=== PATIENT | male | born 1950 | race Caucasian/White ===

== ENCOUNTER → 2016-10-13 | Outpatient (CLI) | payer BC ==
[~2016-10-13] MED LIST: ACET500T57 PO; ATOR-24 PO; CEPH500C PO; CHOL2000 PO; CMD10 PO; CYAN500T PO; MAGN250T9 PO; PEDI1CHW82 PO; SERT-234 PO; SIMV40TA2 PO; WARF1TAB PO; WARF1TAB6 PO; WARF5TAB90 PO
[2016-10-13 12:18] LABS: BASO % 0.2 %; BASO ABS # 0.01 K/uL (0-0.2); COMPLETE YES; EOS % 3.8 %; HEMATOCRIT 42.9 % (42-52); IG% 0.2 %; LYMPH % 24.5 %; LYMPH ABS # 1.34 K/uL (1.2-3.4); MEAN CELL VOLUME 89.2 fL (80-100); MEAN CORPUSCULAR HEMOGLOBIN 28.9 pg (25-34); MEAN CORPUSCULAR HGB CONC 32.4 g/dl (32-36); MEAN PLATELET VOLUME 10.2 fL (7.4-10.4); MONO % 11.5 %; NEUT % 59.8 %; PLATELET COUNT 246 K/uL (130-400); RED BLOOD COUNT 4.81 M/uL (4.7-6.1); WHITE BLOOD COUNT 5.47 K/uL (4.8-10.8)
[2016-10-13 12:32] LABS: ALT/SGPT 22 U/L (12-78); AST/SGOT 16 U/L (15-37); BLOOD UREA NITROGEN 25 mg/dl (7-18); BUN/CREATININE RATIO 16.4 (10-20); CARBON DIOXIDE 26 mmol/L (21-32); CHLORIDE 113 mmol/L (98-107); GLUCOSE 65 mg/dl (70-99); POTASSIUM 4.1 mmol/L (3.5-5.1); SODIUM 146 mmol/L (136-145)
[2016-10-13 12:42] LABS: ALB/GLOB RATIO 0.9 (0.9-2); ALKALINE PHOSPHATASE 92 U/L (45-117)
[2016-10-13 12:51] LABS: ESTIMATED AVERAGE GLUCOSE 111 mg/dl; HA1C FLAG Normal (Normal)
--- NOTE | 2016-10-17 06:11 | CODING QUERY NO DIAGNOSIS ---
TREATMENT RENDERED WITHOUT A DIAGNOSIS Dr. Turpin, To promote full compliance with coding requirements relating to patient care, physician participation is requested in all cases of cloud infrastructure architect uncertainty. Please assist us with providing a diagnosis/symptom for the test(s) below: A diagnosis/symptom was not documented on your Order. A valid diagnosis/symptom is required to bill all insurances. Please remember that we are unable to code a diagnosis of rule out, probable, possible, questionable, or suspected. Tests that require a diagnosis: * CBC W/AUTO DIFF DIAGNOSIS: * CMP DIAGNOSIS: * GLYCOHEMOGLOBIN A1C DIAGNOSIS: * HA1C RESULT <7.0% DIAGNOSIS: * TSH DIAGNOSIS: * B12 VITAMIN LEVEL DIAGNOSIS: * VITAMIN D 25 HYRDROXY DIAGNOSIS: DATE OF SERVICE: 10/13/16 Provider Signature: Date: Thank you [facility] Information Management Once completed, please kindly fax back to [phone] For questions please call [phone]
--- NOTE | 2016-12-02 12:09 | CODING QUERY MEDICAL NECESSITY ---
CQSUPPORTING DIAGNOSIS NEEDED A supporting diagnosis is required for the test/procedure performed on this patient in order for us to be reimbursed by the patient's insurance. Please provide a supporting diagnosis for the following test/procedure listed below next to the test name along with your signature. *If there is no additional diagnosis for this patient that would support the following test/procedure please document that below next to the test/procedure. Test(s)/Procedure(s) that require a supporting diagnosis: DOS 10/13/16 VITAMIN D VITAMIN B12 Provider Signature: Date: Thank you [facility] Information Management Once completed, please kindly fax back to [phone] For questions please call [phone]
== END | disposition home or self-care (01) ==
LOC: C.LABBFT 09:04
PROVIDERS: ATTEND Internal Medicine Geriatric Medicine
DX: M19.90 Unspecified osteoarthritis, unspecified site (principal); F32.9 Major depressive disorder, single episode, unspecified; E78.5 Hyperlipidemia, unspecified; M10.9 Gout, unspecified; R73.9 Hyperglycemia, unspecified; I10 Essential (primary) hypertension; R91.8 Other nonspecific abnormal finding of lung field; G47.33 Obstructive sleep apnea (adult) (pediatric)

== ENCOUNTER → 2016-10-18 | Outpatient (CLI) | payer BC ==
[~2016-10-18] MED LIST changes: -ACET500T57 PO; -WARF5TAB90 PO
[2016-10-18 12:58] LABS: BLOOD UREA NITROGEN 26 mg/dl (7-18); BUN/CREATININE RATIO 19.9 (10-20); CALCIUM 9.2 mg/dl (8.5-10.1); CARBON DIOXIDE 28 mmol/L (21-32); CHLORIDE 111 mmol/L (98-107); GLUCOSE 85 mg/dl (70-99); POTASSIUM 4.4 mmol/L (3.5-5.1); SODIUM 145 mmol/L (136-145)
== END | disposition home or self-care (01) ==
LOC: C.LABBFT 09:39
PROVIDERS: ATTEND Internal Medicine Geriatric Medicine
DX: N20.0 Calculus of kidney (principal)

== ENCOUNTER → 2016-10-28 | Outpatient (CLI) | payer BC ==
[~2016-10-28] MED LIST changes: +ACET500T57 PO; +WARF5TAB90 PO
== END | disposition home or self-care (01) ==
LOC: C.LABBFT 07:58
PROVIDERS: ATTEND Urology
DX: N20.0 Calculus of kidney (principal); R91.8 Other nonspecific abnormal finding of lung field

== ENCOUNTER 2017-02-25 19:05 | Emergency (ER) | payer BC ==
[~2017-02-25] VITALS: Ht 182.9 cm; Wt 99.3 kg
[~2017-02-25 19:05] MED LIST changes: -ACET500T57 PO; -ATOR-24 PO; -CEPH500C PO; -CMD10 PO; -MAGN250T9 PO; -SERT-234 PO; -WARF1TAB6 PO; -WARF5TAB90 PO
[2017-02-25 19:10] VITALS: TEMP 36.4; Ht 182.9 cm; Wt 99.3 kg
[2017-02-25] MEDS ORDERED: WARF1TAB6 PO (19:34)
[2017-02-25] MEDS ORDERED: ATOR-24 PO (19:34)
[2017-02-25] MEDS ORDERED: MAGN250T9 PO (19:34)
[2017-02-25] MEDS ORDERED: SERT-234 PO (19:34)
[2017-02-25] MEDS ORDERED: CMD10 PO (19:34)
[2017-02-25] MEDS ORDERED: DIPHTHERIA/TETANUS/PERTUSSIS 0.5 ML SYR/VIAL IM. ONE (20:00)
--- NOTE | 2017-02-25 20:07 | DIAGNOSTIC IMAGING REPORT ---
RIGHT TIBIA/FIBULA 2 VIEWS ROUTINE CLINICAL HISTORY: Right puncture wound, right correa pain. COMPARISON: None FINDINGS: No acute fracture of the right tibia or fibula is identified. No radiopaque foreign bodies are identified. IMPRESSION: No acute fracture or radiopaque foreign body identified within the right lower leg. Electronically signed by: Ward Preston M.D. 02/25/2017 8:06 PM Dictated Date/Time: 02/25/2017 8:05 PM
[2017-02-25] MEDS ORDERED: CEPHALEXIN 500MG HOME PACK 1 EA BTL PO ONE (20:30)
--- NOTE | 2017-02-25 20:52 | DIAGNOSTIC IMAGING REPORT ---
CT OF THE HEAD WITHOUT CONTRAST CLINICAL HISTORY: Head injury, on coumadin COMPARISON STUDY: No previous studies for comparison. CT DOSE: 537.48 mGy.cm TECHNIQUE: Helical axial images of the head were obtained without IV contrast. Automated exposure control was utilized for the study. A dose lowering technique was utilized adhering to the principles of ALARA. FINDINGS: No acute intracranial hemorrhage, midline shift or mass effect is present. The ventricular system is normal. The basilar cisterns are patent. There are no extra-axial collections. Clancy-white differentiation is maintained. There is no calvarial fracture. There is mild mucosal thickening of the ethmoid sinuses. IMPRESSION: 1. No acute intracranial findings. 2. No calvarial fracture. Electronically signed by: Ward Preston M.D. 02/25/2017 8:51 PM Dictated Date/Time: 02/25/2017 8:49 PM
[2017-02-25] MEDS ORDERED: CEPH500C PO (20:55)
--- NOTE | 2017-02-25 20:57 | EMERGENCY ROOM VISIT NOTE ---
ED Visit Note First contact with patient: 19:13 CHIEF COMPLAINT: Head injury, puncture wound of right correa HISTORY OF PRESENT ILLNESS: This 66-year-old male patient presented to the emergency department 1 day after receiving a head injury and right correa puncture wound when he ran into a steel hitch. The patient states yesterday morning, he was pushing a steel cart, when the cart tipped. The patient states he ran into it with his head and his right correa. The patient states there has been a significant amount of bleeding over the past 24-36 hours. He has been using antibiotic ointment and gauze, however the bleeding and oozing continues. The patient is on Coumadin. The patient is complaining of soreness surrounding the lesion on his right correa. He denies redness or warmth, however does state the pain seems like it is worsening. Reports a heaviness in his right correa. There was no brief loss of consciousness. There has been no vomiting. The patient complains of primarily correa pain, and states this headache has been feeling fine since yesterday. The patient denies confusion, blurry vision, neck pain, altered mental status, and other associated head injury symptoms. The headache was present yesterday only. The patient complains of no neck pain. The patient has taken nothing for the pain. The patient rates the pain as 2/10 and throbbing. The patient denies bowel or bladder dysfunction. The patient denies any other injuries. REVIEW OF SYSTEMS: A 10-system review of systems was performed with positives and pertinent negatives listed in the history of present illness. All other systems were reviewed and are negative. ALLERGIES: Iodine MEDICATIONS: Warfarin, atorvastatin, sertraline, vitamin B12, multivitamin, vitamin D, magnesium supplement PMH: Hyperlipidemia, anxiety/depression, SOCIAL HISTORY: Lives locally with his family. He denies drug, alcohol, tobacco use. PHYSICAL EXAM: Vital Signs: Reviewed Nurse's notes, vital signs stable. GENERAL : 66-year-old male, in no acute distress, well-developed, well-nourished. NEURO : The patient is alert, oriented to person place and time, and coherent. Normal mini mental status exam. Negative Romberg and pronator drift. Cerebellar function intact. HEAD: Normocephalic, Atraumatic. EYES: Pupils are equal round and reactive to light and accommodation. EOMs are full and optic discs and fundi are normal. There is no swelling or discoloration of the tissue surrounding the eyes. EARS: External auditory canals clear without blood. NOSE: Patent without tenderness. No septal hematoma. FACE: No facial bone tenderness. NECK: Supple. There is no cervical spine tenderness. The patient does not have tenderness with movement of the neck. SKIN: Small puncture wound on the anterior aspect of the right correa. There is slight erythema surrounding the puncture wound. No obvious pus or active draining at this time. There is moderate tenderness on palpation of the wound and surrounding skin. MUSCULOSKELETAL: The patient does have full range of motion of the bilateral lower extremities. No decreased in strength. Distal pulses 2+ . RADIOLOGY: X-Ray Right lower leg: FINDINGS: No acute fracture of the right tibia or fibula is identified. No radiopaque foreign bodies are identified. IMPRESSION: No acute fracture or radiopaque foreign body identified within the right lower leg. CT Head without contrast: FINDINGS: No acute intracranial hemorrhage, midline shift or mass effect is present. The ventricular system is normal. The basilar cisterns are patent. There are no extra-axial collections. Clancy-white differentiation is maintained. There is no calvarial fracture. There is mild mucosal thickening of the ethmoid sinuses. IMPRESSION: 1. No acute intracranial findings. 2. No calvarial fracture. ED COURSE: I examined the patient. X-Ray of the right lower leg and CT scan of the head were ordered with results as previously noted. The patient's wound was cleaned with sterile saline and gauze. A bacitracin dressing was applied. The patient was given a Tdap immunization. I discussed all findings with the patient and his at bedside. Discussion with the patient and his regarding possible infection risk. The patient was discharged home in good condition ambulatory with a home pack for Keflex. DIFFERENTIAL DIAGNOSIS: Closed head injury or concussion, intracranial hemorrhage, right tibial fracture, cellulitis of the right leg, puncture wound, and others DIAGNOSIS: Head injury DISCHARGE INSTRUCTIONS: You have been treated in the Emergency Department for a Closed Head Injury. CT Scan of your head/brain demonstrated no acute bleeding or other abnormalities. This does not completely rule out the risk for future damage to the brain. You were prescribed Keflex to be taken 4x daily. This is an antibiotic. All antibiotics have the potential to cause diarrhea. Stop this medication and contact a medical provider if you were to develop any significant adverse side effects including: wheezing, shortness of breath, passing out, vomiting, or a diffuse rash. Always take antibiotics as directed and COMPLETE the ENTIRE course regardless of the improvement of your symptoms. For pain control, you can use the following mthb-iuz-elissag medicines (if >12 yo): - Regular strength (325mg/tab) Tylenol (acetaminophen) 2 tabs every 4-6 hours as needed. Do not exceed 9 tablets in a 24 hour period. Avoid taking more than 3 grams (3000 mg) of Tylenol per day. This includes any other sources of acetaminophen you may take on a regular basis. - Regular strength (200 mg/tab) Advil (ibuprofen) 1-2 tabs every 4-6 hours as needed. Do not exceed a dose of 3200 mg per day. You should relax in a quiet, dark place for the rest of the day. Avoid any possible triggers including: cigarette smoke, caffeine, nicotine, chocolate, wine, beer, loud noises or music, or bright lights. You should schedule a follow-up appointment in 2-3 days with your Primary Care Provider or established Neurologist for further evaluation and treatment of your Headache. Return to the Emergency Department if your current symptoms worsen despite treatment course outlined above, or if you develop any of the following symptoms : intractable pain despite aforementioned treatment course, visual disturbances , loss of vision, unilateral weakness or facial drooping, slurring of speech, loss of coordination, or loss of consciousness. Or if you experience fever, chills, nausea, vomiting, increased redness, pain, or drainage from the leg wound. Problem List Medical Problems: (1) GERD (gastroesophageal reflux disease) Status: Chronic (2) HTN (hypertension) Status: Chronic (3) Hyperlipidemia Status: Chronic (4) Kidney stone Status: Chronic (5) PE (pulmonary embolism) Status: Resolved Current/Historical Medications Scheduled Atorvastatin (Lipitor), 40 MG PO QAM Cephalexin Monohydrate (Keflex), 500 MG PO QID Cholecalciferol (Vitamin D3), 2,000 UNIT PO DAILY Cyanocobalamin (Vitamin B-12), 500 MCG PO DAILY Magnesium (Magnesium), 250 MG PO QPM Pediatric Multiple Vitamin W/ (Flintstones Gummies Compl), 1 TAB PO BID Sertraline (Zoloft), 100 MG PO QAM Warfarin Sod (Coumadin), 10 MG PO Q2D Warfarin Sod (Jantoven), 11 MG PO Q2D Allergies Coded Allergies: Shellfish (Unverified Allergy, Intermediate, ., 02/25/17) Iodine (Verified Allergy, Unknown, 10/06/15) Vital Signs Date Time Temp Pulse Resp B/P (MAP) Pulse Ox O2 Delivery O2 Flow Rate FiO2 02/25/17 19:10 36.4 65 18 156/71 96 Room Air Medications Administered Medications (Trade) Dose Ordered Sig/Ulises Route Start Time Stop Time Status Last Admin Dose Admin Diphtheria/ Pertussis/Tetanus Vacc (Adacel Inj) 0.5 ml ONCE ONCE IM. 02/25/17 20:00 02/25/17 20:01 DC 02/25/17 20:00 0.5 ML Cephalexin Monohydrate (Keflex 500MG Home Pack) 1 homepack NOW ONCE PO 02/25/17 20:30 02/25/17 20:31 DC 02/25/17 20:47 1 HOMEPACK Departure Information Impression Primary Impression: Puncture wound of right leg excluding thigh Additional Impression: Head injury Dispostion Home / Self-Care Condition GOOD Prescriptions Cephalexin Monohydrate (Keflex) 500 Mg Cap 500 MG PO QID for 10 Days, #40 CAP Prov: Sharon Dean PA-C 02/25/17 Referrals Anthony Turpin M.D. (PCP) Patient Instructions ED Head Injury Closed, ED Infec Skin Cellulitis, [facility] Additional Instructions You have been treated in the Emergency Department for a Closed Head Injury. CT Scan of your head/brain demonstrated no acute bleeding or other abnormalities. This does not completely rule out the risk for future damage to the brain. You were prescribed Keflex to be taken 4x daily. This is an antibiotic. All antibiotics have the potential to cause diarrhea. Stop this medication and contact a medical provider if you were to develop any significant adverse side effects including: wheezing, shortness of breath, passing out, vomiting, or a diffuse rash. Always take antibiotics as directed and COMPLETE the ENTIRE course regardless of the improvement of your symptoms. For pain control, you can use the following cbyz-vzr-jrtmcpj medicines (if >12 yo): - Regular strength (325mg/tab) Tylenol (acetaminophen) 2 tabs every 4-6 hours as needed. Do not exceed 9 tablets in a 24 hour period. Avoid taking more than 3 grams (3000 mg) of Tylenol per day. This includes any other sources of acetaminophen you may take on a regular basis. - Regular strength (200 mg/tab) Advil (ibuprofen) 1-2 tabs every 4-6 hours as needed. Do not exceed a dose of 3200 mg per day. You should relax in a quiet, dark place for the rest of the day. Avoid any possible triggers including: cigarette smoke, caffeine, nicotine, chocolate, wine, beer, loud noises or music, or bright lights. You should schedule a follow-up appointment in 2-3 days with your Primary Care Provider or established Neurologist for further evaluation and treatment of your Headache. Return to the Emergency Department if your current symptoms worsen despite treatment course outlined above, or if you develop any of the following symptoms : intractable pain despite aforementioned treatment course, visual disturbances , loss of vision, unilateral weakness or facial drooping, slurring of speech, loss of coordination, or loss of consciousness. Or if you experience fever, chills, nausea, vomiting, increased redness, pain, or drainage from the leg wound. Problem Qualifiers Primary Impression: Puncture wound of right leg excluding thigh Encounter type: initial encounter Qualified Codes: S81.831A - Puncture wound without foreign body, right lower leg, initial encounter Additional Impression: Head injury Encounter type: initial encounter Qualified Codes: S09.90XA - Unspecified injury of head, initial encounter
--- NOTE | 2017-02-25 21:02 | EMERGENCY ROOM VISIT NOTE ---
ED Visit Note First contact with patient: 21:01 This Patient was discussed with the physician pastry assistant, Sharon Dean PA-C. The pertinent historical and physical exam findings were confirmed. I agree with the studies ordered and with the interpretations of these studies. I agree with the disposition and care plan.
[2017-02-25 21:16] VITALS: BP 150/62; PULSE 60; O2SAT 98
== END 2017-02-25 21:17 | disposition home or self-care (01) ==
LOC: C.EDB 19:07 → C.EDD 21:17
DX: S81.831A Puncture wound without foreign body, right lower leg, initial encounter (principal); S09.90XA Unspecified injury of head, initial encounter; Z79.01 Long term (current) use of anticoagulants; W22.8XXA Striking against or struck by other objects, initial encounter; I10 Essential (primary) hypertension; E78.5 Hyperlipidemia, unspecified; Z86.711 Personal history of pulmonary embolism; Z79.899 Other long term (current) drug therapy

== ENCOUNTER → 2017-03-14 | Outpatient (CLI) | payer BC ==
[~2017-03-14] MED LIST changes: +ATOR-24 PO; +CMD10 PO; +MAGN250T9 PO; +SERT-234 PO; -SIMV40TA2 PO; -WARF1TAB PO; +WARF1TAB6 PO
--- NOTE | 2017-03-14 16:57 | DIAGNOSTIC IMAGING REPORT ---
PELVIS 1 OR 2 VIEW ROUTINE CLINICAL HISTORY: Pelvis and left hip pain status post trauma COMPARISON STUDY: No previous studies for comparison. FINDINGS: No fractures are visualized. The joint space of each hip appears well-preserved for age. There is no nodes of SI joint diastases. There is no evidence of symphysis diastases. IMPRESSION: No fractures identified. Electronically signed by: Dallas Nolasco M.D. 03/14/2017 4:56 PM Dictated Date/Time: 03/14/2017 4:55 PM
--- NOTE | 2017-03-14 16:59 | DIAGNOSTIC IMAGING REPORT ---
LUMBAR SPINE 2 OR 3 VIEWS CLINICAL HISTORY: Low back pain and hip pain. COMPARISON STUDY: 02/25/2015 FINDINGS: There is no pathologic bowel dilatation. There are superior endplate deformities at the L1 and L2 level. These are felt to be old. There are no subluxations. There is bilateral nephrolithiasis. IMPRESSION: 1. Superior endplate L1 and L2 vertebral body deformities, which are likely old. 2. Bilateral nephrolithiasis Electronically signed by: Dallas Nolasco M.D. 03/14/2017 4:58 PM Dictated Date/Time: 03/14/2017 4:56 PM
== END | disposition home or self-care (01) ==
LOC: C.RAD 16:25
PROVIDERS: ATTEND Chiropractor
DX: M54.16 Radiculopathy, lumbar region (principal); N20.0 Calculus of kidney

== ENCOUNTER → 2017-03-20 | Outpatient (CLI) | payer BC ==
[2017-03-20 17:36] LABS: BLOOD UREA NITROGEN 30 mg/dl (7-18); BUN/CREATININE RATIO 24.8 (10-20); CALCIUM 8.6 mg/dl (8.5-10.1); CARBON DIOXIDE 30 mmol/L (21-32); CHLORIDE 111 mmol/L (98-107); GLUCOSE 75 mg/dl (70-99); SODIUM 147 mmol/L (136-145)
== END | disposition home or self-care (01) ==
LOC: C.LABBFT 14:25
PROVIDERS: ATTEND Internal Medicine Geriatric Medicine
DX: Z00.00 Encounter for general adult medical examination without abnormal findings (principal)

== ENCOUNTER → 2017-03-27 | Outpatient (CLI) | payer BC ==
[~2017-03-27] MED LIST changes: +GADAVIST IV PRN
--- NOTE | 2017-03-27 08:20 | DIAGNOSTIC IMAGING REPORT ---
MRI LUMBAR SPINE COMBINATION CLINICAL HISTORY: M54.17,R29.898 LEFT LEG WEAKNESS. LEFT HIP PAIN. LEFT-SIDED RADICULOPATHY. TECHNIQUE: Sagittal and axial T1, T2 and STIR images were obtained. Imaging was performed before and after the administration of 10 cc of intravenous Gadavist. COMPARISON STUDY: Conventional radiographic study dated 03/14/2017, MRI the lumbar spine dated 04/21/2008 OBSERVATIONS: The vertebral bodies and posterior elements appear intact. There is no abnormal bony signal present to suggest a marrow replacement process. There is an old superior endplate L1 compression deformity. There is scattered focal fatty rests/hemangiomas. L1-2: No disc protrusions or extrusions. No evidence of spinal canal or neural foraminal compromise. L2-3: No disc protrusions or extrusions. No evidence of spinal canal or neural foraminal compromise. L3-4: There is a mild circumferential disc bulge. There is no significant spinal or foraminal stenosis L4-5: There is a mild circumferential disc bulge. There is no significant spinal or foraminal stenosis L5-S1: No disc protrusions or extrusions. No evidence of spinal canal or neural foraminal compromise. The conus medullaris and cauda equina appear normal. There are no pathologically enhancing lesions. There are bilateral renal cysts. IMPRESSION: 1. Old superior endplate L1 compression deformity 2. Minor degenerative changes with minor disc bulges at the L3-4, and L4-5 levels. Electronically signed by: Dallas Nolasco M.D. 03/27/2017 8:19 AM Dictated Date/Time: 03/27/2017 8:14 AM
== END | disposition home or self-care (01) ==
LOC: C.MRI 07:16
PROVIDERS: ATTEND Internal Medicine Geriatric Medicine
DX: M54.17 Radiculopathy, lumbosacral region (principal); R29.898 Other symptoms and signs involving the musculoskeletal system

== ENCOUNTER → 2017-05-02 | Outpatient (CLI) | payer BC ==
[~2017-05-02] MED LIST changes: -GADAVIST IV PRN
[2017-05-02 12:27] LABS: BASO % 0.2 %; BASO ABS # 0.01 K/uL (0-0.2); COMPLETE YES; EOS % 2.3 %; HEMATOCRIT 45.3 % (42-52); LYMPH % 37.2 %; LYMPH ABS # 1.62 K/uL (1.2-3.4); MEAN CELL VOLUME 90.8 fL (80-100); MEAN CORPUSCULAR HEMOGLOBIN 28.9 pg (25-34); MEAN CORPUSCULAR HGB CONC 31.8 g/dl (32-36); MEAN PLATELET VOLUME 10.8 fL (7.4-10.4); MONO % 12.6 %; NEUT % 47.7 %; PLATELET COUNT 166 K/uL (130-400); RED BLOOD COUNT 4.99 M/uL (4.7-6.1); WHITE BLOOD COUNT 4.35 K/uL (4.8-10.8)
[2017-05-02 12:54] LABS: BLOOD UREA NITROGEN 19 mg/dl (7-18); BUN/CREATININE RATIO 17.5 (10-20); CALCIUM 8.9 mg/dl (8.5-10.1); CARBON DIOXIDE 28 mmol/L (21-32); CHLORIDE 109 mmol/L (98-107); CHOLESTEROL 137 mg/dl (0-200); GLUCOSE 85 mg/dl (70-99); POTASSIUM 4.1 mmol/L (3.5-5.1); SODIUM 143 mmol/L (136-145)
[2017-05-02 13:01] LABS: CHOLESTEROL/HDL RATIO 2.5; HDL CHOLESTEROL 54 mg/dl; LDL CHOLESTEROL CALCULATED 72 mg/dl; TRIGLYCERIDES 53 mg/dl (0-150); VERY LOW DENSITY LIPOPROT CALC 11 mg/dl
== END | disposition home or self-care (01) ==
LOC: C.LABBFT 09:19
PROVIDERS: ATTEND Internal Medicine Geriatric Medicine
DX: F32.9 Major depressive disorder, single episode, unspecified (principal); I10 Essential (primary) hypertension; E78.5 Hyperlipidemia, unspecified; R97.20 Elevated prostate specific antigen [PSA]

== ENCOUNTER → 2017-05-23 | Outpatient (CLI) | payer BC ==
--- NOTE | 2017-05-23 13:13 | DIAGNOSTIC IMAGING REPORT ---
CT SCAN OF THE CHEST WITHOUT IV CONTRAST CLINICAL HISTORY: Multiple pulmonary nodules. COMPARISON STUDY: Chest CT scans dated 05/16/2016, 04/30/2014, and 06/17/2013. TECHNIQUE: CT scan of the thorax was performed from the thoracic inlet to the upper abdomen. Images are reviewed in the axial, sagittal, and coronal planes. IV contrast was not administered for this examination. A dose lowering technique was utilized adhering to the principles of ALARA. CT DOSE: 866.77 mGy.cm FINDINGS: Thyroid: Imaged portions of the thyroid gland are normal in size and attenuation. Thoracic aorta: There is atherosclerotic calcification of the thoracic aorta , which is normal in caliber and demonstrates standard 3-vessel arch anatomy. Heart: The heart is normal in size and without pericardial effusion. The coronary arteries are densely calcified. Lungs and pleural spaces: The trachea and central airways are clear. There is no airspace consolidation or pleural effusion. A fat-containing Bochdalek hernia is seen at the left lung base. There are numerous calcified granulomas identified. There is a 3 mm noncalcified nodule in the left lower lobe seen on image #158. A 3 mm right upper lobe nodule is seen on image #152, and a 4 mm right upper lobe nodule along the right heart border is seen on image #154. These are unchanged from prior studies and of doubtful significance. No new or concerning pulmonary nodule is identified. Mediastinum: There is no mediastinal lymphadenopathy. Karishma: Not well assessed without IV contrast. Axillae: There is no axillary lymphadenopathy. Upper abdomen: The partially visualized kidneys are atrophic. There are numerous small bilateral nonobstructing renal calculi. Cysts are seen within the upper poles of both kidneys. There is a moderate hiatal hernia, and postoperative change is seen in the stomach. Skeletal structures: The skeletal structures are osteopenic. There is a mild compression deformity of L1. A large hemangioma is seen in the body of T12. No lytic or blastic bony lesions are seen. IMPRESSION: 1. There is no airspace consolidation or pleural effusion. 2. There are scattered noncalcified pulmonary nodules measuring up to 4 mm. These are unchanged dating back to 2013 and of doubtful significance. Numerous calcified granulomas are also unchanged. 3. No new or concerning pulmonary lesion is identified. 4. There are numerous small bilateral nonobstructing renal calculi. Electronically signed by: Gabriel Cuba M.D. 05/23/2017 1:12 PM Dictated Date/Time: 05/23/2017 1:04 PM
== END | disposition home or self-care (01) ==
LOC: C.CTS 12:46
PROVIDERS: ATTEND Internal Medicine Geriatric Medicine
DX: R91.8 Other nonspecific abnormal finding of lung field (principal); N20.0 Calculus of kidney

== ENCOUNTER → 2017-11-22 | Outpatient (CLI) | payer BC ==
[~2017-11-22] MED LIST changes: +ACET500T58 PO; -WARF1TAB6 PO; +WARF5TAB90 PO
[2017-11-22 17:11] LABS: BASO % 0.2 %; BASO ABS # 0.01 K/uL (0-0.2); EOS % 1.9 %; EOS ABS # 0.12 K/uL (0-0.5); HEMATOCRIT 42.5 % (42-52); HEMOGLOBIN 14.1 g/dL (14.0-18.0); IG# 0.01 K/uL (0.00-0.02); LYMPH % 25.7 %; LYMPH ABS # 1.65 K/uL (1.2-3.4); MEAN CELL VOLUME 90.4 fL (80-100); MEAN CORPUSCULAR HGB CONC 33.2 g/dl (32-36); MEAN PLATELET VOLUME 10.6 fL (7.4-10.4); MONO % 8.9 %; MONO ABS # 0.57 K/uL (0.11-0.59); NEUT % 63.1 %; NEUT ABS # 4.06 K/uL (1.4-6.5); PLATELET COUNT 164 K/uL (130-400); RED CELL DISTRIBUTION WIDTH SD 49.7 fL (36.4-46.3); WHITE BLOOD COUNT 6.42 K/uL (4.8-10.8)
[2017-11-22 18:52] LABS: BLOOD UREA NITROGEN 28 mg/dl (7-18); CREATININE 1.33 mg/dl (0.60-1.40); GLUCOSE 90 mg/dl (70-99)
[2017-11-22 18:53] LABS: ALBUMIN 3.4 gm/dl (3.4-5.0); CALCIUM 8.6 mg/dl (8.5-10.1); CARBON DIOXIDE 25 mmol/L (21-32); POTASSIUM 3.8 mmol/L (3.5-5.1); SODIUM 145 mmol/L (136-145); URIC ACID 4.9 mg/dl (2.6-7.2)
[2017-11-22 19:01] LABS: ALKALINE PHOSPHATASE 100 U/L (45-117); ALT/SGPT 32 U/L (12-78); AST/SGOT 31 U/L (15-37); TOTAL PROTEIN 6.8 gm/dl (6.4-8.2)
== END | disposition home or self-care (01) ==
LOC: C.LABBFT 14:33
PROVIDERS: ATTEND Internal Medicine Geriatric Medicine
DX: I10 Essential (primary) hypertension (principal); M19.90 Unspecified osteoarthritis, unspecified site; E78.5 Hyperlipidemia, unspecified; R73.9 Hyperglycemia, unspecified; N40.1 Benign prostatic hyperplasia with lower urinary tract symptoms; R97.20 Elevated prostate specific antigen [PSA]; M10.9 Gout, unspecified

== ENCOUNTER 2018-08-12 11:19 | Inpatient (IN) ==
[2018-08-12] MEDS ORDERED: ONDANSETRON INJ 2 MG/ML 2 ML VIAL IV STA (11:30)
[2018-08-12] MEDS ORDERED: ACETAMINOPHEN 1,000 MG/100 ML VIAL IV ONE (11:30)
[2018-08-12] MEDS ORDERED: SODIUM CHLORIDE 0.9% 1000ML 2,000 ML IV SCH (11:30)
[2018-08-12 11:39] LABS: Basophils # (auto) 0.03 K/uL (0-0.2); Basophils % (auto) 0.2 %; Eosinophils # (auto) 3.07 K/uL (0-0.5); Eosinophils % (auto) 22.5 %; Hematocrit (blood only) 51.5 % (42-52); Immature Granulocytes # (auto) 0.06 K/uL (0.00-0.02); Immature Granulocytes % (auto) 0.4 %; Lymphocytes # (auto) 1.91 K/uL (1.2-3.4); Mean Platelet Volume 10.7 fL (7.4-10.4); Monocytes % (auto) 5.9 %; Neutrophils # (auto) 7.75 K/uL (1.4-6.5); Platelet Count 168 K/uL (130-400); RDW Coefficient of Variation 14.9 % (11.5-14.5); RDW Standard Deviation 48.7 fL (36.4-46.3); Red Blood Count 5.72 M/uL (4.7-6.1); White Blood Count 13.62 K/uL (4.8-10.8)
[2018-08-12 11:51] LABS: Prothrombin Time 52.1 Seconds (9.0-12.0)
[2018-08-12 11:55] LABS: Alanine Aminotransferase 22 U/L (12-78); Albumin Level 3.1 gm/dl (3.4-5.0); Aspartate Aminotransferase 17 U/L (15-37); BUN Creatinine Ratio 13.7 (10-20); Bilirubin Direct < 0.1 mg/dl (0-0.2); Blood Urea Nitrogen 21 mg/dl (7-18); Calcium 8.9 mg/dl (8.5-10.1); Carbon Dioxide 21 mmol/L (21-32); Chloride 112 mmol/L (98-107); Creatinine Clr Calc Pharmacy 57.2 ml/min; Est GFR (African American) 54.7; Est GFR (Non-African American) 47.2; Glucose 125 mg/dl (70-99); Magnesium 1.7 mg/dl (1.8-2.4); Potassium 3.1 mmol/L (3.5-5.1); Sodium 145 mmol/L (136-145)
[2018-08-12 11:57] LABS: iSTAT Ionized Calcium 1.17 mmol/l (1.12-1.32)
[2018-08-12 11:59] LABS: Albumin Globulin Ratio 0.9 (0.9-2); Alkaline Phosphatase 126 U/L (45-117); Bilirubin,Total 0.3 mg/dl (0.2-1); Creatine Kinase 90 U/L (39-308); Globulin 3.6 gm/dl (2.5-4.0); INR 5.7 (0.9-1.1); Phosphorus 3.3 mg/dl (2.5-4.9); Total Protein 6.7 gm/dl (6.4-8.2); Troponin I < 0.015 ng/ml (0-0.045)
--- NOTE | 2018-08-12 12:06 | XRay Report ---
XR chest 1V portable CLINICAL HISTORY: Chest pain. COMPARISON STUDY: Chest CT May 23, 2017. FINDINGS: There is no pneumothorax or pleural effusion. Cardiomediastinal silhouette is stable. There is a probable hiatal hernia. There is no evidence for pulmonary edema. Mild left basilar opacity fav ors atelectasis. IMPRESSION: 1. No acute cardiopulmonary findings. 2. Mild left lower lung opacity which favors atelectasis. Electronically signed by: Ward Preston M.D. 08/12/2018 12:04 PM
[2018-08-12] MEDS ORDERED: POTASSIUM CHLORIDE / WTR 10 MEQ/100 ML PLCT IV STA (12:29)
--- NOTE | 2018-08-12 12:45 | History & Physical Report ---
Date of Service August 12, 2018 Assessment & Plan (1) Pancreatitis: Patient is elevation of his lipase to 2000 he had diarrhea he has no specific pain consistent with pancreatitis and a CT scan is unremarkable for inflammation of the pancreas. We will keep him without food hydrated with lactated Ringer's repeat lipase in the morning he has no elevation of his LFTs to suggest this would be cholestatic related or choledocholithiasis related pancreatitis he may benefit from an endoscopy with EUS to look for pancreatic divisum or an I PMN (2) Diarrhea: Patient had intermittent diarrhea for months according to the patient. He does have a variable diet only eating protein with very little fiber. He has seen a dietitian in the past. His diarrhea has been dark because he is taking this med. We will culture this for C. difficile and enteric's. Given his coagulopathy and presentation we will check a hemoglobin in the afternoon and also have him on Protonix She has hypokalemia hypomagnesemia and acute kidney injury due to his volume depletion from his diarrhea he will be volume resuscitated with lactated Ringer' s have his electrolyte is replaced and will be rechecked in the morning (3) Coagulopathy: Patient started his Coumadin dose which is fairly robust at 10 2 days a week and 7.5 all other days after his colonoscopy. Patient had a poor diet over the last 48 hours his INR is markedly elevated 5.7 we will give him a dose of 2.5 mg of vitamin K p.o. and hold his Coumadin following daily INRs he has no overt signs of bleeding but he does have the confounding dark bowel movements associated with Pepto-Bismol use. 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 The patient has had diarrhea for a few months. He does have a fairly altered diet given the fact that he status post gastric sleeve and he has very little carbohydrates or vegetables in his diet he typically eats high protein diet including protein shakes and protein drinks. Patient had a colonoscopy on by Dr. Krishna reportedly only with a few polyps and nothing significant. Subsequently he has not been unable to resume his diet since then, patient had a half a bagel and some soft drink this morning got intense abdominal pain and then had voluminous diarrhea he presented to the ER where he had a CT scan of his abdomen pelvis without significant abnormalities but had a lipase of 2000, potassium 3 1 magnesium 1.7 and an INR of 5.7 (he takes Coumadin for factor V Leiden deficiency) Over the last 2 days patient is also taking Pepto-Bismol at home he has had black bowel movement since that time but his hemoglobin on presentation was 17 g Allergies Allergy/AdvReac Type Severity Reaction Status Date / Time shellfish derived Allergy Intermediate Anaphylaxis Verified 08/12/18 11:44 iodine Allergy Unknown Verified 08/12/18 11:44 Home Medications Home Medications Medication Instructions Recorded Confirmed Type cholecalciferol (vitamin D3) 2,000 unit PO DAILY #0 10/06/15 08/12/18 History [Vitamin D3] cyanocobalamin (vitamin B-12) 500 mcg PO DAILY #0 10/06/15 08/12/18 History [Vitamin B-12] pediatric multivitamin 1 tab PO BID #0 10/06/15 08/12/18 History [Flintstones Multivitamin] atorvastatin [Lipitor] 40 mg PO QAM #0 02/25/17 08/12/18 History magnesium 250 mg PO QPM #0 02/25/17 08/12/18 History sertraline [Zoloft] 100 mg PO QAM #0 02/25/17 08/12/18 History acetaminophen 500 mg tablet 1,000 mg PO BID PRN tab 05/03/18 08/12/18 History warfarin 5 mg tablet See Label Instructions PO UD tab 07/12/18 08/12/18 History Past Med/Surg History Medical History GERD (gastroesophageal reflux disease) (Chronic) Hyperlipidemia (Chronic) PE (pulmonary embolism) (Resolved) Postoperative anemia (Acute) Factor V deficiency Pulmonary embolism APPROX 5 YEARS AGO. PT REMAINS ON WARFARIN Surgical History History of colonoscopy History of gastric bypass GASTRIC SLEEVE History of herniorrhaphy INCISIONAL History of laparoscopy OPEN LAP FOR COMPLICATION FOLLOWING GASTRIC SURGERY History of surgery LEFT ELBOW REPAIR Family History Other Family history of colon cancer Social History Current Living Situation: Spouse current occupational status: retired Feels Safe at Home: Yes Smoking Status: Former smoker Second Hand Exposure: No Hx Alcohol Use: No Hx Substance Use: No Beliefs That Will Affect Care: None Preferred Language: Maldivian Communication Ability: Effective Review of Systems ROS: well nourished well developed. he complains of mild distress No double vision blurry vision No problems with speech or swallowing No palpitations, chest pain or pressure No Wheezing or breathing issues Diffuse abdominal pain he has had no vomiting but mild nausea and persistent diarrhea has been black but he has taken bismuth No burning urine urine frequency or changes in color No focal joint pain or muscle pain No skin rashes or oral lesions No unusual bruising or bleeding No focused back pain or numbness or loss of strength No changes in memory or confusion Physical Exam 2 Vital Signs (Past 24 Hours): Last Vital Signs Temp 36.8 C 08/12/18 11:32 Pulse 68 08/12/18 12:26 Resp 11 L 08/12/18 12:26 BP 128/66 08/12/18 12:26 Pulse Ox 94 08/12/18 12:26 The patient appeared well nourished and normally developed. He is in mild distress Vital signs as documented. Are stable Head exam is unremarkable. No scleral icterus or corneal arcus noted Neck is without jugular venous distension, thyromegaly, or lymphademopathy Lungs are clear to auscultation and percussion. Cardiac exam reveals Rhythm is regular. First and second heart sounds normal. No murmurs, rubs or gallops. Abdominal exam reveals normal bowel sounds, no masses, no organomegaly he has very little tenderness to exam no guarding no rebound Extremities are nonedematous and both pedal pulses are normal. Neurologic exam is A&Ox3, no focal deficits, strength is equal bilateral Skin is warm Dry without bruises or lesions Results & Data Diagnostic Findings cxr shows mild LLL opacity that favors atelectasis CT ABD/PELVIS 1. No free air. 2. Mildly fluid-filled colon which may reflect a diarrheal state. No bowel obstruction. 3. Bilateral nephrolithiasis. No hydronephrosis or ureteral calculi. renal cysts suggested
--- NOTE | 2018-08-12 12:48 | CT Scan Report ---
CT OF THE ABDOMEN AND PELVIS WITHOUT CONTRAST CLINICAL HISTORY: Abdominal pain. Diarrhea. Colonoscopy one week ago. COMPARISON STUDY: CT of the abdomen and pelvis October 06, 2015. TECHNIQUE: Axial images of the abdomen and pelvis were obtained without IV contrast. Images were revi ewed in the axial, sagittal, and coronal planes. Automated exposure control was utilized for the any dy. A dose lowering technique was utilized adhering to the principles of ALARA. FINDINGS: Calcified granuloma within the right lower lobe is noted. A hiatal hernia is noted. There a re postoperative findings involving the stomach. No pneumatosis, free air or portal venous gas is pre sent. Unenhanced images of the liver, spleen, adrenal glands and pancreas are unremarkable. Evaluatio n is suboptimal on this unenhanced exam. Water attenuation bilateral renal lesions are suboptimally a ssessed on this unenhanced exam. However, these favor cysts. A few hypodense lesions are unchanged fr om earlier exams. These favor a hyperdense cyst. Multiple bilateral renal calculi measure up to 8 mm. There is no hydronephrosis. There are no ureteral calculi. There is no evidence for a bowel obstruct ion. The appendix is normal. There are suspected endoscopic clip within the cecum. Colon is mildly fl uid-filled. IMPRESSION: 1. No free air. 2. Mildly fluid-filled colon which may reflect a diarrheal state. No bowel obstruction. 3. Bilateral nephrolithiasis. No hydronephrosis or ureteral calculi. Electronically signed by: Ward Preston M.D. 08/12/2018 12:46 PM
[2018-08-12] MEDS: SODIUM CHLORIDE 0.9% 1000ML 1,000 ML IV SCH (13:24)
[2018-08-12] MEDS: MAGNESIUM SULFATE / D5W 1 GM/100 ML BAG IV SCH ×2 (13:25→16:06)
[2018-08-12] MEDS ORDERED: MoRPHine SULFATE 4 MG/ML 1 ML CARP\\VIAL IV PRN (14:36)
[2018-08-12] MEDS ORDERED: MoRPHine SULFATE 2 MG/ML CARP IV PRN (14:36)
[2018-08-12] MEDS ORDERED: PHYTONADIONE 5 MG TAB PO ONE (15:00)
--- NOTE | 2018-08-12 15:27 | Emergency Department Note ---
Entered by Ricarda Cast acting as a scribe for History of Present Illness General Chief complaint: Illness Time Seen by Provider: 08/12/18 11:20 Source: patient and other (nurse) Mode of arrival: EMS Limitations: other (weakness) History of Present Illness Provider complaint: Weakness Onset (ago): week(s) 1 Pain Consistency: + other (worsening) Quality: + other (weakness) Relieved By: + none Associated symptoms: + chest pain, + nausea/vomiting, + shortness of breath and + other (Additional symptoms: diarrhea, abdominal pain) The patient is a 68 year old male with a history of GERD, hypertension, hyperlipidemia, a PE, and anemia who presents to the Emergency Room with complaints of worsening weakness starting last week. Per nurse, the patient had a colonoscopy last week and has been experiencing persistent nausea, vomiting, and 8-9 episodes diarrhea every day since. She adds that the patient also complained of shortness of breath and chest pressure prior to being found unresponsive today. The patient currently complains of abdominal pain and slight nausea. He notes that he has not taken any recent antibiotics but took bowel prep prior to his colonoscopy and is on Coumadin. He also reports that he is not normally on O2 at home and that he still has his gallbladder. HPI limited secondary to weakness. Home Medications Home Medications Medication Instructions Recorded Confirmed Type cholecalciferol (vitamin D3) 2,000 unit PO DAILY #0 10/06/15 08/12/18 History [Vitamin D3] cyanocobalamin (vitamin B-12) 500 mcg PO DAILY #0 10/06/15 08/12/18 History [Vitamin B-12] pediatric multivitamin 1 tab PO BID #0 10/06/15 08/12/18 History [Flintstones Multivitamin] atorvastatin [Lipitor] 40 mg PO QAM #0 02/25/17 08/12/18 History magnesium 250 mg PO QPM #0 02/25/17 08/12/18 History sertraline [Zoloft] 100 mg PO QAM #0 02/25/17 08/12/18 History acetaminophen 500 mg tablet 1,000 mg PO BID PRN tab 05/03/18 08/12/18 History warfarin 5 mg tablet See Label Instructions PO UD tab 07/12/18 08/12/18 History Allergies Allergy/AdvReac Type Severity Reaction Status Date / Time shellfish derived Allergy Intermediate Anaphylaxis Verified 08/12/18 11:44 iodine Allergy Unknown Verified 08/12/18 11:44 Past Med/Surg History Medical History GERD (gastroesophageal reflux disease) (Chronic) Hyperlipidemia (Chronic) PE (pulmonary embolism) (Resolved) Postoperative anemia (Acute) Factor V deficiency Pulmonary embolism APPROX 5 YEARS AGO. PT REMAINS ON WARFARIN Surgical History History of colonoscopy History of gastric bypass GASTRIC SLEEVE History of herniorrhaphy INCISIONAL History of laparoscopy OPEN LAP FOR COMPLICATION FOLLOWING GASTRIC SURGERY History of surgery LEFT ELBOW REPAIR Family History Other Family history of colon cancer Social History Current Living Situation: Spouse current occupational status: retired Other Information That Helps Us Care for You: No Feels Safe at Home: Yes Safety Concerns: Feels Safe At This Time Smoking Status: Never smoker Do You Dip or Chew Tobacco: No Second Hand Exposure: No Tobacco Cessation Education Requested by Patient: No Hx Alcohol Use: No Hx Substance Use: No Beliefs That Will Affect Care: Mandaeism Preferred Language: Tamazight Communication Ability: Effective Clinical Science Consultant Required: No Review of Systems Other (Limited secondary to weakness) Physical Exam Vital Signs Vital Signs - 24 hr 08/12/18 11:24 08/12/18 11:27 08/12/18 11:28 Temperature Temperature Source Sepsis Recent Fever Within 48 Hours Sepsis New/Unexplained Change in Mental Status Sepsis Action Taken by Nursing Pulse Rate 95 H 90 85 Pulse Rate [Left Brachial] Pulse Rhythm Regular Pulse Strength Respiratory Rate 25 H 14 20 Respiratory Effort / Characteristics Respiratory Depth Respiratory Pattern Blood Pressure 126/81 Blood Pressure [Left Arm] Blood Pressure Mean 96 Blood Pressure Mean [Left Arm] Blood Pressure Position Blood Pressure Position [Left Arm] Pulse Oximetry 94 94 93 Oxygen Delivery Method Room Air 08/12/18 11:30 08/12/18 11:31 08/12/18 11:32 Temperature 36.8 C Temperature Source Oral Sepsis Recent Fever Within 48 Hours No Sepsis New/Unexplained Change in Mental Status No Sepsis Action Taken by Nursing No Action Required Pulse Rate 86 88 87 Pulse Rate [Left Brachial] Pulse Rhythm Regular Pulse Strength Normal Respiratory Rate 11 L 18 20 Respiratory Effort / Characteristics Non-Labored Respiratory Depth Normal Respiratory Pattern Regular Blood Pressure 131/76 126/81 Blood Pressure [Left Arm] Blood Pressure Mean 94 96 Blood Pressure Mean [Left Arm] Blood Pressure Position Lying Blood Pressure Position [Left Arm] Pulse Oximetry 94 95 93 Oxygen Delivery Method Room Air 08/12/18 12:00 08/12/18 12:01 08/12/18 12:26 Temperature Temperature Source Sepsis Recent Fever Within 48 Hours Sepsis New/Unexplained Change in Mental Status Sepsis Action Taken by Nursing Pulse Rate 76 81 68 Pulse Rate [Left Brachial] Pulse Rhythm Pulse Strength Respiratory Rate 11 L 12 11 L Respiratory Effort / Characteristics Respiratory Depth Respiratory Pattern Blood Pressure 123/67 128/66 Blood Pressure [Left Arm] Blood Pressure Mean 85 86 Blood Pressure Mean [Left Arm] Blood Pressure Position Blood Pressure Position [Left Arm] Pulse Oximetry 95 96 94 Oxygen Delivery Method 08/12/18 12:27 08/12/18 12:30 08/12/18 13:22 Temperature Temperature Source Sepsis Recent Fever Within 48 Hours Sepsis New/Unexplained Change in Mental Status Sepsis Action Taken by Nursing Pulse Rate 71 69 81 Pulse Rate [Left Brachial] Pulse Rhythm Pulse Strength Respiratory Rate 14 13 8 L Respiratory Effort / Characteristics Respiratory Depth Respiratory Pattern Blood Pressure Blood Pressure [Left Arm] Blood Pressure Mean Blood Pressure Mean [Left Arm] Blood Pressure Position Blood Pressure Position [Left Arm] Pulse Oximetry 93 92 Oxygen Delivery Method 08/12/18 13:24 08/12/18 13:30 08/12/18 14:00 Temperature Temperature Source Sepsis Recent Fever Within 48 Hours Sepsis New/Unexplained Change in Mental Status Sepsis Action Taken by Nursing Pulse Rate 73 79 75 Pulse Rate [Left Brachial] Pulse Rhythm Pulse Strength Respiratory Rate 11 L 14 13 Respiratory Effort / Characteristics Respiratory Depth Respiratory Pattern Blood Pressure 152/79 H 122/73 Blood Pressure [Left Arm] Blood Pressure Mean 103 89 Blood Pressure Mean [Left Arm] Blood Pressure Position Blood Pressure Position [Left Arm] Pulse Oximetry 95 Oxygen Delivery Method 08/12/18 14:37 Temperature 36.7 C Temperature Source Oral Sepsis Recent Fever Within 48 Hours Sepsis New/Unexplained Change in Mental Status Sepsis Action Taken by Nursing Pulse Rate Pulse Rate [Left Brachial] 80 Pulse Rhythm Pulse Strength Respiratory Rate 16 Respiratory Effort / Characteristics Respiratory Depth Respiratory Pattern Blood Pressure Blood Pressure [Left Arm] 129/75 Blood Pressure Mean Blood Pressure Mean [Left Arm] 93 Blood Pressure Position Blood Pressure Position [Left Arm] Sitting Pulse Oximetry 96 Oxygen Delivery Method Room Air GENERAL: Awake, alert, ill-appearing, in no distress HENT: Normocephalic, atraumatic. Oropharynx with dry mucous membranes and otherwise unremarkable. EYES: Normal conjunctiva. Sclera non-icteric. NECK: Supple. No nuchal rigidity. FROM. No JVD. RESPIRATORY: Clear to auscultation. CARDIAC: Regular rate, normal rhythm. Extremities warm and well perfused. Pulses equal. ABDOMEN: Soft, non-distended. Generalized abdominal tenderness. No rebound or guarding. No masses. RECTAL: Deferred. MUSCULOSKELETAL: Chest examination reveals no tenderness. The back is symmetrical on inspection without obvious abnormality. There is no CVA tenderness to palpation. No joint edema. LOWER EXTREMITIES: Calves are equal size bilaterally and non-tender. No edema. No discoloration. NEURO: Normal sensorium. No sensory or motor deficits noted. SKIN: No rash or jaundice noted. Course 1125: Past medical records reviewed. The patient was evaluated in room C1B, and a complete history and physical examination were performed. 1235: I reviewed the patient's case with Dr. Lisa - Hospitalist, [facility]. Dr. Lisa will evaluate the patient for further management. Consultations Consultation #1: I reviewed the patient's case with Dr. Lisa - Hospitalist , [facility]. Dr. Lisa will evaluate the patient for further management. Time: 12:35 Administered Medications Sodium Chloride (Nss 1000ml) 1,000 mls @ 125 mls/hr IV .Q8H UNIQUE Stop: 09/11/18 12:44 Last Admin: 08/12/18 13:24 Dose: 125 mls/hr Lactated Ringer's (Lr) 1,000 mls @ 125 mls/hr IV .Q8H UNIQUE Stop: 08/13/18 06:35 Last Admin: 08/12/18 16:12 Dose: 125 mls/hr Pantoprazole Sodium 40 mg/ (Syringe) 10 mls @ 5 mls/min IV BID UNIQUE Stop: 09/11/18 20:59 Last Admin: 08/12/18 21:19 Dose: 5 mls/min Magnesium Oxide (Mag-Ox) 200 mg PO QPM UNIQUE Stop: 09/11/18 20:59 Last Admin: 08/12/18 21:17 Dose: 200 mg Multivitamins/Folic Acid/Vitamin C (Flintstones Complete Chew Tab) 1 tab PO BID UNIQUE Stop: 09/11/18 20:59 Last Admin: 08/12/18 21:15 Dose: 1 tab Discontinued Medications Sodium Chloride (Nss 1000ml) 2,000 mls @ 999 mls/hr IV .Q2H1M UNIQUE Stop: 08/12/18 13:30 Last Infusion: 08/12/18 13:24 Dose: 0 mls/hr Admin: 08/12/18 11:49 Dose: 999 mls/hr Acetaminophen (Ofirmev) 1,000 mg in 100 mls @ 400 mls/hr IV NOW ONE Stop: 08/12/18 11:44 Last Infusion: 08/12/18 12:04 Dose: 0 mls/hr Admin: 08/12/18 11:49 Dose: 400 mls/hr Magnesium Sulfate/Dextrose (Magnesium Sulfate / D5w) 1 gm in 100 mls @ 100 mls/ hr IV Q1H UNIQUE Stop: 08/12/18 14:29 Last Admin: 08/12/18 16:06 Dose: Not Given Infusion: 08/12/18 14:39 Dose: 0 mls/hr Admin: 08/12/18 13:25 Dose: 100 mls/hr Potassium Chloride (K Bryce / Wtr) 10 meq in 100 mls @ 100 mls/hr IV NOW STA Stop: 08/12/18 13:28 Last Infusion: 08/12/18 14:40 Dose: 0 mls/hr Admin: 08/12/18 13:25 Dose: 100 mls/hr Ondansetron HCl (Zofran) 4 mg IV NOW STA Stop: 08/12/18 11:31 Last Admin: 08/12/18 11:49 Dose: 4 mg Phytonadione (Mephyton) 2.5 mg PO NOW ONE Stop: 08/12/18 15:01 Last Admin: 08/12/18 16:13 Dose: 5 mg Pneumococcal Polyvalent Vaccine (Pneumovax-23) 25 mcg IM .ONCE ONE Stop: 08/12/18 20:01 Last Admin: 08/12/18 21:17 Dose: Not Given Medical Decision Making Differential Diagnosis Differential diagnosis: Etiologies such as appendicitis, diverticulitis, PUD, biliary pathology, UTI, pancreatitis, obstruction, mesenteric ischemia, aortic pathology, infections, inflammatory bowel disease, renal colic, as well as others were entertained. Medical Records Attestation: I reviewed the patient's medical records. Home Medications Current Medication List: was personally reviewed by me Laboratory Data Attestation: I reviewed the patient's lab results. Result diagrams: 08/12/18 16:54 08/12/18 11:25 Lab Results 08/12/18 08/12/18 08/12/18 Range/Units 11:25 11:25 11:25 WBC 13.62 H (4.8-10.8) K/uL RBC 5.72 (4.7-6.1) M/uL Hgb 17.0 (14.0-18.0) g/dL POC Hgb (14.0-18.0) g/dl Hct 51.5 (42-52) % POC Hct (42-52) % MCV 90.0 (80-100) fL MCH 29.7 (25-34) pg MCHC 33.0 (32-36) g/dL RDW Std Deviation 48.7 H (36.4-46.3) fL RDW Coeff of Nadja 14.9 H (11.5-14.5) % Plt Count 168 (130-400) K/uL MPV 10.7 H (7.4-10.4) fL Immature Gran % (Auto) 0.4 % Neut % (Auto) 57.0 % Lymph % (Auto) 14.0 % [place] % (Auto) 5.9 % Eos % (Auto) 22.5 % Baso % (Auto) 0.2 % Immature Gran # (Auto) 0.06 H (0.00-0.02) K/uL Neut # (Auto) 7.75 H (1.4-6.5) K/uL Lymph # (Auto) 1.91 (1.2-3.4) K/uL [place] # (Auto) 0.80 H (0.11-0.59) K/uL Eos # (Auto) 3.07 H (0-0.5) K/uL Baso # (Auto) 0.03 (0-0.2) K/uL PT 52.1 H (9.0-12.0) Seconds INR 5.7 H* (0.9-1.1) POC Sodium (135-144) mEq/L Sodium 145 (136-145) mmol/L POC Potassium (3.3-5.0) mEq/L Potassium 3.1 L (3.5-5.1) mmol/L POC Chloride (101-112) mEq/L Chloride 112 H (98-107) mmol/L Carbon Dioxide 21 (21-32) mmol/L POC Total CO2 (24-31) mEq/l Anion Gap 12.0 H (3-11) POC Anion Gap (16-25) mmol/L POC BUN (7-18) mg/dl BUN 21 H (7-18) mg/dl Creatinine 1.50 H (0.6-1.4) mg/dl POC Creatinine (0.6-1.3) mg/dl Est Cr Clr Drug Dosing 57.2 ml/min Est GFR ( Amer) 54.7 Est GFR (Non-Af Amer) 47.2 BUN/Creatinine Ratio 13.7 (10-20) Glucose 125 H (70-99) mg/dl POC Glucose (other) (70-99) mg/dl Calcium 8.9 (8.5-10.1) mg/dl POC Ioniz Calcium Nina (1.12-1.32) mmol/l Phosphorus 3.3 (2.5-4.9) mg/dl Magnesium 1.7 L (1.8-2.4) mg/dl Total Bilirubin 0.3 (0.2-1) mg/dl Direct Bilirubin < 0.1 (0-0.2) mg/dl AST 17 (15-37) U/L ALT 22 (12-78) U/L Alkaline Phosphatase 126 H (45-117) U/L Total Creatine Kinase 90 (39-308) U/L Troponin I < 0.015 (0-0.045) ng/ml Total Protein 6.7 (6.4-8.2) gm/dl Albumin 3.1 L (3.4-5.0) gm/dl Globulin 3.6 (2.5-4.0) gm/dl Albumin/Globulin Ratio 0.9 (0.9-2) Lipase 2112 H (73-393) U/L Stl C. diff Tox B Gene (Neg) Hepatitis C Ab Screen (Neg) 08/12/18 08/12/18 08/12/18 Range/Units 11:30 13:55 16:54 WBC (4.8-10.8) K/uL RBC (4.7-6.1) M/uL Hgb 14.7 (14.0-18.0) g/dL POC Hgb 18.0 (14.0-18.0) g/dl Hct (42-52) % POC Hct 53 H (42-52) % MCV (80-100) fL MCH (25-34) pg MCHC (32-36) g/dL RDW Std Deviation (36.4-46.3) fL RDW Coeff of Nadja (11.5-14.5) % Plt Count (130-400) K/uL MPV (7.4-10.4) fL Immature Gran % (Auto) % Neut % (Auto) % Lymph % (Auto) % [place] % (Auto) % Eos % (Auto) % Baso % (Auto) % Immature Gran # (Auto) (0.00-0.02) K/uL Neut # (Auto) (1.4-6.5) K/uL Lymph # (Auto) (1.2-3.4) K/uL [place] # (Auto) (0.11-0.59) K/uL Eos # (Auto) (0-0.5) K/uL Baso # (Auto) (0-0.2) K/uL PT (9.0-12.0) Seconds INR (0.9-1.1) POC Sodium 146 H (135-144) mEq/L Sodium (136-145) mmol/L POC Potassium 3.1 L (3.3-5.0) mEq/L Potassium (3.5-5.1) mmol/L POC Chloride 111 (101-112) mEq/L Chloride (98-107) mmol/L Carbon Dioxide (21-32) mmol/L POC Total CO2 20 L (24-31) mEq/l Anion Gap (3-11) POC Anion Gap 19.0 (16-25) mmol/L POC BUN 21 H (7-18) mg/dl BUN (7-18) mg/dl Creatinine (0.6-1.4) mg/dl POC Creatinine 1.3 (0.6-1.3) mg/dl Est Cr Clr Drug Dosing ml/min Est GFR ( Amer) Est GFR (Non-Af Amer) BUN/Creatinine Ratio (10-20) Glucose (70-99) mg/dl POC Glucose (other) 128 H (70-99) mg/dl Calcium (8.5-10.1) mg/dl POC Ioniz Calcium Nina 1.17 (1.12-1.32) mmol/l Phosphorus (2.5-4.9) mg/dl Magnesium (1.8-2.4) mg/dl Total Bilirubin (0.2-1) mg/dl Direct Bilirubin (0-0.2) mg/dl AST (15-37) U/L ALT (12-78) U/L Alkaline Phosphatase (45-117) U/L Total Creatine Kinase (39-308) U/L Troponin I (0-0.045) ng/ml Total Protein (6.4-8.2) gm/dl Albumin (3.4-5.0) gm/dl Globulin (2.5-4.0) gm/dl Albumin/Globulin Ratio (0.9-2) Lipase (73-393) U/L Stl C. diff Tox B Gene Neg C.diff Toxin B (Neg) Hepatitis C Ab Screen (Neg) 08/12/18 Range/Units 16:54 WBC (4.8-10.8) K/uL RBC (4.7-6.1) M/uL Hgb (14.0-18.0) g/dL POC Hgb (14.0-18.0) g/dl Hct (42-52) % POC Hct (42-52) % MCV (80-100) fL MCH (25-34) pg MCHC (32-36) g/dL RDW Std Deviation (36.4-46.3) fL RDW Coeff of Nadja (11.5-14.5) % Plt Count (130-400) K/uL MPV (7.4-10.4) fL Immature Gran % (Auto) % Neut % (Auto) % Lymph % (Auto) % [place] % (Auto) % Eos % (Auto) % Baso % (Auto) % Immature Gran # (Auto) (0.00-0.02) K/uL Neut # (Auto) (1.4-6.5) K/uL Lymph # (Auto) (1.2-3.4) K/uL [place] # (Auto) (0.11-0.59) K/uL Eos # (Auto) (0-0.5) K/uL Baso # (Auto) (0-0.2) K/uL PT (9.0-12.0) Seconds INR (0.9-1.1) POC Sodium (135-144) mEq/L Sodium (136-145) mmol/L POC Potassium (3.3-5.0) mEq/L Potassium (3.5-5.1) mmol/L POC Chloride (101-112) mEq/L Chloride (98-107) mmol/L Carbon Dioxide (21-32) mmol/L POC Total CO2 (24-31) mEq/l Anion Gap (3-11) POC Anion Gap (16-25) mmol/L POC BUN (7-18) mg/dl BUN (7-18) mg/dl Creatinine (0.6-1.4) mg/dl POC Creatinine (0.6-1.3) mg/dl Est Cr Clr Drug Dosing ml/min Est GFR ( Amer) Est GFR (Non-Af Amer) BUN/Creatinine Ratio (10-20) Glucose (70-99) mg/dl POC Glucose (other) (70-99) mg/dl Calcium (8.5-10.1) mg/dl POC Ioniz Calcium Nina (1.12-1.32) mmol/l Phosphorus (2.5-4.9) mg/dl Magnesium (1.8-2.4) mg/dl Total Bilirubin (0.2-1) mg/dl Direct Bilirubin (0-0.2) mg/dl AST (15-37) U/L ALT (12-78) U/L Alkaline Phosphatase (45-117) U/L Total Creatine Kinase (39-308) U/L Troponin I (0-0.045) ng/ml Total Protein (6.4-8.2) gm/dl Albumin (3.4-5.0) gm/dl Globulin (2.5-4.0) gm/dl Albumin/Globulin Ratio (0.9-2) Lipase (73-393) U/L Stl C. diff Tox B Gene (Neg) Hepatitis C Ab Screen Neg (Neg) Imaging Data Radiologist's Impression: Radiology results as stated below per my review and the radiologist's interpretation: XR chest 1V portable CLINICAL HISTORY: Chest pain. COMPARISON STUDY: Chest CT May 23, 2017. FINDINGS: There is no pneumothorax or pleural effusion. Cardiomediastinal silhouette is stable. There is a probable hiatal hernia. There is no evidence for pulmonary edema. Mild left basilar opacity favors atelectasis. IMPRESSION: 1. No acute cardiopulmonary findings. 2. Mild left lower lung opacity which favors atelectasis. Electronically signed by: Ward Preston M.D. 08/12/2018 12:[address] OF THE ABDOMEN AND PELVIS WITHOUT CONTRAST CLINICAL HISTORY: Abdominal pain. Diarrhea. Colonoscopy one week ago. COMPARISON STUDY: CT of the abdomen and pelvis October 06, 2015. TECHNIQUE: Axial images of the abdomen and pelvis were obtained without IV contrast. Images were reviewed in the axial, sagittal, and coronal planes. Automated exposure control was utilized for the study. A dose lowering technique was utilized adhering to the principles of ALARA. FINDINGS: Calcified granuloma within the right lower lobe is noted. A hiatal hernia is noted. There are postoperative findings involving the stomach. No pneumatosis, free air or portal venous gas is present. Unenhanced images of the liver, spleen, adrenal glands and pancreas are unremarkable. Evaluation is suboptimal on this unenhanced exam. Water attenuation bilateral renal lesions are suboptimally assessed on this unenhanced exam. However, these favor cysts. A few hypodense lesions are unchanged from earlier exams. These favor a hyperdense cyst. Multiple bilateral renal calculi measure up to 8 mm. There is no hydronephrosis. There are no ureteral calculi. There is no evidence for a bowel obstruction. The appendix is normal. There are suspected endoscopic clip within the cecum. Colon is mildly fluid-filled. IMPRESSION: 1. No free air. 2. Mildly fluid-filled colon which may reflect a diarrheal state. No bowel obstruction. 3. Bilateral nephrolithiasis. No hydronephrosis or ureteral calculi. Electronically signed by: Ward Preston M.D. 08/12/2018 12:46 PM ECG Data Attestation: I personally reviewed and interpreted this ECG as follows: Indication: weakness Rate (beats per minute): 88 Rhythm: normal sinus Findings: + other (QTc is 481) and + LAFB; no acute ischemic change Blood Pressure Blood Pressure Findings: Normal blood pressure MDM Narrative The patient is a pleasant 68-year-old gentleman with a past medical history of factor V Leiden and PE on Coumadin who presents emergency department with worsening abdominal pain with associated nausea/vomiting and diarrhea in the setting of having outpatient colonoscopy last week per hpi. Of note, patient reports having abdominal pain and diarrhea preceding his colonoscopy but this became much worse thereafter. Arrival patient is ill-appearing but no acute distress, afebrile with stable vital signs. On exam the patient appears clinically dry. He has generalized abdominal tenderness without peritoneal signs. EKG without evidence of ischemia. Chest x-ray with likely atelectasis and otherwise no acute findings. WBC 13.6 and H/H 17/51.5 consistent with the patient's clinically dry appearance. INR is supratherapeutic at 5.7 however no evidence of bleeding at this time and so will allow to drift. Sodium 146 chemistry without acidosis. Creatinine 1.5 increased from 1.3 in October 2017. Magnesium 1.7 with repletion ordered. Lipase 2000s. CT of abdomen pelvis negative for free air. Pancreas is unremarkable. Fluid-filled colon consistent with the patient's diarrheal state. Given the patient's symptoms in the setting of elevated lipase, etiology possibly related to pancreatitis. Etiology for this is unclear at this time. However, there are no gallstones on CT and bilirubin is within normal limits. Case was discussed with Dr. Lisa , [facility] hospitalist, who will evaluate the patient for admission. Impression & Plan Pancreatitis Discharge Plan Visit Data *Final* Discharge Date/Time: 08/12/18 14:41 Chief Complaint: Illness ED Provider: Rickey Jackson Discharge Problem: Pancreatitis Patient Disposition: Admitted As Inpatient Discharge Instructions Interventions: ED Discharge Assessment Last Done: 08/12/18 14:41 The scribe's documentation has been prepared under my direction and personally reviewed by me in its entirety. I confirm that the note above accurately reflects all work, treatment, procedures, and medical decision making performed by me.
[2018-08-12] MEDS: LACTATED RINGER'S 1,000 ML IV SCH (16:12)
[2018-08-12] MEDS ORDERED: PNEUMOCOCCAL ADMINISTRATION CHARGE ONE (20:00)
[2018-08-12] MEDS ORDERED: PNEUMOCOCCAL POLYSACCHARIDES 25 MCG/0.5 ML VIAL/SYR IM ONE (20:00)
[2018-08-12] MEDS: FLINTSTONES COMPLETE CHEWABLE TAB PO SCH (21:15)
[2018-08-12] MEDS: MAGNESIUM OXIDE 400 MG TAB PO SCH (21:17)
[2018-08-12] MEDS: PANTOprazole 40 MG in SYRINGE 0 ML IV SCH (21:19)
[2018-08-13] MEDS: LACTATED RINGER'S 1,000 ML IV SCH (00:16)
[2018-08-13 05:10] LABS: Prothrombin Time 89.3 Seconds (9.0-12.0)
[2018-08-13 05:24] LABS: INR 10.1 (0.9-1.1)
[2018-08-13 05:26] LABS: BUN Creatinine Ratio 16.1 (10-20); Calcium 8.1 mg/dl (8.5-10.1); Creatinine Clr Calc Pharmacy 63.6 ml/min; Est GFR (African American) 70.2; Est GFR (Non-African American) 60.5; Magnesium 1.7 mg/dl (1.8-2.4); Potassium 3.9 mmol/L (3.5-5.1)
[2018-08-13] MEDS ORDERED: PHYTONADIONE 5 MG TAB PO STA (05:36)
[2018-08-13] MEDS: CHOLECALCIFEROL 1,000 UNITS TAB PO SCH (08:06)
[2018-08-13] MEDS: CYANOCOBALAMIN 500 MCG TABLET (VITAMIN B-12) PO SCH (08:06)
[2018-08-13] MEDS: FLINTSTONES COMPLETE CHEWABLE TAB PO SCH ×2 (08:06→21:30)
[2018-08-13] MEDS: SERTRALINE HCL 100 MG TABLET PO SCH (08:06)
[2018-08-13] MEDS: PANTOprazole 40 MG in SYRINGE 0 ML IV SCH ×2 (08:07→21:30)
[2018-08-13] MEDS: SODIUM CHLORIDE 0.9% 1000ML 1,000 ML IV SCH ×4 (08:11→21:30)
--- NOTE | 2018-08-13 10:15 | Gastrointestinal Consultation ---
Date of Consultation August 13, 2018 Assessment & Plan (1) Pancreatitis: (2) RUQ pain: (3) Diarrhea: Patient is a 68 y.o. male status post colonscopy with polypectomy requiring Endoclip placement for hemostasis admitted with RUQ pain, nausea with vomiting (now resolved) and diarrhea as well as elevated lipase consistent with acute pancreatitis and coagulopathy. diff dx: medication induced (?profol as this is a Class II medication associated with acute pancreatitis) vs idiopathic vs gall bladder vs alcohol ( overtly denies use) vs autoimmune vs other. 1)Biliary ultrasound for further evaluation. 2)Clear liquid diet with advancement as tolerated. 3)Await stool studies as pending. C Diff was negative. 4)Continue supportive measures with IV rehydration, analgesics and antiemetics as needed. 5)Further recommendations pending results of imaging and clinical course. Thank you for allowing us to participate in the care of this pleasant gentleman. If you have any questions or concerns, please do not hesitate to contact us. Supervising Physician Co-Signing Physician Notes Agree with MOY Andrews as above Abd: Soft, NT, ND, +BS Continue supportive care Advance diet as tolerated RUQ US reviewed and unremarkable. History of Present Illness Reason for Consultation: elevated lipase Requesting Physician: Dr. 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 Patient states he has been having diarrhea for the past month but symptoms have been alternating with periods of no bowel movements or passage of hard stools. He has followed with his bariatric [place] [facility] and reported symptoms and was encouraged to avoid lactose or to use Lactaid tablets which he states he has been doing for the past few weeks without any perceived benefit. The patient most recently underwent a screening colonoscopy due to fraternal history of colon cancer. He did have findings of a 22 mm cecal polyp requiring Endoclip placement for hemostasis as well as 2 ascending colon polyps. Histology returned tubular adenomas and were negative for dysplasia and malignancy. After the procedure, the patient states he was eating very little and had incrased volume of diarrhea. Reports "explosive diarrhea" going 13-14 times on Monday. There was associated nausea with vomiting and nocturnal stooling. No mucoid or bloody stools but he did pass black after use of Pepto Bismol. Patient was concerned about GI bleeding and presented to the ER yesterday. Also reports generalized "sore" abdomen and intermittent sharp pains in the RUQ, rated 8/10 in intensity without radiation lasting several minutes. Last episode was yesterday. Denies any fevers but mild headache and lightheadedness. Resolved nausea with vomiting. No bm since 4 am this morning. Laboratory testing on arrival demonstrated mild leukocytosis of 13.62, but normal H&H of 14.7 and 51.5. Lipase on admission was 2112, but has normalized this morning at 126. Liver panel was normal with the exception of slightly elevated ALP of 126. Patient was noted to have a supratherapeutic INR of 10 this morning which is being corrected with Vitamin K. CT a/p without evidence of any peripancreatic inflammatory change, mass or cyst. Colon was noted to be fluid-filled without any thickening. CT evidence of Endoclip placement. Triglcerides from 2017 reviewed and normal. Patient denies any alcohol consumption "for the past 45 years". Allergies Allergy/AdvReac Type Severity Reaction Status Date / Time shellfish derived Allergy Intermediate Anaphylaxis Verified 08/12/18 11:44 iodine Allergy Unknown Verified 08/12/18 11:44 Home Medications Home Medications Medication Instructions Recorded Confirmed Type cholecalciferol (vitamin D3) 2,000 unit PO DAILY #0 10/06/15 08/12/18 History [Vitamin D3] cyanocobalamin (vitamin B-12) 500 mcg PO DAILY #0 10/06/15 08/12/18 History [Vitamin B-12] pediatric multivitamin 1 tab PO BID #0 10/06/15 08/12/18 History [Flintstones Multivitamin] atorvastatin [Lipitor] 40 mg PO QAM #0 02/25/17 08/12/18 History magnesium 250 mg PO QPM #0 02/25/17 08/12/18 History sertraline [Zoloft] 100 mg PO QAM #0 02/25/17 08/12/18 History acetaminophen 500 mg tablet 1,000 mg PO BID PRN tab 05/03/18 08/12/18 History warfarin 5 mg tablet See Label Instructions PO UD tab 07/12/18 08/12/18 History Patient History Medical History GERD (gastroesophageal reflux disease) (Chronic) Hyperlipidemia (Chronic) PE (pulmonary embolism) (Resolved) Postoperative anemia (Acute) Factor V deficiency Pulmonary embolism APPROX 5 YEARS AGO. PT REMAINS ON WARFARIN Surgical History History of colonoscopy History of gastric bypass GASTRIC SLEEVE History of herniorrhaphy INCISIONAL History of laparoscopy OPEN LAP FOR COMPLICATION FOLLOWING GASTRIC SURGERY History of surgery LEFT ELBOW REPAIR Family History Other Family history of colon cancer Social History Current Living Situation: Spouse current occupational status: retired Other Information That Helps Us Care for You: No Feels Safe at Home: Yes Safety Concerns: Feels Safe At This Time Smoking Status: Never smoker Do You Dip or Chew Tobacco: No Second Hand Exposure: No Tobacco Cessation Education Requested by Patient: No Hx Alcohol Use: No Hx Substance Use: No Beliefs That Will Affect Care: [employer] Communication Ability: Effective Review of Systems Constitutional: as per Subjective / HPI Eyes: no problem reported Ear, Nose, Mouth, Throat: no problem reported Respiratory: no cough and no dyspnea Cardiovascular: no chest pain, no chest pain with activity and no palpitations Gastrointestinal: as per Subjective / HPI Genitourinary (Male): no hematuria Musculoskeletal: no swelling Integumentary: no problem reported Neurologic: as per Subjective / HPI Psychiatric: no problem reported Hematologic / Lymphatic: + coagulopathy Physical Exam 2 Vital Signs (Past 24 Hours): Last Vital Signs Temp 36.8 C 08/13/18 07:20 Pulse 71 08/13/18 08:05 Resp 18 08/13/18 07:20 BP 110/57 L 08/13/18 08:05 Pulse Ox 93 08/13/18 07:20 Constitutional: WD/WN, vitals as above Eyes: EOM intact bilaterally Respiratory: normal respiratory effort, lungs clear to auscultation Cardiovascular: Rate/Rhythm: regular rate and regular rhythm Gastrointestinal (Abdomen): Inspection/Auscultation: + hyperactive bowel sounds Percussion/Palpation: + abdomen tender (RUQ) and abdomen soft Musculoskeletal: no pedal edema Skin: no rashes, warm and dry _ (1) Pancreatitis Acute pancreatitis complication: unspecified Chronicity: acute Pancreatitis type: unspecified pancreatitis type Qualified Code(s): K85.90 - Acute pancreatitis without necrosis or infection, unspecified
[2018-08-13 11:04] LABS: Prothrombin Time 46.6 Seconds (9.0-12.0)
[2018-08-13 11:05] LABS: INR 5.1 (0.9-1.1)
[2018-08-13 11:17] LABS: Appearance Urine Clear (Clear); Bilirubin Urine Negative (Negative); Color Urine Yellow; Glucose Urine UA Negative (Negative); Ketones Urine 2+ (Negative); Leukocyte Esterase Urine Negative (Negative); Nitrite Urine Negative (Negative); Protein Urine Negative (Negative); Specific Gravity Urine 1.022 (1.000-1.030); Urobilinogen Urine Negative (Negative)
--- NOTE | 2018-08-13 11:42 | Ultrasound Report ---
Biliary ultrasound CLINICAL HISTORY: Acute pancreatitis. Right upper quadrant abdominal pain COMPARISON STUDY: CT scan dated 08/12/2018, biliary ultrasound dated 06/17/2013 FINDINGS: The pancreas was nonvisualized. No focal hepatic masses were visualized. There is sludge in the gallbladder but no shadowing calculi were visualized. The gallbladder wall was at the upper limits of normal in thickness. There is no ductal dilatation. The common bile duct sadie ured 2 mm. There is no right-sided hydronephrosis. There are multiple renal cysts the largest of which measures 6 cm. IMPRESSION: 1. Nonvisualization of pancreas 2. Sludge in the gallbladder but no shadowing calculi identified 3. No ductal dilatation 4. Multiple right renal cysts Electronically signed by: Dallas Nolasco M.D. 08/13/2018 11:41 AM
--- NOTE | 2018-08-13 14:58 | Family Medicine Progress Note ---
Date of Service August 13, 2018 Assessment & Plan (1) RUQ pain: (2) Diarrhea: (3) Pancreatitis: (4) Coagulopathy: (5) GERD (gastroesophageal reflux disease): (6) Factor V Leiden: (7) Hyperlipidemia: (8) Hypomagnesemia: RUQ pain/Diarrhea/Pancreatitis: --Elevated lipase has returned to normal range with NPO status and IVF. --Vague RUQ pain persists, appreciate GI input. RUQ USS showed some sludge but no obstructive calculi. --Advance diet to clear liquids. DCd IVF for now, may restart if urine output not sufficient or if not tolerating PO liquids --Has not had diarrhea since NPO status --No LFT derangement --Will defer to GI for decision on further investigations (i.e. EUS looking for pancreatic divisum or IPMN). --Awaiting stool culture for c.dif, no pos culture results Coagulopathy: --Likely related to higher doses after colonoscopy last week as well as poor PO intake in past few days. --S/P 1x 2.5mg and 1x 5mg dose of Vit K (INR found to be 10 this AM) --Repeat INR this afternoon returned to 5 --Will continue to monitor, restarting coumadin at regular dose when appropriate --Dark stool on arrival thought to be related to pepto bismol use. Hgb normal. No dark stool since. --No overt signs of bleeding. Hypokalemia/Hypomagnesemia: --Will continue to replete prn. Factor V deficiency: --Patient is chronically anticoagulated from factor V he has a history of PE in the past --Managing INR as above GERD (gastroesophageal reflux disease): --Will place on protonix BID in light of upset stomach, ?melena. Hyperlipidemia: --Patient takes atorvastatin this will be held DVT proph - Warfarin Supervising Physician Co-Signing Physician Notes Resident Physician Supervision Note: I independently interviewed and examined the patient and verified the kitchen history and physical, reviewed labs and image studies, discussed the case with the resident Dr. Mancini and agree with the findings and care plan. Subjective Review of Systems All systems reviewed & are unremarkable except as noted in HPI & below Constitutional: + increased appetite; no malaise Respiratory: no cough and no dyspnea Cardiovascular: + edema (Reports wedding band is tighter but no LE edema ); no chest pain and no dyspnea Gastrointestinal: + bloating, + cramping, + change in stools, + diarrhea/loose stools and + constant urge to pass stools Physical Exam 2 Vital Signs (Past 24 Hours): Last Vital Signs Temp 36.8 C 08/13/18 07:20 Pulse 71 08/13/18 08:05 Resp 18 08/13/18 07:20 BP 110/57 L 08/13/18 08:05 Pulse Ox 93 08/13/18 07:20 Constitutional: WD/WN, vitals as above average body habitus Eyes: PERRL, conjunctivae normal, anicteric sclerae ENMT: external ear and nose normal, oropharynx normal Neck: normal visual inspection Respiratory: normal respiratory effort, lungs clear to auscultation Cardiovascular: RRR, no murmur, no edema Gastrointestinal (Abdomen): Inspection/Auscultation: + abdomen distended and normal bowel sounds (hyperactive) Percussion/Palpation: + abdomen tender ( mildly tender on R flank) Musculoskeletal: no cyanosis or clubbing, extremities motor strength 5/5 Skin: no rashes, warm and dry Neurologic: PERRL, EOMI, accommodation nl, no face palsy, no dysarthria Psychiatric: A+Ox3, euthymic affect Speech: normal rate/rhythm/volume of speech Results & Data Laboratory Results 08/13/18 08/13/18 08/13/18 Range/Units Unknown 10:45 04:34 Hgb (14.0-18.0) g/dL PT 46.6 H (9.0-12.0) Seconds INR 5.1 H (0.9-1.1) Sodium 146 H (136-145) mmol/L Potassium 3.9 D (3.5-5.1) mmol/L Chloride 117 H (98-107) mmol/L Carbon Dioxide 26 (21-32) mmol/L Anion Gap 3.0 (3-11) BUN 20 H (7-18) mg/dl Creatinine 1.22 (0.6-1.4) mg/dl Est Cr Clr Drug Dosing 63.6 ml/min Est GFR ( Amer) 70.2 Est GFR (Non-Af Amer) 60.5 BUN/Creatinine Ratio 16.1 (10-20) Glucose 77 (70-99) mg/dl Calcium 8.1 L (8.5-10.1) mg/dl Magnesium 1.7 L (1.8-2.4) mg/dl Lipase 126 (73-393) U/L Urine Color Yellow Urine Appearance Clear (Clear) Urine pH 5.0 (4.5-7.5) Ur Specific Arjay 1.022 (1.000-1.030) Urine Protein Negative (Negative) Urine Glucose (UA) Negative (Negative) Urine Ketones 2+ H (Negative) Urine Blood Negative (Negative) Urine Nitrite Negative (Negative) Urine Bilirubin Negative (Negative) Urine Urobilinogen Negative (Negative) Ur Leukocyte Esterase Negative (Negative) Stl C. diff Tox B Gene (Neg) Hepatitis C Ab Screen (Neg) 08/13/18 08/12/18 08/12/18 Range/Units 04:34 16:54 16:54 Hgb 14.7 (14.0-18.0) g/dL PT 89.3 H (9.0-12.0) Seconds INR 10.1 H* (0.9-1.1) Sodium (136-145) mmol/L Potassium (3.5-5.1) mmol/L Chloride (98-107) mmol/L Carbon Dioxide (21-32) mmol/L Anion Gap (3-11) BUN (7-18) mg/dl Creatinine (0.6-1.4) mg/dl Est Cr Clr Drug Dosing ml/min Est GFR ( Amer) Est GFR (Non-Af Amer) BUN/Creatinine Ratio (10-20) Glucose (70-99) mg/dl Calcium (8.5-10.1) mg/dl Magnesium (1.8-2.4) mg/dl Lipase (73-393) U/L Urine Color Urine Appearance (Clear) Urine pH (4.5-7.5) Ur Specific Arjay (1.000-1.030) Urine Protein (Negative) Urine Glucose (UA) (Negative) Urine Ketones (Negative) Urine Blood (Negative) Urine Nitrite (Negative) Urine Bilirubin (Negative) Urine Urobilinogen (Negative) Ur Leukocyte Esterase (Negative) Stl C. diff Tox B Gene (Neg) Hepatitis C Ab Screen Neg (Neg) 08/12/18 Range/Units 13:55 Hgb (14.0-18.0) g/dL PT (9.0-12.0) Seconds INR (0.9-1.1) Sodium (136-145) mmol/L Potassium (3.5-5.1) mmol/L Chloride (98-107) mmol/L Carbon Dioxide (21-32) mmol/L Anion Gap (3-11) BUN (7-18) mg/dl Creatinine (0.6-1.4) mg/dl Est Cr Clr Drug Dosing ml/min Est GFR ( Amer) Est GFR (Non-Af Amer) BUN/Creatinine Ratio (10-20) Glucose (70-99) mg/dl Calcium (8.5-10.1) mg/dl Magnesium (1.8-2.4) mg/dl Lipase (73-393) U/L Urine Color Urine Appearance (Clear) Urine pH (4.5-7.5) Ur Specific Arjay (1.000-1.030) Urine Protein (Negative) Urine Glucose (UA) (Negative) Urine Ketones (Negative) Urine Blood (Negative) Urine Nitrite (Negative) Urine Bilirubin (Negative) Urine Urobilinogen (Negative) Ur Leukocyte Esterase (Negative) Stl C. diff Tox B Gene Neg C.diff Toxin B (Neg) Hepatitis C Ab Screen (Neg) Diagnostic Findings Biliary ultrasound CLINICAL HISTORY: Acute pancreatitis. Right upper quadrant abdominal pain COMPARISON STUDY: CT scan dated 08/12/2018, biliary ultrasound dated 06/17/2013 FINDINGS: The pancreas was nonvisualized. No focal hepatic masses were visualized. There is sludge in the gallbladder but no shadowing calculi were visualized. The gallbladder wall was at the upper limits of normal in thickness. There is no ductal dilatation. The common bile duct measured 2 mm. There is no right-sided hydronephrosis. There are multiple renal cysts the largest of which measures 6 cm. IMPRESSION: 1. Nonvisualization of pancreas 2. Sludge in the gallbladder but no shadowing calculi identified 3. No ductal dilatation 4. Multiple right renal cysts Medications Administered Current Inpatient Medications Acetaminophen (Tylenol) 1,000 mg PO BID PRN PRN Reason: pain Stop: 09/11/18 14:35 Cyanocobalamin (Vitamin B-12) 500 mcg PO DAILY UNIQUE Stop: 09/12/18 08:59 Last Admin: 08/13/18 08:06 Dose: 500 mcg Pantoprazole Sodium 40 mg/ (Syringe) 10 mls @ 5 mls/min IV BID UNIQUE Stop: 09/11/18 20:59 Last Admin: 08/13/18 08:07 Dose: 5 mls/min Magnesium Oxide (Mag-Ox) 200 mg PO QPM UNIQUE Stop: 09/11/18 20:59 Last Admin: 08/12/18 21:17 Dose: 200 mg Morphine Sulfate (Morphine Sulfate) 2 mg IV Q4 PRN; Protocol PRN Reason: Pain Stop: 08/26/18 14:35 Multivitamins/Folic Acid/Vitamin C (Flintstones Complete Chew Tab) 1 tab PO BID UNIQUE Stop: 09/11/18 20:59 Last Admin: 08/13/18 08:06 Dose: 1 tab Ondansetron HCl (Zofran) 4 mg IV Q6H PRN PRN Reason: Nausea Stop: 09/11/18 14:35 Sertraline HCl (Zoloft) 100 mg PO QAM [facility] Stop: 09/12/18 08:59 Last Admin: 08/13/18 08:06 Dose: 100 mg Vitamin D (Vitamin D3) 2,000 units PO DAILY UNIQUE Stop: 09/12/18 08:59 Last Admin: 08/13/18 08:06 Dose: 2,000 units Resident Activity Tracking Resident Involvement: Resident Care Provided Care Provided: Adult [facility] Medicine _ (1) Pancreatitis Acute pancreatitis complication: unspecified Chronicity: acute Pancreatitis type: unspecified pancreatitis type Qualified Code(s): K85.90 - Acute pancreatitis without necrosis or infection, unspecified
[2018-08-13] MEDS ORDERED: MAGNESIUM OXIDE 400 MG TAB PO ONE (15:35)
[2018-08-13] MEDS: MAGNESIUM OXIDE 400 MG TAB PO SCH (21:31)
[2018-08-13] MEDS: ACETAMINOPHEN 500 MG TAB PO PRN (21:36)
[2018-08-13] MEDS: ONDANSETRON INJ 2 MG/ML 2 ML VIAL IV PRN (21:55)
[2018-08-14] MEDS: ACETAMINOPHEN 500 MG TAB PO PRN (05:39)
[2018-08-14 05:52] LABS: Hematocrit (blood only) 40.7 % (42-52); Hemoglobin 13.4 g/dL (14.0-18.0); Mean Corpuscular Hgb Conc 32.9 g/dL (32-36); Mean Corpuscular Volume 90.4 fL (80-100); Mean Platelet Volume 10.1 fL (7.4-10.4); Platelet Count 137 K/uL (130-400); RDW Coefficient of Variation 14.9 % (11.5-14.5); RDW Standard Deviation 49.5 fL (36.4-46.3)
[2018-08-14] MEDS: ONDANSETRON INJ 2 MG/ML 2 ML VIAL IV PRN (06:04)
[2018-08-14 06:14] LABS: Prothrombin Time 38.5 Seconds (9.0-12.0)
[2018-08-14 06:17] LABS: INR 4.1 (0.9-1.1)
[2018-08-14 06:24] LABS: BUN Creatinine Ratio 12.2 (10-20); Calcium 7.9 mg/dl (8.5-10.1); Creatinine Clr Calc Pharmacy 65.8 ml/min; Est GFR (African American) 73.1; Potassium 3.8 mmol/L (3.5-5.1)
[2018-08-14] MEDS: FLINTSTONES COMPLETE CHEWABLE TAB PO SCH (08:06)
[2018-08-14] MEDS: CYANOCOBALAMIN 500 MCG TABLET (VITAMIN B-12) PO SCH (08:06)
[2018-08-14] MEDS: CHOLECALCIFEROL 1,000 UNITS TAB PO SCH (08:07)
[2018-08-14] MEDS: SERTRALINE HCL 100 MG TABLET PO SCH (08:07)
[2018-08-14] MEDS: PANTOprazole 40 MG in SYRINGE 0 ML IV SCH (09:00)
[2018-08-14] MEDS: SODIUM CHLORIDE 0.9% 1000ML 1,000 ML IV SCH (10:47)
--- NOTE | 2018-08-14 14:12 | Progress Note ---
DATE: 08/14/2018 AGE: 68 SEX: Male. RACE: . SUBJECTIVE: I had the pleasure of seeing the patient at his bedside today. He did have a few episodes of diarrhea overnight. He did tolerate p.o. intake. He also complained of having some drenching night sweats last night though they have since resolved. He states that he was not told that he had a temperature last night and is unsure whether it was checked though review of the patient's medical record shows that he has been afebrile since his arrival. REVIEW OF SYSTEMS: Negative x10 system review other than pertinent positives listed in HPI. OBJECTIVE: VITAL SIGNS: Temp 36.3, pulse 63, respirations 18, blood pressure 111/63, pulse ox 93% on room air. GENERAL: He is awake, cooperative, in no acute distress. HEAD: Normocephalic, atraumatic. EYES: Pupils equal, round. Extraocular muscles are intact. ENT: External evaluation of ears and nose are normal. Oropharynx is clear. CHEST: Clear to auscultation bilaterally. CARDIOVASCULAR SYSTEM: Regular rate and rhythm. ABDOMEN: Soft, nontender, nondistended. Positive bowel sounds. LABORATORY STUDIES: Showed no evidence of Salmonella, Shigella or campylobacter on stool studies. His hemoglobin and hematocrit today are 13.4 and 40.7, white blood cell count of 11.50. His INR is 4.1. C. diff toxin testing was negative. CT scan of the abdomen and pelvis from the showed no free fluid, mildly fluid filled colon which may reflect a diarrheal state, but no bowel obstruction and bilateral nephrolithiasis. IMPRESSION: A 68-year-old male with continued diarrhea and resolving hyperlipasemia. PLAN: At the present time, I would recommend continuing supportive care. With the patient's recent pancreatitis as well as night sweats and diarrhea, it could be simply that the patient has had a viral illness and he does seem to be improving. I would advance the diet and monitor his clinical course and make further recommendations at that time. I would not recommend any invasive testing at this time. Once again, thanks for allowing me to participate in the care of this patient. If you have any further questions, please do not hesitate in contacting me.
--- NOTE | 2018-08-14 14:55 | Discharge Summary ---
Date of Service August 14, 2018 Admission HPI Per Admitting Provider Patient presents to the ER with diarrhea and abdominal pain. The patient has had diarrhea for a few months. He does have a fairly altered diet given the fact that he status post gastric sleeve and he has very little carbohydrates or vegetables in his diet he typically eats high protein diet including protein shakes and protein drinks. Patient had a colonoscopy on by Dr. Krishna reportedly only with a few polyps and nothing significant. Subsequently he has not been unable to resume his diet since then, patient had a half a bagel and some soft drink this morning got intense abdominal pain and then had voluminous diarrhea he presented to the ER where he had a CT scan of his abdomen pelvis without significant abnormalities but had a lipase of 2000, potassium 3 1 magnesium 1.7 and an INR of 5.7 (he takes Coumadin for factor V Leiden deficiency) Over the last 2 days patient is also taking Pepto-Bismol at home he has had black bowel movement since that time but his hemoglobin on presentation was 17 g Principal Diagnosis Pancreatitis, Diarrhea Discharge Exam Constitutional WD/WN, vitals as above average body habitus Eyes PERRL, conjunctivae normal, anicteric sclerae ENMT external ear and nose normal, oropharynx normal Neck normal visual inspection Respiratory normal respiratory effort, lungs clear to auscultation Cardiovascular RRR, no murmur, no edema Gastrointestinal (Abdomen) Inspection/Auscultation: + abdomen distended and normal bowel sounds ( hyperactive) Percussion/Palpation: + abdomen tender (mildly tender on R flank) Musculoskeletal no cyanosis or clubbing, extremities motor strength 5/5 Skin no rashes, warm and dry Neurologic PERRL, EOMI, accommodation nl, no face palsy, no dysarthria Psychiatric A+Ox3, euthymic affect Speech: normal rate/rhythm/volume of speech Discharge Data Allergies Allergy/AdvReac Type Severity Reaction Status Date / Time shellfish derived Allergy Intermediate Anaphylaxis Verified 08/12/18 11:44 iodine Allergy Unknown Verified 08/12/18 11:44 Consultations 08/12/18 12:37 ED Decision to Admit Stat 08/12/18 14:36 Consult Case Management - Discharge Planning Routine 08/12/18 15:20 Consult Gastroenterology Routine Ordered Studies 08/12/18 12:00 CT abd pelvis wo con Stat 08/13/18 10:33 US gallbladder Urgent Hospital Course (1) RUQ pain: (2) Diarrhea: (3) Pancreatitis: (4) Coagulopathy: (5) GERD (gastroesophageal reflux disease): (6) Factor V Leiden: (7) Hyperlipidemia: (8) Hypomagnesemia: RUQ pain/Diarrhea/Pancreatitis: --Elevated lipase has returned to normal range with NPO status and IVF. --Vague RUQ pain persisted, RUQ USS showed some sludge but no obstructive calculi. --Advanced diet to clear liquids, then soft solids. Patient tolerated well. --No LFT derangement --Patient reported some subjective fever and chills, L -sided cervical lymphadenopathy, could be related to viral cause of above --Stool cultures negative, including e.coli, shiga, c.dif Coagulopathy: --Likely related to higher doses of coumadin after colonoscopy last week as well as poor PO intake in past few days. --S/P 1x 2.5mg and 1x 5mg dose of Vit K (INR found to be 10 on 06/13/19) --Repeat INR 08/13=5, 08/14=4.1 --Monitor as outpatient, restarting coumadin day after discharge at regular dose. --Pt to f/u with Dr. Avalos Aug 17. --Dark stool on arrival thought to be related to pepto bismol use. Hgb normal. No dark stool since. --No overt signs of bleeding. Hypokalemia/Hypomagnesemia: --Repleted in hospital, resolved Factor V deficiency: --Patient is chronically anticoagulated from factor V he has a history of PE in the past --Managing INR as above GERD (gastroesophageal reflux disease): --Home medications Hyperlipidemia: --Resume home meds Total Time Total Time Spent Total Time Spent (In Minutes): 30 Total Time Includes: Examination of the Patient, Discharge Planning, Medication Reconciliation and Communication With Other Providers Discharge Plan Discharge Items Patient Disposition: Home - Self-Care Reason For Visit: PANCREATITIS Discharge Diagnosis: Pancreatitis Discharge Goals: Decrease discomfort and Improve nutritional status Activity: Resume your previous activity Non-emergency contact: Primary Care Provider Call non-emergency contact if: your symptoms worsen Follow-up/Referrals: Anthony Turpin MD [Physician] - 08/21/18 11:00 am (Please, follow up at Dr. Anthony Turpin's office with his diploma medical assistant, Cinthia Multani PA-C, on MondayAugust 21 at 11:00 am. If you need to change this appointment, call the office at [phone].) Fouzia Avalos MD, PhD [Pathologist] - 08/17/18 9:00 am (Please, follow up at [facility] ( Coumadin Clinic) on MondayJuly AT 9:00 am. *This clinic is located at the rear of this [facility] in [facility]. If you need to change this appointment, call the central scheduling department at [phone].) Diet: Regular Addtl Provider Instructions: You were admitted to the hospital with pancreatitis (inflamed pancreas). Imaging and specialist consultation revealed no overt concerning findings and given your resolving symptoms and clinical presentation, it is felt that your symptoms were possibly triggered by a viral infection. On discharge, we encourage you to keep well hydrated and eat as tolerated. Start with bland foods including toast, rice, bananas, apples, etc, adding dairy and other foods as you continue to feel better. Some ondansetron (Zofran) has been prescribed for nausea. Take one tablet up to every 8 hours as needed. Continue all medications as previously prescribed. Your INR is returning back down to acceptable range. You may restart the warfarin tomorrow, 08/15/18. Given there were multiple days of held and then doubled doses of warfarin, we will continue the current regimen for now. Follow up on 08/17/18 for an INR recheck and warfarin dose adjustment at that time as necessary. Follow up with your PCP on 08/21/18. If you continue to have diarrhea at that time, without improvement, referral/follow up with GI can be made at that time. Seek medical care urgently for unrelenting fever >100.4, vomiting, worsening abdominal pain, blood in stool, or if any new concerns arise. Thank you for allowing us to participate in your care. Prescriptions: New ondansetron HCl 4 mg tablet 4 mg PO Q8H Qty: 20 RF: 0 Continue acetaminophen [Tylenol Extra Strength] 500 mg tablet 1,000 mg PO BID PRN (Reason: pain) RF: 0 warfarin 5 mg tablet See Patient Comments PO UD RF: 0 pediatric multivitamin [Flintstones Multivitamin] Tablet,Chewable 1 tab PO BID Qty: 0 RF: 0 cyanocobalamin (vitamin B-12) [Vitamin B-12] 500 mcg Tablet 500 mcg PO DAILY Qty: 0 RF: 0 cholecalciferol (vitamin D3) [Vitamin D3] 2,000 unit Capsule 2,000 unit PO DAILY Qty: 0 RF: 3 atorvastatin [Lipitor] 40 mg Tablet 40 mg PO QAM Qty: 0 RF: 0 sertraline [Zoloft] 100 mg Tablet 100 mg PO QAM Qty: 0 RF: 0 magnesium 250 mg Tablet 250 mg PO QPM Qty: 0 RF: 0 Visit Report Forms: My [facility] [employer] [facility] Stand-Alone Forms: My [facility] Discharge Orders: Discharge Order (Routine); Ordered 08/14/18 Ordered By: Una Lamas Admission Data Admit Date/Time: 08/12/18 12:59 Attending Provider: Kyra Mccord Admit Provider: Jairo Lisa Primary Care Provider: Cinthia Multani Other Providers: Garrett Krishna Service: Medical Other Interventions: Discharge Summary Assessment (RN) Last Done: 08/14/18 16:06 Pending Studies at Discharge: No DC Date/Time DO NOT enter until pt leaves facility: 08/14/18 16:27 Supervising Physician Co-Signing Physician Notes Resident Physician Supervision Note: I independently interviewed and examined the patient and verified the kitchen history and physical, reviewed labs and image studies, discussed the case with the resident Dr. Mancini and agree with the findings and care plan. Time spent in discharge 35 min Resident Activity Tracking Resident Involvement: Resident Care Provided Care Provided: Adult Hospital Medicine
[2018-08-14] MEDS ORDERED: PANTOprazole 40 MG TAB PO SCH (21:00)
== END 2018-08-14 16:27 | disposition home or self-care (01) | DRG 439 ==
LOC: ED 11:19 → SUATTDRO 12:59 → 4E 12:59

== ENCOUNTER 2018-09-10 11:04 | Inpatient (IN) ==
[2018-09-10] MEDS ORDERED: ONDANSETRON INJ 2 MG/ML 2 ML VIAL IV STA (11:35)
[2018-09-10] MEDS ORDERED: SODIUM CHLORIDE 0.9% 1000ML 1,000 ML IV SCH (11:45)
[2018-09-10 12:08] LABS: Eosinophils # (auto) 0.01 K/uL (0-0.5); Eosinophils % (auto) 0.2 %; Hematocrit (blood only) 45.2 % (42-52); Hemoglobin 14.8 g/dL (14.0-18.0); Immature Granulocytes # (auto) 0.01 K/uL (0.00-0.02); Immature Granulocytes % (auto) 0.2 %; Lymphocytes # (auto) 0.19 K/uL (1.2-3.4); Lymphocytes % (auto) 2.9 %; Mean Corpuscular Hgb Conc 32.7 g/dL (32-36); Mean Corpuscular Volume 91.3 fL (80-100); Mean Platelet Volume 10.6 fL (7.4-10.4); Monocytes # (auto) 0.28 K/uL (0.11-0.59); Monocytes % (auto) 4.3 %; Neutrophils # (auto) 6.01 K/uL (1.4-6.5); Neutrophils % (auto) 92.4 %; Platelet Count 158 K/uL (130-400); RDW Coefficient of Variation 14.9 % (11.5-14.5); RDW Standard Deviation 49.5 fL (36.4-46.3); Red Blood Count 4.95 M/uL (4.7-6.1)
[2018-09-10 12:18] LABS: INR 1.8 (0.9-1.1); Partial Thromboplastin Ratio 1.2; Partial Thromboplastin Time 30.8 Seconds (21.0-31.0); Prothrombin Time 17.7 Seconds (9.0-12.0)
[2018-09-10 12:23] LABS: Albumin Level 3.3 gm/dl (3.4-5.0); BUN Creatinine Ratio 23.9 (10-20); Calcium 8.6 mg/dl (8.5-10.1); Creatinine Clr Calc Pharmacy 70.9 ml/min; Est GFR (African American) 70.9; Est GFR (Non-African American) 61.1; Magnesium 1.9 mg/dl (1.8-2.4); Potassium 4.3 mmol/L (3.5-5.1)
[2018-09-10 12:26] LABS: Bilirubin,Total 0.6 mg/dl (0.2-1); Globulin 3.4 gm/dl (2.5-4.0); Total Protein 6.7 gm/dl (6.4-8.2)
[2018-09-10] MEDS ORDERED: LACTATED RINGER'S 1,000 ML IV STA (12:32)
--- NOTE | 2018-09-10 13:12 | XRay Report ---
XR abdomen 2V w PA chest CLINICAL HISTORY: Nausea, vomiting, diarrhea, pain, fever, chills. COMPARISON STUDY: Chest x-ray dated 08/12/2018 FINDINGS: The erect chest reveals no evidence of free air. There is a suspected small hiatal hernia. There are postsurgical changes at the level of the stomach. There are no abnormally dilated loops of large or small bowel. There are scattered colonic and small bowel air-fluid levels. The findings are consistent with a diarrheal state. There are no transition zones indicate a high-grade bowel obstruct ion. There is bilateral nephrolithiasis. Metallic clips project over the right midabdomen. IMPRESSION: 1. No conventional radiographic evidence of bowel obstruction 2. Multiple colonic and small bowel air-fluid levels, suggestive of a diarrheal state. 3. Bilateral nephrolithiasis Electronically signed by: Dallas Nolasco M.D. 09/10/2018 1:11 PM
--- NOTE | 2018-09-10 15:46 | Emergency Department Note ---
Entered by Lesia Wheeler acting as a scribe for Gabriel Lewis MD History of Present Illness General Chief complaint: GI Assessment Stated complaint: PAIN IN BACK & SIDE Time Seen by Provider: 09/10/18 11:29 Source: patient History of Present Illness Onset (ago): hour(s) (11.5) Location: abdomen Radiation: back Severity: similar to prior episodes (pancreatitis) Pain Consistency: + other (episode) Maximum Pain Intensity: 7 Current Pain Intensity: 5 Associated symptoms: + denies other symptoms (hematochezia), + loss of appetite , + nausea/vomiting and + other (diarrhea) The patient is a 68 year old male who presents to the Emergency Room with complaints of an episode of abdominal pain starting 11.5 hours ago. The patient states that 4-5 weeks ago he was here for similar symptoms as today. He states that they diagnosed him with pancreatitis and he went upstairs for 3 days. The patient states that last night around midnight he noticed that his stomach was starting to gurgle, but he couldn�t go to the bathroom. He states that he ended up getting up 3 hours later and had a bad episode of diarrhea. He reports that he tried then to get a shower, but he started vomiting. He notes that he has a gastric sleeve and it was mainly dry heaving. The patient states that he had a trip to take the Muslim down to schools in [facility] this morning and tried to do it, but couldn�t. 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 He states that he dry heaved on the side of the road. He reports that he then took everyone home, went home, and came here. The patient states that his abdominal pain is still present and is a 5/10 in severity. He states that the pain is under his ribs, down his sides, and around to his back. He notes that he hasn�t eaten or drank anything since 8 PM last night, 15.5 hours ago. He notes that he is on Coumadin for a history of blood clots from Factor V. The patient denies hematochezia. Home Medications Home Medications Medication Instructions Recorded Confirmed Type cholecalciferol (vitamin D3) 2,000 unit PO DAILY #0 10/06/15 09/10/18 History [Vitamin D3] cyanocobalamin (vitamin B-12) 500 mcg PO DAILY #0 10/06/15 09/10/18 History [Vitamin B-12] pediatric multivitamin 1 tab PO BID #0 10/06/15 09/10/18 History [Flintstones Multivitamin] atorvastatin [Lipitor] 40 mg PO QAM #0 02/25/17 09/10/18 History magnesium 250 mg PO QPM #0 02/25/17 09/10/18 History sertraline [Zoloft] 100 mg PO QAM #0 02/25/17 09/10/18 History acetaminophen 500 mg tablet 1,000 mg PO BID PRN tab 05/03/18 09/10/18 History warfarin 5 mg tablet See Label Instructions PO UD tab 07/12/18 09/10/18 History Allergies Allergy/AdvReac Type Severity Reaction Status Date / Time shellfish derived Allergy Intermediate Anaphylaxis Verified 09/10/18 12:14 iodine Allergy Unknown Verified 09/10/18 12:14 Past Med/Surg History Medical History Hx of pancreatitis Factor V Leiden (Chronic) GERD (gastroesophageal reflux disease) (Chronic) Hyperlipidemia (Chronic) PE (pulmonary embolism) (Resolved) Factor V deficiency Postoperative anemia Pulmonary embolism APPROX 5 YEARS AGO. PT REMAINS ON WARFARIN Surgical History History of colonoscopy History of gastric bypass GASTRIC SLEEVE History of herniorrhaphy INCISIONAL History of laparoscopy OPEN LAP FOR COMPLICATION FOLLOWING GASTRIC SURGERY History of surgery LEFT ELBOW REPAIR Social History marital status: Current Living Situation: Spouse current occupational status: retired Other Information That Helps Us Care for You: No Feels Safe at Home: Yes Safety Concerns: Feels Safe At This Time Smoking Status: Never smoker Second Hand Exposure: No Hx Alcohol Use: No Hx Substance Use: No Beliefs That Will Affect Care: None Preferred Language: [place] Communication Ability: Effective Staffing Rn Required: No Review of Systems See HPI for pertinent positives & negatives. and A total of 10 systems reviewed and were otherwise negative Physical Exam Vital Signs Vital Signs - 24 hr 09/10/18 11:07 09/10/18 13:20 09/10/18 15:13 Temperature 36.7 C Temperature Source Oral Sepsis Recent Fever Within 48 Hours No Sepsis Action Taken by Nursing No Action Required Pulse Rate 103 H Pulse Rate [Finger] 72 70 Pulse Rhythm Regular Pulse Strength Normal Respiratory Rate 20 18 20 Respiratory Effort / Characteristics Non-Labored Spontaneous Non-Labored Non-Labored Spontaneous Respiratory Depth Normal Normal Normal Respiratory Pattern Regular Blood Pressure 134/71 Blood Pressure [Right Arm] 123/68 133/58 L Blood Pressure Mean 92 Blood Pressure Mean [Right Arm] 86 83 Blood Pressure Position [Right Arm] Pulse Oximetry 96 97 97 Oxygen Delivery Method Room Air Room Air 09/10/18 15:14 09/10/18 16:18 09/10/18 17:30 Temperature 37.0 C Temperature Source Oral Sepsis Recent Fever Within 48 Hours Sepsis Action Taken by Nursing Pulse Rate 78 Pulse Rate [Finger] 90 63 Pulse Rhythm Pulse Strength Respiratory Rate 20 18 Respiratory Effort / Characteristics Non-Labored Spontaneous Respiratory Depth Normal Respiratory Pattern Blood Pressure Blood Pressure [Right Arm] 120/59 L 135/72 Blood Pressure Mean Blood Pressure Mean [Right Arm] 79 93 Blood Pressure Position [Right Arm] Right Lateral Pulse Oximetry 97 98 92 Oxygen Delivery Method Room Air Room Air Room Air GENERAL: Patient is in no acute distress. HEENT: No acute trauma, normocephalic atraumatic, mucous membranes are dry, no nasal congestion, no scleral icterus. NECK: No stridor, no adenopathy, no meningismus, trachea is midline. LUNGS: Clear to auscultation bilaterally, no wheeze, no rhonchi, breath sounds equal. HEART: Without murmurs gallops or rubs, regular rate and rhythm. ABDOMEN: Soft, nontender, bowel sounds positive, no hernias, no peritonitis. EXTREMITIES: No cyanosis or edema, full range of motion of all the joints without pain or difficulty, no signs for acute trauma. NEUROLOGIC: Oriented x 3, no acute motor or sensory deficits, no focal weakness. SKIN: No rash, no jaundice, no diaphoresis. Course 1130: Past medical records reviewed. The patient was evaluated in room B6, and a complete history and physical examination were performed. 1352: I reevaluated the patient and he is feeling a little better. I discussed the patient's test results and treatment plan with him. He verbally agrees and understands. 1356: I paged the hospitalist at this time. 1406: I reviewed the patient's case with Dr. Jose Roberto MURRIETA Hospitalist. She will evaluate the patient for further management. Consultations Consultation #1: I reviewed the patient's case with Dr. Jose Roberto MURRIETA Hospitalist. She will evaluate the patient for further management. Time: 14:06 Administered Medications Sodium Chloride (1/2 Nss) 1,000 mls @ 125 mls/hr IV .Q8H UNIQUE Stop: 10/10/18 16:30 Last Admin: 09/10/18 17:38 Dose: 125 mls/hr Discontinued Medications Sodium Chloride (Nss 1000ml) 1,000 mls @ 999 mls/hr IV .Q1H1M UNIQUE Stop: 09/10/18 12:45 Last Infusion: 09/10/18 13:18 Dose: 0 mls/hr Admin: 09/10/18 12:16 Dose: 999 mls/hr Lactated Ringer's (Lr) 1,000 mls @ 999 mls/hr IV .Q1H1M STA Stop: 09/10/18 13:32 Last Infusion: 09/10/18 14:27 Dose: 0 mls/hr Admin: 09/10/18 13:18 Dose: 999 mls/hr Ondansetron HCl (Zofran) 4 mg IV NOW STA Stop: 09/10/18 11:36 Last Admin: 09/10/18 12:16 Dose: 4 mg Medical Decision Making Differential Diagnosis Differential diagnoses include dehydration, pancreatitis, viral illness, food borne illness, electrolyte imbalance, anemia, diverticulitis, appendicitis. Medical Records Attestation: I reviewed the patient's medical records. Home Medications Current Medication List: was personally reviewed by me Laboratory Data Attestation: I reviewed the patient's lab results. Result diagrams: 09/10/18 11:55 09/10/18 11:55 Lab Results 09/10/18 09/10/18 09/10/18 Range/Units 11:55 11:55 11:55 WBC 6.50 (4.8-10.8) K/uL RBC 4.95 (4.7-6.1) M/uL Hgb 14.8 (14.0-18.0) g/dL Hct 45.2 (42-52) % MCV 91.3 (80-100) fL MCH 29.9 (25-34) pg MCHC 32.7 (32-36) g/dL RDW Std Deviation 49.5 H (36.4-46.3) fL RDW Coeff of Nadja 14.9 H (11.5-14.5) % Plt Count 158 (130-400) K/uL MPV 10.6 H (7.4-10.4) fL Immature Gran % (Auto) 0.2 % Neut % (Auto) 92.4 % Lymph % (Auto) 2.9 % [place] % (Auto) 4.3 % Eos % (Auto) 0.2 % Baso % (Auto) 0.0 % Immature Gran # (Auto) 0.01 (0.00-0.02) K/uL Neut # (Auto) 6.01 (1.4-6.5) K/uL Lymph # (Auto) 0.19 L (1.2-3.4) K/uL [place] # (Auto) 0.28 (0.11-0.59) K/uL Eos # (Auto) 0.01 (0-0.5) K/uL Baso # (Auto) 0.00 (0-0.2) K/uL PT 17.7 H (9.0-12.0) Seconds INR 1.8 H (0.9-1.1) APTT 30.8 (21.0-31.0) Seconds PTT Ratio 1.2 Sodium 144 (136-145) mmol/L Potassium 4.3 (3.5-5.1) mmol/L Chloride 112 H (98-107) mmol/L Carbon Dioxide 25 (21-32) mmol/L Anion Gap 7.0 (3-11) BUN 29 H (7-18) mg/dl Creatinine 1.21 (0.6-1.4) mg/dl Est Cr Clr Drug Dosing 70.9 ml/min Est GFR ( Amer) 70.9 Est GFR (Non-Af Amer) 61.1 BUN/Creatinine Ratio 23.9 H (10-20) Glucose 111 H (70-99) mg/dl Calcium 8.6 (8.5-10.1) mg/dl Magnesium 1.9 (1.8-2.4) mg/dl Total Bilirubin 0.6 (0.2-1) mg/dl AST 20 (15-37) U/L ALT 24 (12-78) U/L Alkaline Phosphatase 89 (45-117) U/L Total Protein 6.7 (6.4-8.2) gm/dl Albumin 3.3 L (3.4-5.0) gm/dl Globulin 3.4 (2.5-4.0) gm/dl Albumin/Globulin Ratio 1.0 (0.9-2) Lipase 617 H (73-393) U/L Imaging Data Radiologist's Impression: Radiology results as stated below per my review and the radiologist's interpretation: XR abdomen 2V w PA chest CLINICAL HISTORY: Nausea, vomiting, diarrhea, pain, fever, chills. COMPARISON STUDY: Chest x-ray dated 08/12/2018 FINDINGS: The erect chest reveals no evidence of free air. There is a suspected small hiatal hernia. There are postsurgical changes at the level of the stomach. There are no abnormally dilated loops of large or small bowel. There are scattered colonic and small bowel air-fluid levels. The findings are consistent with a diarrheal state. There are no transition zones indicate a high -grade bowel obstruction. There is bilateral nephrolithiasis. Metallic clips project over the right midabdomen. IMPRESSION: 1. No conventional radiographic evidence of bowel obstruction 2. Multiple colonic and small bowel air-fluid levels, suggestive of a diarrheal state. 3. Bilateral nephrolithiasis Electronically signed by: Dallas Nolasco M.D. 09/10/2018 1:11 PM Blood Pressure Blood Pressure Findings: Normal blood pressure Blood Pressure Disposition: did not require urgent referral MDM Narrative There is no leukocytosis or concerning anemia. INR is elevated consistent with his Coumadin use. No significant electrolyte abnormality or kidney failure. No hepatitis. Lipase was somewhat elevated at 617. Abdominal series did not show bowel obstruction, pneumonia or free air. On exam, the patient was not febrile or toxic. There was no peritonitis. Patient presents with diarrhea and vomiting. He did appear dehydrated clinically. He was given IV saline for hydration. He received IV Zofran. He was given a bag of IV lactated Ringer's. The patient presents with vomiting, diarrhea and epigastric abdominal pain. He has mild pancreatitis by our workup, he has had this same issue very recently. I do think further workup in the hospital is warranted. The cause for the pancreatitis is not clear. Patient is aware of all his findings, case management has been involved. The on-call hospitalist was consulted. Impression & Plan Pancreatitis, Vomiting, Diarrhea, Dehydration Discharge Plan Visit Data *Final* Discharge Date/Time: 09/10/18 16:25 Chief Complaint: GI Assessment Stated Complaint: PAIN IN BACK & SIDE ED Provider: Gabriel Lewis Discharge Problem: Pancreatitis, Vomiting, Diarrhea, Dehydration Patient Disposition: Admitted As Inpatient Discharge Instructions Interventions: ED Discharge Assessment Last Done: 09/10/18 16:25 The scribe's documentation has been prepared under my direction and personally reviewed by me in its entirety. I confirm that the note above accurately reflects all work, treatment, procedures, and medical decision making performed by me.
--- NOTE | 2018-09-10 16:18 | History & Physical Report ---
Date of Service September 10, 2018 Assessment & Plan (1) Pancreatitis: d/c 08/14/18 with same Had been doing well until yesterday Lipase elevated, likely would be higher had pt not recognized sx and come for tx sooner C/AXR c/w diarrhea RUQ US noted for sludge only on prior admission Given sx returned s/p high fat and fried meal, will repeat Lipids not checked prior, pending Electrolytes WNL, monitor (2) Factor V Leiden: Will hold coumadin given above INR slightly subtherapeutic Lovenox at tx dosing Will not reverse coumdin given no s/sx of bleeding (3) GERD (gastroesophageal reflux disease): IV protonix (4) Hyperlipidemia: Holding statin (5) PE (pulmonary embolism): Resolved, monitor with lovenox (6) H/O gastric bypass: Holding vitamins given above Resume when able (7) Family history of colon cancer: Recent c-scope with neg polyps (8) DVT prophylaxis: Lovenox Resume coumadin when able History of Present Illness Primary Care Provider: Cinthia Multani PA-C 68 y/o M c/o abd pain. Pt states he started to have severe abd pain, v/d around midnight. Pt was hospitalized at [facility] about a month ago for pancreatitis and he states the sx were similar to this episode. With the prior episode he waited to present until sx were much worse, but as this felt similar he recognized what was going on and thought he should come sooner. Pt denies fever, SOB, chest pain, LE pain or swelling. He had 5-6 episodes of explosive diarrhea and then he started to have emesis between diarrheal episodes. Pt states he had been doing well since d/c. No abd pain, n/v/d. Monday night he went to an [employer] dinner and had a small amount of mashed potatoes with gravy. Yesterday after mu-ism he went to [email or web address] and ate a chimichanga, which is not something he would usually eat. He states he felt a bit uneasy last night around 8p, but major sx did not start until around midnight. He states he had had a c-scope the prior to this pancreatitis. It was felt on d/c that his pancreatitis was related to a viral GI bug given negative workup. Pt has not changed any medications since his d/c other than the addition of a probiotic. He has been on the since d/c and no issues. Pt states he is still nauseated in the ED, but no further emesis/diarrhea. Still with abd pain, but better. Allergies Allergy/AdvReac Type Severity Reaction Status Date / Time shellfish derived Allergy Intermediate Anaphylaxis Verified 09/10/18 12:14 iodine Allergy Unknown Verified 09/10/18 12:14 Home Medications Home Medications Medication Instructions Recorded Confirmed Type cholecalciferol (vitamin D3) 2,000 unit PO DAILY #0 10/06/15 09/10/18 History [Vitamin D3] cyanocobalamin (vitamin B-12) 500 mcg PO DAILY #0 10/06/15 09/10/18 History [Vitamin B-12] pediatric multivitamin 1 tab PO BID #0 10/06/15 09/10/18 History [Flintstones Multivitamin] atorvastatin [Lipitor] 40 mg PO QAM #0 02/25/17 09/10/18 History magnesium 250 mg PO QPM #0 02/25/17 09/10/18 History sertraline [Zoloft] 100 mg PO QAM #0 02/25/17 09/10/18 History acetaminophen 500 mg tablet 1,000 mg PO BID PRN tab 05/03/18 09/10/18 History warfarin 5 mg tablet See Label Instructions PO UD tab 07/12/18 09/10/18 History Past Med/Surg History Medical History Hx of pancreatitis Factor V Leiden (Chronic) GERD (gastroesophageal reflux disease) (Chronic) Hyperlipidemia (Chronic) PE (pulmonary embolism) (Resolved) Factor V deficiency Postoperative anemia Pulmonary embolism APPROX 5 YEARS AGO. PT REMAINS ON WARFARIN Surgical History History of colonoscopy History of gastric bypass GASTRIC SLEEVE History of herniorrhaphy INCISIONAL History of laparoscopy OPEN LAP FOR COMPLICATION FOLLOWING GASTRIC SURGERY History of surgery LEFT ELBOW REPAIR Family History Other Family history of colon cancer Social History marital status: Current Living Situation: Spouse current occupational status: retired Feels Safe at Home: Yes Smoking Status: Never smoker Second Hand Exposure: No Hx Alcohol Use: No Hx Substance Use: No Beliefs That Will Affect Care: Restorationism Preferred Language: Greenlandic Visual Impairment: No Limitations Review of Systems Pertinent positives and negatives reviewed in HPI--all others negative Physical Exam 2 Vital Signs (Past 24 Hours): Last Vital Signs Temp 36.7 C 09/10/18 11:07 Pulse 78 09/10/18 15:14 Resp 20 09/10/18 15:13 BP 133/58 L 09/10/18 15:13 Pulse Ox 97 09/10/18 15:14 Constitutional: WD/WN, vitals as above Eyes: normal visual romano by confrontation and + anicteric sclerae Neck: normal visual inspection and trachea midline Respiratory: normal respiratory effort, lungs clear to auscultation Cardiovascular: Rate/Rhythm: regular rate and regular rhythm Gastrointestinal (Abdomen): Inspection/Auscultation: + abdomen distended Percussion/Palpation: + abdomen tender (diffuse, mostly epigastric) and abdomen soft Musculoskeletal: Head/Neck/Chest: normocephalic and head atraumatic negative for edema, peripheral pulses intact Skin: no rashes, warm and dry Neurologic: awake; not confused Speech / Cognition: normal speech Psychiatric: A+Ox3, euthymic affect Results & Data Diagnostic Findings C/AXR: c/w diarrhea, b/l renal stones noted Code Status & VTE Plan Code Status Full code, although pt states no prolonged mechanical life support, feeding tubes, etc. is present and agrees. VTE Prophylaxis Plan VTE Prophylaxis will be ordered: Yes _ (1) Pancreatitis Acute pancreatitis complication: unspecified Chronicity: acute Pancreatitis type: unspecified pancreatitis type Qualified Code(s): K85.90 - Acute pancreatitis without necrosis or infection, unspecified
[2018-09-10] MEDS ORDERED: MoRPHine SULFATE 4 MG/ML 1 ML CARP\\VIAL IV PRN (16:31)
[2018-09-10] MEDS ORDERED: ONDANSETRON INJ 2 MG/ML 2 ML VIAL IV PRN (16:31)
[2018-09-10] MEDS ORDERED: MAGNESIUM HYDROXIDE SUSP 30 ML UDC PO PRN (16:31)
[2018-09-10] MEDS ORDERED: ACETAMINOPHEN 325 MG TAB PO PRN (16:31)
[2018-09-10] MEDS ORDERED: ENOXAPARIN 1 MG/KG SQ SCH (16:31)
--- NOTE | 2018-09-10 17:23 | Ultrasound Report ---
ULTRASOUND RIGHT UPPER QUADRANT ABDOMEN CLINICAL HISTORY: Epigastric abdominal pain. COMPARISON STUDY: Abdominal CT dated 08/12/2018. TECHNIQUE: Real-time, grayscale, and color flow sonography of the right upper quadrant of the abdomen was performed. Images are reviewed in the transverse and longitudinal planes. FINDINGS: Liver: The liver is normal in size and demonstrates heterogeneously increased echotexture consistent with hepatic steatosis. There is no intrahepatic biliary ductal dilatation. The main portal vein is p atent. Gallbladder: The gallbladder is mildly distended but otherwise normal in appearance. No gallstones ar e identified. There is no gallbladder wall thickening or pericholecystic fluid. A sonographic Reynolds' s sign is reportedly absent. The common bile duct measures up to 0.4 cm in diameter. Pancreas: Visualized portions of the pancreatic head and body are normal in appearance. The splenic v ein is patent. Right kidney: Survey images of the right kidney demonstrate mild cortical atrophy. There is no hydron ephrosis. Right renal cysts measure up to 7 cm. Ascites: None. IMPRESSION: 1. No shadowing gallstones are identified. 2. Hepatic steatosis. 3. The pancreas is grossly unremarkable. Electronically signed by: Gabriel Cuba M.D. 09/10/2018 5:21 PM
[2018-09-10] MEDS: SODIUM CHLORIDE 0.45 % 1,000 ML IV SCH (17:38)
[2018-09-10] MEDS: ENOXAPARIN 100 MG/1ML SYR SQ SCH (17:57)
[2018-09-10 19:02] LABS: Chol HDL Ratio 3; Cholesterol 146 mg/dl (0-200); HDL Cholesterol 59 mg/dl; LDL Cholesterol Calculated 83 mg/dl; Triglycerides 22 mg/dl (0-150); VLDL Cholesterol 4 mg/dl
[2018-09-10] MEDS: PANTOprazole 40 MG in SYRINGE 0 ML IV SCH (20:57)
[2018-09-11] MEDS: SODIUM CHLORIDE 0.45 % 1,000 ML IV SCH ×3 (01:35→17:06)
[2018-09-11] MEDS: ENOXAPARIN 100 MG/1ML SYR SQ SCH (05:28)
[2018-09-11 07:36] LABS: Eosinophils # (auto) 0.08 K/uL (0-0.5); Eosinophils % (auto) 1.9 %; Hematocrit (blood only) 39.3 % (42-52); Hemoglobin 12.8 g/dL (14.0-18.0); Immature Granulocytes # (auto) 0.01 K/uL (0.00-0.02); Immature Granulocytes % (auto) 0.2 %; Lymphocytes # (auto) 0.98 K/uL (1.2-3.4); Lymphocytes % (auto) 23.7 %; Mean Corpuscular Hgb Conc 32.6 g/dL (32-36); Mean Corpuscular Volume 91.6 fL (80-100); Mean Platelet Volume 10.2 fL (7.4-10.4); Monocytes # (auto) 0.54 K/uL (0.11-0.59); Monocytes % (auto) 13.1 %; Neutrophils # (auto) 2.52 K/uL (1.4-6.5); Neutrophils % (auto) 61.1 %; Platelet Count 139 K/uL (130-400); RDW Coefficient of Variation 15.2 % (11.5-14.5); RDW Standard Deviation 50.9 fL (36.4-46.3); Red Blood Count 4.29 M/uL (4.7-6.1); White Blood Count 4.13 K/uL (4.8-10.8)
[2018-09-11 07:42] LABS: INR 2.1 (0.9-1.1); Prothrombin Time 20.1 Seconds (9.0-12.0)
[2018-09-11] MEDS: PANTOprazole 40 MG in SYRINGE 0 ML IV SCH ×2 (08:25→21:22)
[2018-09-11 09:13] LABS: BUN Creatinine Ratio 19.3 (10-20); Calcium 7.7 mg/dl (8.5-10.1); Creatinine Clr Calc Pharmacy 79.4 ml/min; Est GFR (African American) 81.3; Est GFR (Non-African American) 70.2; Potassium 3.7 mmol/L (3.5-5.1)
[2018-09-11] MEDS ORDERED: LAVAGE SOLUTION 4000ML PO SCH (20:00)
--- NOTE | 2018-09-11 20:32 | Hospitalist Progress Note ---
Date of Service September 11, 2018 Assessment & Plan (1) Diarrhea: This is the pt's most pressing complaint, similar to his Jul 2018 admission. The diarrhea is pure water and frequent. This would be very atypical for pancreatitis. Recheck c. diff. Recheck stool cx. Check O & P. Allow clear liquids. I have asked Dr. Krishna to consult from GI. He plans to perform Upper/Lower endoscopies tomorrow to help assist with diagnosis. Present on Admission?: Yes (2) Elevated lipase: Significance is uncertain. Repeat level today is normal. The mildly elevated lipase yesterday may have been reactive to whatever process was driving the nausea/vomiting/diarrhea. I am not entirely convinced that he had recurrent pancreatitis. (3) Hx of pancreatitis: July 2018 - thought to be possibly viral induced. (4) Dehydration: continue hydration w/ repeat labs in am (5) Vomiting: improved Dr. Krishna has seen - EGD tomorrow (6) H/O gastric bypass: noted cont PPI EGD in am (7) GERD (gastroesophageal reflux disease): PPI (8) History of pulmonary embolism: several years prior no need for lovenox bridge while hospitalized - Dr. Cordero from the coumadin clinic advised no bridge stop the therapeutic lovenox warfarin on hold due to procedures INR in am results of scopes will dictate when we can resume his anticoagulation at a minimum, following his scopes, he should be on lovenox 40mg daily if INR is well below 2 (9) DVT prophylaxis: currently on coumadin does not need therapeutic lovenox (1mg/kg BID) Dr. Cordero ok with simply using DVT prophylaxis dosing (40mg daily) if his INR is subtherapeutic on coumadin Subjective patient reports minimal abd discomfort/pain main complaint is that of VOLUMINOUS diarrhea - sometimes twice an hour, pure water he has had the profuse diarrhea since late Monday evening no further vomiting had copious diarrhea during his stay in July s/p colonoscopy early July -- polyps, hemorrhoids seen only Constitutional: no fever and no body aches Respiratory: no cough and no dyspnea Cardiovascular: no chest pain Gastrointestinal: no nausea and no vomiting Physical Exam 2 Vital Signs (Past 24 Hours): Last Vital Signs Temp 36.6 C 09/11/18 15:05 Pulse 61 09/11/18 15:45 Resp 18 09/11/18 15:05 BP 130/73 09/11/18 15:05 Pulse Ox 95 09/11/18 15:05 Constitutional: WD/WN, vitals as above ENMT: external ear and nose normal, oropharynx normal Respiratory: normal respiratory effort, lungs clear to auscultation Cardiovascular: RRR, no murmur, no edema Heart Sounds: normal S1 and normal S2 Vessels: posterior tibial pulses present and dorsalis pedis pulses present; no JVD Gastrointestinal (Abdomen): normal bowel sounds, soft, nontender, no hepatosplenomegaly Psychiatric: A+Ox3, euthymic affect Results & Data Laboratory Results Laboratory Results - last 24 hr 09/11/18 09/11/18 09/11/18 07:18 07:18 07:18 WBC 4.13 L RBC 4.29 L Hgb 12.8 L Hct 39.3 L MCV 91.6 MCH 29.8 MCHC 32.6 RDW Std Deviation 50.9 H RDW Coeff of Nadja 15.2 H Plt Count 139 MPV 10.2 Immature Gran % (Auto) 0.2 Neut % (Auto) 61.1 Lymph % (Auto) 23.7 [place] % (Auto) 13.1 Eos % (Auto) 1.9 Baso % (Auto) 0.0 Immature Gran # (Auto) 0.01 Neut # (Auto) 2.52 Lymph # (Auto) 0.98 L [place] # (Auto) 0.54 Eos # (Auto) 0.08 Baso # (Auto) 0.00 PT 20.1 H INR 2.1 H Sodium 141 Potassium 3.7 Chloride 115 H Carbon Dioxide 22 Anion Gap 4.0 BUN 21 H Creatinine 1.08 Est Cr Clr Drug Dosing 79.4 Est GFR ( Amer) 81.3 Est GFR (Non-Af Amer) 70.2 BUN/Creatinine Ratio 19.3 Glucose 83 Calcium 7.7 L Lipase Stl C. diff Tox B Gene 09/11/18 09/11/18 07:18 Unknown WBC RBC Hgb Hct MCV MCH MCHC RDW Std Deviation RDW Coeff of Nadja Plt Count MPV Immature Gran % (Auto) Neut % (Auto) Lymph % (Auto) [place] % (Auto) Eos % (Auto) Baso % (Auto) Immature Gran # (Auto) Neut # (Auto) Lymph # (Auto) [place] # (Auto) Eos # (Auto) Baso # (Auto) PT INR Sodium Potassium Chloride Carbon Dioxide Anion Gap BUN Creatinine Est Cr Clr Drug Dosing Est GFR ( Amer) Est GFR (Non-Af Amer) BUN/Creatinine Ratio Glucose Calcium Lipase 106 Stl C. diff Tox B Gene Neg C.diff Toxin B _ (1) Diarrhea Diarrhea type: unspecified type Qualified Code(s): R19.7 - Diarrhea, unspecified (2) GERD (gastroesophageal reflux disease) Esophagitis presence: esophagitis presence not specified Qualified Code(s): K21.9 - Gastro-esophageal reflux disease without esophagitis (3) Vomiting Nausea presence: unspecified Vomiting Intractability: unspecified Vomiting type: unspecified Qualified Code(s): R11.10 - Vomiting, unspecified
--- NOTE | 2018-09-11 23:55 | Consultation Report ---
DATE OF CONSULTATION: 09/11/2018 GASTROENTEROLOGY CONSULTATION THE PATIENT'S AGE: 68. SEX: Male. RACE: . ATTENDING PHYSICIAN: El Suarez MD CONSULTING PHYSICIAN: Garrett Krishna, REASON FOR CONSULTATION: Diarrhea. HISTORY OF PRESENT ILLNESS: This patient is a 68-year-old male who was last seen by our service during his most recent hospitalization for episode of acute pancreatitis and diarrhea as well as nausea and vomiting in mid July. Just prior to his admission, he did undergo a colonoscopy by myself on 08/09/2018 at which time he was noted to have 3 polyps which were removed and he was noted to have tubular adenomas x3 with a recommended repeat interval of 3 years. Approximately 3 days following his colonoscopy, he presented to the Emergency Room with symptoms of viral gastroenteritis with an associated pancreatitis. He did complain of some diarrhea at that point; however, it did improve throughout this hospital course and he was discharged. He returned to the Department of Emergency Medicine on 09/10/2018 with severe abdominal pain, nausea, vomiting and diarrhea. He was noted to have an elevation of his lipase level upon arrival in 600 range. He did report approximately 5-6 episodes of explosive diarrhea prior to his arrival and stated that he had been going to the bathroom approximately 1-2 times per hour since then. Interestingly enough, over the past month, the patient admits that his stools have alternated between diarrhea and constipation and he has stated that he was not having persistent diarrhea until this most recent episode over the last few days. He denies any melena or hematochezia with his symptoms. Upon arrival to the Department of Emergency Medicine, he was noted to have H and H of 14.8 and 45.2. His liver panel was unremarkable. His lipase initially was 617. However, today's value is 106. At the time that I saw the patient, he stated that he has been having 1-2 bowel movements per hour liquid in nature. He denied abdominal pain at this time and denied any further nausea or vomiting. He states that he has not had any hematemesis, melena or hematochezia throughout his most recent illness. He does state that fasting has helped with his diarrhea and states that unless he eats, he does not notice any symptoms of diarrhea. He does have a history of a gastric sleeve procedure performed and questions as to whether this could be causing some of his symptoms. I told him that we would do further investigation prior to making any determination into that question. He denied any further complaints. PAST MEDICAL HISTORY: Significant for pancreatitis, factor V Leiden, gastroesophageal reflux disease, hyperlipidemia and history of pulmonary embolism. PAST SURGICAL HISTORY: Includes gastric sleeve procedure, herniorrhaphy, laparoscopy and colonoscopy. ALLERGIES: INCLUDE SHELLFISH AND IODINE. MEDICATIONS: At the present time include Tylenol 650 mg p.o. q. 4 hours p.r.n., Lovenox 100 mg subQ q. 12 hours, Lactated Ringer's, morphine 1 mg I.V. q. 4 hours p.r.n., Zofran 4 mg I.V. q. 6 hours p.r.n. and Protonix 40 mg I.V. b.i.d. SOCIAL HISTORY: He is . He denies any tobacco, alcohol or illicit drug use. FAMILY HISTORY: Negative for inflammatory bowel disease. It is positive for family history of colon cancer. PHYSICAL EXAMINATION: VITAL SIGNS: Include a temperature of 37, pulse 64, respirations 16, blood pressure 100/54 and pulse ox 94% on room air. GENERAL: He is awake, cooperative, in no acute distress. He is chronically ill appearing. HEAD: Normocephalic and atraumatic. EYES: Pupils are equal and round. Extraocular muscles are intact. ENT: External evaluation of ears and nose is normal. Oropharynx is clear. NECK: Soft and supple. CHEST: Clear to auscultation bilaterally. CARDIOVASCULAR SYSTEM: Regular rate and rhythm. ABDOMEN: Soft, nontender and nondistended. Positive bowel sounds. EXTREMITIES: No clubbing, cyanosis or edema. LABORATORY STUDIES: Include H and H of 12.8 and 39.3, white blood cell count 4.13 and platelet count of 139. Sodium 141, potassium 3.7, chloride 115, bicarbonate 22, BUN 21, creatinine 1.08 and calcium 7.7. Right upper quadrant ultrasound showed no gallstones, hepatic steatosis and pancreas was grossly unremarkable. A chest and abdomen x-ray on 09/10/2018 showed no evidence of bowel obstruction. There were multiple colonic and small bowel air fluid levels suggestive of diarrheal state. IMPRESSION: This patient is a 68-year-old male with intermittent nausea, vomiting and persistent diarrhea. PLAN: At the present time, I would recommend the patient be on a clear liquid diet. I would recommend that he be continued on Protonix 40 mg I.V. b.i.d. I would recommend that he undergo both an esophagogastroduodenoscopy and colonoscopy tomorrow for further evaluation of his above noted symptoms. I will make further recommendations following the above noted testing. Once again, thank you for allowing me to participate in the care of this patient. If you have any further questions, please do not hesitate to contact me.
[2018-09-12] MEDS: SODIUM CHLORIDE 0.45 % 1,000 ML IV SCH ×3 (00:48→19:31)
[2018-09-12 06:19] LABS: Basophils # (auto) 0.01 K/uL (0-0.2); Basophils % (auto) 0.3 %; Eosinophils # (auto) 0.24 K/uL (0-0.5); Eosinophils % (auto) 6.6 %; Hematocrit (blood only) 38.3 % (42-52); Hemoglobin 12.6 g/dL (14.0-18.0); Immature Granulocytes # (auto) 0.01 K/uL (0.00-0.02); Immature Granulocytes % (auto) 0.3 %; Lymphocytes # (auto) 1.15 K/uL (1.2-3.4); Lymphocytes % (auto) 31.5 %; Mean Corpuscular Hgb Conc 32.9 g/dL (32-36); Mean Corpuscular Volume 90.3 fL (80-100); Mean Platelet Volume 10.5 fL (7.4-10.4); Monocytes # (auto) 0.67 K/uL (0.11-0.59); Monocytes % (auto) 18.4 %; Neutrophils # (auto) 1.57 K/uL (1.4-6.5); Neutrophils % (auto) 42.9 %; Platelet Count 139 K/uL (130-400); RDW Coefficient of Variation 14.9 % (11.5-14.5); RDW Standard Deviation 49.3 fL (36.4-46.3); Red Blood Count 4.24 M/uL (4.7-6.1); White Blood Count 3.65 K/uL (4.8-10.8)
[2018-09-12 06:31] LABS: INR 1.7 (0.9-1.1); Prothrombin Time 16.7 Seconds (9.0-12.0)
[2018-09-12 06:56] LABS: BUN Creatinine Ratio 15.1 (10-20); Calcium 7.8 mg/dl (8.5-10.1); Creatinine Clr Calc Pharmacy 90.3 ml/min; Est GFR (African American) 94.9; Est GFR (Non-African American) 81.9; Magnesium 1.6 mg/dl (1.8-2.4); Potassium 3.7 mmol/L (3.5-5.1)
[2018-09-12] MEDS: PANTOprazole 40 MG in SYRINGE 0 ML IV SCH ×2 (07:45→19:32)
--- NOTE | 2018-09-12 09:11 | Gastroenterology Progress Note ---
Date of Service September 12, 2018 Assessment & Plan (1) Vomiting: (2) Diarrhea: 1. NPO for now. 2. EGD and colonoscopy today with Dr. Krishna. 3. Additional recommendations pending results of testing. Supervising Physician Co-Signing Physician Notes Agree with MOY Andrews as above Abd: Soft, NT, ND, +BS Developed bradycardia, and was evaluated by Cardiology Will delay EGD and Colonoscopy until 09/13/2018 if OK with Cardiology. Await further recommendations from Cardiology prior to proceeding. Subjective Patient reports is doing well from a GI perspective this morning. Tolerated 2/3 of the bowel prep with some mild nausea but no vomiting. States he is passing liquid stools. No abdominal pain. To undergo both an upper and lower endoscopy today. H&H remains stable. Respiratory: no cough and no dyspnea Cardiovascular: no chest pain and no palpitations Gastrointestinal: as per Subjective / HPI Physical Exam 2 Vital Signs (Past 24 Hours): Last Vital Signs Temp 36.8 C 09/12/18 07:15 Pulse 37 L 09/12/18 07:15 Resp 16 09/12/18 07:15 BP 105/48 L 09/12/18 07:15 Pulse Ox 93 09/12/18 07:15 Constitutional: WD/WN, vitals as above Respiratory: normal respiratory effort, lungs clear to auscultation Auscultation: lungs clear to auscultation bilaterally Cardiovascular: Rate/Rhythm: regular rate and regular rhythm Gastrointestinal (Abdomen): Inspection/Auscultation: normal bowel sounds Percussion/Palpation: abdomen soft; abdomen nontender Psychiatric: A+Ox3, euthymic affect Results & Data Laboratory Results Abnormal lab results 09/12/18 09/12/18 09/12/18 Range/Units 05:51 05:51 05:51 WBC 3.65 L (4.8-10.8) K/uL RBC 4.24 L (4.7-6.1) M/uL Hgb 12.6 L (14.0-18.0) g/dL Hct 38.3 L (42-52) % RDW Std Deviation 49.3 H (36.4-46.3) fL RDW Coeff of Nadja 14.9 H (11.5-14.5) % MPV 10.5 H (7.4-10.4) fL Lymph # (Auto) 1.15 L (1.2-3.4) K/uL [place] # (Auto) 0.67 H (0.11-0.59) K/uL PT 16.7 H (9.0-12.0) Seconds INR 1.7 H (0.9-1.1) Chloride 112 H (98-107) mmol/L Calcium 7.8 L (8.5-10.1) mg/dl Magnesium 1.6 L (1.8-2.4) mg/dl _ (1) Diarrhea Diarrhea type: unspecified type Qualified Code(s): R19.7 - Diarrhea, unspecified (2) Vomiting Nausea presence: unspecified Vomiting Intractability: unspecified Vomiting type: unspecified Qualified Code(s): R11.10 - Vomiting, unspecified
--- NOTE | 2018-09-12 10:51 | Hospitalist Progress Note ---
Date of Service September 12, 2018 Assessment & Plan (1) Bradycardia: With sinus bradycardia into the high 30s, asymptomatic for now but BP low normal Could be vagal response due to ongoing GI issues and bowel prep overnight. No previous h/o bradycardia, not on AV judith blocking agents -transfer to tele -pace or give atropine if worsens or becomes unstable (2) Diarrhea: This is the pt's most pressing complaint, similar to his Jul 2018 admission. The diarrhea is pure water and frequent. This would be very atypical for pancreatitis. C. diff negative Stool cx, O & P pending Colonoscopy in 07/2018 with 2 TAs removed, otherwise normal. Diarrhea resolved with dietary changes after that last admission, then returned abruptly Dr. Krishna to consult from GI is consulted. He plans to perform Upper/Lower endoscopies today to help assist with diagnosis. -keep NPO -continue gentle IVFs while NPO (3) Elevated lipase: Significance is uncertain. Repeat level is normal. The mildly elevated lipase on admission at 600 may have been reactive to whatever process was driving the nausea/vomiting/diarrhea. I am not entirely convinced that he had recurrent pancreatitis. (4) Hx of pancreatitis: July 2018 - thought to be possibly viral induced. (5) Dehydration: resolved with IVF hydration (6) Vomiting: improved Dr. Krishna has seen - EGD today (7) H/O gastric bypass: noted cont PPI EGD today (8) GERD (gastroesophageal reflux disease): PPI (9) History of pulmonary embolism: several years prior no need for lovenox bridge while hospitalized - Dr. Cordero from the coumadin clinic advised no bridge stopped the therapeutic lovenox warfarin on hold due to procedures INR now subtherapeutic at 1.7 results of scopes will dictate when we can resume his anticoagulation at a minimum, following his scopes, he should be on lovenox 40mg daily if INR is well below 2 (10) Hyperlipidemia: holding statin while NPO (11) Factor V Leiden: noted, with h/o PE, on chronic AC as above (12) DVT prophylaxis: coumadin on hold does not need therapeutic lovenox (1mg/kg BID) Dr. Cordero ok with simply using DVT prophylaxis dosing (40mg daily) if his INR is subtherapeutic on coumadin Dispo-transfer to tele for bradycardia Subjective Pt feeling well today, nhad some mild nausea with the bowel prep but no vomiting. No blood in stool. Finished bowel prep. RN noted bradycardia this AM in the high 30s. Pt denies any lightheadedness, weakness, no headache, no chest pain or SOB. Has never had bradycardia before. Review of Systems All systems reviewed & are unremarkable except as noted in HPI & below Physical Exam 2 Vital Signs (Past 24 Hours): Last Vital Signs Temp 36.8 C 09/12/18 07:15 Pulse 40 L 09/12/18 10:06 Resp 16 09/12/18 07:15 BP 105/48 L 09/12/18 07:15 Pulse Ox 93 09/12/18 07:15 Constitutional: WD/WN, vitals as above Eyes: PERRL, conjunctivae normal, anicteric sclerae ENMT: external ear and nose normal, oropharynx normal Neck: trachea midline, no thyromegaly Respiratory: normal respiratory effort, lungs clear to auscultation Cardiovascular: Rate/Rhythm: regular rhythm and + bradycardic Heart Sounds : normal S1 and normal S2; no murmur Vessels: no JVD Extremities: no edema Gastrointestinal (Abdomen): normal bowel sounds, soft, nontender, no hepatosplenomegaly Musculoskeletal: Extremities: extremities normal to inspection; no cyanosis and no clubbing Skin: no rashes, warm and dry Neurologic: moves all extremities and awake; no focal motor deficits Psychiatric: A+Ox3, euthymic affect Results & Data Laboratory Results 09/12/18 09/12/18 09/12/18 Range/Units 05:51 05:51 05:51 WBC 3.65 L (4.8-10.8) K/uL RBC 4.24 L (4.7-6.1) M/uL Hgb 12.6 L (14.0-18.0) g/dL Hct 38.3 L (42-52) % MCV 90.3 (80-100) fL MCH 29.7 (25-34) pg MCHC 32.9 (32-36) g/dL RDW Std Deviation 49.3 H (36.4-46.3) fL RDW Coeff of Nadja 14.9 H (11.5-14.5) % Plt Count 139 (130-400) K/uL MPV 10.5 H (7.4-10.4) fL Immature Gran % (Auto) 0.3 % Neut % (Auto) 42.9 % Lymph % (Auto) 31.5 % [place] % (Auto) 18.4 % Eos % (Auto) 6.6 % Baso % (Auto) 0.3 % Immature Gran # (Auto) 0.01 (0.00-0.02) K/uL Neut # (Auto) 1.57 (1.4-6.5) K/uL Lymph # (Auto) 1.15 L (1.2-3.4) K/uL [place] # (Auto) 0.67 H (0.11-0.59) K/uL Eos # (Auto) 0.24 (0-0.5) K/uL Baso # (Auto) 0.01 (0-0.2) K/uL PT 16.7 H (9.0-12.0) Seconds INR 1.7 H (0.9-1.1) Sodium 141 (136-145) mmol/L Potassium 3.7 (3.5-5.1) mmol/L Chloride 112 H (98-107) mmol/L Carbon Dioxide 21 (21-32) mmol/L Anion Gap 8.0 (3-11) BUN 14 (7-18) mg/dl Creatinine 0.95 (0.6-1.4) mg/dl Est Cr Clr Drug Dosing 90.3 ml/min Est GFR ( Amer) 94.9 Est GFR (Non-Af Amer) 81.9 BUN/Creatinine Ratio 15.1 (10-20) Glucose 74 (70-99) mg/dl Calcium 7.8 L (8.5-10.1) mg/dl Magnesium 1.6 L (1.8-2.4) mg/dl Lipase (73-393) U/L Stl C. diff Tox B Gene (Neg) Stool Ova & Parasites Stool O & P Source Parasite Trichrome Stool Comments 09/11/18 09/11/18 09/11/18 Range/Units Unknown Unknown 07:18 WBC (4.8-10.8) K/uL RBC (4.7-6.1) M/uL Hgb (14.0-18.0) g/dL Hct (42-52) % MCV (80-100) fL MCH (25-34) pg MCHC (32-36) g/dL RDW Std Deviation (36.4-46.3) fL RDW Coeff of Nadja (11.5-14.5) % Plt Count (130-400) K/uL MPV (7.4-10.4) fL Immature Gran % (Auto) % Neut % (Auto) % Lymph % (Auto) % [place] % (Auto) % Eos % (Auto) % Baso % (Auto) % Immature Gran # (Auto) (0.00-0.02) K/uL Neut # (Auto) (1.4-6.5) K/uL Lymph # (Auto) (1.2-3.4) K/uL [place] # (Auto) (0.11-0.59) K/uL Eos # (Auto) (0-0.5) K/uL Baso # (Auto) (0-0.2) K/uL PT (9.0-12.0) Seconds INR (0.9-1.1) Sodium (136-145) mmol/L Potassium (3.5-5.1) mmol/L Chloride (98-107) mmol/L Carbon Dioxide (21-32) mmol/L Anion Gap (3-11) BUN (7-18) mg/dl Creatinine (0.6-1.4) mg/dl Est Cr Clr Drug Dosing ml/min Est GFR ( Amer) Est GFR (Non-Af Amer) BUN/Creatinine Ratio (10-20) Glucose (70-99) mg/dl Calcium (8.5-10.1) mg/dl Magnesium (1.8-2.4) mg/dl Lipase 106 (73-393) U/L Stl C. diff Tox B Gene Neg C.diff Toxin B (Neg) Stool Ova & Parasites Pending Stool O & P Source Pending Parasite Trichrome Pending Stool Comments Pending ECG Indication: bradycardia Rate (beats per minute): 38 Additional Comments: Sinus bradycardia, no ischemic changes, intervals normal _ (1) Diarrhea Diarrhea type: unspecified type Qualified Code(s): R19.7 - Diarrhea, unspecified (2) Vomiting Nausea presence: unspecified Vomiting Intractability: unspecified Vomiting type: unspecified Qualified Code(s): R11.10 - Vomiting, unspecified (3) GERD (gastroesophageal reflux disease) Esophagitis presence: esophagitis presence not specified Qualified Code(s): K21.9 - Gastro-esophageal reflux disease without esophagitis
[2018-09-12] MEDS ORDERED: MAGNESIUM SULFATE / D5W 1 GM/100 ML BAG IV ONE (11:00)
--- NOTE | 2018-09-12 15:08 | Cardiology Consultation ---
Date of Consultation September 12, 2018 Assessment & Plan (1) Bradycardia: He has sinus bradycardia over about the last 24 hours, his heart rate did not start dropping until yesterday afternoon and became quite profound early this morning with some increase in heart rate more recently. Apparently he has no history of this, he should be on no medications to cause bradycardia. I do not have a good explanation for a rapid drop in heart rate such as this. I am going to get an echocardiogram to make sure we are not missing something structural, I am concerned that perhaps he was given the wrong medication (such as a beta-pam) that could explain it. That would be hard to prove. My recommendation would be to observe overnight to see if his heart rate returns towards normal. If it does then I would go ahead with the endoscopy without further evaluation. History of Present Illness Reason for Consultation: Bradycardia Attending Physician: Barbara Carmen MD History of Present Illness This is a 68-year-old male who has a history of recurrent DVT and pulmonary embolism for which he is on chronic anticoagulation as well as factor V Leiden, a laparoscopic sleeve gastrectomy in June 2014 for weight loss, urolithiasis with lithotripsy, and a history of pancreatitis for which he was hospitalized in July 2018. He was admitted September 10, 2018 with abdominal discomfort, nausea and vomiting as well as diarrhea. He was scheduled for endoscopy today but was noted to be bradycardic. He has not taken any different medications recently, he feels well with his bradycardia has not been aware of having it before. He currently is not having active GI discomfort. He has not been on beta or calcium channel blockers as an outpatient or here in the hospital. Allergies Allergy/AdvReac Type Severity Reaction Status Date / Time shellfish derived Allergy Intermediate Anaphylaxis Verified 09/10/18 12:14 iodine Allergy Unknown Verified 09/10/18 12:14 Home Medications Home Medications Medication Instructions Recorded Confirmed Type cholecalciferol (vitamin D3) 2,000 unit PO DAILY #0 10/06/15 09/10/18 History [Vitamin D3] cyanocobalamin (vitamin B-12) 500 mcg PO DAILY #0 10/06/15 09/10/18 History [Vitamin B-12] pediatric multivitamin 1 tab PO BID #0 10/06/15 09/10/18 History [Flintstones Multivitamin] atorvastatin [Lipitor] 40 mg PO QAM #0 02/25/17 09/10/18 History magnesium 250 mg PO QPM #0 02/25/17 09/10/18 History sertraline [Zoloft] 100 mg PO QAM #0 02/25/17 09/10/18 History acetaminophen 500 mg tablet 1,000 mg PO BID PRN tab 05/03/18 09/10/18 History warfarin 5 mg tablet See Label Instructions PO UD tab 07/12/18 09/10/18 History Patient History Medical History Hx of pancreatitis Factor V Leiden (Chronic) GERD (gastroesophageal reflux disease) (Chronic) Hyperlipidemia (Chronic) PE (pulmonary embolism) (Resolved) Factor V deficiency Postoperative anemia Pulmonary embolism APPROX 5 YEARS AGO. PT REMAINS ON WARFARIN Surgical History History of colonoscopy History of gastric bypass GASTRIC SLEEVE History of herniorrhaphy INCISIONAL History of laparoscopy OPEN LAP FOR COMPLICATION FOLLOWING GASTRIC SURGERY History of surgery LEFT ELBOW REPAIR Family History Other Family history of colon cancer Social History marital status: Current Living Situation: Spouse current occupational status: retired Other Information That Helps Us Care for You: No Feels Safe at Home: Yes Safety Concerns: Feels Safe At This Time Smoking Status: Never smoker Second Hand Exposure: No Hx Alcohol Use: No Hx Substance Use: No Beliefs That Will Affect Care: None Communication Ability: Effective Review of Systems Negative for lightheadedness, dizziness, palpitations, presyncope or syncope. No exertional symptoms, no dyspnea on exertion or exertional chest pain. No orthopnea or PND or peripheral edema. GI symptoms as noted, no bleeding on anticoagulation. No neurologic complaints such as TIA or stroke symptoms. Other systems negative. Physical Exam 2 Vital Signs (Past 24 Hours): Last Vital Signs Temp 37.0 C 09/12/18 12:27 Pulse 43 L 09/12/18 12:27 Resp 17 09/12/18 12:27 BP 111/62 09/12/18 12:27 Pulse Ox 93 02/13/19 12:27 Physical Exam: Constitutional: Alert, cooperative and in no distress. HEENT: Unremarkable Neck: No jugular venous distention, carotid pulses are normal and equal bilaterally without bruits. Pulmonary: Clear to auscultation bilaterally. Cardiac: Regular slow rhythm with no murmur, gallop or rub. Abdomen: Soft, nontender with normal bowel sounds. Extremities: No edema. Distal pulses intact. Neurologic: No focal findings. Gait is steady. Skin: No rash, ecchymoses or petechiae. Results & Data Diagnostic Findings Electrocardiogram: An electrocardiogram done September 12, 2018 at 10 AM shows sinus bradycardia with a heart rate of 38 bpm. In comparison his electrocardiogram from August 12, 2018 shows sinus rhythm at 88 bpm. Both show left axis deviation. Telemetry: He was placed on telemetry this morning and has remained in sinus bradycardia.
[2018-09-13] MEDS: SODIUM CHLORIDE 0.45 % 1,000 ML IV SCH ×2 (03:42→11:00)
[2018-09-13 05:48] LABS: Basophils # (auto) 0.02 K/uL (0-0.2); Basophils % (auto) 0.5 %; Eosinophils # (auto) 0.25 K/uL (0-0.5); Eosinophils % (auto) 5.9 %; Hematocrit (blood only) 38.7 % (42-52); Hemoglobin 12.9 g/dL (14.0-18.0); Lymphocytes # (auto) 1.25 K/uL (1.2-3.4); Lymphocytes % (auto) 29.4 %; Mean Corpuscular Hgb Conc 33.3 g/dL (32-36); Mean Corpuscular Volume 89.8 fL (80-100); Mean Platelet Volume 10.2 fL (7.4-10.4); Monocytes # (auto) 0.61 K/uL (0.11-0.59); Monocytes % (auto) 14.4 %; Neutrophils # (auto) 2.12 K/uL (1.4-6.5); Neutrophils % (auto) 49.8 %; Platelet Count 130 K/uL (130-400); RDW Coefficient of Variation 14.4 % (11.5-14.5); RDW Standard Deviation 47.6 fL (36.4-46.3); Red Blood Count 4.31 M/uL (4.7-6.1); White Blood Count 4.25 K/uL (4.8-10.8)
[2018-09-13 05:55] LABS: INR 1.5 (0.9-1.1)
[2018-09-13 06:15] LABS: BUN Creatinine Ratio 15.1 (10-20); Calcium 7.7 mg/dl (8.5-10.1); Est GFR (African American) 88.2; Est GFR (Non-African American) 76.1; Magnesium 1.6 mg/dl (1.8-2.4); Potassium 3.7 mmol/L (3.5-5.1)
[2018-09-13 06:16] LABS: Phosphorus 3.2 mg/dl (2.5-4.9)
[2018-09-13] MEDS ORDERED: MAGNESIUM SULFATE / D5W 1 GM/100 ML BAG IV ONE (07:45)
--- NOTE | 2018-09-13 08:49 | Cardiology Progress Note ---
Date of Service September 13, 2018 Assessment & Plan (1) Bradycardia: He has sinus bradycardia which has improved although his heart rate remains somewhat low at rest but responds appropriately to activity. We still do not have an explanation but it is improving. At this point I would not recommend further evaluation at this time, I would keep him on the monitor while he is in the hospital and is an outpatient we may want to get a monitor in a week or 2 to see whether there is ongoing bradycardia. If he would become bradycardic during endoscopy he should respond to atropine or certainly epinephrine based on his response to a betancourt walk. (2) Enlarged RV (right ventricle): He has a mildly enlarged right ventricle with normal right ventricular function, this may be related to his bradycardia. We should perhaps follow this up as an outpatient as well but I would not pursue further evaluation at this time. Subjective He feels well today, he has been up and around without difficulty ambulating in the hallways. No chest complaints. No shortness of breath. Physical Exam 2 Vital Signs (Past 24 Hours): Last Vital Signs Temp 36.5 C 09/13/18 08:07 Pulse 63 09/13/18 08:07 Resp 14 09/13/18 08:07 BP 121/74 09/13/18 08:07 Pulse Ox 94 09/13/18 08:07 Physical Exam: Constitutional: Alert, cooperative and in no distress. Pulmonary: Clear to auscultation bilaterally. Cardiac: Regular somewhat slow rhythm with no murmur, gallop or rub. Abdomen: Soft, nontender with normal bowel sounds. Extremities: No edema. Skin: No rash, ecchymoses or petechiae. Results & Data Diagnostic Findings Telemetry: Sinus rhythm and sinus bradycardia, heart rate responded appropriately to activity. Echocardiogram September 12, 2018: Normal left ventricular size and function, no pericardial effusion. Mild right ventricular dilatation with normal function.
[2018-09-13] MEDS: PANTOprazole 40 MG in SYRINGE 0 ML IV SCH ×2 (09:01→20:36)
--- NOTE | 2018-09-13 10:48 | Gastroenterology Progress Note ---
Date of Service September 13, 2018 Assessment & Plan (1) Diarrhea: 1. Discussed with Dr. Frausto. Cardiology has given clearance for endoscopic procedures. 2. NPO for now. 3. EGD and colonoscopy today with Dr. Krishna. 4. Additional recommendations pending results of testing. Supervising Physician Co-Signing Physician Notes Agree with MOY Andrews as above Abd: Soft, NT, ND, +BS Continue current therapy Proceed with EGD and Colonoscopy secondary to chronic diarrhea. Subjective Patient reports is doing well from a GI perspective this morning. Remains NPO. Was evaluated by cardiology yesterday due to unexplained bradycardia. Echocardiogram was performed yesterday and a repeat ECG this morning. Discussed with Dr. Frausto. Concern for possible beta pam ingestion. He remains slightly bradycardic but is felt a reasonable risk for endoscopy today from a cardiology standpoint. No abdominal pain. H&H remains stable. Physical Exam 2 Vital Signs (Past 24 Hours): Last Vital Signs Temp 36.5 C 09/13/18 08:07 Pulse 95 H 09/13/18 09:51 Resp 14 09/13/18 08:07 BP 121/74 09/13/18 08:07 Pulse Ox 94 09/13/18 08:07 Constitutional: WD/WN, vitals as above Respiratory: normal respiratory effort, lungs clear to auscultation Cardiovascular: Rate/Rhythm: + bradycardic Heart Sounds: normal S1 and normal S2 Gastrointestinal (Abdomen): normal bowel sounds, soft, nontender, no hepatosplenomegaly Psychiatric: A+Ox3, euthymic affect _ (1) Diarrhea Diarrhea type: unspecified type Qualified Code(s): R19.7 - Diarrhea, unspecified
[2018-09-13] MEDS ORDERED: SOD PHOSPHATE/SOD BIPHOSPHATE ENEMA 132 ML BTL PR ONE (11:30)
[2018-09-13] MEDS ORDERED: LIDOCAINE HCL 2% 2 ML VIAL/AMP(20MG/ML) INFIL ONE (12:56)
[2018-09-13] MEDS ORDERED: PROPOFOL IV EMULSION 10 MG/ML 20 ML VIAL IV ONE ×2 (12:56→13:27)
[2018-09-13] MEDS ORDERED: fentaNYL citrate 100 MCG/2 ML VIAL ONE (12:57)
--- NOTE | 2018-09-13 12:59 | Anesthesiology Consultation ---
Date of Service September 13, 2018 Assessment & Plan (1) Encounter for pre-operative examination: Chart Review Chart Review: Acceptable Risk for Surgery and Patient NOT seen in Pre Admission Testing Consults Requested none ASA ASA3 NPO Date Last Intake of Fluids: 09/12/18 Time Last Intake of Fluids: 00:01 History Surgery Operation Date: 09/13/18 09:40 Proposed Procedures p Colonoscopy EGD Dr. Tomi Hallman Case, DO Height/Weight Height: 6 ft Weight: 98.1 kg Allergies Allergy/AdvReac Type Severity Reaction Status Date / Time shellfish derived Allergy Intermediate Anaphylaxis Verified 09/10/18 12:14 iodine Allergy Unknown Verified 09/10/18 12:14 Medications Home Medications Medication Instructions Recorded Confirmed Last Taken cholecalciferol (vitamin D3) 2,000 unit PO DAILY #0 10/06/15 09/10/18 08/11/18 [Vitamin D3] cyanocobalamin (vitamin B-12) 500 mcg PO DAILY #0 10/06/15 09/10/18 08/11/18 [Vitamin B-12] pediatric multivitamin 1 tab PO BID #0 10/06/15 09/10/18 08/11/18 [Flintstones Multivitamin] atorvastatin [Lipitor] 40 mg PO QAM #0 02/25/17 09/10/18 08/12/18 magnesium 250 mg PO QPM #0 02/25/17 09/10/18 08/11/18 sertraline [Zoloft] 100 mg PO QAM #0 02/25/17 09/10/18 08/11/18 acetaminophen 500 mg tablet 1,000 mg PO BID PRN tab 05/03/18 09/10/18 08/07/18 warfarin 5 mg tablet See Label Instructions PO UD tab 07/12/18 09/10/18 7.5mg Active Medications Generic Name Dose Route Start Last Admin Trade Name Freq PRN Reason Stop Dose Admin Pantoprazole Sodium 40 mg/ 10 mls @ 5 mls/min 09/10/18 21:00 09/13/18 09:01 Syringe IV 09/14/18 09:01 5 mls/min BID UNIQUE Administration Sodium Chloride 1,000 mls @ 125 mls/hr 09/10/18 16:31 09/13/18 11:00 1/2 Nss IV 10/10/18 16:30 125 mls/hr .Q8H UNIQUE Administration Past Medical History Medical History Hx of pancreatitis Factor V Leiden (Chronic) GERD (gastroesophageal reflux disease) (Chronic) Hyperlipidemia (Chronic) PE (pulmonary embolism) (Resolved) Factor V deficiency Postoperative anemia Pulmonary embolism APPROX 5 YEARS AGO. PT REMAINS ON WARFARIN Past Family History Family History Other Family history of colon cancer Past Surgical History Surgical History History of colonoscopy History of gastric bypass GASTRIC SLEEVE History of herniorrhaphy INCISIONAL History of laparoscopy OPEN LAP FOR COMPLICATION FOLLOWING GASTRIC SURGERY History of surgery LEFT ELBOW REPAIR Social History Smoking Status: Never smoker Hx Alcohol Use: No Hx Substance Use: No substance use type: does not use Physical Exam Vital Signs Last Vital Signs Temp 36.8 C 09/13/18 12:34 Pulse 59 L 09/13/18 12:34 Resp 18 09/13/18 12:34 BP 148/77 H 09/13/18 12:34 Pulse Ox 96 09/13/18 12:34 Testing Laboratory Results 09/13/18 05:38 09/13/18 05:38 PT 15.0 Seconds (9.0-12.0) H 09/13/18 05:38 INR 1.5 (0.9-1.1) H 09/13/18 05:38 APTT 30.8 Seconds (21.0-31.0) 09/10/18 11:55 09/11/18 Unknown Shiga Toxin Test - Preliminary Stool Stool Culture - Preliminary No Salmonella isolated to date, No Shigella isolated to date, No Campylobacter jejuni isolated to date.
[2018-09-13] MEDS ORDERED: ATROPINE SULFATE 0.1 MG/ML 10ML SYR IV PRN (13:03)
[2018-09-13] MEDS ORDERED: ePHEDrine sulfate 50 MG/ML AMP IV PRN (13:03)
--- NOTE | 2018-09-13 14:29 | GI REPORT ---
Patient Name: Howard Robert Procedure Date: 09/13/2018 1:21 PM Date of : 1950 Admit Type: Inpatient Age: 68 Gender: Male Attending MD: Garrett Krishna DO Procedure: Colonoscopy Providers: Garrett Krishna DO Referring MD: Barbara Carmen Md Indications: Chronic diarrhea Medicines: Monitored Anesthesia Care Complications: No immediate complications. Estimated Blood Loss: Estimated blood loss: none. Procedure: Pre-Anesthesia Assessment: - Prior to the procedure, a History and Physical was performed, and patient medications and allergies were reviewed. The patient's tolerance of previous anesthesia was also reviewed. The risks and benefits of the procedure and the sedation options and risks were discussed with the patient. All questions were answered, and informed consent was obtained. Prior Anticoagulants: The patient last took Coumadin (warfarin) 4 days and Lovenox (enoxaparin) 2 days prior to the procedure. ASA Grade Assessment: IV - A patient with severe systemic disease that is a constant threat to life. After reviewing the risks and benefits, the patient was deemed in satisfactory condition to undergo the procedure. After I obtained informed consent, the scope was passed under direct vision. Throughout the procedure, the patient's blood pressure, pulse, and oxygen saturations were monitored continuously. The Scope was introduced through the anus and advanced to the terminal ileum. The colonoscopy was performed without difficulty. The patient tolerated the procedure well. The quality of the bowel preparation was fair. The terminal ileum, ileocecal valve, appendiceal orifice, and rectum were photographed. Findings: The perianal and digital rectal examinations were normal. Non-bleeding internal hemorrhoids were found during retroflexion. The hemorrhoids were small. Several random biopsies were obtained with cold forceps for histology in the entire colon. Fluid aspiration for cell count and differential, Clostridium difficile and Gram stain was performed in the entire colon. Impression: - Preparation of the colon was fair. - Non-bleeding internal hemorrhoids. - Several random biopsies were obtained in the entire colon. - Fluid aspiration was performed. Recommendation: - Return patient to [facility] for ongoing care. - Advance diet as tolerated. - Continue present medications. - Repeat colonoscopy for surveillance based on pathology results. Garrett Krishna DO 09/13/2018 2:29:08 PM This report has been signed electronically. Note Initiated On: 09/13/2018 1:21 PM Number of Addenda: 0 I attest to the content of the Intraoperative Record and orders documented therein, exceptions below {[id number]}
--- NOTE | 2018-09-13 14:31 | GI REPORT ---
Patient Name: Howard Robert Procedure Date: 09/13/2018 1:09 PM Date of : 1950 Admit Type: Inpatient Age: 68 Gender: Male Attending MD: Garrett Krishna DO Procedure: Upper GI endoscopy Providers: Garrett Krishna DO Referring MD: Barbara Carmen Md Indications: Diarrhea Medicines: Monitored Anesthesia Care Complications: No immediate complications. Estimated Blood Loss: Estimated blood loss: none. Procedure: Pre-Anesthesia Assessment: - Prior to the procedure, a History and Physical was performed, and patient medications and allergies were reviewed. The patient's tolerance of previous anesthesia was also reviewed. The risks and benefits of the procedure and the sedation options and risks were discussed with the patient. All questions were answered, and informed consent was obtained. Prior Anticoagulants: The patient last took Coumadin (warfarin) 4 days and Lovenox (enoxaparin) 2 days prior to the procedure. ASA Grade Assessment: III - A patient with severe systemic disease. After reviewing the risks and benefits, the patient was deemed in satisfactory condition to undergo the procedure. After obtaining informed consent, the endoscope was passed under direct vision. Throughout the procedure, the patient's blood pressure, pulse, and oxygen saturations were monitored continuously. The Endoscope was introduced through the mouth, and advanced to the second part of duodenum. The upper GI endoscopy was accomplished without difficulty. The patient tolerated the procedure well. Findings: The esophagus was normal. Localized mild inflammation characterized by erythema was found in the gastric antrum. Biopsies were taken with a cold forceps for histology. The examined duodenum was normal. Biopsies for histology were taken with a cold forceps for evaluation of celiac disease. Impression: - Normal esophagus. - Gastritis. Biopsied. - Normal examined duodenum. Biopsied. Recommendation: - Return patient to [facility] for ongoing care. - Advance diet as tolerated. - Continue present medications. - Await pathology results. Garrett Krishna DO 09/13/2018 2:30:50 PM This report has been signed electronically. Note Initiated On: 09/13/2018 1:09 PM Number of Addenda: 0 I attest to the content of the Intraoperative Record and orders documented therein, exceptions below {[id number]}
--- NOTE | 2018-09-13 15:18 | Anesthesiology Progress Note ---
Date of Service September 13, 2018 Anesthesia Post Procedure Vital Signs Vital Signs: Temp Pulse Pulse Resp BP Pulse Ox 09/13/18 14:58 50 L 16 149/75 H 97 09/13/18 14:17 50 L 18 143/84 H 97 09/13/18 14:04 52 L 18 156/89 H 96 09/13/18 13:45 56 L 14 129/96 96 09/13/18 12:34 36.8 C 59 L 18 148/77 H 96 09/13/18 11:35 36.4 C L 52 L 16 143/74 H 95 09/13/18 09:51 95 H 09/13/18 08:07 36.5 C 63 14 121/74 94 09/13/18 06:55 36.3 C L 74 18 123/67 96 09/13/18 03:24 36.4 C L 47 L 18 118/56 L 93 09/12/18 23:12 37.0 C 40 L 19 125/64 94 09/12/18 20:00 36.7 C 18 123/63 96 09/12/18 16:00 36.7 C 38 L 16 116/52 L 97 09/12/18 15:45 36 L Notes Mental Status: alert / awake / arousable Patient Amnestic to Procedure: Yes Nausea / Vomiting: adequately controlled Pain: adequately controlled Airway Patency, RR, SpO2: stable & adequate BP & HR: stable & adequate Hydration State: stable & adequate Anesthetic Complications: no major complications apparent and Pt Satisfied with anesthetic care
--- NOTE | 2018-09-13 15:56 | Hospitalist Progress Note ---
Date of Service September 13, 2018 Assessment & Plan (1) Bradycardia: With sinus bradycardia into the high 30s, asymptomatic but BP low normal Could have been a vagal response due to ongoing GI issues and bowel prep overnight. No previous h/o bradycardia, not on AV judith blocking agents Now improved on its own 24 hours later with rates in the 50s-80s -Continue telemetry monitoring -Appreciate cardiology consultation-unclear etiology at this time -will need event monitor after discharge as per cardiology (2) Diarrhea: This is the pt's most pressing complaint, similar to his Jul 2018 admission. The diarrhea is pure water and frequent. This would be very atypical for pancreatitis despite the elevated lipase. C. diff negative Stool cx, O & P pending Colonoscopy in 07/2018 with 2 TAs removed, otherwise normal. Diarrhea resolved with dietary changes after that last admission, then returned abruptly CT scan of the abdomen pelvis without contrast in July was unrevealing Dr. Krishna to consult from GI is consulted. EGD today with mild gastritis, colonoscopy with biopsies taken in internal hemorrhoids, otherwise normal Advance diet as tolerated DC IV fluids Await biopsy results for further recommendations from GI -Would permanently discontinue oral magnesium from home as this can cause diarrhea (3) Elevated lipase: Significance is uncertain. Repeat level is normal. The mildly elevated lipase on admission at 600 may have been reactive to whatever process was driving the nausea/vomiting/diarrhea. I am not entirely convinced that he had recurrent pancreatitis. (4) Hx of pancreatitis: July 2018 - thought to be possibly viral induced. (5) Dehydration: resolved with IVF hydration (6) Vomiting: improved GI consulted- EGD with mild gastritis (7) H/O gastric bypass: It is actually a history of sleeve gastrectomy cont PPI (8) GERD (gastroesophageal reflux disease): PPI (9) History of pulmonary embolism: several years prior no need for lovenox bridge while hospitalized - Dr. Cordero from the coumadin clinic advised no bridge warfarin was on hold due to procedures INR now subtherapeutic at 1.5 -Restart Coumadin 7.5 mg daily -Start Lovenox 40 mg SQ once daily in the morning for DVT prophylaxis until Coumadin therapeutic (10) Hyperlipidemia: -Can restart statin (11) Factor V Leiden: noted, with h/o PE, on chronic AC as above-restarting Coumadin Follow-up with Coumadin clinic after discharge (12) Depression: -Restart sertraline on the taking p.o. (13) DVT prophylaxis: Restart Coumadin, Lovenox SQ 40 mg does not need therapeutic lovenox (1mg/kg BID) Dr. Cordero ok with simply using DVT prophylaxis dosing (40mg daily) if his INR is subtherapeutic on coumadin Dispo-remain on telemetry for bradycardia For discharge next 1-2 days of cardiac and GI issues improve Subjective Pt feeling well. He is just eating for the first time in a while and had his EGD /colonoscopy today. No abd pain, no diarrhea. No nausea. HR is improved to the 50s-60s on tele. He is asymptomatic with this, not lightheaded. Discussed case with Cardiology and with gastroenterology Review of Systems All systems reviewed & are unremarkable except as noted in HPI & below Physical Exam 2 Vital Signs (Past 24 Hours): Last Vital Signs Temp 36.8 C 09/13/18 12:34 Pulse 50 L 09/13/18 14:58 Resp 16 09/13/18 14:58 BP 149/75 H 09/13/18 14:58 Pulse Ox 97 09/13/18 14:58 Constitutional: WD/WN, vitals as above Eyes: PERRL, conjunctivae normal, anicteric sclerae Neck: trachea midline, no thyromegaly Respiratory: normal respiratory effort, lungs clear to auscultation Cardiovascular: Rate/Rhythm: regular rate and regular rhythm Heart Sounds: normal S1 and normal S2; no murmur Vessels: no JVD Extremities: no edema Gastrointestinal (Abdomen): normal bowel sounds, soft, nontender, no hepatosplenomegaly Musculoskeletal: Extremities: extremities normal to inspection; no cyanosis and no clubbing Skin: no rashes, warm and dry Neurologic: moves all extremities and awake; no focal motor deficits Psychiatric: A+Ox3, euthymic affect Results & Data Laboratory Results 09/13/18 09/13/18 09/13/18 Range/Units 13:34 05:38 05:38 WBC (4.8-10.8) K/uL RBC (4.7-6.1) M/uL Hgb (14.0-18.0) g/dL Hct (42-52) % MCV (80-100) fL MCH (25-34) pg MCHC (32-36) g/dL RDW Std Deviation (36.4-46.3) fL RDW Coeff of Nadja (11.5-14.5) % Plt Count (130-400) K/uL MPV (7.4-10.4) fL Immature Gran % (Auto) % Neut % (Auto) % Lymph % (Auto) % [place] % (Auto) % Eos % (Auto) % Baso % (Auto) % Immature Gran # (Auto) (0.00-0.02) K/uL Neut # (Auto) (1.4-6.5) K/uL Lymph # (Auto) (1.2-3.4) K/uL [place] # (Auto) (0.11-0.59) K/uL Eos # (Auto) (0-0.5) K/uL Baso # (Auto) (0-0.2) K/uL PT 15.0 H (9.0-12.0) Seconds INR 1.5 H (0.9-1.1) Sodium 140 (136-145) mmol/L Potassium 3.7 (3.5-5.1) mmol/L Chloride 112 H (98-107) mmol/L Carbon Dioxide 22 (21-32) mmol/L Anion Gap 7.0 (3-11) BUN 15 (7-18) mg/dl Creatinine 1.01 (0.6-1.4) mg/dl Est Cr Clr Drug Dosing 85.0 ml/min Est GFR ( Amer) 88.2 Est GFR (Non-Af Amer) 76.1 BUN/Creatinine Ratio 15.1 (10-20) Glucose 75 (70-99) mg/dl Calcium 7.7 L (8.5-10.1) mg/dl Phosphorus 3.2 (2.5-4.9) mg/dl Magnesium 1.6 L (1.8-2.4) mg/dl Stl C. diff Tox B Gene Pending Stool Ova & Parasites Stool O & P Source Parasite Trichrome Stool Comments 09/13/18 09/11/18 Range/Units 05:38 Unknown WBC 4.25 L (4.8-10.8) K/uL RBC 4.31 L (4.7-6.1) M/uL Hgb 12.9 L (14.0-18.0) g/dL Hct 38.7 L (42-52) % MCV 89.8 (80-100) fL MCH 29.9 (25-34) pg MCHC 33.3 (32-36) g/dL RDW Std Deviation 47.6 H (36.4-46.3) fL RDW Coeff of Nadja 14.4 (11.5-14.5) % Plt Count 130 (130-400) K/uL MPV 10.2 (7.4-10.4) fL Immature Gran % (Auto) 0.0 % Neut % (Auto) 49.8 % Lymph % (Auto) 29.4 % [place] % (Auto) 14.4 % Eos % (Auto) 5.9 % Baso % (Auto) 0.5 % Immature Gran # (Auto) 0.00 (0.00-0.02) K/uL Neut # (Auto) 2.12 (1.4-6.5) K/uL Lymph # (Auto) 1.25 (1.2-3.4) K/uL [place] # (Auto) 0.61 H (0.11-0.59) K/uL Eos # (Auto) 0.25 (0-0.5) K/uL Baso # (Auto) 0.02 (0-0.2) K/uL PT (9.0-12.0) Seconds INR (0.9-1.1) Sodium (136-145) mmol/L Potassium (3.5-5.1) mmol/L Chloride (98-107) mmol/L Carbon Dioxide (21-32) mmol/L Anion Gap (3-11) BUN (7-18) mg/dl Creatinine (0.6-1.4) mg/dl Est Cr Clr Drug Dosing ml/min Est GFR ( Amer) Est GFR (Non-Af Amer) BUN/Creatinine Ratio (10-20) Glucose (70-99) mg/dl Calcium (8.5-10.1) mg/dl Phosphorus (2.5-4.9) mg/dl Magnesium (1.8-2.4) mg/dl Stl C. diff Tox B Gene Stool Ova & Parasites SEE NOTE Stool O & P Source OTHER-STOOL Parasite Trichrome SEE NOTE Stool Comments DNR _ (1) Diarrhea Diarrhea type: unspecified type Qualified Code(s): R19.7 - Diarrhea, unspecified (2) Hyperlipidemia Hyperlipidemia type: unspecified Qualified Code(s): E78.5 - Hyperlipidemia, unspecified (3) GERD (gastroesophageal reflux disease) Esophagitis presence: esophagitis presence not specified Qualified Code(s): K21.9 - Gastro-esophageal reflux disease without esophagitis (4) Vomiting Nausea presence: unspecified Vomiting Intractability: unspecified Vomiting type: unspecified Qualified Code(s): R11.10 - Vomiting, unspecified
[2018-09-13] MEDS ORDERED: WARFARIN SOD 7.5 MG TAB PO SCH (16:00)
[2018-09-14 06:06] LABS: Basophils # (auto) 0.02 K/uL (0-0.2); Basophils % (auto) 0.4 %; Eosinophils # (auto) 0.19 K/uL (0-0.5); Hematocrit (blood only) 40.9 % (42-52); Hemoglobin 13.6 g/dL (14.0-18.0); Immature Granulocytes # (auto) 0.01 K/uL (0.00-0.02); Immature Granulocytes % (auto) 0.2 %; Lymphocytes # (auto) 1.48 K/uL (1.2-3.4); Lymphocytes % (auto) 31.3 %; Mean Corpuscular Hgb Conc 33.3 g/dL (32-36); Mean Corpuscular Volume 88.5 fL (80-100); Mean Platelet Volume 10.8 fL (7.4-10.4); Monocytes # (auto) 0.48 K/uL (0.11-0.59); Monocytes % (auto) 10.1 %; Neutrophils # (auto) 2.55 K/uL (1.4-6.5); Platelet Count 153 K/uL (130-400); RDW Coefficient of Variation 14.5 % (11.5-14.5); RDW Standard Deviation 46.8 fL (36.4-46.3); Red Blood Count 4.62 M/uL (4.7-6.1); White Blood Count 4.73 K/uL (4.8-10.8)
[2018-09-14 06:19] LABS: INR 1.3 (0.9-1.1); Prothrombin Time 13.2 Seconds (9.0-12.0)
[2018-09-14 06:43] LABS: BUN Creatinine Ratio 17.7 (10-20); Calcium 7.9 mg/dl (8.5-10.1); Creatinine Clr Calc Pharmacy 86.3 ml/min; Est GFR (African American) 89.2; Potassium 3.8 mmol/L (3.5-5.1)
[2018-09-14] MEDS: PANTOprazole 40 MG in SYRINGE 0 ML IV SCH (08:17)
[2018-09-14] MEDS ORDERED: ENOXAPARIN INJ 40 MG/0.4 ML SYR SQ SCH (09:00)
[2018-09-14] MEDS ORDERED: SERTRALINE HCL 100 MG TABLET PO SCH (09:00)
[2018-09-14] MEDS ORDERED: CYANOCOBALAMIN 500 MCG TABLET (VITAMIN B-12) PO SCH (09:00)
[2018-09-14] MEDS ORDERED: FLINTSTONES COMPLETE CHEWABLE TAB PO SCH (09:00)
[2018-09-14] MEDS ORDERED: CHOLECALCIFEROL 1,000 UNITS TAB PO SCH (09:00)
[2018-09-14] MEDS ORDERED: ATORVASTATIN 40 MG TAB PO SCH (09:00)
--- NOTE | 2018-09-14 09:39 | Anesthesiology Progress Note ---
Date of Service September 14, 2018 Anesthesia Post Procedure Vital Signs Vital Signs: Temp Pulse Pulse Resp BP Pulse Ox 09/14/18 07:14 36.5 C 79 18 124/72 94 09/14/18 03:28 36.9 C 61 17 137/78 95 09/14/18 00:05 57 L 09/13/18 23:28 36.8 C 61 18 140/74 94 09/13/18 19:50 36.7 C 61 20 139/76 95 09/13/18 15:59 36.4 C L 64 20 145/72 H 96 09/13/18 14:58 50 L 16 149/75 H 97 09/13/18 14:17 50 L 18 143/84 H 97 09/13/18 14:04 52 L 18 156/89 H 96 09/13/18 13:45 56 L 14 129/96 96 09/13/18 12:34 36.8 C 59 L 18 148/77 H 96 09/13/18 11:35 36.4 C L 52 L 16 143/74 H 95 09/13/18 09:51 95 H Notes Mental Status: alert / awake / arousable Patient Amnestic to Procedure: Yes Nausea / Vomiting: adequately controlled Pain: adequately controlled Airway Patency, RR, SpO2: stable & adequate BP & HR: stable & adequate Hydration State: stable & adequate Anesthetic Complications: no major complications apparent
--- NOTE | 2018-09-14 10:43 | Gastroenterology Progress Note ---
Date of Service September 14, 2018 Assessment & Plan (1) Diarrhea: 1. Await histology as pending. 2. Stable for discharge from a GI standpoint. 3. Recommend outpatient follow up in our office. Subjective Patient status post EGD and colonoscopy yesterday which were unremarkable. Random colon biopsies were obtained and are pending. Patient states he passed only one bm last evening that was loose. Tolerating a regular diet and is without any other GI complaints at present. Review of Systems All systems reviewed & are unremarkable except as noted in HPI & below Physical Exam 2 Vital Signs (Past 24 Hours): Last Vital Signs Temp 36.5 C 09/14/18 07:14 Pulse 79 09/14/18 07:14 Resp 18 09/14/18 07:14 BP 124/72 09/14/18 07:14 Pulse Ox 94 09/14/18 07:14 Respiratory: normal respiratory effort, lungs clear to auscultation Cardiovascular: RRR, no murmur, no edema Gastrointestinal (Abdomen): normal bowel sounds, soft, nontender, no hepatosplenomegaly Psychiatric: A+Ox3, euthymic affect _ (1) Diarrhea Diarrhea type: unspecified type Qualified Code(s): R19.7 - Diarrhea, unspecified
--- NOTE | 2018-09-14 12:38 | Discharge Summary ---
Date of Service September 14, 2018 Admission HPI Per Admitting Provider 68 y/o M c/o abd pain. Pt states he started to have severe abd pain, v/d around midnight. Pt was hospitalized at [facility] about a month ago for pancreatitis and he states the sx were similar to this episode. With the prior episode he waited to present until sx were much worse, but as this felt similar he recognized what was going on and thought he should come sooner. Pt denies fever, SOB, chest pain, LE pain or swelling. He had 5-6 episodes of explosive diarrhea and then he started to have emesis between diarrheal episodes. Pt states he had been doing well since d/c. No abd pain, n/v/d. Monday night he went to an [employer] dinner and had a small amount of mashed potatoes with gravy. Yesterday after orthodoxy he went to [employer] and ate a chimichanga, which is not something he would usually eat. He states he felt a bit uneasy last night around 8p, but major sx did not start until around midnight. He states he had had a c-scope the prior to this pancreatitis. It was felt on d/c that his pancreatitis was related to a viral GI bug given negative workup. Pt has not changed any medications since his d/c other than the addition of a probiotic. He has been on the since and no issues. Pt states he is still nauseated in the ED, but no further emesis/diarrhea. Still with abd pain, but better. Principal Diagnosis Intractable diarrhea, bradycardia Discharge Exam Constitutional WD/WN, vitals as above Eyes PERRL, conjunctivae normal, anicteric sclerae ENMT external ear and nose normal, oropharynx normal Neck trachea midline, no thyromegaly Respiratory normal respiratory effort, lungs clear to auscultation Cardiovascular Rate/Rhythm: regular rate and regular rhythm Heart Sounds: normal S1 and normal S2; no murmur Vessels: no JVD Extremities: no edema Gastrointestinal (Abdomen) normal bowel sounds, soft, nontender, no hepatosplenomegaly Musculoskeletal Extremities: extremities normal to inspection; no cyanosis and no clubbing Skin no rashes, warm and dry Neurologic moves all extremities and awake; no focal motor deficits Psychiatric A+Ox3, euthymic affect Discharge Data Allergies Allergy/AdvReac Type Severity Reaction Status Date / Time shellfish derived Allergy Intermediate Anaphylaxis Verified 09/10/18 12:14 iodine Allergy Unknown Verified 09/10/18 12:14 Consultations 09/10/18 14:10 ED Decision to Admit Stat 09/11/18 12:19 Consult Gastroenterology Routine 09/12/18 12:35 Consult Cardiology Routine Procedures Performed Operation Date: 09/13/18 09:40 Actual Procedures s EGD Biopsy Cytology - Garrett G. Case, DO p Colonoscopy Biopsy Cytology - Garrett G. Case, DO Ordered Studies 09/10/18 16:31 US gallbladder Stat Chest/abdomen x-ray Hospital Course (1) Diarrhea: This is the pt's most pressing complaint, similar to his Jul 2018 admission. The diarrhea is pure water and frequent. It did occur after eating a meal at a [employer] restaurant This would be very atypical for pancreatitis despite the elevated lipase. C. diff negative x2 Stool cx, O & P both negative Colonoscopy in 07/2018 with 2 TAs removed, otherwise normal. Diarrhea resolved with dietary changes after that last admission, then returned abruptly CT scan of the abdomen pelvis without contrast in July was unrevealing Dr. Krishna to consult from GI is consulted. EGD here with mild gastritis, colonoscopy with biopsies taken in internal hemorrhoids, otherwise normal-biopsy still pending at the time of discharge He was tolerating regular diet at the time of discharge Await biopsy results for further recommendations from GI -Would permanently discontinue oral magnesium from home as this can cause diarrhea -Also recommended lactose free diet, high-fiber diet (2) Bradycardia: With sinus bradycardia into the high 30s, asymptomatic but BP low normal Could have been a vagal response due to ongoing GI issues and bowel prep at the time when it occurred. No previous h/o bradycardia, not on AV judith blocking agents Now improved on its own with rates now consistently in the 60s-80s -Appreciate cardiology consultation-unclear etiology at this time-recommend follow-up in the office some likely cardiac event monitor placement at that time if necessary (3) Elevated lipase: Significance is uncertain. Repeat level is normal. The mildly elevated lipase on admission at 600 may have been reactive to whatever process was driving the nausea/vomiting/diarrhea. I do not think that he had recurrent pancreatitis as he had no abdominal pain. (4) Hx of pancreatitis: July 2018 - thought to be possibly viral induced. (5) Dehydration: resolved with IVF hydration (6) Vomiting: improved GI consulted- EGD with mild gastritis (7) H/O gastric bypass: It is actually a history of sleeve gastrectomy cont PPI -Follows with bariatric surgeon and dietitian at [place] routinely -Takes vitamin supplements (8) GERD (gastroesophageal reflux disease): PPI (9) History of pulmonary embolism: several years prior no need for lovenox bridge while hospitalized - Dr. Cordero from the coumadin clinic advised no bridge warfarin was on hold due to procedures INR now subtherapeutic at 1.3 -Restarted Coumadin 7.5 mg daily on 09/13 He will continue on the Coumadin 7.5 mg daily and check his INR again at the anticoagulation clinic on 09/17/18 -He had no evidence at all on discharge of DVT or PE (10) Hyperlipidemia: -Continue statin (11) Factor V Leiden: noted, with h/o PE, on chronic AC as above-restarting Coumadin Follow-up with Coumadin clinic after discharge (12) Depression: -Continue sertraline (13) DVT prophylaxis: Coumadin, Lovenox SQ 40 mg does not need therapeutic lovenox (1mg/kg BID) for bridging as per Dr. Avalos of Coumadin clinic Dispo-stable for discharge home Total Time Total Time Spent Total Time Spent (In Minutes): Greater than 30 minutes Total Time Includes: Examination of the Patient, Discharge Planning and Medication Reconciliation Discharge Plan Discharge Items Patient Disposition: Home - Self-Care Reason For Visit: Diarrhea, suspected pancreatitis Condition: Good Discharge Goals: Diagnostic testing, Improve disease control, Learn about illness and Therapeutic intervention Activity: Resume your previous activity Lifting: Gradually increase as tolerated Bathing: No limitations Exercise/Sports: Gradually increase as tolerated Driving/Machine Use: No limitations Non-emergency contact: Primary Care Provider, [employer] Sales Consultant Call non-emergency contact if: you have any medication questions and your symptoms worsen Diet: Lactose Intolerant and See below Diet Comment: High-fiber diet Addtl Provider Instructions: You were admitted with profuse diarrhea of an unknown cause. You had an upper and lower endoscopy and the biopsies from that are still pending. You were ruled out for bacterial and parasitic infection of the bowels. Your symptoms improved. You should follow a lactose free and high fiber diet upon discharge to see if this helps. You should also stop taking magnesium as this can also cause loose stools. Please follow-up with the test deskman for the results of your biopsies and for further evaluation or recommendations on what to do next if your diarrhea continues. While you are here, you had low heart rates which may have been due to stimulation of the vagus nerve during your bowel prep. This resolved on its own and your heart rate was normal. You are seen by the donor center technician who wants to see you in 1-2 weeks and perhaps do an event bus driver/monitor at that point- they will arrange this for you. Please follow-up with your primary care physician within 1 week after discharge as well. Our nurse navigator will call you with the appointment dates and times of all of these above-mentioned doctors visits. Please coordinate with the anticoagulation clinic to have your INR checked on Monday. As for your history of kidney stones, you should use caution with taking vitamin D supplementation without close monitoring as this can increase her calcium levels and increase her risk for recurrent kidney stones. Please discuss this with your primary care physician. Prescriptions: Continue acetaminophen [Tylenol Extra Strength] 500 mg tablet 1,000 mg PO BID PRN (Reason: pain) RF: 0 pediatric multivitamin [Flintstones Multivitamin] Tablet,Chewable 1 tab PO BID Qty: 0 RF: 0 cyanocobalamin (vitamin B-12) [Vitamin B-12] 500 mcg Tablet 500 mcg PO DAILY Qty: 0 RF: 0 atorvastatin [Lipitor] 40 mg Tablet 40 mg PO QAM Qty: 0 RF: 0 sertraline [Zoloft] 100 mg Tablet 100 mg PO QAM Qty: 0 RF: 0 Changed warfarin 5 mg tablet 7.5 mg PO DAILY Qty: 0 RF: 0 Discontinued cholecalciferol (vitamin D3) [Vitamin D3] 2,000 unit Capsule 2,000 unit PO DAILY Qty: 0 RF: 3 magnesium 250 mg Tablet 250 mg PO QPM Qty: 0 RF: 0 Stand-Alone Forms: [facility] Discharge Orders: Discharge Order (Routine); Ordered 09/14/18 Ordered By: Barbara Carmen Admission Data Admit Date/Time: 09/10/18 15:33 Attending Provider: Barbara Carmen Admit Provider: Marisela Salmeron Primary Care Provider: Cinthia Multani Other Providers: Marisela Salmeron ; Garrett Krishna ; Chaim Chavez Service: Telemetry Other Interventions: Discharge Summary Assessment (RN) Last Done: 09/13/18 14:18 Pending Studies at Discharge: Yes Studies:: Colon biopsies
== END 2018-09-14 13:15 | disposition home or self-care (01) | DRG 392 ==
LOC: ED 11:04 → 4W 15:33 → SUATTDRO 15:33 → 4W 16:25 → 2E 09-12 12:24
DX: K29.70 Gastritis, unspecified, without bleeding; Z80.0 Family history of malignant neoplasm of digestive organs; Z79.01 Long term (current) use of anticoagulants; K64.8 Other hemorrhoids; K52.9 Noninfective gastroenteritis and colitis, unspecified; E78.5 Hyperlipidemia, unspecified; Z79.899 Other long term (current) drug therapy; D68.2 Hereditary deficiency of other clotting factors; R11.2 Nausea with vomiting, unspecified; Z87.19 Personal history of other diseases of the digestive system; R00.1 Bradycardia, unspecified; Z51.81 Encounter for therapeutic drug level monitoring; Z88.8 Allergy status to other drugs, medicaments and biological substances; K21.9 Gastro-esophageal reflux disease without esophagitis; Z86.711 Personal history of pulmonary embolism; I51.7 Cardiomegaly; Z91.013 Allergy to seafood; E86.0 Dehydration; Z98.84 Bariatric surgery status

== ENCOUNTER 2021-09-24 08:05 | Observation (INO) ==
[2021-09-24] MEDS ORDERED: MoRPHine SULFATE 4 MG/ML 1 ML CARP\\VIAL IV STA (08:24)
--- NOTE | 2021-09-24 08:24 | Emergency Department Note ---
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 He describes as a heaviness associate with left arm pain. No belly pain, nausea, vomiting, or diarrhea. No dysuria, urgency, or frequency. No other exacerbating or remitting factors. He is brought in by EMS. He was given aspirin and nitro. The pain has improved with the nitro. Currently a 5 out of 10. ROS: See above HPI for pertinent positives & negatives. A total of 10 systems reviewed and were otherwise negative. PAST MEDICAL HISTORY:See Below PAST SURGICAL HISTORY:See Below FAMILY HISTORY:See Below SOCIAL HISTORY:See Below HOME MEDICATIONS:See Below ALLERGIES:See Below VITALS:See Below PHYSICAL EXAMINATION: GENERAL: Sitting up in bed, alert, well appearing, well nourished, no distress, non-toxic EYE EXAM: normal conjunctiva. PERRL and EOM's grossly intact. OROPHARYNX: no exudate, no erythema, lips, buccal mucosa, and tongue normal and mucous membranes are moist NECK: supple, no nuchal rigidity, no adenopathy, non-tender LUNGS: Clear to auscultation. Normal chest wall mechanics HEART: no murmurs, S1 normal and S2 normal ABDOMEN: abdomen soft, non-tender, normo-active bowel sounds, no masses, no rebound or guarding. UPPER EXTREMITIES: upper extremities are grossly normal. LOWER EXTREMITIES: No pitting edema. NEURO EXAM: Normal sensorium, cranial nerves II-XII grossly intact, normal speech, no gross weakness of arms, no gross weakness of legs. MEDICAL DECISION MAKING: Patient is 71-year-old male who presents ER for chest pain. IV was established blood work was obtained. Labs show mild leukopenia at 3.7. Mild anemia 12. BMP on LFTs bilirubin and lipase is unremarkable. Troponin was checked was 0.03 but not positive. Covid was negative. Initial EKG showed a sinus rhythm with new T wave inversion. Repeat patient went into an idioventricular rhythm was having chest pain and consequently heart alert was called. He did take his Eliquis this morning. He is not given heparin. Discussed Sultana at bedside and Dr. Mercedes recommending holding. He was updated bedside and taken emergently to the [facility]. Triage Nursing notes reviewed. Limited review of prior medical records performed Vital Signs: reviewed and remarkable for no significant abnormalities Differential diagnosis: Differential diagnoses includes but is not limited to acute coronary syndrome, myocardial infarction, pericarditis, pulmonary embolus, aortic dissection, pneumonia, pneumothorax, musculoskeletal, shingles, esophageal. ER treatment provided: See below Diagnostics interpreted by me: ECG: Sinus rhythm rate of 53 Left axis T wave inversion in the inferior leads T wave inversion in V4 through V6 QTC 491 T wave inversions in lateral leads is new in comparison to previous 08/02/2021 EKG #2 Idioventricular rhythm rate 85 Normal axis T wave inversions in the inferior as well as V3 through V6 Q wave in aVL ST depressions Cardiac Monitoring: An order was placed for continuous cardiac monitoring. The monitor shows a rate of 55 with sinus rhythm. Laboratory studies: As stated above and show below. Imaging studies: Portable AP upright 1 view of the chest was unremarkable Consultation(s): Discussed with Dr. Mercedes the patient was taken emergently to [facility] Discussed with Dr. Henry for admission Procedures: none Critical Care: I have personally spent 35 minutes of critical care time in the direct norris gement of this patient. This includes bedside care, interpretation of diagnostic studies, and testing, discussion with consultants, patient, and family members, and other required patient management activities. This 35 minutes is in excess of all separately billable procedures. Past Med/Surg History Medical History Blood in stool Calculus of left kidney Depression Factor V deficiency Family history of colon cancer GERD (gastroesophageal reflux disease) Gout History of COVID-19 History of kidney stones History of prostate cancer History of pulmonary embolism Hyperlipidemia Multiple pulmonary nodules Sleep apnea Surgical History H/O gastric bypass History of colonoscopy History of cystoscopy History of elbow surgery History of esophagogastroduodenoscopy (EGD) History of gastric bypass History of herniorrhaphy History of laparoscopy History of prostate biopsy Family History Father Prostate cancer Heart disease Mother Parkinson disease Brother Cancer Brother Cancer Other Colorectal cancer Family history of colon cancer Denies family history of Ovarian cancer Myocardial infarction Pancreatitis Breast cancer Lung cancer Social History Smoking Status: Never smoker Second Hand Exposure: No; Hx Alcohol Use: No Hx Substance Use: No Preferred Language: [place] Communication Ability: Effective Visual Impairment: Limited 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: Normal 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 Beliefs That Will Affect Care: None marital status: Current Living Situation: Spouse current occupational status: retired Feels Safe at Home: Yes Childhood Exposure to Second-Hand Smoke: No Diet Comment: Mindful of food choices due to gastric sleeve caffeine: Yes Dental Care, Regularly: No Physical Activity Frequency: Daily Seatbelt Use: always Sunscreen Use: Yes Assistive Devices: Glasses Allergies Allergies Allergy/AdvReac Type Severity Reaction Status Date / Time shellfish derived Allergy Intermediate Anaphylaxis Verified 09/24/21 08:59 iodine Allergy Unknown Anaphylaxis Verified 09/24/21 08:59 Home Meds Home Medications Medication Instructions Recorded Confirmed pediatric multivitamin 1 tab PO BID #0 10/06/15 09/24/21 (Flintstones Multivitamin) omeprazole 40 mg capsule,delayed 40 mg PO QAM 08/16/21 09/24/21 release escitalopram oxalate 5 mg tablet 5 mg PO HS 09/24/21 09/24/21 (Lexapro) leuprolide (3 month) 22.5 mg (3 22.5 mg SUBCUT Q3M 09/24/21 09/24/21 month) subcutaneous syringe Previous Rx's Medication Instructions Recorded apixaban 5 mg tablet (Eliquis) 5 mg PO BID #180 tab 04/02/21 Results & Data (ED) Vital Signs Vital Signs - 24 hr 09/24/21 08:09 09/24/21 08:20 09/24/21 08:30 Temperature 36.6 C Temperature Source Oral Pulse Rate 55 L 53 L 51 L Pulse Rate [Bilateral Apical] Pulse Rate from SpO2 Sensor 52 L 51 L Pulse Rhythm Regular Pulse Rhythm [Bilateral Apical] Pulse Strength Normal Pulse Strength [Bilateral Apical] Respiratory Rate 20 15 10 L Respiratory Effort / Characteristics Non-Labored Spontaneous Respiratory Depth Normal Respiratory Pattern Regular Blood Pressure 127/68 124/62 Blood Pressure [Left Arm] Blood Pressure Mean 87 82 Blood Pressure Mean [Left Arm] Blood Pressure Position Semi-fowlers Blood Pressure Position [Left Arm] Pulse Oximetry 94 96 93 Oxygen Delivery Method Room Air Sepsis Recent Fever Within 48 Hours No Sepsis New/Unexplained Change in Mental Status N/A Sepsis Action Taken by Nursing No Action Required 09/24/21 10:16 09/24/21 10:31 Temperature Temperature Source Pulse Rate Pulse Rate [Bilateral Apical] 68 64 Pulse Rate from SpO2 Sensor Pulse Rhythm Pulse Rhythm [Bilateral Apical] Regular Regular Pulse Strength Pulse Strength [Bilateral Apical] Normal Normal Respiratory Rate 16 16 Respiratory Effort / Characteristics Non-Labored Non-Labored Respiratory Depth Normal Normal Respiratory Pattern Regular Regular Blood Pressure Blood Pressure [Left Arm] 128/66 130/77 Blood Pressure Mean Blood Pressure Mean [Left Arm] 86 94 Blood Pressure Position Blood Pressure Position [Left Arm] Lying Lying Pulse Oximetry 98 99 Oxygen Delivery Method Room Air Room Air Sepsis Recent Fever Within 48 Hours Sepsis New/Unexplained Change in Mental Status Sepsis Action Taken by Nursing Laboratory Data Result diagrams: 09/24/21 08:19 09/24/21 08:19 Lab Results 09/24/21 09/24/21 09/24/21 Range/Units 08:19 08:19 09:14 WBC 3.77 L (4.8-10.8) K/uL RBC 4.09 L (4.7-6.1) M/uL Hgb 12.4 L (14.0-18.0) g/dL Hct 37.0 L (42-52) % MCV 90.5 (80-100) fL MCH 30.3 (25-34) pg MCHC 33.5 (32-36) g/dL RDW Std Deviation 50.9 H (36.4-46.3) fL RDW Coeff of Nadja 15.3 H (11.5-14.5) % Plt Count 180 (130-400) K/uL MPV 10.2 (7.4-10.4) fL Immature Gran % (Auto) 0.3 % Neut % (Auto) 52.2 % Lymph % (Auto) 30.0 % [place] % (Auto) 13.0 % Eos % (Auto) 4.0 % Baso % (Auto) 0.5 % Neut # (Auto) 1.97 (1.4-6.5) K/uL Lymph # (Auto) 1.13 L (1.2-3.4) K/uL [place] # (Auto) 0.49 (0.11-0.59) K/uL Eos # (Auto) 0.15 (0-0.5) K/uL Baso # (Auto) 0.02 (0-0.2) K/uL Immature Gran # (Auto) 0.01 (0.00-0.02) K/uL Sodium 140 (136-145) mmol/L Potassium 3.7 (3.5-5.1) mmol/L Chloride 110 H (98-107) mmol/L Carbon Dioxide 21 (21-32) mmol/L Anion Gap 9 (3-11) BUN 24 H (6-23) mg/dl Creatinine 0.95 (0.6-1.4) mg/dl Est Cr Clr Drug Dosing 89.5 ml/min Est GFR ( Amer) 93.0 ml/min Est GFR (Non-Af Amer) 80.2 ml/min BUN/Creatinine Ratio 25.3 H (10-20) Glucose 108 H (70-99(Fasting)) mg/dl Calcium 8.8 (8.5-10.1) mg/dl Total Bilirubin 0.6 (0.2-1.0) mg/dl AST 23 (13-39) U/L ALT 15 (7-52) U/L Alkaline Phosphatase 85 (34-104) U/L Troponin I 0.03 (0-0.04) ng/ml Total Protein 6.2 (6.0-8.3) gm/dl Albumin 3.6 (3.4-5.0) gm/dl Globulin 2.6 (2.5-4.0) gm/dl Albumin/Globulin Ratio 1.4 (0.9-2) Lipase 19 (11-82) U/L SARS-CoV-2, RNA, NAAT NEGATIVE (NEGATIVE) Administered Medications Discontinued Medications Clopidogrel Bisulfate (Clopidogrel Bisulfate 300 Mg Tab) 300 mg PO NOW STA Stop: 09/24/21 10:47 Last Admin: 09/24/21 13:36 Dose: 300 mg Documented by: [id number] Clopidogrel Bisulfate (Clopidogrel Bisulfate 300 Mg Tab) Confirm Administered Dose 300 mg .ROUTE .ST-MED ONE Stop: 09/24/21 13:36 Last Admin: 09/24/21 13:37 Dose: Not Given Documented by: [id number] Diphenhydramine HCl (Diphenhydramine 50 Mg/Ml Vial) Confirm Administered Dose 50 mg .ROUTE .[employer]-MED ONE Stop: 09/24/21 09:16 Last Admin: 09/24/21 13:31 Dose: Not Given Documented by: [id number] Fentanyl Citrate (Fentanyl Citrate 100 Mcg/2 Ml Vial) Confirm Administered Dose 100 mcg .ROUTE .[employer]-MED ONE Stop: 09/24/21 09:10 Last Admin: 09/24/21 13:30 Dose: Not Given Documented by: [id number] Heparin Sodium (Porcine) (Heparin Sod (Porcine) 1000 Unit/Ml) Confirm Administered Dose 1,000 units .ROUTE .[employer]-MED ONE Stop: 09/24/21 09:09 Last Admin: 09/24/21 13:29 Dose: Not Given Documented by: [id number] Heparin Sodium (Porcine) (Heparin (Porcine) 1000 Unit/Ml 10 Ml ([facility] Use Only)) Confirm Administered Dose 10,000 units .ROUTE .[employer] ONE Stop: 09/24/21 09:09 Last Admin: 09/24/21 13:30 Dose: Not Given Documented by: [id number] Heparin Sodium/Sodium Chloride (Heparin In Nss Infusion 1000 Unit/500 Ml (2 U/Ml) Bag) Confirm Administered Dose 3,000 units IV .[employer]-MED ONE Stop: 09/24/21 09:10 Last Admin: 09/24/21 13:30 Dose: Not Given Documented by: [id number] Sodium Chloride (Nss 1000ml) 250 mls @ 100 mls/hr IV .Q2H30M UNIQUE Stop: 09/24/21 12:59 Last Admin: 09/24/21 11:15 Dose: 100 mls/hr Documented by: [id number] Lidocaine HCl (Lidocaine 1% Local 20 Ml Vial) Confirm Administered Dose 20 ml .ROUTE .[employer]-MED ONE Stop: 09/24/21 09:14 Last Admin: 09/24/21 13:31 Dose: Not Given Documented by: [id number] Methylprednisolone (Methylprednisolone 125 Mg/2 Ml Vial) Confirm Administered Dose 125 mg .ROUTE .STK-MED ONE Stop: 09/24/21 09:16 Last Admin: 09/24/21 13:31 Dose: Not Given Documented by: [id number] Midazolam HCl (Midazolam Hcl 1 Mg/Ml 2ml Vial) Confirm Administered Dose 2 mg .ROUTE .STK-MED ONE Stop: 09/24/21 09:10 Last Admin: 09/24/21 13:30 Dose: Not Given Documented by: [id number] Morphine Sulfate (Morphine Sulfate 4 Mg/Ml 1 Ml Carp\Vial) 4 mg IV NOW STA Stop: 09/24/21 08:25 Last Admin: 09/24/21 13:27 Dose: Not Given Documented by: [id number] Nicardipine HCl (Nicardipine Hcl Inj 2.5 Mg/Ml 10 Ml Amp) Confirm Administered Dose 25 mg .ROUTE .STK-MED ONE Stop: 09/24/21 09:09 Last Admin: 09/24/21 13:30 Dose: Not Given Documented by: [id number] Nitroglycerin/Dextrose (Nitroglycerin/D5w 100mcg/Ml 20ml Syr) Confirm Administered Dose 2,000 mcg .ROUTE .STK-MED ONE Stop: 09/24/21 09:11 Last Admin: 09/24/21 13:30 Dose: Not Given Documented by: [id number] Ticagrelor (Ticagrelor 90 Mg Tab) Confirm Administered Dose 180 mg PO .STK-MED ONE Stop: 09/24/21 09:08 Last Admin: 09/24/21 13:29 Dose: Not Given Documented by: [id number] Imaging Data Radiologist's Impression: Chest X-Ray 09/24/21 08:09 XR chest 1V portable HISTORY: 71 years-old Male Chest Pain acute atypical chest pain COMPARISON: Chest radiograph 08/03/2021, acute abdominal series radiographs 09/10/2018, chest CT 05/16/2016. TECHNIQUE: Portable AP view of the chest FINDINGS: Cardiomediastinal and hilar silhouettes are unchanged. Hiatal hernia. Mild linear left basilar consolidation. No pneumothorax, large pleural effusion or overt pulmonary edema. Degenerative changes of the shoulders and spine. 7 mm calcified granuloma of the superior segment right lower lobe is unchanged. IMPRESSION: 1. Mild left basilar consolidative opacities suggest atelectasis. Pneumonia could appear similarly. 2. Hiatal hernia. ACT 112: Negative or not required by law. The above report was generated using voice recognition software. It may contain grammatical, syntax or spelling errors. Electronically signed by: Bentley Garcia M.D. 09/24/2021 8:40 AM Chest X-Ray 09/24/21 09:11 XR chest 1V portable CLINICAL HISTORY: HEART ALERT COMPARISON STUDY: Chest radiograph August 03, 2021 and chest radiograph performed earlier today. FINDINGS: No pneumothorax or pleural effusion is noted. Cardiomegaly is present. There is no evidence for pulmonary edema. There is a hiatal hernia. Mild left basilar opacity is noted. No pneumothorax or pleural effusion is present. IMPRESSION: 1. Cardiomegaly. No evidence for pulmonary edema. 2. Mild left basilar opacity which favors atelectasis. 3. Hiatal hernia. ACT 112: Negative or not required by law. Electronically signed by: Ward Preston M.D. 09/24/2021 9:19 AM Discharge Plan Visit Data Chief Complaint: Chest Pain ED Provider: Jose Alberto Bassett Discharge Problem: Non-ST elevation ME (NSTEMI), Chest pain, ACS (acute coronary syndrome), CAD (coronary atherosclerotic disease) Discharge Instructions Interventions: ED Discharge Assessment Last Done: 09/24/21 09:27
[2021-09-24 08:31] LABS: Basophils # (auto) 0.02 K/uL (0-0.2); Basophils % (auto) 0.5 %; Eosinophils # (auto) 0.15 K/uL (0-0.5); Hemoglobin 12.4 g/dL (14.0-18.0); Immature Granulocytes # (auto) 0.01 K/uL (0.00-0.02); Immature Granulocytes % (auto) 0.3 %; Lymphocytes # (auto) 1.13 K/uL (1.2-3.4); Mean Corpuscular Hemoglobin 30.3 pg (25-34); Mean Corpuscular Hgb Conc 33.5 g/dL (32-36); Mean Corpuscular Volume 90.5 fL (80-100); Mean Platelet Volume 10.2 fL (7.4-10.4); Monocytes # (auto) 0.49 K/uL (0.11-0.59); Neutrophils # (auto) 1.97 K/uL (1.4-6.5); Neutrophils % (auto) 52.2 %; Platelet Count 180 K/uL (130-400); RDW Coefficient of Variation 15.3 % (11.5-14.5); RDW Standard Deviation 50.9 fL (36.4-46.3); Red Blood Count 4.09 M/uL (4.7-6.1); White Blood Count 3.77 K/uL (4.8-10.8)
--- NOTE | 2021-09-24 08:42 | XRay Report ---
XR chest 1V portable HISTORY: 71 years-old Male Chest Pain acute atypical chest pain COMPARISON: Chest radiograph 08/03/2021, acute abdominal series radiographs 09/10/2018, chest CT 016. TECHNIQUE: Portable AP view of the chest FINDINGS: Cardiomediastinal and hilar silhouettes are unchanged. Hiatal hernia. Mild linear left basilar consol idation. No pneumothorax, large pleural effusion or overt pulmonary edema. Degenerative changes of th e shoulders and spine. 7 mm calcified granuloma of the superior segment right lower lobe is unchanged . IMPRESSION: 1. Mild left basilar consolidative opacities suggest atelectasis. Pneumonia could appear similarly. 2. Hiatal hernia. ACT 112: Negative or not required by law. The above report was generated using voice recognition software. It may contain grammatical, syntax o r spelling errors. Electronically signed by: Bentley Garcia M.D. 09/24/2021 8:40 AM
[2021-09-24 08:52] LABS: Albumin Globulin Ratio 1.4 (0.9-2); Albumin Level 3.6 gm/dl (3.4-5.0); BUN Creatinine Ratio 25.3 (10-20); Bilirubin,Total 0.6 mg/dl (0.2-1.0); Calcium 8.8 mg/dl (8.5-10.1); Creatinine Clr Calc Pharmacy 89.5 ml/min; Est GFR (Non-African American) 80.2 ml/min; Globulin 2.6 gm/dl (2.5-4.0); Potassium 3.7 mmol/L (3.5-5.1); Total Protein 6.2 gm/dl (6.0-8.3); Troponin I 0.03 ng/ml (0-0.04)
[2021-09-24] MEDS ORDERED: TICAGRELOR 90 MG TAB PO ONE (09:07)
[2021-09-24] MEDS ORDERED: HEPARIN (PORCINE) 1000 UNIT/ML 10 ML (CATH LAB USE ONLY) ONE (09:08)
[2021-09-24] MEDS ORDERED: HEPARIN SOD (PORCINE) 1000 UNIT/ML ONE (09:08)
[2021-09-24] MEDS ORDERED: niCARdipine HCL INJ 2.5 MG/ML 10 ML AMP ONE (09:08)
[2021-09-24] MEDS ORDERED: MIDAZOLAM HCL 1 MG/ML 2ML VIAL ONE (09:09)
[2021-09-24] MEDS ORDERED: fentaNYL citrate 100 MCG/2 ML VIAL ONE (09:09)
[2021-09-24] MEDS ORDERED: NITROGLYCERIN/D5W 100MCG/ML 20ML SYR ONE (09:10)
[2021-09-24] MEDS ORDERED: LIDOCAINE 1% LOCAL 20 ML VIAL ONE (09:13)
[2021-09-24] MEDS ORDERED: diphenhydrAMINE 50 MG/ML VIAL ONE (09:15)
[2021-09-24] MEDS ORDERED: methylPREDNISolone 125 MG/2 ML VIAL ONE (09:15)
--- NOTE | 2021-09-24 09:21 | XRay Report ---
XR chest 1V portable CLINICAL HISTORY: HEART ALERT COMPARISON STUDY: Chest radiograph August 03, 2021 and chest radiograph performed earlier today. FINDINGS: No pneumothorax or pleural effusion is noted. Cardiomegaly is present. There is no evidence for pulmonary edema. There is a hiatal hernia. Mild left basilar opacity is noted. No pneumothorax o r pleural effusion is present. IMPRESSION: 1. Cardiomegaly. No evidence for pulmonary edema. 2. Mild left basilar opacity which favors atelectasis. 3. Hiatal hernia. ACT 112: Negative or not required by law. Electronically signed by: Ward Preston M.D. 09/24/2021 9:19 AM
--- NOTE | 2021-09-24 09:26 | Pre Anesthesia Assessment ---
Date of Service September 24, 2021 Pre Sedation Assessment Vital Signs Temp Pulse Resp BP Pulse Ox 09/24/21 08:09 97.9 F 55 L 20 127/68 94 Cardiovascular RRR, no murmur, no edema Respiratory normal respiratory effort, lungs clear to auscultation Pre-Sedation Airway Assessment Smoking Status: Never smoker Hx Sleep Apnea: No Hx Difficult Intubation: No Short, Thick Neck: No Thyromental Distance: > or= 3.5 Finger Breadths Oral Cavity: + WNL Mallampati Class: III ASA: ASA4 Procedure Planning Contraindications for Sedation: none Current Medications Reviewed: Yes Notes The planned sedation has been discussed with the patient. Informed Consent was obtained. I have identified the patient, determined the appropriateness of sedation and have assessed the patient immediately prior to the procedure. All medicine(s) and interventions are by my order.
--- NOTE | 2021-09-24 09:31 | Cardiology Consultation ---
Date of Consultation September 24, 2021 Assessment & Plan (1) ACS (acute coronary syndrome): Presentation concerning for high risk ACS and recommend proceeding with urgent cardiac catheterization and possible PCI. No apparent contraindications to procedure. Discussed risks, benefits, alternatives of procedure with patient and they are willing to proceed. Further recommendations pending findings of coronary angiography. History of Present Illness History of Present Illness 71-year-old man here with acute chest pain and dynamic ST changes concerning for ACS. Patient seen emergently in the ED after heart alert activated after 2nd EKG. No prior cardiac history. Medical history remarkable for PE 8 years ago on chronic Eliquis. History of prostate cancer post radiation on hormonal therapy. History of prior GI bleed post recent unremarkable EGD. Other medical issues IZZY, GERD, dyslipidemia. Chest pain began approximately 6 AM this morning, approximately 2 hours prior to arrival. Describes substernal chest pain radiating to his left shoulder and down his arm with associated nausea/dry heaves. Denies similar symptoms in the past. Chest pain at its worst 8 out of 10. Chest pain currently still 6 out of 10. Hemodynamically stable. Initial EKG showed sinus rhythm with subtle T wave inversions laterally. Continued to have chest pain and later developed an accelerated idioventricular rhythm and heart alert was called. Allergies Allergy/AdvReac Type Severity Reaction Status Date / Time shellfish derived Allergy Intermediate Anaphylaxis Verified 09/24/21 08:59 iodine Allergy Unknown Anaphylaxis Verified 09/24/21 08:59 Home Medications Medication Instructions Recorded Confirmed Type pediatric multivitamin 1 tab PO BID #0 10/06/15 09/24/21 History (Flpuja Multivitamin) apixaban 5 mg tablet (Eliquis) 5 mg PO BID #180 tab 04/02/21 09/24/21 Rx omeprazole 40 mg capsule,delayed 40 mg PO QAM 08/16/21 09/24/21 History release escitalopram oxalate 5 mg tablet 5 mg PO HS 09/24/21 09/24/21 History (Lexapro) leuprolide (3 month) 22.5 mg (3 22.5 mg SUBCUT Q3M 09/24/21 09/24/21 History month) subcutaneous syringe Patient History Medical History Blood in stool Calculus of left kidney Depression Factor V deficiency Family history of colon cancer GERD (gastroesophageal reflux disease) Gout History of COVID-19 History of kidney stones History of prostate cancer History of pulmonary embolism Hyperlipidemia Multiple pulmonary nodules Sleep apnea Surgical History H/O gastric bypass History of colonoscopy History of cystoscopy History of elbow surgery History of esophagogastroduodenoscopy (EGD) History of gastric bypass History of herniorrhaphy History of laparoscopy History of prostate biopsy Family History Father Prostate cancer Heart disease Mother Parkinson disease Brother Cancer Brother Cancer Other Colorectal cancer Family history of colon cancer Denies family history of Ovarian cancer Myocardial infarction Pancreatitis Breast cancer Lung cancer Social History Smoking Status: Never smoker Second Hand Exposure: No; Hx Alcohol Use: No Hx Substance Use: No Preferred Language: Czech Communication Ability: Effective Visual Impairment: Limited 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: Normal 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 Beliefs That Will Affect Care: None marital status: Current Living Situation: Spouse current occupational status: retired Feels Safe at Home: Yes Childhood Exposure to Second-Hand Smoke: No Diet Comment: Mindful of food choices due to gastric sleeve caffeine: Yes Dental Care, Regularly: No Physical Activity Frequency: Daily Seatbelt Use: always Sunscreen Use: Yes Assistive Devices: Glasses Review of Systems Review of Systems: Not obtained in the setting of emergent situation Physical Exam Physical Exam: General: Comfortable HEENT: Sclerae anicteric Lungs: Clear to auscultation bilaterally Cardiac: Regular rate and rhythm, no murmurs. Vascular: 2+ radial Abdomen: Soft, nontender Extremities: Well perfused, no peripheral edema Neuro: Nonfocal Psych: Alert orient x3, normal affect and mood Results & Data ([facility]) Vital Signs (Past 12 Hours) Vital Signs Temp Pulse Resp BP Pulse Ox 09/24/21 08:09 97.9 F 55 L 20 127/68 94 PG Care Time/CCT Total # of Minutes Spent Total Time Spent with Patient: Total time spent is greater than 50% in coordination of care (as documented) at patient's floor/unit and/or counseling patient: Coding Level of Care Code 81639 Initial Inpt Care Lvl 3 Diagnoses ACS (acute coronary syndrome) I24.9
--- NOTE | 2021-09-24 10:26 | Post Anesthesia Assessment ---
Date of Service September 24, 2021 Post Sedation Assessment Vital Signs Temp Pulse Pulse Resp BP BP Pulse Ox 09/24/21 10:16 68 16 128/66 98 09/24/21 08:30 51 L 10 L 124/62 93 09/24/21 08:20 53 L 15 96 09/24/21 08:09 97.9 F 55 L 20 127/68 94 Recovery Score Activity: Moves 4 extremities Respiration: Deep Breath/Cough Circulation: +/-20% PreAnes Value Consciousness: Fully Awake Oxygen Saturation: O2 needed for >90% Post Anesthesia Score: 10 Discharge Sedation Level of Care: Fast Track Phase II Post Sedation Plan On clinical assessment, the patient appears to have tolerated the sedation without complications. Patient is recovering as anticipated. Patient will continue to be monitored by nursing and may be discharged when sedation discharge criteria are met per below protocol. Upon Completions of procedure up to 15 minutes continue every 5 minute vital signs and the P.A.R. score; then discharge to a Phase I or Fast Track to Phase II per the following guidelines: * Discharge Patient to appropriate Phase II area if PAR is 8 or greater or return to pre- procedure baseline. The post - procedure orders will be as directed. * If PAR score is less than 8 or not return to pre-procedure baseline then patient will follow Phase I monitoring till PAR is reached for Phase II. The Phase I may be done in procedure room or may call to secure a Phase I area. * If naloxone or flumazenil are used for reversal, hold in Phase I for continued monitoring from when last reversal dose was given for a minimum of 60 minutes or longer pending the nurse and/or physician discretion of patient condition before discharge to Phase II. Please call the Sedation Physician to re-evaluate and complete post-note for discharge to Phase II area. Do NOT discharge from procedure sedation or Phase 1 until post- sedation evaluation note is complete by procedure /sedation MD Sedation Discharge Instructions to be given to the patient at discharge to home.
[2021-09-24] MEDS ORDERED: ONDANSETRON INJ 2 MG/ML 2 ML VIAL IV PRN (10:29)
[2021-09-24] MEDS ORDERED: ACETAMINOPHEN 325 MG TAB PO PRN (10:29)
[2021-09-24] MEDS ORDERED: SODIUM CHLORIDE 0.9% 1000ML 1,000 ML IV SCH (10:30)
[2021-09-24] MEDS ORDERED: NITROGLYCERIN SL 0.4 MG/TAB TAB SL PRN (10:34)
[2021-09-24] MEDS ORDERED: OR MISCELLANEOUS MED ONE (10:44)
[2021-09-24] MEDS ORDERED: Heparin IV Adult Wt-Based Standard *NO* Bolus Protocol ONE (10:44)
[2021-09-24] MEDS ORDERED: CLOPIDOGREL BISULFATE 300 MG TAB PO STA (10:46)
--- NOTE | 2021-09-24 10:50 | Cardiac Catheterization ---
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 Cardiac Status Clinical evaluation leading to the procedure CAD Presenation: Unstable angina Anginal Classification: CCS IV Heart Failure: No Cardiogenic Shock within 24 Hours: No Cardiac Arrest within 24 Hours: No Imaging Studies Past 6 Months: No Stress Studies Past 6 Months: No Diagnostic Physicians Name: Yimi Mercedes MD Status: Urgent Closure Device Percutaneous Entry Location: Radial Closure Device: Radial Band Recommendations: Medical Therapy and/or Counseling Intraprocedure Events Significant Disection: No Perforation: No Cardiac Cath Procedure Full Procedure Date September 24, 2021 Pre-Procedure Diagnosis Pre-Procedure Diagnosis: Acute Coronary Syndrome AUC Score AUC Score: 8 Post-Procedure Diagnosis Post-Procedure Diagnosis: Severe CAD and Elevated Intracardiac Pressures Procedure(s) Performed Procedure(s) Performed: Coronary Angiography and Left Heart Cath Frozen Yogurt Maker Yimi Mercedes MD General Intern(s) Showers Estimated Blood Loss Estimated Blood Loss: 10 Medication(s) Medication(s): Fentanyl, Heparin, Lidocaine 1%, Nicardipine, Nitroglycerin and Versed Summary of Findings Indication: High risk ACS Access: 6 Fr right radial artery Catheters: [place], EBU 3.5 guide, pigtail Findings: LM -normal caliber, no significant disease LAD -large caliber vessel, distal segment wraps around apex. Small D1 with 90% hazy proximal stenosis (vessel <2 mm). Medium D2 with 30% ostial stenosis. Circumflex -medium caliber, no significant disease RCA -dominant, large caliber, mid segment luminal irregularities. Medium RPDA, RPLB without significant disease. Left main cannulated with EBU 3.5 guide. Whisper wire used to probe questionable OM1 occlusion and passed across D1 stenosis. Vessel though too small for intervention. TIMI3 flow, no chest pain and procedure aborted. LVEF 50%, questionable anterolateral hypokinesis LVEDP - 21 Arterial Closure: TR Band Summary: 1. No significant major epicardial coronary artery disease 2. Severe small branch vessel disease - 90% hazy proximal stenosis in small D1 3. Elevated intracardiac filling pressure 4. Low normal LV function. LVEF 50% Recommendations: No high risk disease. Recommend medical management of ACS secondary to small branch vessel disease. Admit to telemetry Trend troponin until peak Check echocardiogram Heparin infusion overnight Start clopidogrel, ideally on clopidogrel for 1 year post ACS. Can be interrupted as needed. Home on dual therapy with clopidogrel, Apixaban. Start beta-pam, GMEINI and statin. Hemodynamics Rest Ao:: 157/72/102 Final Ao: 151/63/95 LV: 151/21 Recommendations Recommendations: Medical Therapy and/or Counseling Specimens Specimens: None Radiation Exposure (mGy) 2101 Contrast (mls) 110 Fluids (cc crystalloids) Fluids (cc crystalloids): 100 Drains Drains: none Anesthesia moderate 1855-0624 Procedural Complication(s) None Disposition PCU I attest to the content of the Intraoperative Record and any orders documented therein. Any exceptions are noted below. [facility] Card Cath Procedure Codes Cardiac Catheterization Procedure 1: Cardiovascular Cath Procedures: 63230 Coronaries and LHC (+/-LV) Moderate Sedation Procedure 1: Sedation/Anesthesia: 32865 Mod Sedation by the same physician;Init15 Min Child Age 5 & Up Procedure 2: Sedation/Anesthesia: 96757 Mod Sedation by the same physician; Ea [id number] Minutes PG Care Time/CCT Total # of Minutes Spent Total Time Spent with Patient: Total time spent is greater than 50% in coordination of care (as documented) at patient's floor/unit and/or counseling patient:
[2021-09-24] MEDS ORDERED: HEPARIN SODIUM/DEXTROSE 25,000 UNITS/500 ML BAG IV SCH (11:00)
--- NOTE | 2021-09-24 12:02 | Electrocardiogram Report ---
Test Reason : Blood Pressure : / mmHG Vent. Rate : 053 BPM Atrial Rate : 053 BPM P-R Int : 208 ms QRS Dur : 100 ms QT Int : 524 ms P-R-T Axes : 021 -37 -47 degrees QTc Int : 491 ms Sinus bradycardia with 1st degree AV block Left axis deviation Minimal voltage criteria for LVH, may be normal variant T wave abnormality, consider lateral ischemia Prolonged QT Abnormal ECG When compared with ECG of 02-AUG-2021 21:42, T wave inversion more evident in Inferior leads Confirmed by Yimi Chavez ([id number]) on 09/24/2021 12:01:57 PM Referred By: Confirmed By:Ata Chavez
--- NOTE | 2021-09-24 12:05 | Electrocardiogram Report ---
Test Reason : Blood Pressure : / mmHG Vent. Rate : 085 BPM Atrial Rate : 044 BPM P-R Int : 000 ms QRS Dur : 144 ms QT Int : 514 ms P-R-T Axes : 000 076 -84 degrees QTc Int : 611 ms Idioventricular rhythm Non-specific intra-ventricular conduction block Marked T wave abnormality, consider inferior ischemia Marked T wave abnormality consider anterolateral ischemia Abnormal ECG When compared with ECG of 24-SEP-2021 08:11, (unconfirmed) Vent. rate has increased BY 32 BPM Confirmed by Yimi Chavez ([id number]) on 09/24/2021 12:04:58 PM Referred By: REFERRED SELF Confirmed By:Ata Chavez
--- NOTE | 2021-09-24 12:42 | History & Physical Report ---
Date of Service September 24, 2021 Assessment & Plan (1) ACS (acute coronary syndrome): Plan: s/p cardiac catheterization w/ Dr. Yimi Mercedes Placed in observation to monitored bed Initiate heparin infusion overnight EKG as needed chest pain Cycle troponin until peak Echocardiogram Administer Plavix 300 mg p.o. x1 Medical regimen to include: Coreg 3.125mg BID, Lisinopril 5mg daily, Atorvastatin 40mg HS, and antiplatelet agent in form of Plavix 75mg daily Heart healthy diet (2) CAD (coronary atherosclerotic disease): Plan: As above Will require outpatient f/u with Dr. 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 Mercedes) assistance in management Follow up labs in AM Above plan of care d/w Dr. Lisa. Further orders as warranted. Admission and Anticipated Discharge Date Admission Date: September 24, 2021 History of Present Illness Chief Complaint: chest pain Primary Care Provider: Dwayne Herring DO Howard Robert is a 71 yo WM with a pmhx of GERD, prostate CA s/p radiation on hormone therapy, IZZY, remote h/o PE 8 years ago on chronic ACT (Eliquis) and dyslipidemia who presented to the ER c/o chest pain. Patient reports that he woke this morning, took his morning medications, and prior to eating breakfast developed abrupt onset substernal chest heaviness that radiated into his left arm. He rated the pain an 8 out of 10 on the pain scale. He reported associated dry heaves but denies feeling nauseous. He denied associated dyspnea or diaphoresis. His subsequently contacted EMS and he was transferred to the emergency department for prompt evaluation. His initial EKG showed some T wave inversion in the lateral leads. However, during his ER stay, he developed an accelerated idioventricular rhythm and a heart alert was called. Case was discussed with Dr. Mercedes and patient was taken to the [facility]. He was noted to have [place] vessel disease (approx 90% hazy proximal stenosis) in a small caliber vessel which was too small for intervention. Subsequently, medical management is advised and patient has been referred to hospitalists for admission. Allergies Allergy/AdvReac Type Severity Reaction Status Date / Time shellfish derived Allergy Intermediate Anaphylaxis Verified 09/24/21 08:59 iodine Allergy Unknown Anaphylaxis Verified 09/24/21 08:59 Home Medications Medication Instructions Recorded Confirmed Type pediatric multivitamin 1 tab PO BID #0 10/06/15 09/24/21 History (Flintstones Multivitamin) apixaban 5 mg tablet (Eliquis) 5 mg PO BID #180 tab 04/02/21 09/24/21 Rx omeprazole 40 mg capsule,delayed 40 mg PO QAM 08/16/21 09/24/21 History release escitalopram oxalate 5 mg tablet 5 mg PO HS 09/24/21 09/24/21 History (Lexapro) leuprolide (3 month) 22.5 mg (3 22.5 mg SUBCUT Q3M 09/24/21 09/24/21 History month) subcutaneous syringe Past Med/Surg History Medical History Blood in stool Calculus of left kidney Depression Factor V deficiency Family history of colon cancer GERD (gastroesophageal reflux disease) Gout History of COVID-19 History of kidney stones History of prostate cancer History of pulmonary embolism Hyperlipidemia Multiple pulmonary nodules Sleep apnea Surgical History H/O gastric bypass History of colonoscopy History of cystoscopy History of elbow surgery History of esophagogastroduodenoscopy (EGD) History of gastric bypass History of herniorrhaphy History of laparoscopy History of prostate biopsy Family History Father Prostate cancer Heart disease Mother Parkinson disease Brother Cancer Brother Cancer Other Colorectal cancer Family history of colon cancer Denies family history of Ovarian cancer Myocardial infarction Pancreatitis Breast cancer Lung cancer Social History (Reviewed 08/26/21 @ 09:57 by CASI Flores Smoking Status: Never smoker Second Hand Exposure: No; Hx Alcohol Use: No Hx Substance Use: No Preferred Language: Zambian Communication Ability: Effective Visual Impairment: Limited 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: Normal Floor Hand Required: No Beliefs That Will Affect Care: None marital status: Current Living Situation: Spouse current occupational status: retired Feels Safe at Home: Yes Childhood Exposure to Second-Hand Smoke: No Diet Comment: Mindful of food choices due to gastric sleeve caffeine: Yes Dental Care, Regularly: No Physical Activity Frequency: Daily Seatbelt Use: always Sunscreen Use: Yes Assistive Devices: Glasses Review of Systems Review of Systems: CONSTITUTIONAL: Denies weight loss/gain, fever and chills, fatigue, malaise, generalized weakness. HEENT: Denies changes in vision and hearing. RESPIRATORY: Denies SOB, cough, wheezing. CV: (+) chest pain. Denies palpitations, lower extremity edema, orthopnea, PND. GI: Denies abdominal pain, nausea, vomiting and diarrhea. : Denies dysuria and urinary frequency, urgency, hesitancy. MUSCULOSKELETAL: Denies myalgia and joint pain. SKIN: Denies rash and pruritus. NEUROLOGICAL: Denies headache, syncope, focal weakness, numbness, tingling. PSYCHIATRIC: Denies recent changes in mood. Denies anxiety and depression. Physical Exam Physical Exam: GENERAL: 71 yo well-developed, well-nourished WM. NAD. EYES: EOMI. PERRLA. Anicteric. HENT: Moist mucous membranes. No scleral icterus. No cervical lymphadenopathy. LUNGS: Clear to auscultation bilaterally. No accessory muscle use. No W/R/R. CARDIOVASCULAR: Regular rate and rhythm. No M/G/R. No JVD. ABDOMEN: Soft, non-tender and non-distended. No palpable masses. Bowel sounds normoactive x 4 quad. EXTREMITIES: No edema. Non-tender. Peripheral pulses +2/4. NEUROLOGIC: A&O x3. No focal neurological deficits. CN II-XII grossly intact. PSYCHIATRIC: Pleasant, Cooperative. Appropriate mood and affect. SKIN: Warm, dry, intact. No rashes or lesions. Results & Data Results & Data ([facility]) Vital Signs (Past 12 Hours) Vital Signs Temp Pulse Pulse Resp BP BP Pulse Ox 09/24/21 10:31 64 16 130/77 99 09/24/21 10:16 68 16 128/66 98 09/24/21 08:30 51 L 10 L 124/62 93 09/24/21 08:20 53 L 15 96 09/24/21 08:09 36.6 C 55 L 20 127/68 94 Laboratory Results 09/24/21 08:19 09/24/21 08:19 Diagnostic Findings Chest X-Ray 09/24/21 08:09 XR chest 1V portable HISTORY: 71 years-old Male Chest Pain acute atypical chest pain COMPARISON: Chest radiograph 08/03/2021, acute abdominal series radiographs 09/10/2018, chest CT 05/16/2016. TECHNIQUE: Portable AP view of the chest FINDINGS: Cardiomediastinal and hilar silhouettes are unchanged. Hiatal hernia. Mild linear left basilar consolidation. No pneumothorax, large pleural effusion or overt pulmonary edema. Degenerative changes of the shoulders and spine. 7 mm calcified granuloma of the superior segment right lower lobe is unchanged. IMPRESSION: 1. Mild left basilar consolidative opacities suggest atelectasis. Pneumonia could appear similarly. 2. Hiatal hernia. ACT 112: Negative or not required by law. The above report was generated using voice recognition software. It may contain grammatical, syntax or spelling errors. Electronically signed by: Bentley Garcia M.D. 09/24/2021 8:40 AM Chest X-Ray 09/24/21 09:11 XR chest 1V portable CLINICAL HISTORY: HEART ALERT COMPARISON STUDY: Chest radiograph August 03, 2021 and chest radiograph performed earlier today. FINDINGS: No pneumothorax or pleural effusion is noted. Cardiomegaly is present. There is no evidence for pulmonary edema. There is a hiatal hernia. Mild left basilar opacity is noted. No pneumothorax or pleural effusion is present. IMPRESSION: 1. Cardiomegaly. No evidence for pulmonary edema. 2. Mild left basilar opacity which favors atelectasis. 3. Hiatal hernia. ACT 112: Negative or not required by law. Electronically signed by: Ward Preston M.D. 09/24/2021 9:19 AM EKG #1: sinus w/ T wave inversion laterally EKG #2: Code Status & VTE Plan VTE Prophylaxis Plan VTE Prophylaxis will be ordered: Yes Supervising Physician Co-Signing Physician Notes Patient was seen and examined independently I discussed the case with Elvira Houser PAC I reviewed pertinent past medical social family history and also the plan of care and agree with the plan of care. Patient was seen the progressive care unit after his cardiac catheterization he was having no discomfort. Catheterization site had good hemostasis and distal numbness or lack of loss of sensation to his hand Personally spoke to the plant protection superintendent who felt that the patient did not have significant coronary disease but did have a diagonal of the LAD is likely the cu lprit lesion and this is too small to be intervened but will recommend medical management with infusion of heparin, institution of antiplatelet agents and also starting metoprolol lisinopril in the post STEMI care. Patient also be given a high intensity statin. Will reevaluate with cardiology to determine duration of hospital stay after heparin infusion is complete Any exceptions will be noted below PG Care Time/CCT Total # of Minutes Spent Total Time Spent with Patient: Total time spent is greater than 50% in coordination of care (as documented) at patient's floor/unit and/or counseling patient: Coding Level of Care Code INT OBSERVATION CARE 70M LVL 3 Diagnoses CAD (coronary atherosclerotic disease) I25.10 Prostate cancer C61 Factor V deficiency D68.2 Depression F32.9 GERD (gastroesophageal reflux disease) K21.9 Esophagitis presence: esophagitis presence not specified Hyperlipidemia E78.5 Hyperlipidemia type: unspecified ACS (acute coronary syndrome) I24.9 (1) Hyperlipidemia Hyperlipidemia type: unspecified Qualified Code(s): E78.5 - Hyperlipidemia, unspecified (2) GERD (gastroesophageal reflux disease) Esophagitis presence: esophagitis presence not specified Qualified Code(s): K21.9 - Gastro-esophageal reflux disease without esophagitis
[2021-09-24] MEDS ORDERED: CLOPIDOGREL BISULFATE 300 MG TAB ONE (13:35)
[2021-09-24] MEDS ORDERED: Nursing to Pharmacy Communication SCH (14:30)
--- NOTE | 2021-09-24 14:38 | XCELERA ---
[id number]
[2021-09-24] MEDS: HEPARIN SODIUM/DEXTROSE 25,000 UNITS/500 ML BAG IV SCH (16:16)
[2021-09-24] MEDS: carvediloL 3.125 MG TAB PO SCH (20:06)
[2021-09-24] MEDS ORDERED: METOPROLOL TARTRATE 25 MG TAB PO SCH (21:00)
[2021-09-24 22:50] LABS: Partial Thromboplastin Ratio 2.5
[2021-09-24 22:54] LABS: Partial Thromboplastin Time 65.2 Seconds (21.0-31.0)
[2021-09-25] MEDS: HEPARIN SODIUM/DEXTROSE 25,000 UNITS/500 ML BAG IV SCH (06:46)
[2021-09-25 07:11] VITALS: O2SAT 95
[2021-09-25] MEDS: carvediloL 3.125 MG TAB PO SCH (07:16)
[2021-09-25 07:37] LABS: Basophils # (auto) 0.01 K/uL (0-0.2); Basophils % (auto) 0.3 %; Eosinophils # (auto) 0.11 K/uL (0-0.5); Eosinophils % (auto) 3.4 %; Hemoglobin 12.3 g/dL (14.0-18.0); Lymphocytes # (auto) 1.11 K/uL (1.2-3.4); Lymphocytes % (auto) 33.8 %; Mean Corpuscular Hemoglobin 30.2 pg (25-34); Mean Corpuscular Hgb Conc 33.2 g/dL (32-36); Mean Corpuscular Volume 90.9 fL (80-100); Mean Platelet Volume 10.2 fL (7.4-10.4); Monocytes # (auto) 0.41 K/uL (0.11-0.59); Monocytes % (auto) 12.5 %; Neutrophils # (auto) 1.64 K/uL (1.4-6.5); Platelet Count 174 K/uL (130-400); RDW Coefficient of Variation 15.4 % (11.5-14.5); RDW Standard Deviation 51.4 fL (36.4-46.3); Red Blood Count 4.07 M/uL (4.7-6.1); White Blood Count 3.28 K/uL (4.8-10.8)
[2021-09-25 07:58] LABS: BUN Creatinine Ratio 23.9 (10-20); Calcium 8.2 mg/dl (8.5-10.1); Chol HDL Ratio 4.2 (0-5); Est GFR (African American) 96.6 ml/min; Est GFR (Non-African American) 83.4 ml/min; Potassium 3.6 mmol/L (3.5-5.1)
[2021-09-25 08:19] LABS: Partial Thromboplastin Ratio 4.2
[2021-09-25 08:27] LABS: Partial Thromboplastin Time 110.2 Seconds (21.0-31.0)
[2021-09-25 08:50] LABS: Estimated Average Glucose 114 mg/dl; Hemoglobin A1C 5.6 % (4.5-5.6)
[2021-09-25] MEDS ORDERED: CLOPIDOGREL BISULFATE 75 MG TAB PO SCH (09:00)
[2021-09-25] MEDS ORDERED: ATORVASTATIN 40 MG TAB PO SCH (09:00)
[2021-09-25] MEDS ORDERED: ASPIRIN 81 MG ECTAB PO SCH (09:00)
[2021-09-25] MEDS ORDERED: PANTOprazole 40 MG TAB PO SCH (09:00)
[2021-09-25] MEDS ORDERED: lisinopril 5 MG TAB PO SCH (09:00)
[2021-09-25 11:29] VITALS: BP 128/76; PULSE 58; TEMP 97.9
--- NOTE | 2021-09-25 13:18 | Cardiology Progress Note ---
Date of Service September 25, 2021 Assessment & Plan (1) Non-ST elevation SD (NSTEMI): Plan: --Acute small 1st diagonal disease -- medically managed. 2. Preserved LV function. 3. Moderate Aortic root dilation (4.7 cm). 4. Mild to moderate AI 5. Dyslipidemia 6. History of PE on indefinite anticoagulation 7. Obesity post gastric sleeve, IZZY 8. Anemia 9. Prostate CA on Lupron Chest pain free, troponin peaked. Electrically stable on telemetry Post procedure labs stable. No access site complications. From a cardiac standpoint OK with discharge today. Follow-up with me in 1-2 weeks. Home on: -- Dual therapy with Apixaban and clopidogrel -- Carvediloll 3.125 BID and lisinopril 5 mg daily -- Previously with joint pain on Atorvastatin --> transition to Rosuvastatin 20mg daily -- Continue PPI -- Will need outpatient surveillance of Dilated aortic root/asc aorta. Admission and Anticipated Discharge Date Admission Date: September 24, 2021 Subjective Feeling well today. No recurrent chest pain. No shortness of breath. No other new concerns. Telemetry reviewed -- no events. Review of Systems Review of Systems: All systems reviewed & are unremarkable except as noted in HPI & below Physical Exam Physical Exam: General: Comfortable HEENT: Sclerae anicteric Lungs: Clear to auscultation bilaterally Cardiac: Regular rate and rhythm, no murmurs. Vascular: 2+ radial, no ecchymosis/hematoma Abdomen: Soft, nontender Extremities: Well perfused, no peripheral edema Neuro: Nonfocal Psych: Alert orient x3, normal affect and mood Results & Data ([facility]) Vital Signs (Past 12 Hours) Vital Signs Temp Pulse Pulse Resp BP Pulse Ox 09/25/21 11:28 97.9 F 58 L 14 128/76 95 09/25/21 10:43 53 L 09/25/21 07:10 97.7 F 62 19 135/72 95 09/25/21 03:35 98.1 F 55 L 16 141/78 H 94 PG Care Time/CCT Total # of Minutes Spent Total Time Spent with Patient: Total time spent is greater than 50% in coordination of care (as documented) at patient's floor/unit and/or counseling patient: Coding Level of Care Code 12784 Subseq Hosp Care Lvl 3 Diagnoses Non-ST elevation SD (NSTEMI) I21.4
--- NOTE | 2021-09-26 07:08 | Discharge Summary ---
Date of Service September 25, 2021 Admission HPI Per Admitting Provider Howard Robert is a 71 yo WM with a pmhx of GERD, prostate CA s/p radiation on hormone therapy, IZZY, remote h/o PE 8 years ago on chronic ACT (Eliquis) and dyslipidemia who presented to the ER c/o chest pain. Patient reports that he woke this morning, took his morning medications, and prior to eating breakfast developed abrupt onset substernal chest heaviness that radiated into his left arm. He rated the pain an 8 out of 10 on the pain scale. He reported associated dry heaves but denies feeling nauseous. He denied associated dyspnea or diaphoresis. His subsequently contacted EMS and he was transferred to the emergency department for prompt evaluation. His initial EKG showed some T wave inversion in the lateral leads. However, during his ER stay, he developed an accelerated idioventricular rhythm and a heart alert was called. Case was discussed with Dr. Mercedes and patient was taken to the Nuclear Physicist. He was noted to have [place] vessel disease (approx 90% hazy proximal stenosis) in a small tea iber vessel which was too small for intervention. Subsequently, medical management is advised and patient has been referred to hospitalists for admission. Principal Diagnosis Acute coronary syndrome, NSTEMI, coronary artery angiogram without intervention Discharge Exam The patient appeared well Vital signs as documented. Lungs are clear to auscultation and appear unlabored Cardiac exam, Rhythm is regular.. No murmurs, rubs or gallops. Abdominal exam reveals normal bowel sounds, soft non tender, no masses Extremities are nonedematous and both pedal pulses are normal. Neurologic exam is alert and oriented, no focal loss of strength or sensation Skin is without bruises or rashes Psychologically is without concerns for anxiety or depression. Discharge Data Allergies Allergy/AdvReac Type Severity Reaction Status Date / Time shellfish derived Allergy Intermediate Anaphylaxis Verified 09/24/21 08:59 iodine Allergy Unknown Anaphylaxis Verified 09/24/21 08:59 Procedures Performed Operation Date: 09/24/21 09:15 Actual Procedures p Cath, Left with Cors and Vent - Chaim Mercedes MD s Cineradiography w/Routine Exam - Chaim Mercedes MD Ordered Studies 09/24/21 09:07 CL Cath Imgs for PACS use only Stat Hospital Course (1) ACS (acute coronary syndrome): s/p cardiac catheterization w/ Dr. Yimi Mercedes Troponin is peaked and receded Echocardiogram echocardiogram shows preserved left ventricular function no wall motion abnormalities mild dilatation of the atrium mild to moderate aortic regurgitation normal right-sided pressures moderate aortic root dilationpatient will have repeat echocardiogram under cardiac supervision to continue to evaluate his cardiac root dilation Administer Plavix 300 mg p.o. x1 Plavix daily along with his anticoagulation of apixaban Medical regimen to include: Coreg 3.125mg BID, Lisinopril 5mg daily, rosuvastatin 10 mg daily consideration of escalation dose to 20 if does not have myalgias Heart healthy diet (2) CAD (coronary atherosclerotic disease): As above Will require outpatient f/u with Dr. 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 Call non-emergency contact if: your symptoms worsen Follow-up/Referrals: Chaim Mercedes MD [Physician] - (Please call Dr Mercedes office on monday09/27/21 to arrange hospital follow up ) Dwayne Herring DO [Primary Care Provider] - Diet: Heart Healthy Addtl Attending Provider Instructions: Please call Dr Mercedes office on monday09/27/21 to arrange hospital follow up you have been started on new medications to help you heart, it is very important that you continue these, if you have questions about them please contact Dr Mercedes before you consider stopping any ACTIVITY RECOMMENDATIONS: Excess manipulation of the wrist should be avoided for the next 24-48 hours. * No lifting over 2 pounds (approximately a 1/2 gallon of milk) with the utilized arm for 24 hours. * No strenuous activity such as bowling or tennis for 3 days. * Keep the site of the procedure covered with a bandage for 24 hours. *You may shower the day after the procedure. Do not take a tub bath or submerge the puncture site in water for the next 3 days. *Do not operate any motorized equipment for 3 days. SPECIAL CARE INSTRUCTIONS: The site may be slightly bruised and sore following your procedure. Should any of the following occur, contact the Dr. who performed your procedure. 1. Redness/inflammation, swelling, chills, or fever, or colored drainage at procedure site within 3-7 days after your procedure. 2. Coldness, discoloration, ongoing numbness, severe pain, or swelling. Expect mild tingling of hand and tenderness at the puncture site for up to three days. If this persists beyond three days, or other symptoms develop, notify the Dr. who performed your procedure. BLEEDING: If the procedure site on your wrist begins to bleed, do not panic 1. Place 1 or 2 fingers firmly just slightly above the insertion site to stop the bleeding. You may be able to feel your pulse as you hold pressure. 2. Lift your finger after 5 minutes to see if the bleeding has stopped. 3. Once the bleeding has stopped, gently wipe the wrist area clean with a bandage. * If the bleeding from your wrist does not stop after 10 minutes, or if there is a large amount of bleeding or spurting, call 911 (do not drive yourself to the hospital). SKIN IRRITATION: * You may experience some redness and/or swelling in the area where radiation was administered. If any skin irritation occurs, please contact your family physician. FOLLOW UP VISIT: Keep any scheduled doctor appointments. Pending Studies at Discharge: No Stand-Alone Forms: My [employer], Smoking Cessation Medications and DC Order Prescriptions: New clopidogrel 75 mg Tablet 75 mg PO QAM Qty: 30 RF: 2 carvedilol 3.125 mg Tablet 3.125 mg PO BID Qty: 60 RF: 2 nitroglycerin [Nitrostat] 0.4 mg Tablet, Sublingual 0.4 mg sublingual PRN PRN (Reason: chest pain) Qty: 1 RF: 0 lisinopril [Zestril] 5 mg Tablet 5 mg PO QAM Qty: 30 RF: 2 rosuvastatin [Crestor] 10 mg tablet 10 mg PO DAILY Qty: 30 RF: 2 Continued [place] Multivitamin Tablet,Chewable 1 tab PO BID Qty: 0 RF: 0 Eliquis 5 mg tablet 5 mg PO BID Qty: 180 RF: 3 leuprolide (3 month) 22.5 mg syringe 22.5 mg subcut Q3M RF: 0 escitalopram oxalate [Lexapro] 5 mg tablet 5 mg PO HS RF: 0 omeprazole 40 mg capsule,delayed release(DR/EC) 40 mg PO QAM RF: 0 Discharge Orders: Discharge Order (Routine); Ordered 09/25/21 Ordered By: Jairo Lisa Admission Data Admit Date/Time: 09/24/21 10:42 Attending Provider: Jairo Lisa Admit Provider: Chaim Mercedes Primary Care Provider: Dwayne Herring Other Interventions: Discharge Summary Assessment (RN) Last Done: 09/25/21 15:14 Coding Level of Care Code D/C DAY MANAGEMENT >30 MINS Diagnoses ACS (acute coronary syndrome) I24.9 CAD (coronary atherosclerotic disease) I25.10 Associated angina: unspecified whether angina present Coronary Disease-Associated Artery/Lesion type: unspecified vessel or lesion type [place] vs. transplanted heart: unspecified whether [place] or transplanted heart Prostate cancer C61 Factor V deficiency D68.2 Depression F32.9 GERD (gastroesophageal reflux disease) K21.9 Esophagitis presence: esophagitis presence not specified Hyperlipidemia E78.5 Hyperlipidemia type: unspecified
== END 2021-09-25 15:40 | disposition home or self-care (01) ==
LOC: SUATTDRO → ED 08:05 → CC 09:27 → 2E 09:27

== ENCOUNTER 2022-02-27 18:12 | Observation (INO) ==
[2022-02-27] MEDS ORDERED: SODIUM CHLORIDE 0.9% 1000ML 500 ML IV ONE (18:22)
[2022-02-27] MEDS ORDERED: ONDANSETRON INJ 2 MG/ML 2 ML VIAL IV STA (18:31)
[2022-02-27] MEDS ORDERED: MoRPHine SULFATE 4 MG/ML 1 ML CARP\\VIAL IV STA ×2 (18:31→23:56)
[2022-02-27] MEDS ORDERED: ACETAMINOPHEN 1000 MG/100 ML IV IV STA (18:31)
--- NOTE | 2022-02-27 18:38 | Emergency Department Note ---
Impression & Plan Closed fracture of transverse process of lumbar vertebra, Contusion of flank, Fall, Coagulopathy, Hematuria ED Provider Note NAME: RACHAEL MOURA AGE: 71 SEX: M : 1950 ARRIVES VIA: Walk-In INFORMANT: [Patient] ED PROVIDER(S): [Gabriel Lewis MD] CHIEF COMPLAINT: Back pain, fall HISTORY OF PRESENT ILLNESS: The patient is a 71-year-old male on [employer]. About 2.5 hours ago, he was thrown/fell from his horse. He landed on his right side. There was no loss of consciousness. He was able to be helped up and got back on the horse. When he returned from the ride, he urinated and there was some blood in the urine. The blood in the urine is not all that abnormal though as he has an issue with hematuria from kidney stones. The patient complains of some right lower back pain and he is worried about fracture. He has not noticed arm or leg numbness or tingling. No arm or leg weakness. He did not lose consciousness and did not hit his head. He has no neck pain or chest pain, he is not short of breath. He does not complain of any anterior abdominal pain. The patient is a history of a lumbar fracture, he is concerned that he has another fracture. He has minimal lower back pain when he still, moderate to severe pain with movement. REVIEW OF SYSTEMS: See HPI for pertinent positives and negatives. A total of ten systems were reviewed and were otherwise negative. PMHx/PSHx: See Below SOCIAL HISTORY: See Below. PHYSICAL EXAM: GENERAL: Patient is in no acute distress. HEENT: No acute trauma, normocephalic atraumatic, mucous membranes moist, no nasal congestion, no scleral icterus. NECK: No stridor, no adenopathy, mildly tender to the superior aspect of the C- spine, no step-off, trachea is midline. LUNGS: Clear to auscultation bilaterally, no wheeze, no rhonchi, breath sounds equal. Chest: Nontender ribs, no contusion seen. HEART: Without murmurs gallops or rubs, regular rate and rhythm. ABDOMEN: Soft, nontender, bowel sounds positive, no peritonitis. EXTREMITIES: No cyanosis or edema, full range of motion of all the joints without pain or difficulty, no signs for acute trauma. NEUROLOGIC: Oriented x 3, no acute motor or sensory deficits, no focal weakness. SKIN: No rash, no jaundice, no diaphoresis. Back: There is an abrasion to the right flank. He is somewhat tender here. He is tender over the lower lumbar spine/upper sacrum. No contusions noted. His lower back pain worsens with movement DIFFERENTIAL DIAGNOSIS: Fracture, dislocation, contusion, intra-abdominal bleeding, renal or liver injury, thoracic or lumbar fracture, pneumothorax, intrathoracic injury, intracranial injury, compartment syndrome, rhabdomyolysis, as well as other pathologies. EMERGENCY DEPARTMENT COURSE/PROCEDURES: Critical Care Note: I have personally spent 39 minutes of critical care time in the direct management of this patient. This includes bedside care, interpretation of diagnostic studies, and testing, discussion with consultants, patient, and family members, and other required patient management activities. This 39 minutes is in excess of all separately billable procedures. MEDICAL DECISION MAKING: There is no leukocytosis. Patient was anemic but this appears at baseline looking back at previous testing. There was a normal platelet count. No coagulopathy. No renal failure or significant electrolyte abnormality. No concerning liver enzyme elevation. Urinalysis demonstrates hematuria, this has been documented before. No signs of urinary infection. COVID test is pending. Brain CT shows no acute bleed or mass-effect. C-spine CT shows no acute fracture. Chest CT shows no acute intrathoracic injury. Abdominal and pelvis CT shows a right flank subcutaneous contusion. Thoracic and lumbar spine CTs sh ow a fracture to the right L4 transverse process. No acute intra-abdominal bleeding or solid organ injury noted. Patient received IV saline, 500 cc. He received IV Zofran, IV morphine, he was given IV Tylenol. The patient had taken his morning dose of Eliquis, he had not taken his nighttime dose. I did speak with the trauma service at [facility], Dr. Gilmore. The patient was felt stable for admission to our hospital. There was no reason for emergent transfer to a trauma center. His pain can be controlled. In the morning, repeat laboratory testing can be performed to assess his stability. A repeat CT can assess the stability of the flank contusion. I spoke with the patient and behavioral health case manager. The on-call hospitalist has been consulted. The patient is currently resting comfortably. Past Med/Surg History Medical History Blood in stool Calculus of left kidney at present, not causing any issues at present Depression Factor 5 Leiden mutation, heterozygous on plavix and Eliquis Factor V deficiency Family history of colon cancer GERD (gastroesophageal reflux disease) Gout History of COVID-19 06/2021; cough, poor appetite, headache; resolved History of kidney stones History of prostate cancer dx 09/2020; hx radiation + Lupron inj q3m History of pulmonary embolism 8 years ago; on eliquis Hyperlipidemia Multiple pulmonary nodules benign, last CT 2017 Myocardial Infarction ACS 09/24/21: 90% hazy proximal stenosis in D1/ No PCI (vessel too small; Treat medically) Sleep apnea stopped using CPAP following wt loss surgery Surgical History H/O gastric bypass History of colonoscopy History of cystoscopy w/ stone extraction History of elbow surgery Left History of esophagogastroduodenoscopy (EGD) History of gastric bypass GASTRIC SLEEVE History of herniorrhaphy INCISIONAL History of laparoscopy OPEN LAP FOR COMPLICATION FOLLOWING GASTRIC SURGERY History of prostate biopsy Family History Father Prostate cancer Heart disease Mother Parkinson disease Brother Cancer Prostate Cancer Brother Cancer Prostate Cancer Other Colorectal cancer Family history of colon cancer Denies family history of Ovarian cancer Myocardial infarction Pancreatitis Breast cancer Lung cancer Social History Smoking Status: Never smoker Second Hand Exposure: No; Hx Alcohol Use: No Hx Substance Use: No Preferred Language: Romansh Communication Ability: Effective Visual Impairment: Limited 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: Normal 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 Beliefs That Will Affect Care: None marital status: Current Living Situation: Spouse current occupational status: retired Feels Safe at Home: Yes Childhood Exposure to Second-Hand Smoke: No Diet Comment: Mindful of food choices due to gastric sleeve caffeine: Yes Dental Care, Regularly: No Physical Activity Frequency: Daily Seatbelt Use: always Sunscreen Use: Yes Assistive Devices: None Allergies Allergies Allergy/AdvReac Type Severity Reaction Status Date / Time shellfish derived Allergy Intermediate Anaphylaxis Verified 12/16/21 11:07 iodine Allergy Unknown Anaphylaxis Verified 12/16/21 11:07 Home Meds Home Medications Medication Instructions Recorded Confirmed pediatric multivitamin 1 tab PO BID ##0 10/06/15 02/27/22 (Flintstones Multivitamin) leuprolide (3 month) 22.5 mg (3 22.5 mg subcut Q3M Prostate Cancer 09/24/21 02/27/22 month) subcutaneous syringe Previous Rx's Medication Instructions Recorded apixaban 5 mg tablet (Eliquis) 5 mg PO BID #180 tabs 04/02/21 nitroglycerin 0.4 mg sublingual 0.4 mg sublingual PRN PRN chest 09/25/21 tablet (Nitrostat) pain #1 btl omeprazole 40 mg capsule,delayed 40 mg PO QAM #90 caps 10/29/21 release leuprolide (3 month) 22.5 mg (3 22.5 mg subcut ONCE C61 #1 ea 11/18/21 month) subcutaneous syringe CPAP Machine #1 ea 12/16/21 carvedilol 3.125 mg tablet 3.125 mg PO BID #180 tabs 12/20/21 clopidogrel 75 mg tablet 75 mg PO QAM #90 tabs 12/20/21 lisinopril 5 mg tablet (Zestril) 5 mg PO QAM #90 tabs 12/20/21 rosuvastatin 10 mg tablet (Crestor) 10 mg PO DAILY #90 tabs 12/20/21 leuprolide (3 month) 22.5 mg (3 22.5 mg subcut ONCE #1 ea 02/18/22 month) subcutaneous syringe leuprolide (3 month) 22.5 mg (3 22.5 mg subcut ONCE #1 ea 02/18/22 month) subcutaneous syringe escitalopram oxalate 5 mg tablet 5 mg PO HS #90 tabs 02/21/22 (Lexapro) Results & Data (ED) Vital Signs Vital Signs - 24 hr 02/27/22 18:13 02/27/22 18:28 02/27/22 18:30 Temperature 36.8 C Temperature Source Oral Pulse Rate 67 63 65 Pulse Rate from SpO2 Sensor 63 64 Respiratory Rate 18 19 17 Blood Pressure 156/82 H Blood Pressure Mean 106 Pulse Oximetry 98 98 99 Sepsis Recent Fever Within 48 Hours No Sepsis New/Unexplained Change in Mental Status No Sepsis Action Taken by Nursing No Action Required 02/27/22 19:00 02/27/22 19:43 02/27/22 20:00 Temperature Temperature Source Pulse Rate 57 L 71 Pulse Rate from SpO2 Sensor 57 L Respiratory Rate 8 L 11 L Blood Pressure 138/63 Blood Pressure Mean 88 Pulse Oximetry 97 Sepsis Recent Fever Within 48 Hours Sepsis New/Unexplained Change in Mental Status Sepsis Action Taken by Nursing 02/27/22 20:00 02/27/22 20:10 02/27/22 20:20 Temperature Temperature Source Pulse Rate 62 62 62 Pulse Rate from SpO2 Sensor 62 61 62 Respiratory Rate 16 11 L 9 L Blood Pressure Blood Pressure Mean Pulse Oximetry 96 96 95 Sepsis Recent Fever Within 48 Hours Sepsis New/Unexplained Change in Mental Status Sepsis Action Taken by Nursing 02/27/22 20:30 02/27/22 20:30 02/27/22 20:40 Temperature Temperature Source Pulse Rate 60 60 Pulse Rate from SpO2 Sensor 60 60 Respiratory Rate 11 L 11 L Blood Pressure 135/64 Blood Pressure Mean 87 Pulse Oximetry 95 93 Sepsis Recent Fever Within 48 Hours Sepsis New/Unexplained Change in Mental Status Sepsis Action Taken by Nursing 02/27/22 20:50 02/27/22 21:00 02/27/22 21:00 Temperature Temperature Source Pulse Rate 62 59 L Pulse Rate from SpO2 Sensor 60 61 Respiratory Rate 15 14 Blood Pressure 133/69 Blood Pressure Mean 90 Pulse Oximetry 96 97 Sepsis Recent Fever Within 48 Hours Sepsis New/Unexplained Change in Mental Status Sepsis Action Taken by Nursing 02/27/22 21:10 02/27/22 21:20 02/27/22 21:30 Temperature Temperature Source Pulse Rate 61 58 L Pulse Rate from SpO2 Sensor 61 58 L Respiratory Rate 9 L 8 L Blood Pressure 128/66 Blood Pressure Mean 86 Pulse Oximetry 94 95 Sepsis Recent Fever Within 48 Hours Sepsis New/Unexplained Change in Mental Status Sepsis Action Taken by Nursing 02/27/22 21:30 02/27/22 21:40 02/27/22 21:50 Temperature Temperature Source Pulse Rate 56 L 57 L 58 L Pulse Rate from SpO2 Sensor 57 L 57 L 58 L Respiratory Rate 9 L 10 L 10 L Blood Pressure Blood Pressure Mean Pulse Oximetry 96 95 95 Sepsis Recent Fever Within 48 Hours Sepsis New/Unexplained Change in Mental Status Sepsis Action Taken by Nursing 02/27/22 22:00 02/27/22 22:00 02/27/22 22:10 Temperature Temperature Source Pulse Rate 60 59 L Pulse Rate from SpO2 Sensor 59 L 57 L Respiratory Rate 17 12 Blood Pressure 141/68 H Blood Pressure Mean 92 Pulse Oximetry 97 96 Sepsis Recent Fever Within 48 Hours Sepsis New/Unexplained Change in Mental Status Sepsis Action Taken by Nursing 02/27/22 22:20 02/27/22 22:30 02/27/22 22:30 Temperature Temperature Source Pulse Rate 59 L 63 Pulse Rate from SpO2 Sensor 59 L 63 Respiratory Rate 15 14 Blood Pressure 116/58 L Blood Pressure Mean 77 Pulse Oximetry 96 96 Sepsis Recent Fever Within 48 Hours Sepsis New/Unexplained Change in Mental Status Sepsis Action Taken by Nursing 02/27/22 22:40 02/27/22 22:50 02/27/22 23:00 Temperature Temperature Source Pulse Rate 65 64 Pulse Rate from SpO2 Sensor 65 65 Respiratory Rate 14 15 Blood Pressure 125/65 Blood Pressure Mean 85 Pulse Oximetry 96 96 Sepsis Recent Fever Within 48 Hours Sepsis New/Unexplained Change in Mental Status Sepsis Action Taken by Nursing 02/27/22 23:00 02/27/22 23:10 02/27/22 23:20 Temperature Temperature Source Pulse Rate 62 75 70 Pulse Rate from SpO2 Sensor 64 74 Respiratory Rate 15 17 16 Blood Pressure Blood Pressure Mean Pulse Oximetry 95 95 Sepsis Recent Fever Within 48 Hours Sepsis New/Unexplained Change in Mental Status Sepsis Action Taken by [facility] Medications Current Medication List: was personally reviewed by me Laboratory Data Attestation: I reviewed the patient's lab results. Result diagrams: 02/27/22 18:37 02/27/22 18:37 Lab Results 02/27/22 02/27/22 02/27/22 Range/Units 18:37 18:37 18:37 WBC 6.33 (4.8-10.8) K/ul RBC 4.05 L (4.63-6.08) M/uL Hgb 12.4 L (14.0-18.0) g/dl POC Hgb (14.0-18.0) g/dl Hct 38.2 L (40.1-51.0) % POC Hct (42-52) % MCV 94.3 (80.0-100.0) fL MCH 30.6 (25.0-34.0) pg MCHC 32.5 (32.0-36.0) g/dL RDW Std Deviation 50.7 H (36.4-46.3) fL RDW Coeff of Nadja 14.6 H (11.5-14.5) % Plt Count 159 (130-400) K/uL MPV 10.2 (9.4-12.4) fL PT 10.7 (9.0-12.0) Seconds INR 1.0 (0.9-1.1) APTT 25.8 (21.0-31.0) Seconds PTT Ratio 0.9 POC Sodium (135-144) mmol/L Sodium 143 (136-145) mmol/L POC Potassium (3.3-5.0) mmol/L Potassium 4.0 (3.5-5.1) mmol/L POC Chloride (101-112) mmol/L Chloride 112 H (98-107) mmol/L Carbon Dioxide 25 (21-32) mmol/L POC Total CO2 (24-31) mmol/L Anion Gap 6 (3-11) POC Anion Gap (16-25) mmol/L POC BUN (7-18) mg/dl BUN 21 (6-23) mg/dl Creatinine 1.10 (0.6-1.4) mg/dl POC Creatinine (0.6-1.3) mg/dl Est Cr Clr Drug Dosing 73.7 ml/min Est GFR ( Amer) 77.9 ml/min Est GFR (Non-Af Amer) 67.2 ml/min BUN/Creatinine Ratio 19.1 (10-20) Glucose 92 (70-99(Fasting)) mg/dl POC Glucose (other) (70-99) mg/dl Calcium 9.0 (8.5-10.1) mg/dl POC Ioniz Calcium Nina (1.12-1.32) mmol/l Total Bilirubin 0.5 (0.2-1.0) mg/dl AST 22 (13-39) U/L ALT 12 (7-52) U/L Alkaline Phosphatase 83 (34-104) U/L Total Protein 6.5 (6.0-8.3) gm/dl Albumin 3.9 (3.4-5.0) gm/dl Globulin 2.6 (2.5-4.0) gm/dl Albumin/Globulin Ratio 1.5 (0.9-2) Urine Color Urine Appearance (Clear) Urine pH (4.5-7.5) Ur Specific [place] (1.000-1.030) Urine Protein (Negative) Urine Glucose (UA) (Negative) Urine Ketones (Negative) Urine Blood (Negative) Urine Nitrite (Negative) Urine Bilirubin (Negative) Urine Urobilinogen (Negative) Ur Leukocyte Esterase (Negative) Urine WBC (Auto) (0-5) /hpf Urine RBC (Auto) (0-4) /hpf U Hyaline Cast (Auto) (0-5) /lpf U Epithel Cells (Auto) (0-5) /lpf Urine Bacteria (Auto) (Negative) 02/27/22 02/27/22 Range/Units 18:44 19:50 WBC (4.8-10.8) K/ul RBC (4.63-6.08) M/uL Hgb (14.0-18.0) g/dl POC Hgb 12.6 L (14.0-18.0) g/dl Hct (40.1-51.0) % POC Hct 37 L (42-52) % MCV (80.0-100.0) fL MCH (25.0-34.0) pg MCHC (32.0-36.0) g/dL RDW Std Deviation (36.4-46.3) fL RDW Coeff of Nadja (11.5-14.5) % Plt Count (130-400) K/uL MPV (9.4-12.4) fL PT (9.0-12.0) Seconds INR (0.9-1.1) APTT (21.0-31.0) Seconds PTT Ratio POC Sodium 146 H (135-144) mmol/L Sodium (136-145) mmol/L POC Potassium 4.0 (3.3-5.0) mmol/L Potassium (3.5-5.1) mmol/L POC Chloride 110 (101-112) mmol/L Chloride (98-107) mmol/L Carbon Dioxide (21-32) mmol/L POC Total CO2 24 (24-31) mmol/L Anion Gap (3-11) POC Anion Gap 16.0 (16-25) mmol/L POC BUN 20 H (7-18) mg/dl BUN (6-23) mg/dl Creatinine (0.6-1.4) mg/dl POC Creatinine 1.2 (0.6-1.3) mg/dl Est Cr Clr Drug Dosing ml/min Est GFR ( Amer) ml/min Est GFR (Non-Af Amer) ml/min BUN/Creatinine Ratio (10-20) Glucose (70-99(Fasting)) mg/dl POC Glucose (other) 95 (70-99) mg/dl Calcium (8.5-10.1) mg/dl POC Ioniz Calcium Nina 1.22 (1.12-1.32) mmol/l Total Bilirubin (0.2-1.0) mg/dl AST (13-39) U/L ALT (7-52) U/L Alkaline Phosphatase (34-104) U/L Total Protein (6.0-8.3) gm/dl Albumin (3.4-5.0) gm/dl Globulin (2.5-4.0) gm/dl Albumin/Globulin Ratio (0.9-2) Urine Color Yellow Urine Appearance Clear (Clear) Urine pH 5.5 (4.5-7.5) Ur Specific [place] 1.021 (1.000-1.030) Urine Protein Negative (Negative) Urine Glucose (UA) Negative (Negative) Urine Ketones Trace H (Negative) Urine Blood 3+ H (Negative) Urine Nitrite Negative (Negative) Urine Bilirubin Negative (Negative) Urine Urobilinogen Negative (Negative) Ur Leukocyte Esterase Negative (Negative) Urine WBC (Auto) 1-5 (0-5) /hpf Urine RBC (Auto) >30 H (0-4) /hpf U Hyaline Cast (Auto) 1-5 (0-5) /lpf U Epithel Cells (Auto) 0-5 (0-5) /lpf Urine Bacteria (Auto) Negative (Negative) Administered Medications Discontinued Medications Acetaminophen (Acetaminophen 1000 Mg/100 Ml Iv) 1,000 mg IV NOW STA Stop: 02/27/22 18:32 Last Admin: 02/27/22 20:07 Dose: 1,000 mg Documented By: YONI Sodium Chloride (Nss 1000ml) 500 mls @ 999 mls/hr IV .Q31M ONE Stop: 02/27/22 18:52 Last Infusion: 02/27/22 23:00 Dose: 0 mls/hr Documented By: Admin: 02/27/22 20:06 Dose: 999 mls/hr Documented By: YONI Ioversol (Optiray 320 100ml) 95 ml IV ONCE ONE Stop: 02/27/22 19:40 Last Admin: 02/27/22 19:40 Dose: 95 ml Documented By: VINCENT Morphine Sulfate (Morphine Sulfate 4 Mg/Ml 1 Ml Carp\Vial) 4 mg IV NOW STA Stop: 02/27/22 18:32 Last Admin: 02/27/22 19:08 Dose: 4 mg Documented By: YONI Ondansetron HCl (Ondansetron Inj 2 Mg/Ml 2 Ml Vial) 4 mg IV NOW STA Stop: 02/27/22 18:32 Last Admin: 02/27/22 19:08 Dose: 4 mg Documented By: YONI Imaging Data Radiologist's Impression: Abdomen/Pelvis CT 02/27/22 18:31 CT OF THE ABDOMEN AND PELVIS WITH CONTRAST CLINICAL HISTORY: fall from horse, eliquis COMPARISON STUDY: CT of the abdomen and pelvis August 02, 2021. KUB August 03, 2021. TECHNIQUE: Following IV administration of 95 mL of Optiray, axial images of the abdomen and pelvis were obtained from the lung bases to the proximal femurs. Images were reviewed in the axial, sagittal, and coronal planes. IV contrast was administered without complication. Automated exposure control was utilized for the study. A dose lowering technique was utilized adhering to the principles of ALARA. CT DOSE: 3176.69 mGy.cm FINDINGS: There is no hemoperitoneum or pneumoperitoneum. A small hiatal hernia is noted. Postoperative findings within the stomach are noted. No evidence for a bowel obstruction. No evidence for traumatic injury to the liver, spleen, adrenal glands, kidneys or pancreas. Numerous water attenuation bilateral renal lesions reflect cysts. A few hyperdense bilateral renal lesions were shown to likely reflect hyperdense cysts on prior MRI. Multiple bilateral renal calculi measure up to 1 cm. No ureteral calculi are present. There is no hydronephrosis. Caliber and wall thickness of small and large bowel are normal. Fat-containing bilateral inguinal hernias, left larger than right, are noted. A small right flank contusion is present. There is no active extravasation. Acute mildly displaced fracture of the right transverse process of L4 is noted. Old L1 compression deformity. No additional acute fractures. No acute pelvic or hip fracture. IMPRESSION: 1. No evidence for traumatic injury to the solid abdominal viscera. 2. Acute mildly displaced fracture of the right transverse process of L4. 3. Small subcutaneous contusion of the right flank. 4. Bilateral nephrolithiasis. No ureteral calculi or hydronephrosis. 5. Numerous renal cysts, including several hyperdense cysts. ACT 112: Negative or not required by law. Electronically signed by: Ward Preston M.D. 02/27/2022 8:[address] 02/27/22 18:31 CT OF THE CERVICAL SPINE WITHOUT CONTRAST CLINICAL HISTORY: fall from horse COMPARISON STUDY: No previous studies for comparison. TECHNIQUE: Helical axial images of the cervical spine were obtained without IV contrast. Sagittal and coronal reconstructions were viewed. Automated exposure control was utilized for the study. A dose lowering technique was utilized adhering to the principles of ALARA. FINDINGS: Alignment of the cervical spine is anatomic. Vertebral body heights are maintained. No acute cervical spine fracture or subluxation is present. There is no prevertebral edema. Facet joints are intact. Moderate multilevel degenerative changes within the cervical spine are noted. Thoracic spine CT will be reported separately. IMPRESSION: No acute cervical spine fracture or subluxation. ACT 112: Negative or not required by law. Electronically signed by: Ward Preston M.D. 02/27/2022 8:[address] 02/27/22 18:31 CT OF THE CHEST WITH IV CONTRAST CLINICAL HISTORY: fall from horse, tello COMPARISON STUDY: Chest CT May 23, 2017. Chest radiograph September 24, 2021. TECHNIQUE: Following IV administration of 95 mL of Optiray, helical axial images of the chest were obtained. Sagittal and coronal reconstructions were viewed as well as maximal intensity projections on an independent 3-D works tation. Automated exposure control was utilized for the study. A dose lowering technique was utilized adhering to the principles of ALARA. FINDINGS: There is no evidence for traumatic injury to the thoracic aorta. Moderate cardiomegaly is noted. There is moderate coronary artery calcification. No pericardial effusion is present. Small hiatal hernia is noted. Postoperative findings within the stomach are noted. No pneumothorax or pleural effusion is present. Ground glass opacities favor atelectasis. No pulmonary contusion. No acute rib or thoracic spine fracture is identified. Thoracic spine CT will be reported separately. Several calcified granulomas are present. IMPRESSION: No acute traumatic findings within the chest. ACT 112: Negative or not required by law. Electronically signed by: Ward Preston M.D. 02/27/2022 8:[address] 02/27/22 18:31 CT OF THE HEAD WITHOUT CONTRAST CLINICAL HISTORY: fall, eliquis COMPARISON STUDY: Head CT February 25, 2017. TECHNIQUE: Helical axial images of the head were obtained without IV contrast. Automated exposure control was utilized for the study. A dose lowering technique was utilized adhering to the principles of ALARA. FINDINGS: No acute intracranial hemorrhage, midline shift or mass effect is present. The ventricular system is unremarkable. The basal cisterns are patent. No extra-axial collections are present. There are no findings to suggest acute dural sinus thrombosis or acute territorial infarct. No significant calvarial abnormalities are present. Visualized portions of the sinuses and mastoid air cells are clear. IMPRESSION: 1. No acute intracranial findings. 2. No acute calvarial fracture. ACT 112: Negative or not required by law. Electronically signed by: Ward Preston M.D. 02/27/2022 7:[address] 02/27/22 18:[address] CLINICAL HISTORY: fall COMPARISON STUDY: MRI of the lumbar spine March 27, 2017. TECHNIQUE: Axial images of the lumbar spine were obtained following intravenous injection of Optiray 320 IV. Sagittal and coronal reconstructions were viewed. Automated exposure control was utilized for the study. A dose lowering technique was utilized adhering to the principles of ALARA. FINDINGS: Old L1 compression deformity is unchanged from earlier studies. There is an acute mildly displaced fracture of the right transverse process of L4. No additional acute lumbar spine fractures are present. No suspicious osseous lesions are present. Bilateral renal cysts and bilateral renal calculi are better depicted on the CT of the abdomen and pelvis which will be reported separately. A right flank subcutaneous contusion is also better depicted on that exam. IMPRESSION: 1. Acute mildly displaced fracture of the right transverse process of L4. 2. Old L1 compression deformity, unchanged. 3. Small subcutaneous contusion of the right flank better depicted on the CT of the abdomen and pelvis which will be reported separately. ACT 112: Negative or not required by law. Electronically signed by: Ward Preston M.D. 02/27/2022 8:[address] 02/27/22 18:31 CT thoracic spine w con CLINICAL HISTORY: fall COMPARISON STUDY: Chest CT May 23, 2017. TECHNIQUE: Axial images of the thoracic spine were obtained following intravenous injection of Optiray 320 IV. Sagittal and coronal reconstructions were viewed. Automated exposure control was utilized for the study. A dose lowering technique was utilized adhering to the principles of ALARA. FINDINGS: Alignment of the thoracic spine is anatomic. No acute thoracic spine fracture is identified. Old L1 compression deformity is unchanged since CT of May 23, 2017. Slight loss of height of the superior endplates of several upper thoracic vertebral bodies is chronic. Moderate anterior osteophytosis is noted. Chest CT will be reported separately. Hemangioma within T12 is incidentally noted. Central canal and neural foramen are suboptimally assessed given CT technique. IMPRESSION: No acute thoracic spine fracture or subluxation. ACT 112: Negative or not required by law. Electronically signed by: Ward Preston M.D. 02/27/2022 8:18 PM Discharge Plan Visit Data Chief Complaint: Back Injury/Pain Stated Complaint: THROWN FROM HORSE, LOWER BACK PAIN ED Provider: Gabriel Lewis Discharge Problem: Closed fracture of transverse process of lumbar vertebra, Contusion of flank, Fall, Coagulopathy, Hematuria Patient Disposition: Admitted As Inpatient Condition: Fair Forms Stand Alone Forms: [facility] Prescriptions Prescriptions: No Action leuprolide (3 month) 22.5 mg syringe 22.5 mg subcut ONCE Qty: 1 0RF Rx Instructions: C61. Coming on 03/09/22. leuprolide (3 month) 22.5 mg syringe 22.5 mg subcut ONCE Qty: 1 0RF Rx Instructions: C61. Coming on 12/07/21 Flintstones Multivitamin Tablet,Chewable 1 tab PO BID Qty: 0 Eliquis 5 mg tablet 5 mg PO BID Qty: 180 3RF omeprazole 40 mg capsule,delayed release(DR/EC) 40 mg PO QAM Qty: 90 3RF carvedilol 3.125 mg tablet 3.125 mg PO BID Qty: 180 5RF clopidogrel 75 mg tablet 75 mg PO QAM Qty: 90 5RF lisinopril [Zestril] 5 mg tablet 5 mg PO QAM Qty: 90 5RF rosuvastatin [Crestor] 10 mg tablet 10 mg PO DAILY Qty: 90 5RF Rx Instructions: please cancel atorvastatin leuprolide (3 month) 22.5 mg syringe 22.5 mg subcut ONCE Qty: 1 0RF Rx Instructions: C61. Coming on 8/10/22 escitalopram oxalate [Lexapro] 5 mg tablet 5 mg PO HS Qty: 90 1RF (DME) CPAP Machine Misc .Route Qty: 1 0RF Rx Instructions: CPAP 8 cm of water with C-Flex of 1, mask fit patient comfort, heated unification, compliance download capabilities, [facility] leuprolide (3 month) 22.5 mg syringe 22.5 mg subcut Q3M Rx Instructions: C61. Coming on 09/07/21. nitroglycerin [Nitrostat] 0.4 mg Tablet, Sublingual 0.4 mg sublingual PRN PRN (Reason: chest pain) Qty: 1 0RF Referrals Referrals: Dwayne Herring DO [Primary Care Provider] -
[2022-02-27 18:47] LABS: Hematocrit (blood only) 38.2 % (40.1-51.0); Hemoglobin 12.4 g/dl (14.0-18.0); Mean Corpuscular Hemoglobin 30.6 pg (25.0-34.0); Mean Corpuscular Hgb Conc 32.5 g/dL (32.0-36.0); Mean Corpuscular Volume 94.3 fL (80.0-100.0); Mean Platelet Volume 10.2 fL (9.4-12.4); Platelet Count 159 K/uL (130-400); RDW Coefficient of Variation 14.6 % (11.5-14.5); RDW Standard Deviation 50.7 fL (36.4-46.3); Red Blood Count 4.05 M/uL (4.63-6.08); White Blood Count 6.33 K/ul (4.8-10.8)
[2022-02-27 18:59] LABS: Partial Thromboplastin Ratio 0.9; Partial Thromboplastin Time 25.8 Seconds (21.0-31.0); Prothrombin Time 10.7 Seconds (9.0-12.0)
[2022-02-27 19:00] LABS: iSTAT Creatinine 1.2 mg/dl (0.6-1.3); iSTAT Hemoglobin 12.6 g/dl (14.0-18.0); iSTAT Ionized Calcium 1.22 mmol/l (1.12-1.32)
[2022-02-27 19:05] LABS: Albumin Globulin Ratio 1.5 (0.9-2); Albumin Level 3.9 gm/dl (3.4-5.0); BUN Creatinine Ratio 19.1 (10-20); Bilirubin,Total 0.5 mg/dl (0.2-1.0); Creatinine Clr Calc Pharmacy 73.7 ml/min; Est GFR (African American) 77.9 ml/min; Est GFR (Non-African American) 67.2 ml/min; Globulin 2.6 gm/dl (2.5-4.0); Total Protein 6.5 gm/dl (6.0-8.3)
[2022-02-27] MEDS ORDERED: OPTIRAY 320 100ml IV ONE ×2 (19:28→19:39)
--- NOTE | 2022-02-27 19:51 | CT Scan Report ---
CT OF THE HEAD WITHOUT CONTRAST CLINICAL HISTORY: fall, juan luisquis COMPARISON STUDY: Head CT February 25, 2017. TECHNIQUE: Helical axial images of the head were obtained without IV contrast. Automated exposure con trol was utilized for the study. A dose lowering technique was utilized adhering to the principles o f ALARA. FINDINGS: No acute intracranial hemorrhage, midline shift or mass effect is present. The ventricular system is unremarkable. The basal cisterns are patent. No extra-axial collections are present. There are no findings to suggest acute dural sinus thrombosis or acute territorial infarct. No significant calvarial abnormalities are present. Visualized portions of the sinuses and mastoid air cells are jeremiah ar. IMPRESSION: 1. No acute intracranial findings. 2. No acute calvarial fracture. ACT 112: Negative or not required by law. Electronically signed by: Ward Preston M.D. 02/27/2022 7:50 PM
--- NOTE | 2022-02-27 20:03 | CT Scan Report ---
CT OF THE CERVICAL SPINE WITHOUT CONTRAST CLINICAL HISTORY: fall from horse COMPARISON STUDY: No previous studies for comparison. TECHNIQUE: Helical axial images of the cervical spine were obtained without IV contrast. Sagittal a nd coronal reconstructions were viewed. Automated exposure control was utilized for the study. A do se lowering technique was utilized adhering to the principles of ALARA. FINDINGS: Alignment of the cervical spine is anatomic. Vertebral body heights are maintained. No acut e cervical spine fracture or subluxation is present. There is no prevertebral edema. Facet joints are intact. Moderate multilevel degenerative changes within the cervical spine are noted. Thoracic spin e CT will be reported separately. IMPRESSION: No acute cervical spine fracture or subluxation. ACT 112: Negative or not required by law. Electronically signed by: Ward Preston M.D. 02/27/2022 8:00 PM
--- NOTE | 2022-02-27 20:12 | CT Scan Report ---
CT OF THE CHEST WITH IV CONTRAST CLINICAL HISTORY: fall from horse, [place] COMPARISON STUDY: Chest CT May 23, 2017. Chest radiograph September 24, 2021. TECHNIQUE: Following IV administration of 95 mL of Optiray, helical axial images of the chest were o btained. Sagittal and coronal reconstructions were viewed as well as maximal intensity projections o n an independent 3-D workstation. Automated exposure control was utilized for the study. A dose low ering technique was utilized adhering to the principles of ALARA. FINDINGS: There is no evidence for traumatic injury to the thoracic aorta. Moderate cardiomegaly is noted. There is moderate coronary artery calcification. No pericardial effusion is present. Small hia shelia hernia is noted. Postoperative findings within the stomach are noted. No pneumothorax or pleural effusion is present. Ground glass opacities favor atelectasis. No pulmonary contusion. No acute rib o r thoracic spine fracture is identified. Thoracic spine CT will be reported separately. Several calc ified granulomas are present. IMPRESSION: No acute traumatic findings within the chest. ACT 112: Negative or not required by law. Electronically signed by: Ward Preston M.D. 02/27/2022 8:10 PM
[2022-02-27 20:16] LABS: Appearance Urine Clear (Clear); Bacteria Urine Automated Negative (Negative); Bilirubin Urine Negative (Negative); Blood Urine 3+ (Negative); Color Urine Yellow; Epithelial Cell Urine Auto 0-5 /lpf (0-5); Glucose Urine UA Negative (Negative); Ketones Urine Trace (Negative); Leukocyte Esterase Urine Negative (Negative); Nitrite Urine Negative (Negative); Protein Urine Negative (Negative); RBC Urine Automated >30 /hpf (0-4); Specific Gravity Urine 1.021 (1.000-1.030); Urobilinogen Urine Negative (Negative); pH Urine 5.5 (4.5-7.5)
--- NOTE | 2022-02-27 20:19 | CT Scan Report ---
CT thoracic spine w con CLINICAL HISTORY: fall COMPARISON STUDY: Chest CT May 23, 2017. TECHNIQUE: Axial images of the thoracic spine were obtained following intravenous injection of Optira y 320 IV. Sagittal and coronal reconstructions were viewed. Automated exposure control was utilized f or the study. A dose lowering technique was utilized adhering to the principles of ALARA. FINDINGS: Alignment of the thoracic spine is anatomic. No acute thoracic spine fracture is identified . Old L1 compression deformity is unchanged since CT of May 23, 2017. Slight loss of height of th e superior endplates of several upper thoracic vertebral bodies is chronic. Moderate anterior osteoph ytosis is noted. Chest CT will be reported separately. Hemangioma within T12 is incidentally noted. C entral canal and neural foramen are suboptimally assessed given CT technique. IMPRESSION: No acute thoracic spine fracture or subluxation. ACT 112: Negative or not required by law. Electronically signed by: Ward Preston M.D. 02/27/2022 8:18 PM
--- NOTE | 2022-02-27 20:34 | CT Scan Report ---
CT OF THE ABDOMEN AND PELVIS WITH CONTRAST CLINICAL HISTORY: fall from horse, [place] COMPARISON STUDY: CT of the abdomen and pelvis August 02, 2021. KUB August 03, 2021. TECHNIQUE: Following IV administration of 95 mL of Optiray, axial images of the abdomen and pelvis we re obtained from the lung bases to the proximal femurs. Images were reviewed in the axial, sagittal, and coronal planes. IV contrast was administered without complication. Automated exposure control wa s utilized for the study. A dose lowering technique was utilized adhering to the principles of ALARA . CT DOSE: 3176.69 mGy.cm FINDINGS: There is no hemoperitoneum or pneumoperitoneum. A small hiatal hernia is noted. Postoperati ve findings within the stomach are noted. No evidence for a bowel obstruction. No evidence for trauma tic injury to the liver, spleen, adrenal glands, kidneys or pancreas. Numerous water attenuation bila teral renal lesions reflect cysts. A few hyperdense bilateral renal lesions were shown to likely refl ect hyperdense cysts on prior MRI. Multiple bilateral renal calculi measure up to 1 cm. No ureteral c alculi are present. There is no hydronephrosis. Caliber and wall thickness of small and large bowel a re normal. Fat-containing bilateral inguinal hernias, left larger than right, are noted. A small righ t flank contusion is present. There is no active extravasation. Acute mildly displaced fracture of th e right transverse process of L4 is noted. Old L1 compression deformity. No additional acute fracture s. No acute pelvic or hip fracture. IMPRESSION: 1. No evidence for traumatic injury to the solid abdominal viscera. 2. Acute mildly displaced fracture of the right transverse process of L4. 3. Small subcutaneous contusion of the right flank. 4. Bilateral nephrolithiasis. No ureteral calculi or hydronephrosis. 5. Numerous renal cysts, including several hyperdense cysts. ACT 112: Negative or not required by law. Electronically signed by: Ward Preston M.D. 02/27/2022 8:31 PM
--- NOTE | 2022-02-27 20:38 | CT Scan Report ---
LUMBAR SPINE CT CLINICAL HISTORY: fall COMPARISON STUDY: MRI of the lumbar spine March 27, 2017. TECHNIQUE: Axial images of the lumbar spine were obtained following intravenous injection of Optiray 320 IV. Sagittal and coronal reconstructions were viewed. Automated exposure control was utilized for the study. A dose lowering technique was utilized adhering to the principles of ALARA. FINDINGS: Old L1 compression deformity is unchanged from earlier studies. There is an acute mildly di splaced fracture of the right transverse process of L4. No additional acute lumbar spine fractures ar e present. No suspicious osseous lesions are present. Bilateral renal cysts and bilateral renal calcu li are better depicted on the CT of the abdomen and pelvis which will be reported separately. A right flank subcutaneous contusion is also better depicted on that exam. IMPRESSION: 1. Acute mildly displaced fracture of the right transverse process of L4. 2. Old L1 compression deformity, unchanged. 3. Small subcutaneous contusion of the right flank better depicted on the CT of the abdomen and pelvi s which will be reported separately. ACT 112: Negative or not required by law. Electronically signed by: Ward Preston M.D. 02/27/2022 8:35 PM
--- NOTE | 2022-02-27 22:21 | History & Physical Report ---
Date of Service February 27, 2022 Assessment & Plan (1) Animal-rider injured by fall from or being thrown from horse in noncollision accident, initial encounter: Plan: 71yo male with history of Factor V Leiden with prior VTE on Eliquis anticoagulation presents after a fall from a horse. Patient found to have acute fracture of L4 Transverse process on the right as well as small contusion of right flank. Pain overall well controlled -Observation to medical -Neuro checks q shift -Hold Eliquis and Plavix for now -Pain control with Tylenol, Oxy-IR and Heat PRN -Repeat imaging in AM - if stable can be discharged home -Miralax and Colace PRN -Zofran PRN nausea (2) CAD (coronary atherosclerotic disease): Plan: Patient with CAD s/p PR 08/2021. He had cardiac catheterization performed and found to have small vessel disease. No stent placed. -Continue Carvedilol, Lisinopril and Rosuvastatin -Hold Plavix for now - resume after imaging (3) Prostate cancer: Plan: Patient receives Lupron injections -Due for injection 03/07/22 (4) Depression: Plan: Chronic. 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 At high risk given trauma, active cancer -Hold Eliquis for now - repeat imaging as above, resume if contusion stable -SCDs (6) GERD (gastroesophageal reflux disease): Plan: Chornic. Stable -Continue Omeprazole (7) Hyperlipidemia: Plan: Chronic. Stable -Continue Atorvastatin F/E/N - LR at 125mL/hr x 2L, electrolytes WNL, Regular diet as tolerated Ppx - SCDs Code - Full Dispo -Observation to medical History of Present Illness Chief Complaint: Fell from horse Primary Care Provider: Dwayne Herring DO Howard Robert is a pleasant 71yo male with history of Factor V Leiden with prior VTE on Eliquis anticoagulation, CAD s/p PR 08/2021, HLP, Depression and GERD presenting to [facility] ER after falling from a horse. He was trail riding this afte rnoon around 16:30 today. His horse made a sudden movement to the side and he fell off the side of the horse. The horse is tall, appx 16 hands (appx 64 inches). Patient fell onto his right lower back onto a packed dirt surface. No head or neck trauma. No LOC. He was able to get up after a few moments and ambulate. He got back on his horse and rode home. Patient hemodynamically stable in the ER. Trauma scan performed including CT of the Head/C-spine/Abdomen/Pelvis/Chest/Lumbar and Thoracic spines. Workup revealed an acute mildly displaced fracture of the right L4 transverse process. Also with right flank subcutaneous contusion. Case was discussed between ER attending and Tra[place] (Dr. Gilmore[place] [facility] [place] Patient is stable to be admitted to [facility]. He is to hold his Eliquis tonight and have repeat abdominal imaging in the AM to assess stability of contusion Patient presently complaining of full body pain. ER Course: Tylenol, Morphine, Zofran, NSS Allergies Allergy/AdvReac Type Severity Reaction Status Date / Time shellfish derived Allergy Intermediate Anaphylaxis Verified 12/16/21 11:07 iodine Allergy Unknown Anaphylaxis Verified 12/16/21 11:07 Home Medications Medication Instructions Recorded Confirmed Type pediatric multivitamin 1 tab PO BID ##0 10/06/15 02/27/22 History ([facility] Multivitamin) apixaban 5 mg tablet (Eliquis) 5 mg PO BID #180 tabs 04/02/21 02/27/22 Rx leuprolide (3 month) 22.5 mg (3 22.5 mg subcut Q3M Prostate Cancer 09/24/21 02/27/22 History month) subcutaneous syringe nitroglycerin 0.4 mg sublingual 0.4 mg sublingual PRN PRN chest 09/25/21 02/27/22 Rx tablet (Nitrostat) pain #1 btl omeprazole 40 mg capsule,delayed 40 mg PO QAM #90 caps 10/29/21 02/27/22 Rx release leuprolide (3 month) 22.5 mg (3 22.5 mg subcut ONCE C61 #1 ea 11/18/21 12/16/21 Rx month) subcutaneous syringe CPAP Machine #1 ea 12/16/21 12/16/21 Rx carvedilol 3.125 mg tablet 3.125 mg PO BID #180 tabs 12/20/21 02/27/22 Rx clopidogrel 75 mg tablet 75 mg PO QAM #90 tabs 12/20/21 02/27/22 Rx lisinopril 5 mg tablet (Zestril) 5 mg PO QAM #90 tabs 12/20/21 02/27/22 Rx rosuvastatin 10 mg tablet (Crestor) 10 mg PO DAILY #90 tabs 12/20/21 02/27/22 Rx leuprolide (3 month) 22.5 mg (3 22.5 mg subcut ONCE #1 ea 02/18/22 Rx month) subcutaneous syringe leuprolide (3 month) 22.5 mg (3 22.5 mg subcut ONCE #1 ea 02/18/22 02/18/22 Rx month) subcutaneous syringe escitalopram oxalate 5 mg tablet 5 mg PO HS #90 tabs 02/21/22 02/27/22 Rx (Lexapro) Past Med/Surg History Medical History Blood in stool Calculus of left kidney at present, not causing any issues at present Depression Factor 5 Leiden mutation, heterozygous on plavix and Eliquis Factor V deficiency Family history of colon cancer GERD (gastroesophageal reflux disease) Gout History of COVID-19 06/2021; cough, poor appetite, headache; resolved History of kidney stones History of prostate cancer dx 09/2020; hx radiation + Lupron inj q3m History of pulmonary embolism 8 years ago; on eliquis Hyperlipidemia Multiple pulmonary nodules benign, last CT 2017 Myocardial Infarction ACS 09/24/21: 90% hazy proximal stenosis in D1/ No PCI (vessel too small; Treat medically) Sleep apnea stopped using CPAP following wt loss surgery Surgical History H/O gastric bypass History of colonoscopy History of cystoscopy w/ stone extraction History of elbow surgery Left History of esophagogastroduodenoscopy (EGD) History of gastric bypass GASTRIC SLEEVE History of herniorrhaphy INCISIONAL History of laparoscopy OPEN LAP FOR COMPLICATION FOLLOWING GASTRIC SURGERY History of prostate biopsy Family History Father Prostate cancer Heart disease Mother Parkinson disease Brother Cancer Prostate Cancer Brother Cancer Prostate Cancer Other Colorectal cancer Family history of colon cancer Denies family history of Ovarian cancer Myocardial infarction Pancreatitis Breast cancer Lung cancer Social History Smoking Status: Never smoker Second Hand Exposure: No; Hx Alcohol Use: No Hx Substance Use: No Preferred Language: [place] Communication Ability: Effective Visual Impairment: Limited 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: Normal High Court Justice Required: No Beliefs That Will Affect Care: None marital status: Current Living Situation: Spouse current occupational status: retired Feels Safe at Home: Yes Childhood Exposure to Second-Hand Smoke: No Diet Comment: Mindful of food choices due to gastric sleeve caffeine: Yes Dental Care, Regularly: No Physical Activity Frequency: Daily Seatbelt Use: always Sunscreen Use: Yes Assistive Devices: None Review of Systems Review of Systems: All systems reviewed & are unremarkable except as noted in HPI & below Physical Exam Physical Exam: General: patient resting comfortably, NAD, non-toxic in appearance, AA&O x 4 Skin: warm, dry, intact, no rashes or lesions HEENT: NC/AT, PERRL, EOMI, anicteric sclera, conjunctiva without injection, external ear normal to inspection and nontender, nares patent, moist mucus membranes, dentition intact, no oropharyngeal lesions, neck supple, trachea midline, no LAD, no thyromegaly, no JVD Heart: +S1/S2, regular, no m/r/g Lungs: equal air entry bilaterally, no rales/rhonchi/wheezes Abd: +BS, soft, NT/ND, no masses/organomegaly/ascites Ext: warm, 2+ pulses in UE/LE bilaterally, no clubbing/cyanosis or edema Neuro: nonfocal, patient AA&O x 4, speech intact, no facial droop, moving all extremities on command with equal strength 5/5 Results & Data Results & Data ([facility]) Vital Signs (Past 12 Hours) Vital Signs Temp Pulse Resp BP Pulse Ox 02/27/22 21:40 57 L 10 L 95 02/27/22 21:30 56 L 9 L 96 02/27/22 21:30 128/66 02/27/22 21:20 58 L 8 L 95 02/27/22 21:10 61 9 L 94 02/27/22 21:00 59 L 14 97 02/27/22 21:00 133/69 02/27/22 20:50 62 15 96 02/27/22 20:40 60 11 L 93 02/27/22 20:30 60 11 L 95 02/27/22 20:30 135/64 02/27/22 20:20 62 9 L 95 02/27/22 20:10 62 11 L 96 02/27/22 20:00 62 16 96 02/27/22 20:00 138/63 02/27/22 19:43 71 11 L 02/27/22 19:00 57 L 8 L 97 02/27/22 18:30 65 17 99 02/27/22 18:28 63 19 98 02/27/22 18:13 36.8 C 67 18 156/82 H 98 Laboratory Results Laboratory Results WBC 6.33 K/ul (4.8-10.8) 02/27/22 18:37 RBC 4.05 M/uL (4.63-6.08) L 02/27/22 18:37 Hgb 12.4 g/dl (14.0-18.0) L 02/27/22 18:37 POC Hgb 12.6 g/dl (14.0-18.0) L 02/27/22 18:44 Hct 38.2 % (40.1-51.0) L 02/27/22 18:37 POC Hct 37 % (42-52) L 02/27/22 18:44 MCV 94.3 fL (80.0-100.0) 02/27/22 18:37 MCH 30.6 pg (25.0-34.0) 02/27/22 18:37 MCHC 32.5 g/dL (32.0-36.0) 02/27/22 18:37 RDW Std Deviation 50.7 fL (36.4-46.3) H 02/27/22 18:37 RDW Coeff of Nadja 14.6 % (11.5-14.5) H 02/27/22 18:37 Plt Count 159 K/uL (130-400) 02/27/22 18:37 MPV 10.2 fL (9.4-12.4) 02/27/22 18:37 PT 10.7 Seconds (9.0-12.0) 02/27/22 18:37 INR 1.0 (0.9-1.1) 02/27/22 18:37 APTT 25.8 Seconds (21.0-31.0) 02/27/22 18:37 PTT Ratio 0.9 02/27/22 18:37 POC Sodium 146 mmol/L (135-144) H 02/27/22 18:44 Sodium 143 mmol/L (136-145) 02/27/22 18:37 POC Potassium 4.0 mmol/L (3.3-5.0) 02/27/22 18:44 Potassium 4.0 mmol/L (3.5-5.1) 02/27/22 18:37 POC Chloride 110 mmol/L (101-112) 02/27/22 18:44 Chloride 112 mmol/L (98-107) H 02/27/22 18:37 Carbon Dioxide 25 mmol/L (21-32) 02/27/22 18:37 POC Total CO2 24 mmol/L (24-31) 02/27/22 18:44 Anion Gap 6 (3-11) 02/27/22 18:37 POC Anion Gap 16.0 mmol/L (16-25) 02/27/22 18:44 POC BUN 20 mg/dl (7-18) H 02/27/22 18:44 BUN 21 mg/dl (6-23) 02/27/22 18:37 Creatinine 1.10 mg/dl (0.6-1.4) 02/27/22 18:37 POC Creatinine 1.2 mg/dl (0.6-1.3) 02/27/22 18:44 Est Cr Clr Drug Dosing 73.7 ml/min 02/27/22 18:37 Est GFR ( Amer) 77.9 ml/min 02/27/22 18:37 Est GFR (Non-Af Amer) 67.2 ml/min 02/27/22 18:37 BUN/Creatinine Ratio 19.1 (10-20) 02/27/22 18:37 Glucose 92 mg/dl (70-99(Fasting)) 02/27/22 18:37 POC Glucose (other) 95 mg/dl (70-99) 02/27/22 18:44 Calcium 9.0 mg/dl (8.5-10.1) 02/27/22 18:37 POC Ioniz Calcium Nina 1.22 mmol/l (1.12-1.32) 02/27/22 18:44 Total Bilirubin 0.5 mg/dl (0.2-1.0) 02/27/22 18:37 AST 22 U/L (13-39) 02/27/22 18:37 ALT 12 U/L (7-52) 02/27/22 18:37 Alkaline Phosphatase 83 U/L (34-104) 02/27/22 18:37 Total Protein 6.5 gm/dl (6.0-8.3) 02/27/22 18:37 Albumin 3.9 gm/dl (3.4-5.0) 02/27/22 18:37 Globulin 2.6 gm/dl (2.5-4.0) 02/27/22 18:37 Albumin/Globulin Ratio 1.5 (0.9-2) 02/27/22 18:37 Urine Color Yellow 02/27/22 19:50 Urine Appearance Clear (Clear) 02/27/22 19:50 Urine pH 5.5 (4.5-7.5) 02/27/22 19:50 Ur Specific Festus 1.021 (1.000-1.030) 02/27/22 19:50 Urine Protein Negative (Negative) 02/27/22 19:50 Urine Glucose (UA) Negative (Negative) 02/27/22 19:50 Urine Ketones Trace (Negative) H 02/27/22 19:50 Urine Blood 3+ (Negative) H 02/27/22 19:50 Urine Nitrite Negative (Negative) 02/27/22 19:50 Urine Bilirubin Negative (Negative) 02/27/22 19:50 Urine Urobilinogen Negative (Negative) 02/27/22 19:50 Ur Leukocyte Esterase Negative (Negative) 02/27/22 19:50 Urine WBC (Auto) 1-5 /hpf (0-5) 02/27/22 19:50 Urine RBC (Auto) >30 /hpf (0-4) H 02/27/22 19:50 U Hyaline Cast (Auto) 1-5 /lpf (0-5) 02/27/22 19:50 U Epithel Cells (Auto) 0-5 /lpf (0-5) 02/27/22 19:50 Urine Bacteria (Auto) Negative (Negative) 02/27/22 19:50 Impressions Abdomen/Pelvis CT 02/27/22 18:31 CT OF THE ABDOMEN AND PELVIS WITH CONTRAST CLINICAL HISTORY: fall from horse, eliquis COMPARISON STUDY: CT of the abdomen and pelvis August 02, 2021. KUB August 03, 2021. TECHNIQUE: Following IV administration of 95 mL of Optiray, axial images of the abdomen and pelvis were obtained from the lung bases to the proximal femurs. Images were reviewed in the axial, sagittal, and coronal planes. IV contrast was administered without complication. Automated exposure control was utilized for the study. A dose lowering technique was utilized adhering to the principles of ALARA. CT DOSE: 3176.69 mGy.cm FINDINGS: There is no hemoperitoneum or pneumoperitoneum. A small hiatal hernia is noted. Postoperative findings within the stomach are noted. No evidence for a bowel obstruction. No evidence for traumatic injury to the liver, spleen, adrenal glands, kidneys or pancreas. Numerous water attenuation bilateral renal lesions reflect cysts. A few hyperdense bilateral renal lesions were shown to likely reflect hyperdense cysts on prior MRI. Multiple bilateral renal calculi measure up to 1 cm. No ureteral calculi are present. There is no hydronephrosis. Caliber and wall thickness of small and large bowel are normal. Fat-containing bilateral inguinal hernias, left larger than right, are noted. A small right flank contusion is present. There is no active extravasation. Acute mildly displaced fracture of the right transverse process of L4 is noted. Old L1 compression deformity. No additional acute fractures. No acute pelvic or hip fracture. IMPRESSION: 1. No evidence for traumatic injury to the solid abdominal viscera. 2. Acute mildly displaced fracture of the right transverse process of L4. 3. Small subcutaneous contusion of the right flank. 4. Bilateral nephrolithiasis. No ureteral calculi or hydronephrosis. 5. Numerous renal cysts, including several hyperdense cysts. ACT 112: Negative or not required by law. Electronically signed by: Ward Preston M.D. 02/27/2022 8:[address] 02/27/22 18:31 CT OF THE CERVICAL SPINE WITHOUT CONTRAST CLINICAL HISTORY: fall from horse COMPARISON STUDY: No previous studies for comparison. TECHNIQUE: Helical axial images of the cervical spine were obtained without IV contrast. Sagittal and coronal reconstructions were viewed. Automated exposure control was utilized for the study. A dose lowering technique was utilized adhering to the principles of ALARA. FINDINGS: Alignment of the cervical spine is anatomic. Vertebral body heights are maintained. No acute cervical spine fracture or subluxation is present. There is no prevertebral edema. Facet joints are intact. Moderate multilevel degenerative changes within the cervical spine are noted. Thoracic spine CT will be reported separately. IMPRESSION: No acute cervical spine fracture or subluxation. ACT 112: Negative or not required by law. Electronically signed by: Ward Preston M.D. 02/27/2022 8:[address] 02/27/22 18:31 CT OF THE CHEST WITH IV CONTRAST CLINICAL HISTORY: fall from horse, eliquis COMPARISON STUDY: Chest CT May 23, 2017. Chest radiograph September 24 2. TECHNIQUE: Following IV administration of 95 mL of Optiray, helical axial images of the chest were obtained. Sagittal and coronal reconstructions were viewed as well as maximal intensity projections on an independent 3-D workstation. Automated exposure control was utilized for the study. A dose lowering technique was utilized adhering to the principles of ALARA. FINDINGS: There is no evidence for traumatic injury to the thoracic aorta. Moderate cardiomegaly is noted. There is moderate coronary artery calcification. No pericardial effusion is present. Small hiatal hernia is noted. Postoperative findings within the stomach are noted. No pneumothorax or pleural effusion is present. Ground glass opacities favor atelectasis. No pulmonary contusion. No acute rib or thoracic spine fracture is identified. Thoracic spine CT will be reported separately. Several calcified granulomas are present. IMPRESSION: No acute traumatic findings within the chest. ACT 112: Negative or not required by law. Electronically signed by: Ward Preston M.D. 02/27/2022 8:[address] 02/27/22 18:31 CT OF THE HEAD WITHOUT CONTRAST CLINICAL HISTORY: fall, eliquis COMPARISON STUDY: Head CT February 25, 2017. TECHNIQUE: Helical axial images of the head were obtained without IV contrast. Automated exposure control was utilized for the study. A dose lowering technique was utilized adhering to the principles of ALARA. FINDINGS: No acute intracranial hemorrhage, midline shift or mass effect is present. The ventricular system is unremarkable. The basal cisterns are patent. No extra-axial collections are present. There are no findings to suggest acute dural sinus thrombosis or acute territorial infarct. No significant calvarial abnormalities are present. Visualized portions of the sinuses and mastoid air cells are clear. IMPRESSION: 1. No acute intracranial findings. 2. No acute calvarial fracture. ACT 112: Negative or not required by law. Electronically signed by: Ward Preston M.D. 02/27/2022 7:[address] 02/27/22 18:[address] CLINICAL HISTORY: fall COMPARISON STUDY: MRI of the lumbar spine March 27, 2017. TECHNIQUE: Axial images of the lumbar spine were obtained following intravenous injection of Optiray 320 IV. Sagittal and coronal reconstructions were viewed. Automated exposure control was utilized for the study. A dose lowering technique was utilized adhering to the principles of ALARA. FINDINGS: Old L1 compression deformity is unchanged from earlier studies. There is an acute mildly displaced fracture of the right transverse process of L4. No additional acute lumbar spine fractures are present. No suspicious osseous lesions are present. Bilateral renal cysts and bilateral renal calculi are better depicted on the CT of the abdomen and pelvis which will be reported separately. A right flank subcutaneous contusion is also better depicted on that exam. IMPRESSION: 1. Acute mildly displaced fracture of the right transverse process of L4. 2. Old L1 compression deformity, unchanged. 3. Small subcutaneous contusion of the right flank better depicted on the CT of the abdomen and pelvis which will be reported separately. ACT 112: Negative or not required by law. Electronically signed by: Ward Preston M.D. 02/27/2022 8:[address] 02/27/22 18:31 CT thoracic spine w con CLINICAL HISTORY: fall COMPARISON STUDY: Chest CT May 23, 2017. TECHNIQUE: Axial images of the thoracic spine were obtained following intravenous injection of Optiray 320 IV. Sagittal and coronal reconstructions were viewed. Automated exposure control was utilized for the study. A dose lowering technique was utilized adhering to the principles of ALARA. FINDINGS: Alignment of the thoracic spine is anatomic. No acute thoracic spine fracture is identified. Old L1 compression deformity is unchanged since CT of May 23, 2017. Slight loss of height of the superior endplates of several upper thoracic vertebral bodies is chronic. Moderate anterior osteophytosis is noted. Chest CT will be reported separately. Hemangioma within T12 is incidentally noted. Central canal and neural foramen are suboptimally assessed given CT technique. IMPRESSION: No acute thoracic spine fracture or subluxation. ACT 112: Negative or not required by law. Electronically signed by: Ward Preston M.D. 02/27/2022 8:18 PM Code Status & VTE Plan VTE Prophylaxis Plan VTE Prophylaxis will be ordered: Yes PG Care Time/CCT Total # of Minutes Spent Total Time Spent with Patient: Total time spent is greater than 50% in coordination of care (as documented) at patient's floor/unit and/or counseling patient: Coding Level of Care Code 89931 Initial Inpt Care Lvl 3 Diagnoses Animal-rider injured by fall from or being thrown from horse in noncollision accident, initial encounter V80.010A CAD (coronary atherosclerotic disease) I25.10 Associated angina: unspecified whether angina present Coronary Disease-Associated Artery/Lesion type: unspecified vessel or lesion type [place] vs. transplanted heart: unspecified whether [place] or transplanted heart Prostate cancer C61 Depression F32.9 Factor V deficiency D68.2 GERD (gastroesophageal reflux disease) K21.9 Esophagitis presence: esophagitis presence not specified Hyperlipidemia E78.5 Hyperlipidemia type: unspecified (1) CAD (coronary atherosclerotic disease) Associated angina: unspecified whether angina present Coronary Disease- Associated Artery/Lesion type: unspecified vessel or lesion type [place] vs. transplanted heart: unspecified whether [place] or transplanted heart Qualified Code(s): I25.10 - Atherosclerotic heart disease of [place] coronary artery without angina pectoris (2) GERD (gastroesophageal reflux disease) Esophagitis presence: esophagitis presence not specified Qualified Code(s): K21.9 - Gastro-esophageal reflux disease without esophagitis (3) Hyperlipidemia Hyperlipidemia type: unspecified Qualified Code(s): E78.5 - Hyperlipidemia, unspecified
[2022-02-28] MEDS ORDERED: MoRPHine SULFATE 4 MG/ML 1 ML CARP\\VIAL ONE
[2022-02-28] MEDS ORDERED: LACTATED RINGER'S 1,000 ML IV SCH (01:36)
[2022-02-28] MEDS ORDERED: ACETAMINOPHEN 325 MG TAB PO PRN (01:36)
[2022-02-28] MEDS ORDERED: POLYETHYLENE (MIRALAX) 17 GM PACK PO PRN (01:36)
[2022-02-28] MEDS ORDERED: oxyCODONE HCL IR 5 MG TAB (IMMEDIATE RELEASE) PO PRN (01:36)
[2022-02-28] MEDS ORDERED: ONDANSETRON INJ 2 MG/ML 2 ML VIAL IV PRN (01:36)
[2022-02-28] MEDS ORDERED: DOCUSATE SODIUM 100 MG CAP PO PRN (01:36)
[2022-02-28 02:39] VITALS: TEMP 97.9
[2022-02-28 06:53] LABS: Basophils # (auto) 0.01 K/uL (0-0.2); Basophils % (auto) 0.3 %; Eosinophils # (auto) 0.08 K/uL (0-0.50); Eosinophils % (auto) 2.5 %; Hematocrit (blood only) 32.7 % (40.1-51.0); Hemoglobin 10.4 g/dl (14.0-18.0); Immature Granulocytes # (auto) 0.01 K/uL (0.00-0.02); Immature Granulocytes % (auto) 0.3 %; Lymphocytes # (auto) 0.91 K/uL (1.2-3.4); Lymphocytes % (auto) 28.3 %; Mean Corpuscular Hemoglobin 30.5 pg (25.0-34.0); Mean Corpuscular Hgb Conc 31.8 g/dL (32.0-36.0); Mean Corpuscular Volume 95.9 fL (80.0-100.0); Mean Platelet Volume 9.6 fL (9.4-12.4); Monocytes # (auto) 0.55 K/uL (0.24-0.82); Monocytes % (auto) 17.1 %; Neutrophils # (auto) 1.66 K/uL (1.4-6.5); Neutrophils % (auto) 51.5 %; Platelet Count 130 K/uL (130-400); RDW Coefficient of Variation 14.7 % (11.5-14.5); RDW Standard Deviation 51.5 fL (36.4-46.3); Red Blood Count 3.41 M/uL (4.63-6.08); White Blood Count 3.22 K/ul (4.8-10.8)
[2022-02-28 07:28] LABS: BUN Creatinine Ratio 18.5 (10-20); Calcium 8.2 mg/dl (8.5-10.1); Creatinine Clr Calc Pharmacy 88.1 ml/min; Est GFR (African American) 96.6 ml/min; Est GFR (Non-African American) 83.4 ml/min
[2022-02-28 07:45] VITALS: BP 121/65; PULSE 47; O2SAT 94
[2022-02-28] MEDS ORDERED: carvediloL 3.125 MG TAB PO SCH (09:00)
[2022-02-28] MEDS ORDERED: lisinopril 5 MG TAB PO SCH (09:00)
[2022-02-28] MEDS ORDERED: PANTOprazole 40 MG TAB PO SCH (09:00)
[2022-02-28] MEDS ORDERED: ROSUVASTATIN CALCIUM 10 MG TAB PO SCH (09:00)
--- NOTE | 2022-02-28 09:52 | CT Scan Report ---
CT SCAN OF THE ABDOMEN AND PELVIS WITHOUT IV CONTRAST CLINICAL HISTORY: Follow-up contusion. COMPARISON STUDY: Abdominal CT dated 02/27/2022, 02/06/2014, and 12/27/2006. TECHNIQUE: CT scan of the abdomen and pelvis is performed from the lung bases to the proximal femora. Images are reviewed in the axial, sagittal, and coronal planes. IV contrast was not administered for this examination. A dose lowering technique was utilized adhering to the principles of ALARA. CT DOSE: 921.19 mGy.cm FINDINGS: Lung bases: The heart is mildly enlarged and without pericardial effusion. There are coronary artery calcifications. There are trace pleural effusions with dependent atelectasis. A calcified granuloma i s noted at the right lung base. A fat-containing [place] hernia is seen on the left. Liver: The unenhanced liver is normal in size, contour, and attenuation. There is no intrahepatic eliot iary ductal dilatation. Gallbladder: The gallbladder contains vicariously excreted contrast. Spleen: Normal in size and attenuation. Pancreas: Unremarkable. Adrenal glands: Unremarkable. Kidneys: The unenhanced kidneys are atrophic and without hydronephrosis. The renal collecting systems are filled with excreted IV contrast. Bilateral renal calculi are not well assessed. Large bilateral renal cysts measure up to 7.3 cm. A 1.4 cm indeterminant calcified lesion is noted in the left kidne y on image #195. This is been present dating back to at least 2006, and likely represents a collapsed /calcified cyst. Abdominal vasculature: The abdominal aorta is normal in course and caliber noting mild to moderate at herosclerotic calcification. Stomach and bowel: Postoperative change is noted in the stomach. There is a moderate hiatal hernia. T here is mild colonic fecal retention. No bowel obstruction is seen. The appendix is well-visualized and normal. Peritoneum: There is no intraperitoneal free air or abdominal ascites. Lymphadenopathy: None. Pelvic viscera: The prostate gland is mildly enlarged and heterogeneous noting median lobe hypertroph y. The bladder is decompressed and filled with excreted IV contrast. The bladder wall appears thicken ed and trabeculated indicating chronic outlet obstruction. There are bilateral fat-containing inguina l hernias, left larger than right. Skeletal structures: The skeletal structures are osteopenic. There is a chronic compression deformity of L1. Mild to moderate lumbosacral spondylosis is observed. There is unchanged appearance of a mini kevin displaced right transverse process fracture of L4. No lytic or blastic lesions are seen. Soft tissues: Soft tissue contusion is again noted in the right lower flank. This is similar to yeste rday. No large organized hematoma is identified. IMPRESSION: 1. Soft tissue contusion of the right flank is unchanged from yesterday. 2. Right transverse process fracture of L4 is unchanged from yesterday. 3. Cardiomegaly and trace pleural effusions. 4. Bilateral nephrolithiasis. 5. Hiatal hernia. 6. Additional findings as above. ACT 112: Negative or not required by law. Electronically signed by: Gabriel Cuba M.D. 02/28/2022 9:50 AM
--- NOTE | 2022-02-28 11:13 | Discharge Summary ---
Date of Service February 28, 2022 Admission HPI Per Admitting Provider Howard Robert is a pleasant 71yo male with history of Factor V Leiden with prior VTE on Eliquis anticoagulation, CAD s/p [place] 08/2021, HLP, Depression and GERD presenting to [facility] ER after falling from a horse. He was trail riding this afternoon around 16:30 today. His horse made a sudden movement to the side and he fell off the side of the horse. The horse is tall, appx 16 hands (appx 64 inches). Patient fell onto his right lower back onto a packed dirt surface. No head or neck trauma. No LOC. He was able to get up after a few moments and ambulate. He got back on his horse and rode home. Patient hemodynamically stable in the ER. Trauma scan performed including CT of the Head/C-spine/Abdomen/Pelvis/Chest/Lumbar and Thoracic spines. Workup revealed an acute mildly displaced fracture of the right L4 transverse process. Also with right flank subcutaneous contusion. Case was discussed between ER attending and Trauma (Dr. Gilmore) at [facility] [place]. Patient is stable to be admitted to [facility]. He is to hold his Eliquis tonight and have repeat abdominal imaging in the AM to assess stability of contusion Patient presently complaining of full body pain. ER Course: Tylenol, Morphine, Zofran, NSS Admission Exam Per Admitting Provider General: patient resting comfortably, NAD, non-toxic in appearance, AA&O x 4 Skin: warm, dry, intact, no rashes or lesions HEENT: NC/AT, PERRL, EOMI, anicteric sclera, conjunctiva without injection, external ear normal to inspection and nontender, nares patent, moist mucus membranes, dentition intact, no oropharyngeal lesions, neck supple, trachea midline, no LAD, no thyromegaly, no JVD Heart: +S1/S2, regular, no m/r/g Lungs: equal air entry bilaterally, no rales/rhonchi/wheezes Abd: +BS, soft, NT/ND, no masses/organomegaly/ascites Ext: warm, 2+ pulses in UE/LE bilaterally, no clubbing/cyanosis or edema Neuro: nonfocal, patient AA&O x 4, speech intact, no facial droop, moving all e xtremities on command with equal strength 5/5 Principal Diagnosis L4 transverse process fracture Discharge Exam General: patient resting comfortably, NAD, non-toxic in appearance Skin: warm, dry, intact, no rashes or lesions HEENT: NC/AT, PERRL, EOMI, anicteric sclera, conjunctiva without injection, external ear normal to inspection and nontender, nares patent, moist mucus membranes, trachea midline, no LAD, no thyromegaly, no JVD Heart: RRR, normal S1, S2 Lungs: CTAB, unlabored respirations Abd: soft, nondistended, mild R flank tenderness to palpation Ext: warm, 2+ pulses in UE/LE bilaterally, no clubbing/cyanosis or edema Neuro: grossly alert and oriented, no focal motor or sensory deficits appreciated, CN 2-12 intact, deferred gait assessment Discharge Data Allergies Allergy/AdvReac Type Severity Reaction Status Date / Time shellfish derived Allergy Intermediate Anaphylaxis Verified 12/16/21 11:07 iodine Allergy Unknown Anaphylaxis Verified 12/16/21 11:07 Consultations 02/27/22 21:25 ED Decision to Admit Stat Ordered Studies CT OF THE CERVICAL SPINE WITHOUT CONTRAST CLINICAL HISTORY: fall from horse COMPARISON STUDY: No previous studies for comparison. TECHNIQUE: Helical axial images of the cervical spine were obtained without IV contrast. Sagittal and coronal reconstructions were viewed. Automated exposure control was utilized for the study. A dose lowering technique was utilized adhering to the principles of ALARA. FINDINGS: Alignment of the cervical spine is anatomic. Vertebral body heights are maintained. No acute cervical spine fracture or subluxation is present. There is no prevertebral edema. Facet joints are intact. Moderate multilevel degenerative changes within the cervical spine are noted. Thoracic spine CT will be reported separately. IMPRESSION: No acute cervical spine fracture or subluxation. CT thoracic spine w con CLINICAL HISTORY: fall COMPARISON STUDY: Chest CT May 23, 2017. TECHNIQUE: Axial images of the thoracic spine were obtained following intravenous injection of Optiray 320 IV. Sagittal and coronal reconstructions were viewed. Automated exposure control was utilized for the study. A dose lowering technique was utilized adhering to the principles of ALARA. FINDINGS: Alignment of the thoracic spine is anatomic. No acute thoracic spine fracture is identified. Old L1 compression deformity is unchanged since CT of May 23, 2017. Slight loss of height of the superior endplates of several upper thoracic vertebral bodies is chronic. Moderate anterior osteophytosis is noted. Chest CT will be reported separately. Hemangioma within T12 is incidentally noted. Central canal and neural foramen are suboptimally assessed given CT technique. IMPRESSION: No acute thoracic spine fracture or subluxation. LUMBAR SPINE CT CLINICAL HISTORY: fall COMPARISON STUDY: MRI of the lumbar spine March 27, 2017. TECHNIQUE: Axial images of the lumbar spine were obtained following intravenous injection of Optiray 320 IV. Sagittal and coronal reconstructions were viewed. Automated exposure control was utilized for the study. A dose lowering technique was utilized adhering to the principles of ALARA. FINDINGS: Old L1 compression deformity is unchanged from earlier studies. There is an acute mildly displaced fracture of the right transverse process of L4. No additional acute lumbar spine fractures are present. No suspicious osseous lesions are present. Bilateral renal cysts and bilateral renal calculi are better depicted on the CT of the abdomen and pelvis which will be reported separately. A right flank subcutaneous contusion is also better depicted on that exam. IMPRESSION: 1. Acute mildly displaced fracture of the right transverse process of L4. 2. Old L1 compression deformity, unchanged. 3. Small subcutaneous contusion of the right flank better depicted on the CT of the abdomen and pelvis which will be reported separately. CT OF THE HEAD WITHOUT CONTRAST CLINICAL HISTORY: fall, COMPARISON STUDY: Head CT February 25, 2017. TECHNIQUE: Helical axial images of the head were obtained without IV contrast. Automated exposure control was utilized for the study. A dose lowering technique was utilized adhering to the principles of ALARA. FINDINGS: No acute intracranial hemorrhage, midline shift or mass effect is present. The ventricular system is unremarkable. The basal cisterns are patent. No extra-axial collections are present. There are no findings to suggest acute dural sinus thrombosis or acute territorial infarct. No significant calvarial abnormalities are present. Visualized portions of the sinuses and mastoid air cells are clear. IMPRESSION: 1. No acute intracranial findings. 2. No acute calvarial fracture. CT OF THE CHEST WITH IV CONTRAST CLINICAL HISTORY: fall from horse, COMPARISON STUDY: Chest CT May 23, 2017. Chest radiograph September 24, 2021. TECHNIQUE: Following IV administration of 95 mL of Optiray, helical axial images of the chest were obtained. Sagittal and coronal reconstructions were viewed as well as maximal intensity projections on an independent 3-D workstation. Automated exposure control was utilized for the study. A dose lowering technique was utilized adhering to the principles of ALARA. FINDINGS: There is no evidence for traumatic injury to the thoracic aorta. Moderate cardiomegaly is noted. There is moderate coronary artery calcification. No pericardial effusion is present. Small hiatal hernia is noted. Postoperative findings within the stomach are noted. No pneumothorax or pleural effusion is present. Ground glass opacities favor atelectasis. No pulmonary contusion. No acute rib or thoracic spine fracture is identified. Thoracic spine CT will be reported separately. Several calcified granulomas are present. IMPRESSION: No acute traumatic findings within the chest. CT SCAN OF THE ABDOMEN AND PELVIS WITHOUT IV CONTRAST CLINICAL HISTORY: Follow-up contusion. COMPARISON STUDY: Abdominal CT dated 02/27/2022, 02/06/2014, and 12/27/2006. TECHNIQUE: CT scan of the abdomen and pelvis is performed from the lung bases to the proximal femora. Images are reviewed in the axial, sagittal, and coronal planes. IV contrast was not administered for this examination. A dose lowering technique was utilized adhering to the principles of ALARA. CT DOSE: 921.19 mGy.cm FINDINGS: Lung bases: The heart is mildly enlarged and without pericardial effusion. There are coronary artery calcifications. There are trace pleural effusions with dependent atelectasis. A calcified granuloma is noted at the right lung base. A fat-containing Bochdalek hernia is seen on the left. Liver: The unenhanced liver is normal in size, contour, and attenuation. There is no intrahepatic biliary ductal dilatation. Gallbladder: The gallbladder contains vicariously excreted contrast. Spleen: Normal in size and attenuation. Pancreas: Unremarkable. Adrenal glands: Unremarkable. Kidneys: The unenhanced kidneys are atrophic and without hydronephrosis. The renal collecting systems are filled with excreted IV contrast. Bilateral renal calculi are not well assessed. Large bilateral renal cysts measure up to 7.3 cm. A 1.4 cm indeterminant calcified lesion is noted in the left kidney on image #[id number]. This is been present dating back to at least 2006, and likely represents a collapsed/calcified cyst. Abdominal vasculature: The abdominal aorta is normal in course and caliber noting mild to moderate atherosclerotic calcification. Stomach and bowel: Postoperative change is noted in the stomach. There is a moderate hiatal hernia. There is mild colonic fecal retention. No bowel obstruction is seen. The appendix is well-visualized and normal. Peritoneum: There is no intraperitoneal free air or abdominal ascites. Lymphadenopathy: None. Pelvic viscera: The prostate gland is mildly enlarged and heterogeneous noting median lobe hypertrophy. The bladder is decompressed and filled with excreted IV contrast. The bladder wall appears thickened and trabeculated indicating chronic outlet obstruction. There are bilateral fat-containing inguinal hernias, left larger than right. Skeletal structures: The skeletal structures are osteopenic. There is a chronic compression deformity of L1. Mild to moderate lumbosacral spondylosis is observed. There is unchanged appearance of a minimally displaced right transverse process fracture of L4. No lytic or blastic lesions are seen. Soft tissues: Soft tissue contusion is again noted in the right lower flank. This is similar to yesterday. No large organized hematoma is identified. IMPRESSION: 1. Soft tissue contusion of the right flank is unchanged from yesterday. 2. Right transverse process fracture of L4 is unchanged from yesterday. 3. Cardiomegaly and trace pleural effusions. 4. Bilateral nephrolithiasis. 5. Hiatal hernia. 6. Additional findings as above. Hospital Course (1) Animal-rider injured by fall from or being thrown from horse in noncollision accident, subsequent encounter: 71yo male with history of Factor V Leiden with prior VTE on Eliquis anticoagulation presents after a fall from a horse. -CT Head, CT Cervical Spine, CT Thoracic Spine, CT Chest without acute traumatic change or process -CT Lumbar Spine- mildly displaced acute L4 transverse process fracture -CTAP- small R flank contusion without hematoma, unchanged on repeat CTAP -Remained neurologically intact without any deficits -Plavix and Eliquis held on admission and resumed on discharge after repeat CTAP did not show any internal bleeding -Pain well-controlled during stay with Tylenol PRN and morphine. Discharged with short course of oxycodone PRN (2) CAD (coronary atherosclerotic disease): Patient with CAD s/p [place] 08/2021. He had cardiac catheterization performed and found to have small vessel disease. No stent placed. -Continued Carvedilol, Lisinopril and Rosuvastatin -Held Plavix due to fall (3) Prostate cancer: Patient receives Lupron injections -Due for injection 03/07/22 (4) Depression: Chronic. Stable on medications -Continued Escitalopram (5) Factor V deficiency: With prior DVT. At high risk given trauma, active cancer -Held Eliquis during admission given fall (6) GERD (gastroesophageal reflux disease): Chornic. Stable -Continued Omeprazole (7) Hyperlipidemia: Chronic. Stable -Continued Atorvastatin Total Time Total Time Spent Total Time Spent (In Minutes): 30 Discharge Plan Discharge Items Patient Disposition: Home - Self-Care Reason For Visit: S/P FALL, L4 FRACTURE, SMALL HEMATOMA Discharge Diagnosis: Lumbar fracture Condition on Discharge: Fair Activity: Resume your previous activity Non-emergency contact: Primary Care Provider Call non-emergency contact if: you have any medication questions, your symptoms worsen, your pain is worsening and you have a fever Follow-up/Referrals: Dwayne Herring DO [Primary Care Provider] - 03/03/22 11:00 am (Your appointment is with Arturo Kyle NP) Diet: Heart Healthy Addtl Attending Provider Instructions: You were admitted to the hospital for a fall which resulted in a displaced fracture of part of your spine at the L4 level. This is unlikely to require surgery and will likely heal with several weeks of rest. You were monitored in the hospital with imaging studies to check for internal bleeding due to your history of being on blood thinners. Thankfully no bleeding was noted on the repeat CT scans. Please follow up with your PCP soon after discharge. It is ok to continue your Plavix and Eliquis once you leave the hospital. A discharge summary will be sent to your primary care physician to ensure continuity of care. Please bring this discharge summary with you to your next office appointment so that your provider can review it at that time. Follow-up appointments: Make a follow-up appointment with your PCP within the next week. It is very important that you follow up with them shortly after discharge from the hospital. Medications: Your medication list has been reviewed and reconciled upon discharge to ensure accuracy and continuity of care. An updated list of all your medications is included with your hospital discharge paperwork. Please review this list closely, and make note of any changes. We sent oxycodone to the pharmacy. This medication is intended for pain relief as needed. We encourage you to continue Tylenol regularly and take the oxycodone for particularly severe pain. Take your medications as instructed; do not skip a dose of your medicines. Make sure all of your doctors know every medicine you are taking (including hyrf-fjz-wmyigja medicines, vitamins, and supplements). Call your primary care provider before taking any new medicines (including [id number] medicines, vitamins, and supplements), because some of these may interact with your current medications, or may make your symptoms worse. Tell your primary care provider if you cannot afford your medications. CONTACT YOUR PRIMARY CARE PROVIDER if you experience any of the following: Back pain Numbness Weakness Bowel/bladder incontinence Fever Difficulty following your treatment plan, or difficulty taking medications CALL 911 OR GO TO THE EMERGENCY DEPARTMENT if you experience any of the following: Sudden, severe abdominal pain or nausea/vomiting Severe chest pain, or chest pain that radiates (moves) to your jaw or arm Sudden, severe shortness of breath or difficulty breathing Thank you for allowing us to participate in your care. Pending Studies at Discharge: No Stand-Alone Forms: My [facility] [employer], Smoking Cessation Medications and DC Order Prescriptions: New oxycodone 5 mg Tablet 5 mg PO Q6H PRN (Reason: moderate to severe pain) Qty: 14 0RF Continued leuprolide (3 month) 22.5 mg syringe 22.5 mg subcut ONCE Qty: 1 0RF Rx Instructions: C61. Coming on 03/09/22. leuprolide (3 month) 22.5 mg syringe 22.5 mg subcut ONCE Qty: 1 0RF Rx Instructions: C61. Coming on 12/07/21 Flintstones Multivitamin Tablet,Chewable 1 tab PO BID Qty: 0 Eliquis 5 mg tablet 5 mg PO BID Qty: 180 3RF omeprazole 40 mg capsule,delayed release(DR/EC) 40 mg PO QAM Qty: 90 3RF carvedilol 3.125 mg tablet 3.125 mg PO BID Qty: 180 5RF clopidogrel 75 mg tablet 75 mg PO QAM Qty: 90 5RF lisinopril [Zestril] 5 mg tablet 5 mg PO QAM Qty: 90 5RF rosuvastatin [Crestor] 10 mg tablet 10 mg PO DAILY Qty: 90 5RF Rx Instructions: please cancel atorvastatin leuprolide (3 month) 22.5 mg syringe 22.5 mg subcut ONCE Qty: 1 0RF Rx Instructions: C61. Coming on 03/09/22 escitalopram oxalate [Lexapro] 5 mg tablet 5 mg PO HS Qty: 90 1RF (DME) CPAP Machine Misc .Route Qty: 1 0RF Rx Instructions: CPAP 8 cm of water with C-Flex of 1, mask fit patient comfort, heated unification, compliance download capabilities, [place] Home patient leuprolide (3 month) 22.5 mg syringe 22.5 mg subcut Q3M Rx Instructions: C61. Coming on 09/07/21. nitroglycerin [Nitrostat] 0.4 mg Tablet, Sublingual 0.4 mg sublingual PRN PRN (Reason: chest pain) Qty: 1 0RF Discharge Orders: Discharge Order (Routine); Ordered 02/28/22 Ordered By: Charbel Wyman Admission Data Admit Date/Time: 02/27/22 22:20 Attending Provider: Jovanna Zabala Admit Provider: Monica Angela Primary Care Provider: Dwayne Herring Other Providers: Monica Angela Other Interventions: Discharge Summary Assessment (RN) Last Done: 02/28/22 11:28 Supervising Physician Co-Signing Physician Notes Patient seen and examined independently of PGY-2 Dr. Wyman. Agree with history, exam findings, assessment and plan of care as outlined. In brief, Mr. Robert is a 71 year old male with history of factor V Leiden on Eliquis who is admitted following a fall from a horse, found to have an acute mildly displaced L4 transverse process fracture and hematoma in the flank area. Feeling well. Not having a lot of pain at this point. Emergency department note and H&P reviewed. Imaging from ED reviewed. VS and nursing notes reviewed. PE as above. Labs and imaging reviewed. 1. fall from horse. 2. acute mildly displaced L4 transverse process fracture. Stable fracture. Can follow up with orthopedics as an outpatient. Oxycodone PRN for moderate to severe pain. Rx sent to pharmacy. 3. Anticoagulation with Eliquis in the setting of Factor V Leiden. Holding Eliquis. Repeat CT A/P without any new or enlarging hematoma. 4. CAD. Holding Plavix. Other chronic issues are stable and home medications were continued. Dispo: discharge home today. I personally spent 20 minutes discharge planning for this patient. Follow up with PCP within 1 week. Resident Activity Tracking Resident Involvement: Resident Care Provided Care Provided: Adult [facility] Medicine
[2022-02-28] MEDS ORDERED: ESCITALOPRAM OXALATE 10 MG TAB PO SCH (21:00)
== END 2022-02-28 15:55 | disposition home or self-care (01) ==
LOC: 3N 18:12 → ED 18:12 → SUATTDRO 22:20 → 3N 02-28 00:59

== ENCOUNTER 2023-06-08 17:47 | Inpatient (IN) ==
[2023-06-08] MEDS ORDERED: KETOROLAC TROMETHAMINE 15 MG/ML VIAL IV STA (17:54)
[2023-06-08 18:22] LABS: Basophils # (auto) 0.01 K/uL (0.00-0.20); Basophils % (auto) 0.2 %; Eosinophils # (auto) 0.13 K/uL (0.00-0.50); Eosinophils % (auto) 2.2 %; Hematocrit (blood only) 39.9 % (42.0-52.0); Immature Granulocytes # (auto) 0.02 K/uL (0.01-0.20); Immature Granulocytes % (auto) 0.3 %; Lymphocytes # (auto) 1.05 K/uL (1.20-3.40); Lymphocytes % (auto) 17.9 %; Mean Corpuscular Hemoglobin 30.1 pg (25.0-34.0); Mean Corpuscular Hgb Conc 32.6 g/dL (32.0-36.0); Mean Corpuscular Volume 92.4 fL (80.0-100.0); Mean Platelet Volume 10.1 fL (9.4-12.4); Monocytes # (auto) 0.91 K/uL (0.11-0.59); Monocytes % (auto) 15.6 %; Neutrophils # (auto) 3.73 K/uL (1.40-6.50); Neutrophils % (auto) 63.8 %; Platelet Count 158 K/uL (130-400); RDW Coefficient of Variation 14.1 % (11.5-14.5); RDW Standard Deviation 48.2 fL (36.4-46.3); Red Blood Count 4.32 M/uL (4.70-6.10); White Blood Count 5.85 K/ul (4.8-10.8)
[2023-06-08 18:38] LABS: Albumin Globulin Ratio 1.2 (0.9-2); Albumin Level 3.8 gm/dl (3.4-5.0); BUN Creatinine Ratio 13.2 (10-20); Bilirubin,Total 0.7 mg/dl (0.2-1.0); Calcium 9.3 mg/dl (8.6-10.3); Creatinine Clr Calc Pharmacy 42.8 ml/min; Est GFR (African American) 38.2 ml/min; Globulin 3.1 gm/dl (2.5-4.0); Potassium 4.2 mmol/L (3.5-5.1); Total Protein 6.9 gm/dl (6.0-8.3)
[2023-06-08] MEDS ORDERED: ACETAMINOPHEN 1,000 MG/100 ML VIAL IV STA (20:16)
[2023-06-08] MEDS ORDERED: KETOROLAC TROMETHAMINE 15 MG/ML VIAL ONE (20:38)
[2023-06-08] MEDS ORDERED: ONDANSETRON INJ 2 MG/ML 2 ML VIAL ONE (20:40)
[2023-06-08] MEDS ORDERED: MoRPHine SULFATE 4 MG/ML 1 ML CARP\\VIAL IV STA ×2 (20:42→22:58)
[2023-06-08] MEDS ORDERED: ONDANSETRON INJ 2 MG/ML 2 ML VIAL IV STA ×2 (20:42→22:58)
--- NOTE | 2023-06-08 20:44 | Emergency Department Note ---
Impression & Plan Hydronephrosis due to obstruction of ureter, Ureterolithiasis, Acute renal insufficiency, Left flank pain ED Provider Note NAME: RACHAEL MOURA AGE: 72 SEX: M ARRIVES VIA: Walk-In INFORMANT: Patient ED PROVIDER(S): Rickey Jackson MD CHIEF COMPLAINT: Left flank pain. PLAN: Disposition: Admit MEDICAL DECISION MAKING: The patient is a pleasant 72-year-old gentleman with a past medical history of factor V Leiden, PE/DVT in 2012 on Eliquis, history of nephrolithiasis who presents to the emergency department via walk-in for evaluation of progressive worsening left flank pain ongoing since Monday is reminiscent of kidney stones. Feels a squeezing in his side. He reports he did pass 2 stones days ago and had some relief but then the pain has persisted. He denies any blood in his urine. He denies any fevers, chills, cough, congestion, diarrhea. Of note, the patient did arrive to emergency department during time of high volume, acuity and prolonged emergency department waiting times. Critical pathways initiated from triage. On my evaluation the patient is no acute distress, afebrile stable vital signs. He appears clinically dry. He has mild left flank discomfort without discrete tenderness. WBC and platelets within normal limits. H/H similar to prior. Chemistry without metabolic acidosis. Creatinine 1.9 increased from prior consistent with dehydration in setting of patient's report of poor oral intake due to ongoing nausea due to his flank pain. LFTs are unremarkable. UA without convincing evidence of infection. CT of the abd/pelvis was performed and demonstrates numerous left-sided ureteral stones causing obstruction and hydronephrosis with the greatest measuring 1 cm in size with the most distal stone in the distal left ureter. Upon evaluation patient did feel improved following IV hydration, morphine, Zofran. However he did feel his pain returning. Given the extent of his stones and persistent pain in the setting of renal insufficiency agrees with plan for admission for further management. Case was discussed with Dr. Adames, [facility] hospitalist, who will evaluate the patient for admission. Triage Nursing notes reviewed and agree them. Prior/external medical records reviewed including patient's April 28, 2023 well visit describing the patient's cardiac history with NSTEMI and 2021, history of factor V Leiden PE and DVT on Eliquis Vital Signs: reviewed Differential diagnosis: Renal colic, UTI, appendicitis, diverticulitis, mesenteric ischemia, aortic pathology, infections, inflammatory bowel disease, PUD, biliary pathology, as well as other pathologies. ER treatment provided: See below. Diagnostics interpreted by me: Cardiac Monitoring: An order for continuous cardiac monitoring was placed and demonstrated normal sinus rhythm, 66 bpm, no ectopy Laboratory studies: See below Imaging studies: See below Consultation(s): Case was discussed with Dr. Adames, [facility] [place] hospitalist, who will evaluate the patient for admission. HPI: The patient is a pleasant 72-year-old gentleman with a past medical history of factor V Leiden, PE/DVT in 2012 on Eliquis, history of nephrolithiasis who presents to the emergency department via walk-in for evaluation of progressive worsening left flank pain ongoing since Monday is reminiscent of kidney stones. Feels a squeezing in his side. He reports he did pass 2 stones days ago and had some relief but then the pain has persisted. He denies any blood in his urine. He denies any fevers, chills, cough, congestion, diarrhea. ROS: See above HPI for pertinent positives & negatives. A total of 10 systems reviewed and were otherwise negative. VITALS:See Below PHYSICAL EXAMINATION: GENERAL: Awake, alert, fatigued-appearing, in no distress HENT: Normocephalic, atraumatic. Oropharynx with dry mucous membranes and otherwise unremarkable. EYES: Normal conjunctiva. Sclera non-icteric. NECK: Supple. No nuchal rigidity. FROM. No JVD. RESPIRATORY: Clear to auscultation. CARDIAC: Regular rate, normal rhythm. Extremities warm and well perfused. Pulses equal. ABDOMEN: Soft, non-distended. No tenderness to palpation. No rebound or guarding. No masses. RECTAL: Deferred. MUSCULOSKELETAL: Chest examination reveals no tenderness. The back is symmetrical on inspection without obvious abnormality. There is no CVA tenderness to palpation. No joint edema. LOWER EXTREMITIES: Calves are equal size bilaterally and non-tender. No edema. No discoloration. NEURO: Normal sensorium. No sensory or motor deficits noted. SKIN: No rash or jaundice noted. Rickey Jackson MD Past Med/Surg History Medical History Chronic anticoagulation Lumbar vertebral fracture hx fall 2021..fractures in back - continues to monitor a compression "something"- no hx sx intervention. History of non-ST elevation myocardial infarction (NSTEMI) Factor 5 Leiden mutation, heterozygous on Eliquis Myocardial Infarction ACS 09/24/21: 90% hazy proximal stenosis in D1/ No PCI (vessel too small; Treat medically) History of prostate cancer dx 09/2020; hx radiation + Lupron inj q3m Sleep apnea cpap History of pulmonary embolism 8 years ago; on eliquis Calculus of left kidney at present, not causing any issues at present History of kidney stones Gout hx Multiple pulmonary nodules benign, last CT 2016 Depression Factor V deficiency Hyperlipidemia GERD (gastroesophageal reflux disease) Surgical History History of esophagogastroduodenoscopy (EGD) History of elbow surgery Left History of prostate biopsy History of cystoscopy w/ stone extraction H/O gastric bypass History of colonoscopy History of laparoscopy OPEN LAP FOR COMPLICATION FOLLOWING GASTRIC SURGERY History of herniorrhaphy INCISIONAL History of gastric bypass GASTRIC SLEEVE Family History Father Prostate cancer Heart disease Mother Parkinson disease Brother Cancer Prostate Cancer Colorectal cancer Brother Cancer Prostate Cancer Other Family history of colon cancer Denies family history of Ovarian cancer Myocardial infarction Pancreatitis Breast cancer Lung cancer Social History Smoking Status: Never smoker Second Hand Exposure: No; Do You Dip or Chew Tobacco: No; Hx Alcohol Use: No Hx Substance Use: No Preferred Language: Romanian Communication Ability: Effective Visual Impairment: Limited 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: Normal Project Account Manager Required: No Beliefs That Will Affect Care: None marital status: Current Living Situation: Spouse current occupational status: retired Feels Safe at Home: Yes Childhood Exposure to Second-Hand Smoke: No Diet: regular Diet Comment: Mindful of food choices due to gastric sleeve caffeine: Yes Dental Care, Regularly: No Physical Activity Frequency: 3-4 Times per Week Seatbelt Use: always Sunscreen Use: Yes Assistive Devices: CPAP and Glasses Allergies Allergies Allergy/AdvReac Type Severity Reaction Status Date / Time iodine Allergy Unknown Anaphylaxis Verified 04/28/23 09:51 shellfish derived Allergy Unknown Anaphylaxis Verified 04/28/23 09:51 Home Meds Home Medications Medication Instructions Recorded Confirmed pediatric multivitamin 1 tab PO BID ##0 10/06/15 06/08/23 (Flintstones Multivitamin chewable tablet) omeprazole 20 mg capsule,delayed 20 mg PO QAM 01/10/23 06/08/23 release rosuvastatin 20 mg tablet 20 mg PO QPM 01/10/23 06/08/23 apixaban 5 mg tablet (Eliquis) 5 mg PO BID 06/08/23 06/08/23 Previous Rx's Medication Instructions Recorded nitroglycerin 0.4 mg sublingual 0.4 mg sublingual PRN PRN chest 09/25/21 tablet (Nitrostat) pain #1 btl CPAP Machine #1 ea 12/16/21 lisinopril 5 mg tablet (Zestril) 5 mg PO QAM #90 tabs 03/09/23 carvedilol 3.125 mg tablet 3.125 mg PO BID #180 tabs 03/14/23 tramadol 50 mg tablet 25 - 50 mg (0.5 - 1 x 50 mg) PO 03/14/23 BID PRN pain #30 tabs duloxetine 30 mg capsule,delayed 30 mg PO DAILY #30 caps 04/28/23 release Results & Data (ED) Vital Signs Vital Signs - 24 hr 06/08/23 17:52 06/08/23 20:47 06/08/23 21:48 Temperature 36.9 C Temperature Source Skin Pulse Rate 86 66 Pulse Rate [Apical] 64 Pulse Rate from SpO2 Sensor Pulse Rhythm [Apical] Regular Pulse Strength [Apical] Normal Respiratory Rate 16 17 Respiratory Effort / Characteristics Non-Labored Spontaneous Non-Labored Spontaneous Respiratory Depth Normal Normal Respiratory Pattern Regular Blood Pressure 123/83 Blood Pressure [Right Arm] 127/65 Blood Pressure Mean 96 Blood Pressure Mean [Right Arm] 85 Blood Pressure Position [Right Arm] Semi-fowlers Pulse Oximetry 95 96 Oxygen Delivery Method Room Air Room Air Sepsis Recent Fever Within 48 Hours No Sepsis New/Unexplained Change in Mental Status N/A Sepsis Action Taken by Nursing No Action Required 06/08/23 23:00 06/08/23 23:30 06/08/23 23:30 Temperature Temperature Source Pulse Rate 65 60 Pulse Rate [Apical] Pulse Rate from SpO2 Sensor 61 Pulse Rhythm [Apical] Pulse Strength [Apical] Respiratory Rate 16 16 Respiratory Effort / Characteristics Respiratory Depth Respiratory Pattern Blood Pressure 123/66 116/63 Blood Pressure [Right Arm] Blood Pressure Mean 85 88 Blood Pressure Mean [Right Arm] Blood Pressure Position [Right Arm] Pulse Oximetry 93 91 Oxygen Delivery Method Room Air Sepsis Recent Fever Within 48 Hours Sepsis New/Unexplained Change in Mental Status Sepsis Action Taken by Nursing Laboratory Data Attestation: I reviewed the patient's lab results. 06/08/23 18:07 06/08/23 18:07 Lab Results 06/08/23 06/08/23 Range/Units 18: 20:50 WBC 5.85 (4.8-10.8) K/ul RBC 4.32 L (4.70-6.10) M/uL Hgb 13.0 L (14.0-18.0) g/dl Hct 39.9 L (42.0-52.0) % MCV 92.4 (80.0-100.0) fL MCH 30.1 (25.0-34.0) pg MCHC 32.6 (32.0-36.0) g/dL RDW Std Deviation 48.2 H (36.4-46.3) fL RDW Coeff of Nadja 14.1 (11.5-14.5) % Plt Count 158 (130-400) K/uL MPV 10.1 (9.4-12.4) fL Immature Gran % (Auto) 0.3 % Neut % (Auto) 63.8 % Lymph % (Auto) 17.9 % [place] % (Auto) 15.6 % Eos % (Auto) 2.2 % Baso % (Auto) 0.2 % Neut # (Auto) 3.73 (1.40-6.50) K/uL Lymph # (Auto) 1.05 L (1.20-3.40) K/uL [place] # (Auto) 0.91 H (0.11-0.59) K/uL Eos # (Auto) 0.13 (0.00-0.50) K/uL Baso # (Auto) 0.01 (0.00-0.20) K/uL Immature Gran # (Auto) 0.02 (0.01-0.20) K/uL Sodium 138 (136-145) mmol/L Potassium 4.2 (3.5-5.1) mmol/L Chloride 106 (98-107) mmol/L Carbon Dioxide 27 (21-32) mmol/L Anion Gap 5 (3-11) BUN 26 H (6-23) mg/dl Creatinine 1.97 H (0.6-1.4) mg/dl Est Cr Clr Drug Dosing 42.8 ml/min Est GFR ( Amer) 38.2 ml/min Est GFR (Non-Af Amer) 33.0 ml/min BUN/Creatinine Ratio 13.2 (10-20) Glucose 99 (70-99(Fasting)) mg/dl Calcium 9.3 (8.6-10.3) mg/dl Total Bilirubin 0.7 (0.2-1.0) mg/dl AST 15 (13-39) U/L ALT 7 (7-52) U/L Alkaline Phosphatase 74 (34-104) U/L Total Protein 6.9 (6.0-8.3) gm/dl Albumin 3.8 (3.4-5.0) gm/dl Globulin 3.1 (2.5-4.0) gm/dl Albumin/Globulin Ratio 1.2 (0.9-2) Urine Color Yellow Urine Appearance Turbid A (Clear) Urine pH 5.5 (4.5-7.5) Ur Specific [place] 1.021 (1.000-1.030) Urine Protein Negative (Negative) Urine Glucose (UA) Negative (Negative) Urine Ketones Trace H (Negative) Urine Blood Negative (Negative) Urine Nitrite Negative (Negative) Urine Bilirubin Negative (Negative) Urine Urobilinogen Negative (Negative) Ur Leukocyte Esterase Negative (Negative) Urine WBC (Auto) 1-5 (0-5) /hpf Urine RBC (Auto) 0-4 (0-4) /hpf U Hyaline Cast (Auto) 0 (0-5) /lpf U Epithel Cells (Auto) 0-5 (0-5) /lpf Urine Bacteria (Auto) Negative (Negative) Administered Medications Discontinued Medications Acetaminophen (Ofirmev) 1,000 mg in 100 mls @ 400 mls/hr IV NOW STA Stop: 06/08/23 20:30 Last Infusion: 06/08/23 21:23 Dose: Infused Documented By: Admin: 06/08/23 20:47 Dose: 400 mls/hr Documented By: MARGARETTE Ketorolac Tromethamine (Ketorolac Tromethamine 15 Mg/Ml Vial) 15 mg IV ONE STA Stop: 06/08/23 17:55 Last Admin: 06/08/23 20:46 Dose: 15 mg Documented By: MARGARETTE Ketorolac Tromethamine (Ketorolac Tromethamine 15 Mg/Ml Vial) Confirm Administered Dose 15 mg .ROUTE .STK-MED ONE Stop: 06/08/23 20:39 Last Admin: 06/08/23 20:49 Dose: Not Given Documented By: MARGARETTE Morphine Sulfate (Morphine Sulfate 4 Mg/Ml 1 Ml Carp\\Vial) 4 mg IV NOW STA Stop: 06/08/23 20:43 Last Admin: 06/08/23 20:51 Dose: 4 mg Documented By: MARGARETTE Morphine Sulfate (Morphine Sulfate 4 Mg/Ml 1 Ml Carp\\Vial) 4 mg IV NOW STA Stop: 06/08/23 22:59 Last Admin: 06/08/23 23:18 Dose: 4 mg Documented By: EUGENIE Ondansetron HCl (Ondansetron Inj 2 Mg/Ml 2 Ml Vial) Confirm Administered Dose 4 mg .ROUTE .STK-MED ONE Stop: 06/08/23 20:41 Last Admin: 06/08/23 20:49 Dose: Not Given Documented By: MARGARETTE Ondansetron HCl (Ondansetron Inj 2 Mg/Ml 2 Ml Vial) 4 mg IV NOW STA Stop: 06/08/23 20:43 Last Admin: 06/08/23 20:47 Dose: 4 mg Documented By: MARGARETTE Ondansetron HCl (Ondansetron Inj 2 Mg/Ml 2 Ml Vial) 4 mg IV NOW STA Stop: 06/08/23 22:59 Last Admin: 06/08/23 23:17 Dose: 4 mg Documented By: EUGENIE Imaging Data Radiologist's Impression: Abdomen/Pelvis CT 06/08/23 20:14 Exam(s): CT ABDOMEN + PELVIS Without Contrast EXAM: CT Abdomen and Pelvis Without Intravenous Contrast CLINICAL HISTORY: Reason for exam: left flank pain. TECHNIQUE: Axial computed tomography images of the abdomen and pelvis without intravenous contrast. CTDI is 28.09 mGy and DLP is 1518.65 mGy-cm. Automated exposure control was utilized for the study. A dose lowering technique was utilized adhering to the principles of ALARA. COMPARISON: 07/03/22 FINDINGS: Lung bases: Unremarkable. No mass. No consolidation. Mediastinum: Small hiatus hernia. ABDOMEN: Liver: Unremarkable. Gallbladder and bile ducts: Unremarkable. No calcified stones. No ductal dilation. Pancreas: Unremarkable. No ductal dilation. Spleen: Unremarkable. No splenomegaly. Adrenals: Unremarkable. No mass. Kidneys and ureters: There is left-sided hydronephrosis due to the presence of multiple calculi is seen at the junction of proximal two thirds and distal one third, measuring up to 1 cm in diameter. Bilateral nonobstructing renal stones are seen, measuring up to 7 mm in diameter on the left and 6 mm in diameter on the right. Bilateral multiple renal cortical cysts are seen. Stomach and bowel: There is sleeve gastrectomy. No obstruction. PELVIS: Appendix: No findings to suggest acute appendicitis. Bladder: Unremarkable. No stones. Reproductive: Unremarkable as visualized. ABDOMEN and PELVIS: Intraperitoneal space: Unremarkable. No free air. No significant fluid collection. Bones/joints: Mild degenerative disc disease changes seen in the lumbar spine. No acute fracture. No dislocation. Soft tissues: Unremarkable. Vasculature: Unremarkable. No abdominal aortic aneurysm. Lymph nodes: Unremarkable. No enlarged lymph nodes. IMPRESSION: Left hydroureteronephrosis due to multiple left distal ureter calculus measuring up to 1 cm in diameter. Electronically signed by: Yariel Mccord MD 06/08/23 22:12 PM Discharge Plan Visit Data Chief Complaint: Urinary Symptoms Stated Complaint: PAIN WHILE URINATING, KINDEY STONE ED Provider: Rickey Jackson Discharge Problem: Hydronephrosis due to obstruction of ureter, Ureterolithiasis, Acute renal insufficiency, Left flank pain Forms Stand Alone Forms: [facility] Prescriptions Prescriptions: No Action Flintstones Multivitamin Tablet,Chewable 1 tab PO BID Qty: 0 lisinopril [Zestril] 5 mg tablet 5 mg PO QAM Qty: 90 5RF carvedilol 3.125 mg tablet 3.125 mg PO BID Qty: 180 5RF tramadol 50 mg tablet 25 - 50 mg PO BID PRN (Reason: pain) Qty: 30 0RF Rx Instructions: Dr Raya Bajwa SHANTI [id number] [facility] [id number] ([facility] [place]) CPAP Machine Misc .Route Qty: 1 0RF Rx Instructions: CPAP 8 cm of water with C-Flex of 1, mask fit patient comfort, heated unification, compliance download capabilities, [place] Home patient duloxetine 30 mg capsule,delayed release(DR/EC) 30 mg PO DAILY Qty: 30 2RF nitroglycerin [Nitrostat] 0.4 mg Tablet, Sublingual 0.4 mg sublingual PRN PRN (Reason: chest pain) Qty: 1 0RF Patient Comments: never had to use omeprazole 20 mg capsule,delayed release(DR/EC) 20 mg PO QAM Patient Comments: 40 mg currently finishing out the prescription then will decrease to 20 mg. rosuvastatin 20 mg tablet 20 mg PO QPM Hold Instructions: Home Medication placed on hold at Doctor's office Eliquis 5 mg tablet 5 mg PO BID Referrals Referrals: Raya Bajwa MD [Primary Care Provider] -
[2023-06-08 21:47] LABS: Appearance Urine Turbid (Clear); Bacteria Urine Automated Negative (Negative); Bilirubin Urine Negative (Negative); Blood Urine Negative (Negative); Cast Urine Automated 0 /lpf (0-5); Color Urine Yellow; Epithelial Cell Urine Auto 0-5 /lpf (0-5); Glucose Urine UA Negative (Negative); Ketones Urine Trace (Negative); Leukocyte Esterase Urine Negative (Negative); Nitrite Urine Negative (Negative); Protein Urine Negative (Negative); RBC Urine Automated 0-4 /hpf (0-4); Specific Gravity Urine 1.021 (1.000-1.030); Urobilinogen Urine Negative (Negative); pH Urine 5.5 (4.5-7.5)
--- NOTE | 2023-06-08 22:13 | CT Scan Report ---
Exam(s): CT ABDOMEN + PELVIS Without Contrast EXAM: CT Abdomen and Pelvis Without Intravenous Contrast CLINICAL HISTORY: Reason for exam: left flank pain. TECHNIQUE: Axial computed tomography images of the abdomen and pelvis without intravenous contrast. CTDI is 28.09 mGy and DLP is 1518.65 mGy-cm. Automated exposure control was utilized for the study. A dose lowering technique was utilized adhering to the principles of ALARA. COMPARISON: 07/03/22 FINDINGS: Lung bases: Unremarkable. No mass. No consolidation. Mediastinum: Small hiatus hernia. ABDOMEN: Liver: Unremarkable. Gallbladder and bile ducts: Unremarkable. No calcified stones. No ductal dilation. Pancreas: Unremarkable. No ductal dilation. Spleen: Unremarkable. No splenomegaly. Adrenals: Unremarkable. No mass. Kidneys and ureters: There is left-sided hydronephrosis due to the presence of multiple calculi is seen at the junction of proximal two thirds and distal one third, measuring up to 1 cm in diameter. Bilateral nonobstructing renal stones are seen, measuring up to 7 mm in diameter on the left and 6 mm in diameter on the right. Bilateral multiple renal cortical cysts are seen. Stomach and bowel: There is sleeve gastrectomy. No obstruction. PELVIS: Appendix: No findings to suggest acute appendicitis. Bladder: Unremarkable. No stones. Reproductive: Unremarkable as visualized. ABDOMEN and PELVIS: Intraperitoneal space: Unremarkable. No free air. No significant fluid collection. Bones/joints: Mild degenerative disc disease changes seen in the lumbar spine. No acute fracture. No dislocation. Soft tissues: Unremarkable. Vasculature: Unremarkable. No abdominal aortic aneurysm. Lymph nodes: Unremarkable. No enlarged lymph nodes. IMPRESSION: Left hydroureteronephrosis due to multiple left distal ureter calculus measuring up to 1 cm in diameter. Electronically signed by: Yariel Mccord MD 06/08/23 22:12 PM
--- NOTE | 2023-06-08 23:53 | History & Physical Report ---
Date of Service June 08, 2023 Assessment & Plan (1) Calculus of distal left ureter: (2) Hydronephrosis of left kidney: (3) Hydronephrosis due to obstruction of ureter: (4) Chronic anticoagulation: (5) History of pulmonary embolism: (6) Acute kidney injury: (7) CAD (coronary atherosclerotic disease): (8) Prostate cancer: (9) Sleep apnea: Plan Left hydronephrosis/multiple distal left ureteral calculi- N.p.o. except essential medications Hold apixaban, placed on therapeutic Lovenox subcu this evening Acetaminophen 1 g IV every 8 hours as needed for mild pain or fever Morphine sulfate 4 mg IV every 3 hours as needed for moderate to severe pain Zofran 4 mg IV every 6 hours as needed Ceftriaxone 2 g IV every 24 hours NSS at 100 mils per hour x1 L Add tamsulosin 0.4 mg daily Consult urology History of pulmonary embolism/factor V Leiden- Has been on chronic anticoagulation with Eliquis Last dose was the morning of 06/08 and Eliquis will be held for now. Place on heparin IV low-dose no bolus, which can be turned off earlier in the day in the event that a urologic procedure is to be performed CAD/history of AR/medically managed acute small first diagonal disease- Continue carvedilol 3.125 mg p.o. twice daily Acute kidney injury- Creatinine 1.97 with base 1.14 Hold lisinopril NSS at 100 mils per hour x1 L Repeat laboratories in a.m. History of Present Illness Chief Complaint: The patient presents to the emergency department with complaint of left flank pain, having past 2 kidney stones from the left side 4 days ago, had intermittent pain since that time, until today when the pain worsened and he presented to the ED for assessment. He does report having had a brief episode of hematuria 4 days ago when he passed the 2 stones, but none since that time. He has had many kidney stones in the past, on both sides, and reports that he has 2 types of pain. One type of pain is a constant squeezing pain when the stone is present and not moving, and second pain is a tearing type pain when the stones are on the move. Primary Care Provider: Raya Bajwa MD The patient is a 72-year-old male with a past medical history including history of pulmonary embolism/DVT on chronic anticoagulation, factor V Leiden deficiency, history of AR 09/21, acute small first diagonal disease medically managed, history of ureteral stones bilaterally, IZZY, prostate cancer, CAD, and dilated aortic root. The patient has had a left kidney stones in his life that he is aware of when the stones occur, and whether they are moving or not. Reports having passed 2 stones from the left side 4 days ago, during which time he had some hematuria that resolved when the stones passed. He had pain intermittently during the week, and then today developed more significant pain, felt that stones were moving, and presented to the ED. He was aware of having stones in the left kidney, and had had a procedure done at [place] while on anticoagulation years ago, reporting that he could not get the procedure done locally. Allergies Allergy/AdvReac Type Severity Reaction Status Date / Time iodine Allergy Unknown Anaphylaxis Verified 04/28/23 09:51 shellfish derived Allergy Unknown Anaphylaxis Verified 04/28/23 09:51 Home Medications Medication Instructions Recorded Confirmed Type pediatric multivitamin 1 tab PO BID ##0 10/06/15 06/08/23 History ([facility] Multivitamin chewable tablet) nitroglycerin 0.4 mg sublingual 0.4 mg sublingual PRN PRN chest 09/25/21 06/08/23 Rx tablet (Nitrostat) pain #1 btl CPAP Machine #1 ea 12/16/21 06/08/23 Rx omeprazole 20 mg capsule,delayed 20 mg PO QAM 01/10/23 06/08/23 History release rosuvastatin 20 mg tablet 20 mg PO QPM 01/10/23 06/08/23 History lisinopril 5 mg tablet (Zestril) 5 mg PO QAM #90 tabs 03/09/23 06/08/23 Rx carvedilol 3.125 mg tablet 3.125 mg PO BID #180 tabs 03/14/23 06/08/23 Rx tramadol 50 mg tablet 25 - 50 mg (0.5 - 1 x 50 mg) PO 03/14/23 06/08/23 Rx BID PRN pain #30 tabs duloxetine 30 mg capsule,delayed 30 mg PO DAILY #30 caps 04/28/23 06/08/23 Rx release apixaban 5 mg tablet (Eliquis) 5 mg PO BID 06/08/23 06/08/23 History Past Med/Surg History Medical History (Updated 06/09/23 @ 03:05 by Anselmo Adames MD) Chronic anticoagulation Lumbar vertebral fracture hx fall 2021..fractures in back - continues to monitor a compression "something"- no hx sx intervention. History of non-ST elevation myocardial infarction (NSTEMI) Factor 5 Leiden mutation, heterozygous on Eliquis Myocardial Infarction ACS 09/24/21: 90% hazy proximal stenosis in D1/ No PCI (vessel too small; Treat medically) History of prostate cancer dx 09/2020; hx radiation + Lupron inj q3m Sleep apnea cpap History of pulmonary embolism 8 years ago; on eliquis Calculus of left kidney at present, not causing any issues at present History of kidney stones Gout hx Multiple pulmonary nodules benign, last CT 2016 Depression Factor V deficiency Hyperlipidemia GERD (gastroesophageal reflux disease) Surgical History History of esophagogastroduodenoscopy (EGD) History of elbow surgery Left History of prostate biopsy History of cystoscopy w/ stone extraction H/O gastric bypass History of colonoscopy History of laparoscopy OPEN LAP FOR COMPLICATION FOLLOWING GASTRIC SURGERY History of herniorrhaphy INCISIONAL History of gastric bypass GASTRIC SLEEVE Family History Father Prostate cancer Heart disease Mother Parkinson disease Brother Cancer Prostate Cancer Colorectal cancer Brother Cancer Prostate Cancer Other Family history of colon cancer Denies family history of Ovarian cancer Myocardial infarction Pancreatitis Breast cancer Lung cancer Social History Smoking Status: Never smoker Second Hand Exposure: No; Do You Dip or Chew Tobacco: No; Hx Alcohol Use: No Hx Substance Use: No Preferred Language: Greenlandic Communication Ability: Effective Visual Impairment: Limited 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: Normal 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 Beliefs That Will Affect Care: None marital status: Current Living Situation: Spouse current occupational status: retired Other Information That Helps Us Care for You: No Feels Safe at Home: Yes Safety Concerns: Feels Safe At This Time Childhood Exposure to Second-Hand Smoke: No Diet: regular Diet Comment: Mindful of food choices due to gastric sleeve caffeine: Yes Dental Care, Regularly: No Physical Activity Frequency: 3-4 Times per Week Seatbelt Use: always Sunscreen Use: Yes Assistive Devices: Glasses Review of Systems Review of Systems: The patient denies chest pain, palpitations, shortness of breath, dyspnea on exertion, cough, lower extremity swelling, sore throat, fevers, chills, sweats, weight change, fatigue, nausea, vomiting, diarrhea , constipation, blood in stool, lightheadedness, dizziness, headache, memory loss, loss of consciousness, rash, imbalance, focal or generalized weakness, numbness or tingling in arms or legs, generalized arthralgias or myalgias, neck pain, or night sweats. The review of systems is otherwise negative other than for that already noted above, and at least 10 systems have been reviewed. Physical Exam Physical Exam: The patient is awake, alert and oriented 3, well developed and well nourished, normocephalic and atraumatic, lying in bed and in no acute distress. HEENT--PERRL, EOMI, mucous membranes and oropharynx normal. Neck--supple. No JVD. No bruits. Thyroid normal, trachea midline, no adenopathy. Heart--normal S1 and S2. No murmurs, rubs or gallops. Lungs--clear bilaterally, no respiratory distress, no accessory muscle use. Abdomen--normal bowel sounds and soft. Nontender. Nondistended, no hernias or masses, no organomegaly. Extremities--no cyanosis or clubbing. No edema. Dermatologic--normal skin turgor, normal color, no abnormal lymph nodes, no rash. Neurologic--cranial nerves II through XII grossly intact. Rheumatologic--normal range of motion. Psychiatric--normal affect. Results & Data Results & Data Vital Signs (Past 12 Hours) Vital Signs Temp Pulse Pulse Resp BP BP Pulse Ox 06/08/23 23:30 60 16 91 06/08/23 23:30 116/63 06/08/23 23:00 65 16 123/66 93 06/08/23 21:48 64 17 127/65 96 06/08/23 20:47 66 06/08/23 17:52 36.9 C 86 16 123/83 95 O2 Del Method 06/08/23 23:30 06/08/23 23:30 06/08/23 23:00 Room Air 06/08/23 21:48 Room Air 06/08/23 20:47 06/08/23 17:52 Room Air Laboratory Results Laboratory Results WBC 5.85 K/ul (4.8-10.8) 06/08/23 18:07 RBC 4.32 M/uL (4.70-6.10) L 06/08/23 18:07 Hgb 13.0 g/dl (14.0-18.0) L 06/08/23 18:07 Hct 39.9 % (42.0-52.0) L 06/08/23 18:07 MCV 92.4 fL (80.0-100.0) 06/08/23 18:07 MCH 30.1 pg (25.0-34.0) 06/08/23 18:07 MCHC 32.6 g/dL (32.0-36.0) 06/08/23 18:07 RDW Std Deviation 48.2 fL (36.4-46.3) H 06/08/23 18:07 RDW Coeff of Nadja 14.1 % (11.5-14.5) 06/08/23 18:07 Plt Count 158 K/uL (130-400) 06/08/23 18:07 MPV 10.1 fL (9.4-12.4) 06/08/23 18:07 Immature Gran % (Auto) 0.3 % 06/08/23 18:07 Neut % (Auto) 63.8 % 06/08/23 18:07 Lymph % (Auto) 17.9 % 06/08/23 18:07 [place] % (Auto) 15.6 % 06/08/23 18:07 Eos % (Auto) 2.2 % 06/08/23 18:07 Baso % (Auto) 0.2 % 06/08/23 18:07 Neut # (Auto) 3.73 K/uL (1.40-6.50) 06/08/23 18:07 Lymph # (Auto) 1.05 K/uL (1.20-3.40) L 06/08/23 18:07 [place] # (Auto) 0.91 K/uL (0.11-0.59) H 06/08/23 18:07 Eos # (Auto) 0.13 K/uL (0.00-0.50) 06/08/23 18:07 Baso # (Auto) 0.01 K/uL (0.00-0.20) 06/08/23 18:07 Immature Gran # (Auto) 0.02 K/uL (0.01-0.20) 06/08/23 18:07 Sodium 138 mmol/L (136-145) 06/08/23 18:07 Potassium 4.2 mmol/L (3.5-5.1) 06/08/23 18:07 Chloride 106 mmol/L (98-107) 06/08/23 18:07 Carbon Dioxide 27 mmol/L (21-32) 06/08/23 18:07 Anion Gap 5 (3-11) 06/08/23 18:07 BUN 26 mg/dl (6-23) H 06/08/23 18:07 Creatinine 1.97 mg/dl (0.6-1.4) H 06/08/23 18:07 Est Cr Clr Drug Dosing 42.8 ml/min 06/08/23 18:07 Est GFR ( Amer) 38.2 ml/min 06/08/23 18:07 Est GFR (Non-Af Amer) 33.0 ml/min 06/08/23 18:07 BUN/Creatinine Ratio 13.2 (10-20) 06/08/23 18:07 Glucose 99 mg/dl (70-99(Fasting)) 06/08/23 18:07 Calcium 9.3 mg/dl (8.6-10.3) 06/08/23 18:07 Total Bilirubin 0.7 mg/dl (0.2-1.0) 06/08/23 18:07 AST 15 U/L (13-39) 06/08/23 18:07 ALT 7 U/L (7-52) 06/08/23 18:07 Alkaline Phosphatase 74 U/L (34-104) 06/08/23 18:07 Total Protein 6.9 gm/dl (6.0-8.3) 06/08/23 18:07 Albumin 3.8 gm/dl (3.4-5.0) 06/08/23 18:07 Globulin 3.1 gm/dl (2.5-4.0) 06/08/23 18:07 Albumin/Globulin Ratio 1.2 (0.9-2) 06/08/23 18:07 Urine Color Yellow 06/08/23 20:50 Urine Appearance Turbid (Clear) A 06/08/23 20:50 Urine pH 5.5 (4.5-7.5) 06/08/23 20:50 Ur Specific [place] 1.021 (1.000-1.030) 06/08/23 20:50 Urine Protein Negative (Negative) 06/08/23 20:50 Urine Glucose (UA) Negative (Negative) 06/08/23 20:50 Urine Ketones Trace (Negative) H 06/08/23 20:50 Urine Blood Negative (Negative) 06/08/23 20:50 Urine Nitrite Negative (Negative) 06/08/23 20:50 Urine Bilirubin Negative (Negative) 06/08/23 20:50 Urine Urobilinogen Negative (Negative) 06/08/23 20:50 Ur Leukocyte Esterase Negative (Negative) 06/08/23 20:50 Urine WBC (Auto) 1-5 /hpf (0-5) 06/08/23 20:50 Urine RBC (Auto) 0-4 /hpf (0-4) 06/08/23 20:50 U Hyaline Cast (Auto) 0 /lpf (0-5) 06/08/23 20:50 U Epithel Cells (Auto) 0-5 /lpf (0-5) 06/08/23 20:50 Urine Bacteria (Auto) Negative (Negative) 06/08/23 20:50 Impressions Abdomen/Pelvis CT 06/08/23 20:14 Exam(s): CT ABDOMEN + PELVIS Without Contrast EXAM: CT Abdomen and Pelvis Without Intravenous Contrast CLINICAL HISTORY: Reason for exam: left flank pain. TECHNIQUE: Axial computed tomography images of the abdomen and pelvis without intravenous contrast. CTDI is 28.09 mGy and DLP is 1518.65 mGy-cm. Automated exposure control was utilized for the study. A dose lowering technique was utilized adhering to the principles of ALARA. COMPARISON: 07/03/22 FINDINGS: Lung bases: Unremarkable. No mass. No consolidation. Mediastinum: Small hiatus hernia. ABDOMEN: Liver: Unremarkable. Gallbladder and bile ducts: Unremarkable. No calcified stones. No ductal dilation. Pancreas: Unremarkable. No ductal dilation. Spleen: Unremarkable. No splenomegaly. Adrenals: Unremarkable. No mass. Kidneys and ureters: There is left-sided hydronephrosis due to the presence of multiple calculi is seen at the junction of proximal two thirds and distal one third, measuring up to 1 cm in diameter. Bilateral nonobstructing renal stones are seen, measuring up to 7 mm in diameter on the left and 6 mm in diameter on the right. Bilateral multiple renal cortical cysts are seen. Stomach and bowel: There is sleeve gastrectomy. No obstruction. PELVIS: Appendix: No findings to suggest acute appendicitis. Bladder: Unremarkable. No stones. Reproductive: Unremarkable as visualized. ABDOMEN and PELVIS: Intraperitoneal space: Unremarkable. No free air. No significant fluid collection. Bones/joints: Mild degenerative disc disease changes seen in the lumbar spine. No acute fracture. No dislocation. Soft tissues: Unremarkable. Vasculature: Unremarkable. No abdominal aortic aneurysm. Lymph nodes: Unremarkable. No enlarged lymph nodes. IMPRESSION: Left hydroureteronephrosis due to multiple left distal ureter calculus measuring up to 1 cm in diameter. Electronically signed by: Yariel Mccord MD 06/08/23 22:12 PM Code Status & VTE Plan Code Status Full code VTE Prophylaxis Plan VTE Prophylaxis will be ordered: Yes PG Care Time/CCT Total # of Minutes Spent Total Time Spent with Patient: Total time spent is greater than 50% in coordination of care (as documented) at patient's floor/unit and/or counseling patient: Coding Level of Care Code 94503 INT INP/OBS CARE 3/75MIN Diagnoses Calculus of distal left ureter N20.1 Hydronephrosis of left kidney N13.30 Hydronephrosis due to obstruction of ureter N13.1 Chronic anticoagulation Z79.01 History of pulmonary embolism Z86.711 Acute kidney injury N17.9 CAD (coronary atherosclerotic disease) I25.10 Associated angina: unspecified whether angina present Coronary Disease-Associated Artery/Lesion type: unspecified vessel or lesion type [place] vs. transplanted heart: unspecified whether [place] or transplanted heart Prostate cancer C61 Sleep apnea G47.30 (7) CAD (coronary atherosclerotic disease) Associated angina: unspecified whether angina present Coronary Disease- Associated Artery/Lesion type: unspecified vessel or lesion type [place] vs. transplanted heart: unspecified whether [place] or transplanted heart Qualified Code(s): I25.10 - Atherosclerotic heart disease of [place] coronary artery without angina pectoris
[2023-06-09] MEDS ORDERED: MoRPHine SULFATE 4 MG/ML 1 ML CARP\\VIAL IV PRN (01:47)
[2023-06-09] MEDS ORDERED: cefTRIAXone SODIUM 2,000 MG in DEXTROSE 5 % MINI-B 50 ML IV SCH (02:00)
[2023-06-09] MEDS: SODIUM CHLORIDE 0.9% 1,000 ML IV SCH ×2 (02:02→13:57)
[2023-06-09] MEDS ORDERED: Heparin IV Adult Wt-Based Low-Dose *NO* Bolus Protocol IV STA (03:13)
[2023-06-09] MEDS ORDERED: HEPARIN SODIUM/DEXTROSE 25,000 UNITS/500 ML BAG IV SCH (03:30)
[2023-06-09] MEDS ORDERED: ONDANSETRON INJ 2 MG/ML 2 ML VIAL IV PRN (04:00)
[2023-06-09 04:05] LABS: Basophils # (auto) 0.01 K/uL (0.00-0.20); Basophils % (auto) 0.2 %; Eosinophils # (auto) 0.11 K/uL (0.00-0.50); Eosinophils % (auto) 2.3 %; Hematocrit (blood only) 35.9 % (42.0-52.0); Hemoglobin 11.8 g/dl (14.0-18.0); Immature Granulocytes # (auto) 0.01 K/uL (0.01-0.20); Immature Granulocytes % (auto) 0.2 %; Lymphocytes # (auto) 0.97 K/uL (1.20-3.40); Lymphocytes % (auto) 20.2 %; Mean Corpuscular Hemoglobin 30.6 pg (25.0-34.0); Mean Corpuscular Hgb Conc 32.9 g/dL (32.0-36.0); Mean Platelet Volume 10.3 fL (9.4-12.4); Monocytes # (auto) 0.73 K/uL (0.11-0.59); Monocytes % (auto) 15.2 %; Neutrophils # (auto) 2.98 K/uL (1.40-6.50); Neutrophils % (auto) 61.9 %; Platelet Count 144 K/uL (130-400); RDW Coefficient of Variation 14.3 % (11.5-14.5); RDW Standard Deviation 48.2 fL (36.4-46.3); Red Blood Count 3.86 M/uL (4.70-6.10); White Blood Count 4.81 K/ul (4.8-10.8)
[2023-06-09 04:14] LABS: Albumin Level 3.2 gm/dl (3.4-5.0); BUN Creatinine Ratio 14.5 (10-20); Calcium 8.4 mg/dl (8.6-10.3); Creatinine Clr Calc Pharmacy 42.1 ml/min; Est GFR (African American) 37.5 ml/min; Est GFR (Non-African American) 32.4 ml/min; Magnesium 1.9 mg/dl (1.7-2.4); Phosphorus 4.4 mg/dl (2.5-4.9)
[2023-06-09 04:31] LABS: Partial Thromboplastin Ratio 1.2; Partial Thromboplastin Time 32.6 Seconds (21.0-31.0); Prothrombin Time 11.3 Seconds (9.0-12.0)
[2023-06-09] MEDS ORDERED: ACETAMINOPHEN 1,000 MG/100 ML VIAL IV PRN (07:00)
--- NOTE | 2023-06-09 08:09 | Urology Consultation ---
Date of Consultation June 09, 2023 Assessment & Plan (1) Ureterolithiasis: (2) Hydronephrosis of left kidney: Plan Obstructing left ureteral calculi and generally decent stone burden Plan for intervention today in the form of cystoscopy left ureteral stent placement Is a factor V Leiden deficiency as well as a prior IL and he is anticoagulated The risks, benefits, and expectations reviewed Plan to move forward with surgery now He did receive a dose of ceftriaxone after arrival which will cover him through the surgery He should be stable for discharge home shortly after surgery presuming he feels well He will require outpatient follow-up for definitive treatment of his stones History of Present Illness Attending Physician: Barbara Carmen MD History of Present Illness 72-year-old male with left ureteral obstruction secondary to obstructing distal calculi with notable hydronephrosis and a doubling of his creatinine from a baseline of 1 to current value of 2.0 He has a long history of kidney stoneshas been dealing with these intermittently for the past 50 years He has had prior surgery to treat stones His most recent surgery was his right side There was a tentative plan to revisit the left side but he has now arrived at the emergency room prior to that plan coming to fruition He has been following in [place] for his urological care He has had a prior IL and is anticoagulated Allergies Allergy/AdvReac Type Severity Reaction Status Date / Time iodine Allergy Unknown Anaphylaxis Verified 04/28/23 09:51 shellfish derived Allergy Unknown Anaphylaxis Verified 04/28/23 09:51 Home Medications Medication Instructions Recorded Confirmed Type pediatric multivitamin 1 tab PO BID ##0 10/06/15 06/08/23 History ([facility] Multivitamin chewable tablet) nitroglycerin 0.4 mg sublingual 0.4 mg sublingual PRN PRN chest 09/25/21 06/08/23 Rx tablet (Nitrostat) pain #1 btl CPAP Machine #1 ea 12/16/21 06/08/23 Rx omeprazole 20 mg capsule,delayed 20 mg PO QAM 01/10/23 06/08/23 History release rosuvastatin 20 mg tablet 20 mg PO QPM 01/10/23 06/08/23 History lisinopril 5 mg tablet (Zestril) 5 mg PO QAM #90 tabs 03/09/23 06/08/23 Rx carvedilol 3.125 mg tablet 3.125 mg PO BID #180 tabs 03/14/23 06/08/23 Rx tramadol 50 mg tablet 25 - 50 mg (0.5 - 1 x 50 mg) PO 03/14/23 06/08/23 Rx BID PRN pain #30 tabs duloxetine 30 mg capsule,delayed 30 mg PO DAILY #30 caps 04/28/23 06/08/23 Rx release apixaban 5 mg tablet (Eliquis) 5 mg PO BID 06/08/23 06/08/23 History Patient History Medical History Chronic anticoagulation Lumbar vertebral fracture hx fall 2021..fractures in back - continues to monitor a compression "something"- no hx sx intervention. History of non-ST elevation myocardial infarction (NSTEMI) Factor 5 Leiden mutation, heterozygous on Eliquis Myocardial Infarction ACS 09/24/21: 90% hazy proximal stenosis in D1/ No PCI (vessel too small; Treat medically) History of prostate cancer dx 09/2020; hx radiation + Lupron inj q3m Sleep apnea cpap History of pulmonary embolism 8 years ago; on eliquis Calculus of left kidney at present, not causing any issues at present History of kidney stones Gout hx Multiple pulmonary nodules benign, last CT 2016 Depression Factor V deficiency Hyperlipidemia GERD (gastroesophageal reflux disease) Surgical History History of esophagogastroduodenoscopy (EGD) History of elbow surgery Left History of prostate biopsy History of cystoscopy w/ stone extraction H/O gastric bypass History of colonoscopy History of laparoscopy OPEN LAP FOR COMPLICATION FOLLOWING GASTRIC SURGERY History of herniorrhaphy INCISIONAL History of gastric bypass GASTRIC SLEEVE Family History Father Prostate cancer Heart disease Mother Parkinson disease Brother Cancer Prostate Cancer Colorectal cancer Brother Cancer Prostate Cancer Other Family history of colon cancer Denies family history of Ovarian cancer Myocardial infarction Pancreatitis Breast cancer Lung cancer Social History Smoking Status: Never smoker Second Hand Exposure: No; Do You Dip or Chew Tobacco: No; Hx Alcohol Use: No Hx Substance Use: No Preferred Language: Portuguese Communication Ability: Effective Visual Impairment: Limited 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: Normal 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 Beliefs That Will Affect Care: None marital status: Current Living Situation: Spouse current occupational status: retired Other Information That Helps Us Care for You: No Feels Safe at Home: Yes Safety Concerns: Feels Safe At This Time Childhood Exposure to Second-Hand Smoke: No Diet: regular Diet Comment: Mindful of food choices due to gastric sleeve caffeine: Yes Dental Care, Regularly: No Physical Activity Frequency: 3-4 Times per Week Seatbelt Use: always Sunscreen Use: Yes Assistive Devices: Glasses Results & Data Vital Signs (Past 12 Hours) Vital Signs Temp Pulse Pulse Pulse Resp BP BP 06/09/23 07:10 36.5 C 52 L 16 124/66 06/09/23 01:47 36.6 C 67 18 110/64 06/09/23 01:00 67 18 110/56 L 06/09/23 00:30 64 13 129/62 06/09/23 00:25 61 06/09/23 00:00 63 15 126/67 06/08/23 23:30 60 16 06/08/23 23:30 116/63 06/08/23 23:00 65 16 123/66 06/08/23 21:48 64 17 06/08/23 20:47 66 BP Pulse Ox O2 Del Method 06/09/23 07:10 95 Room Air 06/09/23 01:47 92 Room Air 06/09/23 01:00 91 Room Air 06/09/23 00:30 94 Room Air 06/09/23 00:25 06/09/23 00:00 06/08/23 23:30 91 06/08/23 23:30 06/08/23 23:00 93 Room Air 06/08/23 21:48 127/65 96 Room Air 06/08/23 20:47 PG Care Time/CCT Total # of Minutes Spent Total Time Spent with Patient: Total time spent is greater than 50% in coordination of care (as documented) at patient's floor/unit and/or counseling patient: Coding Level of Care Code 92558 IN/OBS CONSULT LVL 4,60M Diagnoses Ureterolithiasis N20.1 Hydronephrosis of left kidney N13.30
[2023-06-09] MEDS ORDERED: carvediloL 3.125 MG TAB PO SCH (09:00)
[2023-06-09] MEDS ORDERED: TAMSULOSIN HCL 0.4 MG CAP PO SCH (09:00)
[2023-06-09] MEDS ORDERED: MIDAZOLAM HCL 1 MG/ML 2ML VIAL ONE (10:09)
[2023-06-09] MEDS ORDERED: PROPOFOL IV EMULSION 10 MG/ML 20 ML VIAL IV ONE ×4 (10:09→11:09)
[2023-06-09] MEDS ORDERED: ONDANSETRON INJ 2 MG/ML 2 ML VIAL ONE (10:09)
[2023-06-09] MEDS ORDERED: fentaNYL citrate PF 100 MCG/2 ML VIAL ONE (10:09)
[2023-06-09] MEDS ORDERED: fentaNYL citrate PF 100 MCG/2 ML VIAL IV PRN (10:35)
[2023-06-09] MEDS ORDERED: ATROPINE SULFATE 0.1 MG/ML 10ML SYR IV PRN (10:35)
--- NOTE | 2023-06-09 10:35 | Anesthesiology Consultation ---
Date of Service June 09, 2023 Assessment & Plan (1) Encounter for pre-operative examination: Chart Review Chart Review: Acceptable Risk for Surgery History Surgery Operation Date: 06/09/23 07:00 Proposed Procedures p Cystoscopy, Left Ureteral Stent Placement - Yimi Ramírez MD Height/Weight Height: 6 ft Weight: 106.5 kg Allergies Allergy/AdvReac Type Severity Reaction Status Date / Time iodine Allergy Severe Anaphylaxis Verified 06/09/23 10:27 shellfish derived Allergy Severe Anaphylaxis Verified 06/09/23 10:27 Medications Home Medications Medication Instructions Recorded Confirmed Last Taken pediatric multivitamin 1 tab PO BID ##0 10/06/15 06/08/23 01/16/23 22:00 (Flintstones Multivitamin chewable tablet) nitroglycerin 0.4 mg sublingual 0.4 mg sublingual PRN PRN chest 09/25/21 06/08/23 Unknown tablet (Nitrostat) pain #1 btl CPAP Machine #1 ea 12/16/21 06/08/23 Unknown omeprazole 20 mg capsule,delayed 20 mg PO QAM 01/10/23 06/08/23 01/17/23 08:00 release rosuvastatin 20 mg tablet 20 mg PO QPM 01/10/23 06/08/23 01/16/23 22:00 lisinopril 5 mg tablet (Zestril) 5 mg PO QAM #90 tabs 03/09/23 06/08/23 Unknown carvedilol 3.125 mg tablet 3.125 mg PO BID #180 tabs 03/14/23 06/08/23 Unknown tramadol 50 mg tablet 25 - 50 mg (0.5 - 1 x 50 mg) PO 03/14/23 06/08/23 Unknown BID PRN pain #30 tabs duloxetine 30 mg capsule,delayed 30 mg PO DAILY #30 caps 04/28/23 06/08/23 Unknown release apixaban 5 mg tablet (Eliquis) 5 mg PO BID 06/08/23 06/08/23 Unknown Active Medications Generic Name Dose Route Start Last Admin Trade Name Freq PRN Reason Stop Dose Admin Carvedilol 3.125 mg 06/09/23 09:00 06/09/23 08:42 Carvedilol 3.125 Mg Tab PO 07/09/23 08:59 Not Given BID UNIQUE Sodium Chloride 1,000 mls @ 100 mls/hr 06/09/23 01:47 06/09/23 06:45 Nss IV 07/09/23 01:46 100 mls/hr .Q10H UNIQUE Infusion Ceftriaxone Sodium 2,000 mg/ 50 mls @ 100 mls/hr 06/09/23 02:00 06/09/23 02:35 Dextrose IV 06/19/23 01:59 Infused Q24H UNIQUE Infusion Protocol Heparin Sodium/Dextrose 25,000 units in 500 mls @ 20 mls/hr 06/09/23 03:30 06/09/23 06:59 Heparin Sodium/Dextrose IV 07/09/23 03:29 1,000 units/hr .Q24H UNIQUE 20 mls/hr Titration Protocol 1,000 UNITS/HR Morphine Sulfate 4 mg 06/09/23 01:47 06/09/23 05:59 Morphine Sulfate 4 Mg/Ml 1 Ml Carp\\Vial IV 06/23/23 01:46 4 mg Q3H PRN Administration Mod-Sev Pain (Scale 4-10) Ondansetron HCl 4 mg 06/09/23 04:00 06/09/23 05:59 Ondansetron Inj 2 Mg/Ml 2 Ml Vial IV 07/09/23 03:59 4 mg Q6H PRN Administration Nausea NPO Date Last Intake of Fluids: 06/08/23 Time Last Intake of Fluids: 23:00 Date Last Intake of Solids: 06/08/23 Time Last Intake of Solids: 23:00 Past Medical History Medical History Chronic anticoagulation Lumbar vertebral fracture hx fall 2021..fractures in back - continues to monitor a compression "something"- no hx sx intervention. History of non-ST elevation myocardial infarction (NSTEMI) Factor 5 Leiden mutation, heterozygous on Eliquis Myocardial Infarction ACS 09/24/21: 90% hazy proximal stenosis in D1/ No PCI (vessel too small; Treat medically) History of prostate cancer dx 09/2020; hx radiation + Lupron inj q3m Sleep apnea cpap History of pulmonary embolism 8 years ago; on eliquis Calculus of left kidney at present, not causing any issues at present History of kidney stones Gout hx Multiple pulmonary nodules benign, last CT 2016 Depression Factor V deficiency Hyperlipidemia GERD (gastroesophageal reflux disease) Past Family History Family History Father Prostate cancer Heart disease Mother Parkinson disease Brother Cancer Prostate Cancer Colorectal cancer Brother Cancer Prostate Cancer Other Family history of colon cancer Denies family history of Ovarian cancer Myocardial infarction Pancreatitis Breast cancer Lung cancer Past Surgical History Surgical History History of esophagogastroduodenoscopy (EGD) History of elbow surgery Left History of prostate biopsy History of cystoscopy w/ stone extraction H/O gastric bypass History of colonoscopy History of laparoscopy OPEN LAP FOR COMPLICATION FOLLOWING GASTRIC SURGERY History of herniorrhaphy INCISIONAL History of gastric bypass GASTRIC SLEEVE Past Anesthesia History No Hx of Anesthesia Complications Social History Smoking Status: Never smoker Do You Dip or Chew Tobacco: No Hx Alcohol Use: No Hx Substance Use: No substance use type: does not use Physical Exam Vital Signs Last Vital Signs Temp 36.8 C 06/09/23 10:14 Pulse 56 L 06/09/23 10:14 Resp 18 06/09/23 10:14 BP 141/78 H 06/09/23 10:14 Pulse Ox 96 06/09/23 10:14 O2 Del Method Room Air 06/09/23 10:14 Testing Laboratory Results 06/09/23 03:38 06/09/23 03:38 PT 11.3 Seconds (9.0-12.0) 06/09/23 03:38 INR 1.0 (0.9-1.1) 06/09/23 03:38 APTT 32.6 Seconds (21.0-31.0) H 06/09/23 03:38 Urine Color Yellow 06/08/23 20:50 Urine Appearance Turbid (Clear) A 06/08/23 20:50 Urine pH 5.5 (4.5-7.5) 06/08/23 20:50 Ur Specific [place] 1.021 (1.000-1.030) 06/08/23 20:50 Urine Protein Negative (Negative) 06/08/23 20:50 Urine Glucose (UA) Negative (Negative) 06/08/23 20:50 Urine Ketones Trace (Negative) H 06/08/23 20:50 Urine Nitrite Negative (Negative) 06/08/23 20:50 Ur Leukocyte Esterase Negative (Negative) 06/08/23 20:50 Urine WBC (Auto) 1-5 /hpf (0-5) 06/08/23 20:50 Urine RBC (Auto) 0-4 /hpf (0-4) 06/08/23 20:50 U Hyaline Cast (Auto) 0 /lpf (0-5) 06/08/23 20:50 U Epithel Cells (Auto) 0-5 /lpf (0-5) 06/08/23 20:50 Urine Bacteria (Auto) Negative (Negative) 06/08/23 20:50 Electrocardiogram Date: 07/03/22 Findings: + NSR @ (85 with pac's) Echocardiogram Date: 10/10/22 EF: 65-70% LV Function: normal Valvular Disease: + no significant valvular disease
--- NOTE | 2023-06-09 11:31 | Operative Report ---
PG Post Operative Report Pre & Post Diagnosis Operation Date: 06/09/23 07:00 Pre-Op Diagnosis: Left ureteral calculi Post-Op Diagnosis: Left ureteral calculi I identified the patient and participated in the time-out.: Yes Procedure Operation Date: 06/09/23 07:00 Actual Procedures p Cystoscopy, Left Ureteral Stent Placement(Left) - Yimi Ramírez MD Surgeon Yimi Ramírez MD Continuous Improvement Lead none Estimated Blood Loss 0 Findings Consistent with Post-Op Diagnosis Specimens none Description of Procedure The patient was identified in the preoperative holding area, appropriate informed consents were reviewed and completed and the patient was transferred to the operative suite. Upon arrival, appropriate antibiotics and anesthesia were administered and the patient was placed in dorsal lithotomy position and prepped and draped in sterile fashion. To begin the case I passed a 22 Swiss cystoscope with 30 degree lens and visual obturator. The urethra was healthy without strictures, his prostate is moderately enlarged. His bladder was unremarkable. Full inspection revealed no evidence of mucosal abnormalities. Ureteral orifices were in orthotopic position. There is clear urine from the right orifice but some bloody urine coming from the left. I turned my attention to the left orifice and cannulated with a sensor wire and a 5 Swiss open-ended catheter. As the wire advanced I could feel slight resistance and then clearly had this wire bypassed the stone as there was discharge of murky old urine from this side and clear relief of the pressure. The wire was visualized in the kidney before placement of a 6 Swiss by 26 cm double-J stent. Good curl was seen in the kidney as well as the bladder. The case was concluded and he was reversed of anesthesia and taken to the recovery room in stable condition. There were no complications I attest to the content of the Intraoperative Record and any orders documented therein. Any exceptions are noted below.
--- NOTE | 2023-06-09 11:57 | Anesthesiology Progress Note ---
Date of Service June 09, 2023 Anesthesia Post Procedure Vital Signs Vital Signs: Temp Pulse Pulse Pulse Resp BP BP 06/09/23 11:50 63 18 124/74 06/09/23 11:40 60 19 131/62 06/09/23 11:32 36.3 C L 64 14 119/67 06/09/23 10:14 36.8 C 56 L 18 141/78 H 06/09/23 08:42 56 L 06/09/23 07:10 36.5 C 52 L 16 124/66 06/09/23 01:47 36.6 C 67 18 110/64 06/09/23 01:00 67 18 110/56 L 06/09/23 00:30 64 13 129/62 06/09/23 00:25 61 06/09/23 00:00 63 15 126/67 06/08/23 23:30 60 16 06/08/23 23:30 116/63 06/08/23 23:00 65 16 123/66 06/08/23 21:48 64 17 06/08/23 20:47 66 06/08/23 17:52 36.9 C 86 16 123/83 BP Pulse Ox O2 Del Method O2 Flow Rate 06/09/23 11:50 96 Room Air 06/09/23 11:40 96 Oxymask 6 06/09/23 11:32 93 Oxymask 8 06/09/23 10:14 96 Room Air 06/09/23 08:42 06/09/23 07:10 95 Room Air 06/09/23 01:47 92 Room Air 06/09/23 01:00 91 Room Air 06/09/23 00:30 94 Room Air 06/09/23 00:25 06/09/23 00:00 06/08/23 23:30 91 06/08/23 23:30 06/08/23 23:00 93 Room Air 06/08/23 21:48 127/65 96 Room Air 06/08/23 20:47 06/08/23 17:52 95 Room Air Pain Intensity Left Flank: Pain Intensity: 5 Transfer of Care Handoff Completed per policy Notes Mental Status: alert / awake / arousable Patient Amnestic to Procedure: Yes Nausea / Vomiting: adequately controlled Pain: adequately controlled Airway Patency, RR, SpO2: stable & adequate BP & HR: stable & adequate Hydration State: stable & adequate Anesthetic Complications: no major complications apparent
[2023-06-09 12:12] VITALS: TEMP 98.4
--- NOTE | 2023-06-09 12:17 | Fluoroscopy Report ---
INTRAOPERATIVE RADIOGRAPH CLINICAL HISTORY: Left ureteral stent placement. Fluoro time: 3 seconds Ka,r: 0.3 mGy FINDINGS: A single spot fluoroscopic image of the left upper quadrant is correlated with abdominal CT dated 06/08/2023. The image shows the proximal end of a left ureteral stent in appropriate position. No calcifications are seen along the visualized portions of the stent. Nonobstructing calculi project over the left kidney. IMPRESSION: Intraoperative image from a left ureteral stent placement procedure as above. Electronically signed by: Gabriel Cuba M.D. 06/09/2023 12:15 PM
[2023-06-09] MEDS ORDERED: DULoxetine HCL 30 MG CAP PO SCH (13:45)
[2023-06-09 13:47] LABS: Partial Thromboplastin Ratio 1.5
[2023-06-09] MEDS ORDERED: PANTOprazole 40 MG TAB PO SCH (14:00)
--- NOTE | 2023-06-09 14:21 | Discharge Summary ---
Discharge Summary Date of Service June 09, 2023 Notes For Next Care Provider Follow up BMP on Monday06/12/23 Medication Changes From Visit HOLD lisinopril Start Flomax 0.4mg po daily Admission HPI Per Admitting Provider The patient is a 72-year-old male with a past medical history including history of pulmonary embolism/DVT on chronic anticoagulation, factor V Leiden deficiency, history of PA 09/21, acute small first diagonal disease medically managed, history of ureteral stones bilaterally, IZZY, prostate cancer, CAD, and dilated aortic root. The patient has had a left kidney stones in his life that he is aware of when the stones occur, and whether they are moving or not. Reports having passed 2 stones from the left side 4 days ago, during which time he had some hematuria that resolved when the stones passed. He had pain intermittently during the week, and then today developed more significant pain, felt that stones were moving, and presented to the ED. He was aware of having stones in the left kidney, and had had a procedure done at [facility] while on anticoagulation years ago, reporting that he could not get the procedure done locally. Principal Dx & Hospital Course #1 = Principal Diagnosis (1) Calculus of distal left ureter: (2) Acute kidney injury: (3) Hydronephrosis of left kidney: (4) Chronic anticoagulation: (5) History of pulmonary embolism: (6) CAD (coronary atherosclerotic disease): (7) Prostate cancer: (8) Sleep apnea: Plan Left hydronephrosis/multiple distal left ureteral calculi- now s/p ureteral stentplacement and had resolution of pain JENN present but repeat prototype carpenter down to 1.9 and should continue to improve after discharge. He is urinating freely at time of discharge and received IVFs -stay hydrated, repeat BMP in 3 days as outpt to check renal function f/u with Urology for ureteral stone and stent management no UTI present but received empiric ceftriaxone stay on Flomax after discharge, tylenol prn pain History of pulmonary embolism/factor V Leiden- ok to resume ELiquis after discharge CAD/history of PA/medically managed acute small first diagonal disease- Continue carvedilol 3.125 mg p.o. twice daily, statin, Eliquis Acute kidney injury- Creatinine 1.97 with base 1.14, stable on repeat but now with stent in place, should continue to improve Hold lisinopril stay hydrated, f/u BMP in 3 days as outpt Dispo-stable for dc to home Discharge Exam Constitutional WD/WN, vitals as above Respiratory normal respiratory effort, lungs clear to auscultation Cardiovascular RRR, no murmur, no edema Gastrointestinal (Abdomen) normal bowel sounds, soft, nontender, no hepatosplenomegaly Psychiatric A+Ox3, euthymic affect Updated Medication List Medication Instructions Recorded Confirmed Type pediatric multivitamin 1 tab PO BID ##0 10/06/15 06/08/23 History (Flintstones Multivitamin chewable tablet) nitroglycerin 0.4 mg sublingual 0.4 mg sublingual PRN PRN chest 09/25/21 06/08/23 Rx tablet (Nitrostat) pain #1 btl CPAP Machine #1 ea 12/16/21 06/08/23 Rx omeprazole 20 mg capsule,delayed 20 mg PO QAM 01/10/23 06/08/23 History release rosuvastatin 20 mg tablet 20 mg PO QPM 01/10/23 06/08/23 History lisinopril 5 mg tablet (Zestril) 5 mg PO QAM #90 tabs 03/09/23 06/08/23 Rx carvedilol 3.125 mg tablet 3.125 mg PO BID #180 tabs 03/14/23 06/08/23 Rx tramadol 50 mg tablet 25 - 50 mg (0.5 - 1 x 50 mg) PO 03/14/23 06/08/23 Rx BID PRN pain #30 tabs duloxetine 30 mg capsule,delayed 30 mg PO DAILY #30 caps 04/28/23 06/08/23 Rx release apixaban 5 mg tablet (Eliquis) 5 mg PO BID 06/08/23 06/08/23 History tamsulosin 0.4 mg capsule 0.4 mg PO QAM #10 caps 06/09/23 Rx Hospital Stay Data Consultations 06/08/23 23:00 ED Decision to Admit Stat 06/09/23 01:47 Consult Urology Routine Procedures Performed Operation Date: 06/09/23 07:00 Actual Procedures p Cystoscopy, Left Ureteral Stent Placement(Left) - Yimi Ramírez MD Diagnostic Imagining Performed 06/08/23 20:14 CT abd pelvis wo con Stat 06/09/23 FL KUB Routine Pending Results Patient Have Any Pending Studies at Discharge: No Discharge Instructions Given to Patient (Per Discharging Provider) You were admitted with kidney stones and acute kidney failure from the stones. You had a stent placed. Please stay hydrated as before and follow up with Urology within 1-2 weeks. You should have your kidney function checked with blood work by your PCP on Monday-Monday next week. Total Time Total Time Spent Total Time Spent (In Minutes): 35 min Coding Level of Care Code 68060 INP/OBS DISCH >30 MIN Diagnoses Calculus of distal left ureter N20.1 Acute kidney injury N17.9 Hydronephrosis of left kidney N13.30 Chronic anticoagulation Z79.01 History of pulmonary embolism Z86.711 CAD (coronary atherosclerotic disease) I25.10 Associated angina: unspecified whether angina present Coronary Disease-Associated Artery/Lesion type: unspecified vessel or lesion type [place] vs. transplanted heart: unspecified whether [place] or transplanted heart Prostate cancer C61 Sleep apnea G47.30
[2023-06-09 15:14] VITALS: BP 135/63; PULSE 58; RESP 18; O2SAT 92
[2023-06-09 16:11] LABS: BUN Creatinine Ratio 14.8 (10-20); Calcium 8.7 mg/dl (8.6-10.3); Est GFR (African American) 38.5 ml/min; Est GFR (Non-African American) 33.2 ml/min; Potassium 4.3 mmol/L (3.5-5.1)
[2023-06-09] MEDS ORDERED: ROSUVASTATIN CALCIUM 20 MG TAB PO SCH (21:00)
[2023-06-09] MEDS ORDERED: APIXABAN 5 MG TABLET PO SCH (21:00)
--- OUTSIDE RECORDS SUMMARY | 2023-06-12 21:35 | External Medical Summary | Continuity of Care Document ---
Author Name Unknown Organization [facility] [address] [place] [address] DENISE CUNNINGHAM [phone] Care Team Providers Care Records Management Manager Name Role Phone Nerissa, Cinthia Louie Primary Care Physician [phone] Encounter [facility] [id number] Date(s): 05/26/23 - 05/26/23 [facility] [address] [facility] Surgery Specialties [address], [address], [address] [place] [address] [phone] Encounter Diagnosis Left inguinal pain(Discharge Diagnosis) - 05/26/23 Discharge Disposition: Home or Self Care Attending Physician: MD Hoang Eric M Allergies, Adverse Reactions, Alerts Substance Reaction Severity Status shellfish Shortness of breath Hives Active iodine Shortness of breath Hives Active Assessment and Plan Extracted from: Title:Clinical Document Author:MD Hoang Eric M Date:05/26/23 OUTPATIENT NOTE Name: HOWARD MOURA Patient Number:1 [id number] : 1950 Date of Service: 05/26/2023 _I spent 15 minutes in clinic today with Howard who underwent a previous open left inguinal hernia repair. We chose an open approach due to his history of Eliquis use as well as a previous retrorectus repair in the midline which precluded us from going robotic or minimally invasive. 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 Most of the activities he describes include him moving from a bent position to a standing position straightening his trunk muscles. He locates the pain over the left pubic tubercle. The pain has persisted over the course of time. It is a sharp pain that is very fleeting but occurs at specific times. It does not interfere with his daily activities other than the fact that he knows the activities that may cause it. On examination there is no recurrent hernia. His wound is well-healed. There is no pain on palpation of the pubic tubercle. A CT scan was performed I reviewed the images and the results. There is evidence of a healed inguinal hernia repair with no evidence of recurrence, infection, fluid collections. I reassured the patient that I see no obvious evidence of a recurrent hernia or of damage related to his aggressive physical regimen around the house. We have both decided after discussion that we are going to follow this symptom expectantly over the course of time with a 1 year virtual visit. If symptoms change in a way that is getting worse he will call us to have time. Questions were answered. Medications Colace 100 mg oral capsule Start: 03/23/21 12:02:00 EDT, 1 cap, PO, bid, Disp# 100 cap, Refills: 1, PRN: as needed for constipation, Pharmacy: [facility]/pharmacy #[id number] Start Date: 03/23/21 Status: Ordered Coreg Start: 02/09/22 14:33:00 EDT, 3.125 mg =, PO, bid Start Date: 02/09/22 Status: Ordered Eliquis 5 mg oral tablet Start: 02/15/19 9:53:00 EDT, 1 tab, PO, bid Start Date: 02/15/19 Status: Ordered escitalopram 5 mg oral tablet Start: 03/18/21 11:05:00 EDT, 1 tab, PO, qPM Start Date: 03/18/21 Status: Ordered Flintstones Multivitamins oral tablet, chewable Start: 07/11/22 13:23:00 EST, 1 tab, PO, bid Start Date: 07/11/22 Status: Ordered ipratropium 21 mcg/inh (0.03%) nasal spray ADMINISTER INTO EACH NOSTRIL 2 SPRAYS 3 TIMES A DAY NEEDED FOR RHINITIS. Start Date: 07/11/22 Status: Ordered lisinopril 5 mg oral tablet Start: 02/09/22 14:34:00 EDT, 1 tab, PO, qAM Start Date: 02/09/22 Status: Ordered nitroglycerin 0.3 mg sublingual tablet Start: 04/29/22 15:16:00 EDT, 1 tab, SL, q5min, PRN: as needed for chest pain Start Date: 04/29/22 Status: Ordered omeprazole 40 mg oral delayed release capsule Start: 04/29/22 15:15:00 EDT, 1 cap, PO, qAM Start Date: 04/29/22 Status: Ordered oxyCODONE 5 mg oral tablet Start: 07/19/22 14:16:00 EST, 1 tab, PO, q6h, Disp# 5 tab, Refills: 0, PRN: as needed for pain, Pharmacy: [facility] [place] Start Date: 07/19/22 Stop Date: 07/22/22 Status: Ordered rosuvastatin 10 mg oral tablet Start: 04/29/22 15:16:00 EDT, 1 tab, PO, qhs Start Date: 04/29/22 Status: Ordered traMADol 50 mg oral tablet Start: 07/11/22 13:19:00 EST, 1 tab, PO, q4h, PRN: as needed for pain Start Date: 07/11/22 Status: Ordered Mental Status 05/26/23 Barriers to Learning one year None evide nt Mandatory Health Literacy Documentation Yes Health Literacy Communication Barriers N ever Primary Language Welsh Problem List Condition Confirmation Course Effective Dates Status Health St atus Informant BPH (benign prostatic hypertrophy) Confirmed Active CKD (chronic kidney disease) Stage III Confirmed Active Depression Confirmed Active GERD (gastroesophageal reflux disease) Confirmed Active Gout Confirmed Active S/P laparoscopic sleeve gastrectomy Confirmed Active Heterozygous factor V Leiden mutation Confirmed Active HYPERTENSION Confirmed Active Impaired fasting glucose Confirmed Active Groin pain Confirmed Active Joint pain Confirmed Active Kidney stones Confirmed Active Prostate cancer Confirmed Active Morbid Obesity Confirmed Active Preop examination Confirmed Active Pulmonary embolus Confirmed Active High cholesterol Confirmed Active Apnea, sleep Confirmed Active Blood clotting tendency Confirmed Active Weight disorder Confirmed Active Diagnosis Diagnosis Type Effective Dates Health Status Cl inical Service Informant Left inguinal pain Discharge Diagnosis 05/26/23 Non-Specified Procedures Procedure Date Related Diagnosis Body Site Status Cystoscopy with right retrog rade ureterogram, Right ureteropyeloscopy with laser lithotripsy and basket manipulation of stones, Placement of right ureteral stent 10/04/16 Completed Incisional hernia repair (9 cm wide, 12 cm long midline hernia including the subxiphoid region), Bilateral myofascial advancement flaps (bilateral release of the posterior rectus sheath). 1 07/28/15 Completed Exploratory laparotomy 07/10/14 Co mpleted Exploratory laparotomy 2 07/09/14 Completed Laparoscopic sleeve gastrectomy 07/08/14 Completed Lithotripsy, Multiple 3 05/2013 C ompleted Colonoscopy, Multiple 2009 Com pleted Endoscopy, Multiple 2009 Compl eted ORIF - Open reduction and in ternal fixation of fracture, Left -Multiple 1967 Completed 11. Incisional hernia repair (9 cm wide, 12 cm long midline hernia including the subxiphoid region). 2. Bilateral myofascial advancement flaps (bilateral release of the posterior rectus sheath). 3. Mesh implantation (18 cm wide, 30 cm long Bard soft mesh). 4. Full-thickness abdominal wall debridement including skin, subcutaneous tissue, fascia and herniasac. 2Exploratory laparotomy, hemostasis, abdominal packing; placement of temporary vacuum dressing - May 2013 Vital Signs Most recent to oldest [Reference Range]: 1 Height 184 cm (05/26/23 1:49 PM) Patient Weight 106.3 kg (05/26/23 1:49 PM) Body Mass Index 31.4 kg/m2 (05/26/23 1:49 PM) Temperature [36.5-37.9 DegC] 36.4 DegC *LOW* (05/26/23 1:49 PM) Heart Rate 88 bpm (05/26/23 1:49 PM) Respiratory Rate 18 br/min (05/26/23 1:49 PM) Blood Pressure 112/71mmHg (05/26/23 1:49 PM) Cuff Pulse Pressure 41 mmHg (05/26/23 1:49 PM) Social History Social History Type Response Smoking Status Never smoked cigaret osmin Sex Male Implantable Device List Procedure Provider Procedure Date Device Type Site Unknown Unknown 07/19/22 Unknown Unknown Device Identifier Serial Number Lot or Batch Number Manufacturing Date Expiration Date Distinct Identification Code MRI Safety Implantable Status Assigning Authority Unknown Unknown [id number] Unknown 01/25/27 Unknown Unknown Active Unknown Procedure Provider Procedure Date Device Type Site Unknown Unknown 03/23/21 Unknown Unknown Device Identifier Serial Number Lot or Batch Number Manufacturing Date Expiration Date Distinct Identification Code MRI Safety Implantable Status Assigning Authority Unknown Unknown [id number] Unknown 12/15/23 Unknown Unknown Active Unknown Outpatient Note * MD Natalya, Gabriel Yepez: PERFORM Event Display: .Outpt Note Authored Date: [id number] OUTPATIENT NOTE Name: HOWARD MOURA Patient Number:1 [id number] : 1950 Date of Service: 05/26/2023 _I spent 15 minutes in clinic today with Howard who underwent a previous open left inguinal herniarepair. We chose an open approach due to his history of Eliquis use as well as a previous retrorectus repair in the midline which precluded us from going robotic or minimally invasive. 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 Most of the activities he describes include him moving from a bent position to a standing position straightening his trunk muscles. He locates the pain over the left pubictubercle. The pain has persisted over the course of time. It is a sharp pain that is very fleeting but occursat specific times. It does not interfere with his daily activities other than the fact that he knows the activities that may cause it. On examination there is no recurrent hernia. His wound is well-healed. There is no pain on palpation of the pubic tubercle. A CT scan was performed I reviewed the images and the results. There is evidence of a healed inguinal hernia repair with no evidence of recurrence, infection, fluid collections. I reassured the patient that I see no obvious evidence of a recurrent hernia or of damage related to his aggressive physical regimen around the house. We have both decided after discussion that we are going to follow this symptom expectantly over the course of time with a 1 year virtual visit. If symptoms change in a way that is getting worse he will call us to have time. Questions were answered. Electronic Signature on File Electronically Reviewed/Signed by: Gabriel Hoang MD Author Signature Dt/Tm:05/26/2023 03:06 PM Division of Minimally Invasive Surgery EMP Patient Care team information Care Team Personnel Name: MOY Alex Samantha Position: Nurse Pract - Urology Member Role: Lifetime Relationship Address: Address: [address] [place] [address] [place] Name: CHAVA Multani Joy C Position: Referring DIRECT Member Role: Primary Care Provider Address: Address: [address] [address] [place] Name: MD Link Jay D Position: Physician - Urology Member Role: Lifetime Relationship Address: Address: [address] [place] [address] [place] Name: Avery, , Sandeep Position: Physician - General Surg Psych Member Role: Lifetime Relationship Address: Address: [address] [place] [address] [place] Name: MD Childress Ann M Position: Physician - Surgery MIS Member Role: Lifetime Relationship Address: Address: [address] [place] [address] Care Team Related Persons Name: RAMU MOURA Address: [address] [place], [id number]
--- OUTSIDE RECORDS SUMMARY | 2023-06-12 21:35 | External Medical Summary | Continuity of Care Document ---
Author Name Unknown Organization [facility] Address [address] [place] [id number] Care Team Providers Care Evaluator Name Role Phone NerissaCinthia Louie Primary Care Physician [phone] [id number] Date(s): 05/26/23 - 05/26/[address] [id number] [phone] Discharge Disposition: Home or Self Care Attending Physician: MD Hoang Eric M Referring Physician: MD Hoang Eric M Allergies, Adverse Reactions, Alerts Substance Reaction Severity Status shellfish Shortness of breath Hives Active iodine Shortness of breath Hives Active Medications Colace 100 mg oral capsule Start: 03/23/21 12:02:00 EDT, 1 cap, PO, bid, Disp# 100 cap, Refills: 1, PRN: as needed for constipation, Pharmacy: [facility]/pharmacy #[id number] Start Date: 03/23/21 Status: Ordered [...] 0, PRN: as needed for pain, Pharmacy: [facility] [place] Start Date: 07/19/22 Stop Date: 07/22/22 Status: Ordered rosuvastatin 10 mg oral tablet Start: 04/29/22 15:16:00 EDT, 1 tab, PO, qhs Start Date: 04/29/22 Status: Ordered traMADol 50 mg oral tablet Start: 07/11/22 13:19:00 EST, 1 tab, PO, q4h, PRN: as needed for pain Start Date: 07/11/22 Status: Ordered Problem List Condition Confirmation Course Effective Dates [...] tendency Confirmed Active Weight disorder Confirmed Active Procedures Procedure Date Related Diagnosis Body Site [...] in ternal fixation of fracture, Left -Multiple 1968 Completed 11. Incisional hernia repair (9 cm wide, 12 cm long midline hernia including the subxiphoid region). 2. Bilateral myofascial advancement flaps (bilateral release of the posterior rectus sheath). 3. Mesh implantation (18 cm wide, 30 cm long Bard soft mesh). 4. Full-thickness abdominal wall debridement including skin, subcutaneous tissue, fascia and herniasac. 2Exploratory laparotomy, hemostasis, abdominal packing; placement of temporary vacuum dressing May 2013 Results Radiology Reports * Exam Date Time Procedure Performing Provider Status 05/26/23 12:[address] Pelvis w/o Contrast Rocío Salguero nn; Final Notes: (CT Pelvis w/o Contrast) Reason For Exam: Left inguinal region for pain 6 months after open inguinal hernia repair with mesh. CT Pelvis w/o Contrast EXAMINATION: CT Pelvis w/o Contrast CLINICAL HISTORY: R10.32: Left lower quadrant pain; attention to his left inguinal region for pain 6 months after open inguinal hernia repair with mesh. COMPARISON: CT abdomen pelvis 03/07/2021 TECHNIQUE: CT pelvis without contrast. Coronal and sagittal reconstruction. FINDINGS: Partially visualized right renal cyst. Partially visualized left renal calculi. No bowel obstruction. Nondistended bladder. Dystrophic prostate calcification. No inguinal hernia. Degenerative changes of the visualized lower lumbar spine. IMPRESSION: No inguinal hernia. No acute abnormality. Workstation ID: [id number] Final Dictated by:MD Johnson Nhien T Dictated DT/TM:05/26/2023 2:57 Signed by:MD Johnson Nhien T Signed (Electronic Signature):05/26/2023 2:56 p Social History Social History Type Response Smoking Status Never smoked cigaret osmin Sex Male Implantable Device List Procedure Provider Procedure Date Device Type Site Unknown Unknown 07/19/22 Unknown Unknown Device Identifier Serial Number Lot or Batch Number Manufacturing Date Expiration Date Distinct Identification Code MRI Safety Implantable Status Assigning Authority Unknown Unknown [id number] Unknown 01/25/27 Unknown Unknown Active Unknown Procedure Provider Procedure Date Device Type Site Unknown Unknown 03/23/21 Unknown Unknown Device Identifier Serial Number Lot or Batch Number Manufacturing Date Expiration Date Distinct Identification Code MRI Safety Implantable Status Assigning Authority Unknown Unknown [id number] Unknown 12/15/23 Unknown Unknown Active Unknown Patient Care team information Care Team Personnel Name: MOY Alex Samantha Position: Nurse Pract - Urology Member Role: Lifetime Relationship Address: Address: [address] [place] [address] [place] Name: CHAVA Multani Joy C Position: Referring DIRECT Member Role: Primary Care Provider Address: Address: [address] [place] [address] [place] Name: MD Nikolay, Forest Fernandez Position: Physician - Urology Member Role: Lifetime Relationship Address: Address: [address] [place] [address] [place] Name: Avery, PhD, Sandeep Position: Physician - General Surg Psych Member Role: Lifetime Relationship Address: Address: [address] [place] [address] [place] Name: MD Monroe, Mabel Yepez Position: Physician - Surgery MIS Member Role: Lifetime Relationship Address: Address: [address] [place] [address] [place] Care Team Related Persons Name: RAMU MOURA Address: [address] [place], [id number]
--- OUTSIDE RECORDS SUMMARY | 2023-06-12 21:35 | External Medical Summary | Continuity of Care Document ---
Author Name Unknown Organization [facility] [address] [place] [address] DENISE CUNN[place]AM [phone] Care Team Providers Care Personal Care Service Provider Name Role Phone Cinthia Multani Primary Care Physician [phone] Encounter [facility] [id number] Date(s): 03/31/23 - 03/31/23 [facility]100 [facility] Special[facility] [address] [place] [address] [phone] Encounter Diagnosis Left inguinal pain(Discharge Diagnosis) - 03/31/23 Discharge Disposition: Home or Self Care Attending Physician: MD Hoang Eric M Referring Physician: CHAVA Multani Joy C Allergies, Adverse Reactions, Alerts Substance Reaction Severity Status shellfish Shortness of breath Hives Active iodine Shortness of breath Hives Active Assessment and Plan Extracted from: Title:Clinical Document Author:MD Hoang Eric M Date:03/31/23 OUTPATIENT NOTE Name: RACHAEL MOURA Patient Number:1 [id number] : 1950 Date of Service: 03/31/2023 _ I saw the patient today in my telehealth clinic. They were properly identified by confirming name and date of . The patient was informed that the visit would be conducted via telephone and that the visit would be billable to their insurance and could be subject to co-payment. The patient consented to the visit. The patient was located in his home and I was located in my academic office. The visit was initiated by the patient. A non in-person visit was deemed medically necessary to evaluate the patient for new left inguinal pain during the Covid-19 pandemic. I spent a total of 7 minutes communicating with the patient, 5 minutes of which was in counseling and medical decision making. The call was NOT related to any visit or procedure occurring within the last 7 days. Mr. Grande had an open left inguinal hernia repair with mesh in June 2022. He recuperated and was pain-free for many months. In October of this year when he began doing more activities around his home he began to have a new symptom. When he rises from a low seated position he has a catch of pain on the left. He describes this pain symptoms as sharp but fleeting lasting only a few seconds but never more than a few minutes. This is the only activity that causes the pain. He does not have pain on a regular basis. He does not have pain at rest. He does not describe neuropathic pain with radiation. He has had no imaging. I am going to order a CT scan of his pelvis to assess the left inguinal region and see him in clinic for evaluation. While I think he may simply be describing the pull of the mesh against his abdominal wall muscles with a specific activity or motion, I think it would be reasonable to reassess for a recurrence. His questions were answered. Medications Colace 100 mg oral capsule Start: 03/23/21 12:02:00 EDT, 1 cap, PO, bid, Disp# 100 cap, Refills: 1, PRN: as needed for constipation, Pharmacy: [facility]/pharmacy #[id number] Start Date: 03/23/21 Status: Ordered Coreg Start: [...] 0, PRN: as needed for pain, Pharmacy: [facility] [place] Start Date: 07/19/22 Stop Date: 07/22/22 Status: Ordered Plavix 75 mg oral tablet Start: 02/09/22 14:35:00 EDT, 1 tab, PO, qAM Start Date: 02/09/22 Status: Ordered rosuvastatin 10 mg oral tablet [...] Diagnosis Diagnosis Type Effective Dates Health Status inical Service Informant Left inguinal pain Discharge Diagnosis 03/31/23 Non-Specified Procedures Procedure Date Related Diagnosis Body [...] of temporary vacuum dressing - May 2013 Social History Social History Type Response Smoking Status Never smoked cigaret osmin Sex Male Implantable Device List Procedure Provider Procedure Date Device Type Site Unknown Unknown 07/19/22 Unknown Unknown Device Identifier Serial Number Lot or Batch Number Manufacturing Date Expiration Date Distinct Identification Code MRI Safety Implantable Status Assigning Authority Unknown Unknown [id number] Unknown 01/25/27 Unknown Unknown Active Unknown Procedure Provider Procedure Date Device Type Site Unknown Unknown 03/23/21 Unknown Unknown Device Identifier Serial Number Lot or Batch Number Manufacturing Date Expiration Date Distinct Identification Code MRI Safety Implantable Status Assigning Authority Unknown Unknown [id number] Unknown 12/15/23 Unknown Unknown Active Unknown Outpatient Note * MD Natalya, Gabriel Yepez: PERFORM Event Display: .Outpt Note Authored Date: [id number] OUTPATIENT NOTE Name: RACHAEL MOURA Patient Number:1 [id number] : 1950 Date of Service: 03/31/2023 _ I saw the patient today in my telehealth clinic. They were properly identified by confirming nameand date of . The patient was informed that the visit would be conducted via telephone and that the visit would be billable to their insurance and could be subject to co- payment. The patient consented to the visit. The patient was located in his home and I was located in my academic office. The visit was initiated by the patient. A non in-person visit was deemed medically necessary to evaluate the patient for new left inguinal pain during the Covid- pandemic. I spent a total of 7 minutes communicating with the patient, 5 minutes of which was in counseling and medical decision making. The call was NOT related to any visit or procedure occurring within the last 7 days. Mr. Grande had an open left inguinal hernia repair with mesh in June 2022. He recuperated and was pain-free for many months. In October of this year when he began doing more activities around his home he began to have a new symptom. When he rises from a low seated position he has a catch of pain on the left. He describes this pain symptoms as sharp but fleeting lasting only a few seconds but never more than a few minutes. This is the only activity that causes the pain. He does not have pain gwen regular basis. He does not have pain at rest. He does not describe neuropathic pain with radiation. He has had no imaging. I am going to order a CT scan of his pelvis to assess the left inguinal region and see him in clinic for evaluation. While I think he may simply be describing the pull of the mesh against his abdominal wall muscles with a specific activity or motion, I think it would be reasonable to reassess for arecurrence. His questions were answered. Electronic Signature on File Electronically Reviewed/Signed by: Gabriel Hoang MD Author Signature Dt/Tm:03/31/2023 08:08 AM Division of Minimally Invasive Surgery EMP Patient Care team information Care Team Personnel Name: MOY Alex Samantha Position: Nurse Pract - Urology Member Role: Lifetime Relationship Address: Address: [address] [place] [address] [place] Name: CHAVA Multani Joy C Position: Referring DIRECT Member Role: Primary Care Provider Address: Address: [address] [address] [place] Name: MD Link Jay D Position: Physician - Urology Member Role: Lifetime Relationship Address: Address: [address] [place] [address] [place] Name: PhD Varela Andrea Position: Physician - General Surg Psych Member Role: Lifetime Relationship Address: Address: [address] [place] [address] [place] Name: MD Childress Ann M Position: Physician - Surgery MIS Member Role: Lifetime Relationship Address: Address: [address] [place] [address] [place] Care Team Related Persons Name: RAMU MOURA Address: home [address] [place] [address] DR EB[place], [phone]
== END 2023-06-09 17:27 | disposition home or self-care (01) | DRG 660 ==
LOC: ED 17:47 → SUATTDRO 23:53 → 3N 23:53